=== PATIENT | male | born 1975 | race Caucasian/White ===

== ENCOUNTER 2017-04-20 19:55 | Emergency (ER) | payer SELFPAY ==
[2017-04-20 19:56] VITALS: BP 159/86; PULSE 85; RESP 20; TEMP 36.6; O2SAT 97; BMI 25.1
[2017-04-20 20:25] LABS: Basophils % 0.5 % (0.1-2.0); Eosinophils # 0.2 K/mm3 (0.0-0.4); Eosinophils % 3.3 % (0.1-12.0); Hematocrit 48.4 % (42.0-52.0); Hemoglobin 16.1 g/dL (14.1-18.0); Lymphocytes # 1.7 K/mm3 (0.7-4.5); Lymphocytes % 23.6 K/mm3 (10-50); Mean Corpuscular HGB Conc 33.3 g/dL (31.8-35.4); Mean Corpuscular Hemoglobin 29.3 pg (27.0-31.2); Mean Platelet Volume 9.3 fl (7.4-10.4); Monocytes # 0.4 K/mm3 (0.1-1.0); Monocytes % 5.9 % (1.7-9.3); Neutrophils # 4.9 K/mm3 (1.8-7.8); Neutrophils % 66.8 % (37.0-80.0); Platelet Count 144 K/mm3 (142-424); Red Blood Count 5.51 M/mm3 (4.60-6.20); White Blood Count 7.3 K/mm3 (4.8-10.8)
--- NOTE | 2017-04-20 20:28 | HMH.EDHA ---
ED Disposition Clinical Impression: Headache Qualifiers: Headache type: unspecified Headache chronicity pattern: acute headache Intractability: not intractable Qualified Code(s): R51 - Headache Disposition: Home, Self-Care Condition on Discharge: Good Instructions: DI for Headache Additional Instructions: call pcp for follow up Referrals: Mell Doe [Primary Care Provider] - - Critical Care Critical Care Time: No Attestation: On 04/20/17, the high probability of a clinically significant, sudden or life threatening deterioration of the following system(s) required my full and direct attention, intervention and personal management. The time I documented below is in addition to time spent performing reported procedures but includes the following listed in this critical care notation. Medical Decision Making - Medical Records Medical records reviewed: Yes: I reviewed the patient's medical records. Vital Signs: 04/20/17 19:56 Temperature 97.9 F Temperature Source Oral Pulse Rate [Right Radial] 85 Respiratory Rate 20 Blood Pressure [Right Arm] 159/86 Blood Pressure Mean [Right Arm] 110 Blood Pressure Position [Right Arm] Sitting 02 Sat by Pulse Oximetry 97 - Lab Data Lab results reviewed: Yes: I reviewed the patient's lab results. Lab Results 04/20/17 20:00: ESR 9 04/20/17 20:20: WBC 7.3, RBC 5.51, Hgb 16.1, Hct 48.4, MCV 88.0, MCH 29.3, MCHC 33.3, RDW 13.0, Plt Count 144, MPV 9.3, Neut % (Auto) 66.8, Lymph % (Auto) 23.6, Placer % (Auto) 5.9, Eos % (Auto) 3.3, Baso % (Auto) 0.5, Neut # (Auto) 4.9, Lymph # (Auto) 1.7, Placer # (Auto) 0.4, Eos # (Auto) 0.2, Baso # (Auto) 0.0 04/20/17 20:20: Sodium 139, Potassium 4.1, Chloride 104, Carbon Dioxide 29, Anion Gap 10.1, BUN 11, Creatinine 1.05, Estimated Creat Clear 106, Estimated GFR 77, Est GFR ( Amer) 94, Glucose 352 H, Calcium 8.7, Total Bilirubin 0.4, AST 8 L, ALT 26, Alkaline Phosphatase 99, Total Protein 6.5, Albumin 3.4, Globulin 3.1, Albumin/Globulin Ratio 1.1 Result diagrams: 04/20/17 20:20 04/20/17 20:20 Orders (Tests/Meds): ED MEDICATIONS Discontinued Medications Generic Name Dose Route Start Last Admin Trade Name Kaushik PRN Reason Stop Dose Admin Diphenhydramine HCl 50 mg 04/20/17 21:20 04/20/17 21:29 Benadryl 50mg/1ml Vial IV 04/20/17 21:21 50 mg ONCE ONE Administration Sodium Chloride 1,000 mls @ 999 mls/hr 04/20/17 20:15 04/20/17 20:18 Sod Chlor 0.9% 1000ml Bag IV 04/20/17 21:15 999 mls/hr .Q1H1M SAHIL Administration Ketorolac Tromethamine 30 mg 04/20/17 20:03 04/20/17 20:18 Toradol 30mg/Ml Vial IV 04/20/17 20:04 30 mg ONCE ONE Administration Ondansetron HCl 4 mg 04/20/17 20:03 04/20/17 20:18 Zofran 4mg/2ml Vial IV 04/20/17 20:04 4 mg ONCE ONE Administration Promethazine HCl 12.5 mg 04/20/17 21:21 04/20/17 21:29 Phenergan 25mg/Ml 1ml Vial IV 04/20/17 21:22 12.5 mg ONCE ONE Administration Sodium Chloride 25 ml 04/20/17 21:21 04/20/17 21:29 Sod Chlor 0.9% 25ml Bag IV 04/20/17 21:22 25 ml ONCE ONE Administration ORDERS Category Date Time Status CT head/brain wo con Routine Cat Scan 04/20/17 20:32 Taken - CT Data CT Scan: Head Time Received: 21:[address] Reviewed: Yes: I have viewed the radiologist's interpretation Preliminary Findings: Normal/NAD - Brian Inquiry Pt receiving controlled substance: No Headache HPI - General Chief Complaint: Headache Stated Complaint: Migraine Time Seen by Provider: 04/20/17 20:28 Mode of Arrival: Family Vehicle Source of Information: Patient, Spouse, Medical Record Limitations: No Limitations Description of Symptoms (Recalled from ER Triage Doc. by RN): C/O HEADACHE SINCE 1500 TODAY. PT STATES HE HAD A MIGRAINE ONCE BEFORE IN THE PAST. STATES HE TOOK 1000 MG TYLENOL WITH NO RELIEF. PT HAS HAD ONE EPISODE OF NAUSEA/VOMITING. - History of Present Illness HPI Narrative: lt sided joe with nausea with
--- NOTE | 2017-04-20 20:32 | CT_ITS ---
CT head/brain wo con HISTORY: Headache, pain, severe headache for 2 days. ORDERING PHYSICIAN: Stefan Villalobos MD PATIENT AGE: 41 years COMPARISON: None TECHNIQUE: Axial images obtained without contrast. Brain and bone windows reviewed. FINDINGS: No midline shift, mass effect, intracranial hemorrhage, hydrocephalus, or extra-axial fluid collection is evident. Artifact is present from patient's earrings. The calvarium has an unremarkable appearance. Small amount fluid is present in the right mastoid sinus. No sinus air-fluid levels.. IMPRESSION: 1. No acute intracranial findings. 2. Small right mastoid effusion.
[2017-04-20 20:46] LABS: Alanine Aminotransferase 26 U/L (12-78); Albumin Level 3.4 gm/dL (3.4-5.0); Albumin/Globulin Ratio 1.1 (1.1-1.8); Alkaline Phosphatase 99 U/L (46-116); Anion Gap 10.1 mEq/L (5-15); Aspartate Amino Transferase 8 U/L (15-37); Bilirubin,Total 0.4 mg/dL (0.2-1.0); Blood Urea Nitrogen 11 mg/dL (7-18); Calcium 8.7 mg/dL (8.5-10.1); Carbon Dioxide 29 mmol/L (21.0-32.0); Chloride 104 mmol/L (98-107); Creatinine Clearance Estimated 106 mL/min (0-300); Creatinine,Serum 1.05 mg/dL (0.70-1.30); Estimated Glomerular Filt Rate 77 ml/min (>60); GFR (African American) 94 ML/MIN (>60); Globulin 3.1 gm/dl (1.3-3.2); Glucose 352 mg/dL (74-106); Potassium 4.1 mmoL/L (3.5-5.1); Sodium 139 mmol/L (136-145); Total Protein,Serum 6.5 gm/dL (6.4-8.2)
[2017-04-20 21:32] LABS: Erythrocyte Sedimentation Rate 9 mm/hr (0-15)
[2017-04-20 22:11] VITALS: BP 145/80; PULSE 85; RESP 16; TEMP 36.7; O2SAT 98
== END 2017-04-20 22:33 | disposition home or self-care (01) ==
PROVIDERS: Emergency Provider Emergency Medicine; Family Provider Family Medicine Geriatric Medicine; PCP Family Medicine Geriatric Medicine
DX: R51 Headache (principal); E11.65 Type 2 diabetes mellitus with hyperglycemia; F17.210 Nicotine dependence, cigarettes, uncomplicated; Z79.84 Long term (current) use of oral hypoglycemic drugs
CPT/HCPCS: 70450; 80053; 85025; 85651; 96365; 96367; 96374; 96375; 99282; J0595; J2405

== ENCOUNTER → 2019-12-25 07:20 | Outpatient (CLI) | payer OTHER, MEDICAID, SELFPAY ==
[2019-12-25 10:33] LABS: Coronavirus 19 IgG Antibody Negative (Negative); Coronavirus 19 IgM Antibody Negative (Negative)
== END ==
PROVIDERS: Visit Provider Ophthalmology
DX: Z01.818 Encounter for other preprocedural examination (principal); Z98.41 Cataract extraction status, right eye
CPT/HCPCS: 36415; 86328

== ENCOUNTER 2019-12-26 08:39 | Day surgery (SDC) | payer OTHER, MEDICAID, SELFPAY ==
[2019-12-25 15:29] VITALS: BMI 25.1
[2019-12-26 09:08] VITALS: BP 155/91; PULSE 67; RESP 18; TEMP 36.2; O2SAT 97
[2019-12-26 09:25] LABS: POC Glucose,Bedside 221 (70-110)
[2019-12-26 10:30] VITALS: BP 153/87; PULSE 68; RESP 18; O2SAT 98
[2019-12-26 10:35] VITALS: BP 153/88; PULSE 69; RESP 18; O2SAT 97
[2019-12-26 10:40] VITALS: BP 167/87; PULSE 73; RESP 18; O2SAT 97
[2019-12-26 10:45] VITALS: BP 152/91; PULSE 73; RESP 18; O2SAT 97
[2019-12-26 10:47] VITALS: BP 160/87; PULSE 75; RESP 16; TEMP 36.3; O2SAT 98
== END 2019-12-26 10:53 | disposition home or self-care (01) ==
LOC: OR 08:40
PROVIDERS: PCP Nurse Practitioner Family; Visit Provider Ophthalmology
PROC: (CPT 66984; principal; 2019-12-26 11:00)
DX: H25.813 Combined forms of age-related cataract, bilateral (principal); E11.9 Type 2 diabetes mellitus without complications; Z79.84 Long term (current) use of oral hypoglycemic drugs; Z79.899 Other long term (current) drug therapy
CPT/HCPCS: 66984; 82962; V2632

== ENCOUNTER → 2020-01-08 07:00 | Outpatient (CLI) | payer OTHER, MEDICAID, SELFPAY ==
[2020-01-08 08:41] LABS: Coronavirus 19 IgG Antibody Negative (Negative); Coronavirus 19 IgM Antibody Negative (Negative)
== END ==
PROVIDERS: Visit Provider Ophthalmology
DX: Z01.818 Encounter for other preprocedural examination (principal); Z98.42 Cataract extraction status, left eye
CPT/HCPCS: 36415; 86328

== ENCOUNTER 2020-01-09 07:02 | Day surgery (SDC) | payer OTHER, MEDICAID, SELFPAY ==
[2020-01-04 13:55] VITALS: BMI 25.1
[2020-01-09] VITALS (8 sets, daily range): BP systolic 128–155; BP diastolic 78–89; PULSE 68–78; RESP 16–18; TEMP 36.4–36.6; O2SAT 98–100
[2020-01-09 07:40] LABS: POC Glucose,Bedside 295 (70-110)
== END 2020-01-09 09:20 | disposition home or self-care (01) ==
PROVIDERS: PCP Nurse Practitioner Family; Visit Provider Ophthalmology
PROC: (CPT 66984; principal; 2020-01-09 08:30)
DX: H26.9 Unspecified cataract (principal); E11.9 Type 2 diabetes mellitus without complications; Z79.84 Long term (current) use of oral hypoglycemic drugs; Z79.899 Other long term (current) drug therapy
CPT/HCPCS: 66984; 82962; V2632

== ENCOUNTER → 2020-08-15 11:57 | Outpatient (CLI) | payer OTHER, SELFPAY ==
[2020-08-15 12:23] LABS: Basophils # 0.1 K/mm3 (0-0.2); Basophils % 0.8 % (0.1-2.0); Eosinophils # 0.3 K/mm3 (0.0-0.4); Eosinophils % 3.5 % (0.1-12.0); Hematocrit 42.4 % (42.0-52.0); Hemoglobin 14.2 g/dL (14.1-18.0); Lymphocytes # 2.9 K/mm3 (0.7-4.5); Lymphocytes % 39.2 % (10-50); Mean Corpuscular HGB Conc 33.4 g/dL (31.8-35.4); Mean Corpuscular Hemoglobin 27.5 pg (27.0-31.2); Mean Corpuscular Volume 82.3 fl (80-94); Mean Platelet Volume 9.4 fl (7.4-10.4); Monocytes # 0.5 K/mm3 (0.1-1.0); Monocytes % 6.7 % (1.7-9.3); Neutrophils # 3.7 K/mm3 (1.8-7.8); Neutrophils % 49.8 % (37.0-80.0); Platelet Count 185 K/mm3 (142-424); Red Blood Count 5.15 M/mm3 (4.60-6.20); Red Cell Distribution Width 12.8 % (11.5-17.5); White Blood Count 7.4 K/mm3 (4.8-10.8)
[2020-08-15 13:42] LABS: Chloride 104 mmol/L (98-107)
[2020-08-15 13:43] LABS: Potassium 4.6 mmoL/L (3.5-5.1); Sodium 142 mmol/L (136-145)
[2020-08-15 13:45] LABS: Blood Urea Nitrogen 22 mg/dl (9-20); Estimated Glomerular Filt Rate 72 ml/min (>60)
[2020-08-15 13:46] LABS: Anion Gap 13.6 mEq/L (5-15); Calcium 9.7 mg/dl (8.4-10.2); Carbon Dioxide 29 mmol/L (22.0-30.0); GFR (African American) 87 ML/MIN (>60); Glucose 181 mg/dl (74-100)
== END ==
PROVIDERS: Visit Provider Internal Medicine Cardiovascular Disease
DX: Z01.812 Encounter for preprocedural laboratory examination (principal); Z11.52 Encounter for screening for COVID-19; R06.00 Dyspnea, unspecified; I20.0 Unstable angina; R00.2 Palpitations; I45.10 Unspecified right bundle-branch block; R94.31 Abnormal electrocardiogram [ECG] [EKG]; E11.69 Type 2 diabetes mellitus with other specified complication; Z87.891 Personal history of nicotine dependence; Z79.84 Long term (current) use of oral hypoglycemic drugs
CPT/HCPCS: 36415; 80048; 85025; U0003

== ENCOUNTER 2020-08-22 07:25 | Day surgery (SDC) | payer OTHER, SELFPAY ==
[2020-08-22] VITALS (13 sets, daily range): BP systolic 106–161; BP diastolic 55–109; PULSE 57–62; RESP 16–18; O2SAT 90–98; BMI 28.7
--- NOTE | 2020-08-22 07:04 | IR_ITS ---
APPROVED REPORT Patient Location: Outpatient [place] Lathe Operator: NICK Thapa RT (R) PROCEDURES Left heart catheterization Left ventriculogram Selective coronary angiogram INDICATION Accelerated angina pectoris Informed consent was obtained prior to the procedure. COMPLICATIONS NONE Estimated Blood Loss: LESS THAN 10 ML TECHNIQUE One percent lidocaine used to anesthetize the right anterior aspect of the wrist. The right radial artery was accessed via the Seldinger technique. A 6 Guamanian sheath was placed in the right radial artery. 2.5 mg of verapamil, 800 mcg of nitroglycerin, 1mg Lidocaine and 5000 U Heparin were given through the arterial sheath. The trap catheter was also used to perform left heart catheterization, left ventriculogram and selective coronary angiogram. At the end of the procedure the sheath was removed good hemostasis was achieved using Traclet band, patient was transferred to the postop holding area in stable condition. ANGIOGRAPHIC RESULTS The left main artery Has distal 30% stenosis The left anterior descending artery Proximal greater than 90% stenosis accompanied by ISAK II flow. The circumflex artery Gives rise to a ramus intermedius which has proximal 90% stenosis. The circumflex artery itself has a long proximal 90% stenosis The right coronary artery Is a dominant vessel and has proximal 90% stenoses with distal 50 and 60% stenosis The MCDANIEL ventriculogram reveals Dilated ventricle ejection fraction 30% The left ventricular end-diastolic pressure 25 mmHg IMPRESSION Severe to critical three-vessel coronary disease Dilated ventricle with reduced ejection fraction Elevated LVEDP PLAN 1. Patient requires urgent coronary bypass surgery 2. We will make arrangements to transfer to [facility] Electronically signed by : Jesu Aguilar, 08/22/2020 09:09:27
== END 2020-08-22 11:11 | disposition hospice, home (50) ==
PROVIDERS: PCP Nurse Practitioner Family; Visit Provider Internal Medicine
DX: I25.110 Atherosclerotic heart disease of native coronary artery with unstable angina pectoris (principal); E11.69 Type 2 diabetes mellitus with other specified complication; I45.10 Unspecified right bundle-branch block; R00.2 Palpitations; F17.210 Nicotine dependence, cigarettes, uncomplicated
CPT/HCPCS: 93458; 99152; C1725; C1769; J1644; Q9967

== ENCOUNTER → 2020-11-26 12:38 | Outpatient (CLI) | payer BC, SELFPAY ==
--- NOTE | 2020-11-26 12:39 | CA_ITS ---
APPROVED REPORT EXAM: Comprehensive 2D, Doppler, and color-flow Echocardiogram Stone Polisher: Yecenia Balderas, RCS, RVS Ht: 5 ft 11 in Wt: 206lbs BSA: 2.13 BP: 124/82 mmHg Indications: [id number] w/ Pacer, ABN EKG, RBBB, Hx-silent PR, Ex-smoker, DM 2D Dimensions IVSd 0.99 cm LVEF (Visual) 65.60 % PWd 0.94 cm LA Volume 55.20 mL LVDd 5.02 cm LA Volume Index 25.80 mL/m2 (M/F) 16-34 LVDs 3.20 cm Aortic Root 2.91 cm Left Atrium 4.30 cm RVID Base (AP4) 2.30 cm (M/F) 2.5-4.1 LVOT 2.12 cm (M/F) 1.5-2.5 M-Mode Dimensions LA Diam 3.12 cm (1.9-4.0) Ao Diam 3.59 cm (2.0-3.7) TAPSE 1.32 (<1.7) LV Diastology E Decel Time 320.00 (160-240 msec) E/A Ratio 1.91 MED E' 9.30 (< 7 cm/sec) MED A' 6.70 cm/s E'/MED E' Ratio 6.88 (>14) LAT E' 12.50 (<10 cm/sec) LAT A' 5.70 cm/s E/LAT E' Ratio 5.12 (>14) Aortic Valve LVOT Max 78.00 (70-110 cm/s) LVOT VTI 15.43 cm AoV Peak Martin. 119.00 (50-130 cm/s) AO Peak GR. 5.70 mmHg AO Mean GR. 2.80 (<5 mmHg) AO VTI 23.03 (18-25 cm) CATINA (VTI) 2.37 (2.5-4.5 cm2) Mitral Valve MV A Velocity 34.00 (40-130 cm/s) E/A Ratio 1.91 MV Decel. Time 320.00 (160-240 ms) Tricuspid Valve TR P. Velocity 219.00 cm/s Left Ventricle Technically difficult study because of the patient factors and poor requested windows. Left atrium is mildly enlarged, left ventricular is normal size, mild concentric left ventricular hypertrophy, visually estimated ejection fraction 55% with no regional wall motion abnormality, diastolic parameters are not impressive. There is abnormal septal motion. Right Ventricle Right atrium and right ventricle are normal size and contractility, there is a pacemaker lead seen in the right atrium and right ventricle. Aortic Valve Aortic valve is minimally thickened and fibrosed, there is no aortic stenosis or aortic insufficiency. Mitral Valve Mitral valve grossly normal, there is mild mitral regurgitation. Tricuspid Valve Tricuspid valve grossly normal, there is mild tricuspid regurgitation, tricuspid regurgitation jet plus is inadequate for calculation of the right ventricular systolic pressure. Pulmonic Valve Pulmonic valve is poorly visualized. Great Vessels Aortic root is normal size. Inferior vena cava is normal size with normal inspiratory collapse. Pericardium No significant pericardial effusion noted. Conclusion 1. Mildly enlarged left atrium, normal left ventricular size, mild concentric left ventricular hypertrophy, visually estimated ejection fraction 55% with no regional wall motion abnormality, diastolic parameters are inconclusive. There is abnormal septal motion. 2. Mild mitral and tricuspid regurgitation. 3. No significant pericardial effusion noted. 4. Inferior vena cava is normal size with normal inspiratory collapse. Electronically signed by : Jason Melgoza MD 11/26/2020 18:59:08
== END ==
PROVIDERS: PCP Nurse Practitioner Family; Visit Provider Nurse Practitioner Family
DX: I25.10 Atherosclerotic heart disease of native coronary artery without angina pectoris (principal); I45.10 Unspecified right bundle-branch block; R94.31 Abnormal electrocardiogram [ECG] [EKG]; E11.9 Type 2 diabetes mellitus without complications; Z79.4 Long term (current) use of insulin; Z87.891 Personal history of nicotine dependence; Z95.0 Presence of cardiac pacemaker; Z95.1 Presence of aortocoronary bypass graft; I10 Essential (primary) hypertension
CPT/HCPCS: 93306

== ENCOUNTER → 2021-05-29 08:10 | Outpatient (CLI) | payer BC, SELFPAY ==
--- NOTE | 2021-05-29 08:14 | CA_ITS ---
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, old IN 2D Dimensions LVOT 1.95 cm (M/F) 1.5-2.5 LA Volume 43.60 mL LA Volume Index 19.90 mL/m2 (M/F) 16-34 M-Mode Dimensions RVDd 2.78 cm (0.9-2.6) LA Diam 4.14 cm (1.9-4.0) LVDd 5.63 cm (3.5-5.7) Ao Diam 3.80 cm (2.0-3.7) LVDs 4.39 cm (3.5-5.7) IVSd 1.24 cm (0.6-1.1) PWd 0.80 cm (0.6-1.1) EF (Teich) 44.00% FS 22.00% EDV (Teich) 155.60 mL TAPSE 1.68 (<1.7) ESV (Teich) 87.20 mL LV Diastology E Decel Time 150.00 (160-240 msec) E/A Ratio 1.92 MED E' 7.10 (< 7 cm/sec) MED A' 6.70 cm/s E'/MED E' Ratio 12.83 (>14) LAT E' 9.10 (<10 cm/sec) LAT A' 6.70 cm/s E/LAT E' Ratio 10.01 (>14) Aortic Valve AO Peak GR. 6.70 mmHg Mitral Valve MV E Max Martin. 91.00 (40-130 cm/s) MV A Velocity 47.00 (40-130 cm/s) E/A Ratio 1.92 MV Decel. Time 150.00 (160-240 ms) MV PHT 44.00 ms Pulmonary Valve PV Peak Velocity 115.00 (50-150 cm/s) Tricuspid Valve TR P. Velocity 252.00 cm/s RAP Estimate 10.00 mmHg RVSP 35.40 mmHg Left Ventricle Technically difficult study because of the patient factors and poor acoustic windows. Left atrium is mildly enlarged, left ventricle is normal size, mild concentric left ventricular hypertrophy, estimated ejection fraction 55% with no obvious regional wall motion abnormality, endocardial surfaces are poorly visualized. Diastolic parameters are inconclusive. Right Ventricle Right atrium and right ventricle are normal size and contractility. Aortic Valve Aortic valve is minimally thickened and fibrosed there is no aortic stenosis or aortic insufficiency. Mitral Valve Mitral valve is grossly normal, there is trace mitral regurgitation. Tricuspid Valve Tricuspid valve grossly normal, there is trace tricuspid regurgitation, tricuspid regurgitation jet velocity is inadequate for calculation of the right ventricular systolic pressure. Pulmonic Valve Pulmonic valve is poorly visualized. Great Vessels Aortic root is normal size. Inferior vena cava is poorly visualized. Pericardium No significant pericardial effusion noted. Conclusion 1. Mildly dilated, normal left ventricular size, mild concentric left ventricle hypertrophy, estimated ejection fraction 55% with no obvious regional wall motion abnormality, diastolic parameters are inconclusive, endocardial surface is poorly visualized. 2. Trace mitral and tricuspid regurgitation. 3. No significant pericardial effusion. 4. Inferior vena cava is poorly visualized. Electronically signed by : Jason Melgoza MD 05/30/2021 14:25:40
--- NOTE | 2021-05-29 08:59 | XR_ITS ---
FINAL REPORT TECHNIQUE: Chest PA & Lateral CLINICAL HISTORY: chest soreness FINDINGS: 2 views of the chest were performed. There is mild cardiomegaly. There is a left subclavian pacemaker. There are multiple sternotomy wires. The mediastinum is within normal limits. There is no acute cardiopulmonary process. There are no pleural effusions. There is no pneumothorax. There is cervical fusion hardware. IMPRESSION: No acute cardiopulmonary process. Reviewed, Interpreted and Dictated by Pj Sewell MD Transcribed by Francis Herndon Authenticated by Pj Sewell MD on 05/29/2021 10:30:28 AM [facility]
== END ==
LOC: RT 08:14
PROVIDERS: PCP Nurse Practitioner Family; Visit Provider Nurse Practitioner Family
DX: R06.00 Dyspnea, unspecified (principal); I25.810 Atherosclerosis of coronary artery bypass graft(s) without angina pectoris; I10 Essential (primary) hypertension; E78.2 Mixed hyperlipidemia; R60.0 Localized edema; Z95.0 Presence of cardiac pacemaker; Z95.1 Presence of aortocoronary bypass graft
CPT/HCPCS: 71046; 93306

== ENCOUNTER → 2021-09-19 14:19 | Outpatient (CLI) | payer BC, SELFPAY ==
[2021-09-19 15:28] LABS: Anion Gap 6.1 mEq/L (5-15); Blood Urea Nitrogen 15 mg/dl (9-20); Calcium 8.9 mg/dl (8.4-10.2); Carbon Dioxide 30 mmol/L (22.0-30.0); Chloride 105 mmol/L (98-107); Estimated Glomerular Filt Rate 80 ml/min (>60); GFR (African American) 97 ML/MIN (>60); Glucose 255 mg/dl (74-100); Potassium 4.1 mmoL/L (3.5-5.1); Sodium 137 mmol/L (136-145)
== END ==
PROVIDERS: PCP Nurse Practitioner Family; Visit Provider Physician Assistant
DX: R06.00 Dyspnea, unspecified (principal); R42 Dizziness and giddiness; R00.2 Palpitations; I25.810 Atherosclerosis of coronary artery bypass graft(s) without angina pectoris; I10 Essential (primary) hypertension; E78.2 Mixed hyperlipidemia; R60.0 Localized edema; Z95.0 Presence of cardiac pacemaker; Z95.1 Presence of aortocoronary bypass graft
CPT/HCPCS: 36415; 80048

== ENCOUNTER → 2021-10-02 06:05 | Outpatient (CLI) | payer BC, SELFPAY ==
--- NOTE | 2021-10-02 | CA_ITS ---
APPROVED REPORT Exam: Pharmacologic Technologist: Parul Higgins, Ht: 5 ft 11 in Wt: 218 lbs BSA: 2.19 m2 HR: 68 bpm BP: 162/93 mmHg Rhythm: NSR,RBB, right axis deviation Medical History Medical History: HTN, Hyperlipidemia, Diabetes Medications: Aspirin,,,,, Metformin,,,,, HCTZ,,,,, Carvedilol,,,,, INSULIN,,,,, Acetaminophen,,,,, Aldactone,,,,, JaRDiance,,,,, AtorvaASTATIN,,,,, TAdalafil,,,,, Lisnopril,,,,, Cardiac Risk Factors: HTN, Hyperlipidemia, Diabetes (insulin) Stress Test Details Test: LEXISCAN HR Resting HR: 65 bpm Max Heart Rate (APMHR): 173.450131 bpm Max HR Achieved: 76 bpm Target HR (85% APMHR): 147.913978 bpm % of APMHR: 43.93 Recovery HR: 68 bpm BP Resting BP: 162/93 mmHg Max BP: 162/93 mmHg Recovery BP: 162.0/93.0 mmHg ECG Resting ECG: NSR, RBBB, right axis deviation Clinical Exercise duration: 04:02 min Highest Stage Achieved: Exercise capacity: 1.0 METs Stress ECG Conclusion During lexiscan pt experinced mild SOA, nausea, head discomfort. No CP noted. No arrhythmias noted. No significant ST changes. Unremarkable lexiscan stress. Myoview images reported separately. Electronically signed by : Jason Melgoza MD 10/03/2021 10:56:49
--- NOTE | 2021-10-02 06:14 | NM_ITS ---
APPROVED REPORT Exam: Nuclear Stress Test Indication: short of breath..palpitations..fatigue Patient Location: Outpatient Stress Tech: Parul Higgins NM Tech:Diana Rueda SONNYMily RT(R)(N) Ht: 5 ft 11 in Wt: 200 lbs HR: 65 bpm BP: 162/93 mmHg BSA: 2.11 m2 TID: 1.17 BMI: 27.8 History: short of breath..palpitations..fatigue Procedure: Patient received a 0.4 mg of intravenous Lexiscan, resting heart rate 65 bpm, resting blood pressure 162/93 mmHg, with Lexiscan maximum heart rate achived was 76 bpm which is Less than 85 % of the maximum predicted heart rate and blood pressure was 162/93 mmHg. With Lexiscan, patient denied any complaint of chest pain. Cardiac Stress and Resting SPECT Images: Cardiac Stress and Resting SPECT images were obtained using technetium 99m Myoview 31.8 mCi stress and 10.36 mCi at rest. Resting electrocardiogram showed sinus rhythm, with Lexiscan there is less than 1.[address] segment depression noted from the baseline EKG. The EKG portion of the Lexiscan is nondiagnostic. Gated SPECT analysis of segmental wall motion and calculation of the ejection fraction also done. Cardiac stress and rest SPECT may show uniform myocardial activity without segmental perfusion abnormality, computer derived ejection fraction is 44% with no regional wall motion abnormality, right ventricle is normal size and contractility. Conclusion: 1. The EKG portion of the Lexiscan is nondiagnostic. 2. No scintigraphic evidence of reversible ischemia seen, computer derived ejection fraction is 44% with no regional wall motion abnormality, right ventricle is normal size and contractility. 3. Abnormal Lexiscan Myoview study due to low ejection fraction. Electronically signed by : Jason Melgoza MD 10/03/2021 10:59:37
== END ==
LOC: RAD 06:06
PROVIDERS: PCP Nurse Practitioner Family; Visit Provider Nurse Practitioner Family
DX: R06.09 Other forms of dyspnea (principal); R00.2 Palpitations; R42 Dizziness and giddiness; I25.810 Atherosclerosis of coronary artery bypass graft(s) without angina pectoris; I10 Essential (primary) hypertension; E78.2 Mixed hyperlipidemia; R60.0 Localized edema; Z95.0 Presence of cardiac pacemaker; Z95.1 Presence of aortocoronary bypass graft
CPT/HCPCS: 78452; 93017; A9502; J2785

== ENCOUNTER 2021-10-31 07:14 | Day surgery (SDC) | payer BC, SELFPAY ==
[2021-10-31] VITALS (17 sets, daily range): BP systolic 104–148; BP diastolic 60–101; PULSE 61–75; RESP 12–18; TEMP 36.9; O2SAT 90–96; BMI 30.8
--- NOTE | 2021-10-31 | IR_ITS ---
APPROVED REPORT Patient Location: Outpatient [place] Carpet Weaver: NICK Reynolds RT (R) PROCEDURES Left heart catheterization Left ventriculogram Selective coronary angiogram Selective engagement of the left internal mammary artery to the LAD Selective engagement of the saphenous vein graft which larson to the first diagonal artery and the first obtuse marginal artery Selective engagement of saphenous vein graft to the right coronary INDICATION Coronary artery disease, Progressive angina pectoris, History of coronary bypass surgery, Abnormal stress test with reduced ejection fraction Informed consent was obtained prior to the procedure. COMPLICATIONS None Estimated Blood Loss: Less than 10 mls TECHNIQUE One percent lidocaine used to anesthetize the right groin. The right femoral artery was accessed via the Seldinger technique and a 5 Yi sheath was placed in the right femoral artery. A JL 4, JR4 catheter were used to perform left heart catheterization, left ventriculogram selective coronary angiography as well as selective engagement of the 2 vein grafts and the left internal mammary artery. At the end of the procedure the patient was transferred to the postop holding area in stable condition for sheath removal. ANGIOGRAPHIC RESULTS The left main artery Has a long tubular 20 to 30% stenosis The left anterior descending artery Ostially occluded The circumflex artery Is patent however no significantly sized obtuse marginal arteries branch off the circumflex artery The right coronary artery Is dominant and patent. There is competitive flow from the vein graft distally. The proximal right coronary artery has 30% stenosis with additional 70 to 80% mid vessel stenoses with distal 70 to 80% stenoses. The posterior descending artery is large and does have competitive flow from the vein graft right to left collaterals are present which appear to provide some filling of a small obtuse marginal artery The MCDANIEL ventriculogram reveals Normal estimated at 60% The left ventricular end-diastolic pressure 10 mmHg ZHANG to LAD is widely patent however at the anastomosis there is a hazy area in which angiographic evaluation is difficult. The ZHANG graft does provide antegrade flow to the LAD. There is significant vascularity in the proximal and mid LAD which then appears to communicate with a pulmonary artery Saphenous vein graft to the left system is patent in the proximal portion and then gives rise to a Y graft with 1 limb supplying a small diagonal artery and the other supplying a small obtuse marginal artery system. The branch supplying the diagonal artery has a long proximal 70% stenosis followed by an additional 50% stenosis however the 70% stenotic area within the vein graft perfectly matches the diameter of the diagonal artery it is supplying. 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 I am inclined to recommend medical management for the fistula. However I have asked Dr. Glass at [facility] to evaluate the films and provide an opinion as to further management 2.
[2021-10-31 07:22] LABS: Coronavirus 19, PCR Not Detected (NotDetected); Influenza A, PCR Not Detected (NotDetected); Influenza B, PCR Not Detected (NotDetected)
[2021-10-31 07:34] LABS: Basophils # 0.2 K/mm3 (0-0.2); Basophils % 1.9 % (0.1-2.0); Eosinophils # 0.3 K/mm3 (0.0-0.4); Eosinophils % 3.2 % (0.1-12.0); Hematocrit 47.9 % (42.0-52.0); Hemoglobin 15.7 g/dL (14.1-18.0); Lymphocytes # 3.2 K/mm3 (0.7-4.5); Mean Corpuscular HGB Conc 32.8 g/dL (31.8-35.4); Mean Corpuscular Hemoglobin 27.8 pg (27.0-31.2); Mean Corpuscular Volume 84.8 fl (80-94); Mean Platelet Volume 10.3 fl (7.4-10.4); Monocytes # 0.5 K/mm3 (0.1-1.0); Neutrophils # 4.3 K/mm3 (1.8-7.8); Neutrophils % 50.9 % (37.0-80.0); Platelet Count 184 K/mm3 (142-424); Red Blood Count 5.65 M/mm3 (4.60-6.20); Red Cell Distribution Width 13.7 % (11.5-17.5); White Blood Count 8.4 K/mm3 (4.8-10.8)
[2021-10-31 08:19] LABS: Anion Gap 12.2 mEq/L (5-15); Blood Urea Nitrogen 17 mg/dl (9-20); Calcium 9.1 mg/dl (8.4-10.2); Carbon Dioxide 33 mmol/L (22.0-30.0); Chloride 100 mmol/L (98-107); Creatinine Clearance Estimated 118 mL/min (50-200); Estimated Glomerular Filt Rate 72 ml/min (>60); GFR (African American) 87 ML/MIN (>60); Glucose 137 mg/dl (74-100); Potassium 3.2 mmoL/L (3.5-5.1); Sodium 142 mmol/L (136-145)
== END 2021-10-31 13:35 | disposition home or self-care (01) ==
PROVIDERS: Physician Assistant; PCP Nurse Practitioner Family; Visit Provider Internal Medicine
DX: I25.118 Atherosclerotic heart disease of native coronary artery with other forms of angina pectoris (principal); E78.5 Hyperlipidemia, unspecified; Z95.0 Presence of cardiac pacemaker; Z95.1 Presence of aortocoronary bypass graft; R94.30 Abnormal result of cardiovascular function study, unspecified; I10 Essential (primary) hypertension; E11.9 Type 2 diabetes mellitus without complications; Z79.4 Long term (current) use of insulin; Z79.01 Long term (current) use of anticoagulants; Z79.899 Other long term (current) drug therapy; Z87.891 Personal history of nicotine dependence
CPT/HCPCS: 36415; 80048; 85025; 93459; 99152; C1725; C1769; C1894; C9803; J1644; Q9967; U0003; U0005

== ENCOUNTER → 2022-01-30 09:48 | Outpatient (CLI) | payer OTHER, SELFPAY ==
--- NOTE | 2022-01-30 09:54 | IR_ITS ---
FINAL REPORT CLINICAL HISTORY: LT SHOULDER PAIN, ft 0:38 FINDINGS: LEFT SHOULDER INJECTION FOR CT ARTHROGRAM HISTORY:. Left shoulder pain. PROCEDURE: After informed consent was obtained, a time-out was performed. Utilizing local anesthesia and sterile technique, with direct fluoroscopic guidance, access to the joint was obtained . A small amount of contrast was injected to confirm needle tip location. Additional dilute contrast was injected. IMPRESSION: Status post injection for CT arthrogram without immediate complication. Please see CT report. FLUOROSCOPY TIME: 38 seconds. 4 radiographs were obtained. Films reviewed , interpreted and dictated by Dr. Lomeli. Transcribed by Walter Dee PA-C. Reviewed, Interpreted and Dictated by Ghulam Lomeli III, MD Transcribed by ELIZABETH Salazar Authenticated and [facility]
--- NOTE | 2022-01-30 09:56 | CT_ITS ---
FINAL REPORT TECHNIQUE: Axial imaging of the left shoulder was obtained. This study was performed with techniques to keep radiation doses as low as reasonably achievable (ALARA). Individualized dose reduction techniques using automated exposure control or adjustment of mA and/or kV according to the patient's size were employed. CLINICAL HISTORY: LT SHOULDER PAIN, arthrogram FINDINGS: There is no evidence of rotator cuff tear. There is mild AC joint arthrosis. No contrast leak is seen to the bursa. There is a focal area of contrast extending to the superior labrum seen on axial image 36 and coronal image 37 consistent with focal, SLAP tear. Long head of the biceps tendon is unremarkable. There is no acute bony abnormality. IMPRESSION: No evidence of rotator cuff tear. Focal SLAP tear of the superior labrum. Reviewed, Interpreted and Dictated by Ghulam Lomeli III, MD Transcribed by Jenni Washington Authenticated and [facility]
== END ==
PROVIDERS: PCP Nurse Practitioner Family; Visit Provider Orthopaedic Surgery Adult Reconstructive Orthopaedic Surgery
DX: M25.512 Pain in left shoulder (principal)
CPT/HCPCS: 73040; 73200; Q9967

== ENCOUNTER 2022-03-24 16:00 | Outpatient (RCR) | payer OTHER, SELFPAY | END 2022-03-24 16:05 | disposition home or self-care (01) | LOC: PT 16:00 | PROVIDERS: PCP Internal Medicine | DX: S46.912A Strain of unspecified muscle, fascia and tendon at shoulder and upper arm level, left arm, initial encounter (principal) | CPT/HCPCS: 97033; 97035; 97110; 97163; 97164 ==

== ENCOUNTER 2022-05-13 11:00 | Outpatient (RCR) | payer OTHER, SELFPAY | END 2022-05-13 11:05 | disposition home or self-care (01) | LOC: PT 11:00 | PROVIDERS: Visit Provider Orthopaedic Surgery Adult Reconstructive Orthopaedic Surgery | DX: M25.512 Pain in left shoulder (principal); Z96.612 Presence of left artificial shoulder joint | CPT/HCPCS: 97016; 97110; 97140; 97163 ==

== ENCOUNTER 2022-05-28 09:19 | Inpatient (IN) | payer BC, SELFPAY ==
[2022-05-28] VITALS (8 sets, daily range): BP systolic 126–153; BP diastolic 68–78; PULSE 63–80; RESP 16–18; TEMP 36.6–37.1; O2SAT 95–98; BMI 31.4; BMI 29.7
--- NOTE | 2022-05-28 09:44 | HMH.EDGENADL ---
Discharge Plan Disposition Patient Disposition: Admitted As Inpatient Condition: Fair Chief Complaint: Fever Prescriptions Prescriptions: No Action acetaminophen 500 mg capsule 500 mg PO Q6H PRN (Reason: .) insulin lispro protamin-lispro [Humalog Mix 75-25 KwikPen] 100 unit/mL (75-25) insulin pen 12 unit SQ DAILY lisinopril 5 mg tablet 5 mg PO DAILY Januvia 100 mg tablet 100 mg PO DAILY tadalafil 5 mg tablet 5 mg PO DAILY PRN (Reason: .) Label Comments: TAKE 1 TABLET BY MOUTH NEEDED 1 HOUR PRIOR TO SEXUAL INTERCOURSE ONCE A DAY Jardiance 10 mg tablet See Rx Instructions .ROUTE .COMPLEX Qty: 90 3RF Dose Instruction: Take 1 tablet by mouth once daily Rx Instructions: Take 1 tablet by mouth once daily carvedilol [Coreg] 6.25 mg tablet 6.25 mg PO BID Qty: 180 3RF Rx Instructions: must administer with a meal/food atorvastatin 80 mg tablet 80 mg PO HS clopidogrel [Plavix] 75 mg tablet 75 mg PO QDAY hydrochlorothiazide 25 mg tablet 25 mg PO QDAY aspirin 81 MG tablet,delayed release (DR/EC) 81 mg PO DAILY Referrals Follow up/Referrals: Beth Lawson APRN [Primary Care Provider] - See instructions Clinical Impressions Clinical Impression: Acute appendicitis with rupture, Intra-abdominal abscess Discharge ED Provider: Yoshi Miles General Adult HPI General Chief complaint: Fever Stated complaint: fever since last Wednesday on and off Time Seen by Provider: 05/28/22 09:28 Mode of Arrival: Ambulatory Source of Information: Patient and Parent(s) Limitations: No Limitations Description of Symptoms (Recalled from ER Triage Doc. by RN): Presents via POV d/t intermittent fever since Wednesday. Pt states fever onsets at night. Denies any other sx. MTemp 101.4. 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 Patient states that fevers been pretty persistent over the past 2 weeks. Has had nearly daily fever. Denies any other symptoms at all at this time. Has not noticed anything that helps the fever, but notices that they are primarily at night. Denies history of foreign travel, incarceration, public living, DVT or PE risk factors, recent weight loss, decreased appetite, or any other concerns at this time. Related Data Home Medications Medication Instructions Recorded Confirmed aspirin 81 mg tablet,delayed 81 mg PO DAILY Heart disease 08/22/20 03/24/22 release acetaminophen 500 mg capsule 500 mg PO Q6H PRN . 10/07/20 03/24/22 insulin lispro protamine-lispro 12 unit SQ DAILY . 10/07/20 03/24/22 100 unit/mL (75-25) subcutaneous pen (Humalog Mix 75-25 KwikPen) tadalafil 5 mg tablet 5 mg PO DAILY PRN . 05/22/21 03/24/22 atorvastatin 80 mg tablet 80 mg PO HS . 10/31/21 03/24/22 clopidogrel 75 mg tablet (Plavix) 75 mg PO QDAY . 10/31/21 03/24/22 hydrochlorothiazide 25 mg tablet 25 mg PO QDAY . 10/31/21 03/24/22 lisinopril 5 mg tablet 5 mg PO DAILY 03/24/22 03/24/22 sitagliptin phosphate 100 mg 100 mg PO DAILY 03/24/22 03/24/22 tablet (Januvia) Previous Rx's Medication Instructions Recorded empagliflozin 10 mg tablet See Rx Instructions .Route 12/22/21 (Jardiance) .COMPLEX #90 tabs carvedilol 6.25 mg tablet (Coreg) 6.25 mg PO BID . #180 tabs 04/14/22 Allergies Allergy/AdvReac Type Severity Reaction Status Date / Time hydrochlorothiazide AdvReac Intermediate DIARRHEA Verified 03/24/22 11:27 [facility] Disclaimer: The information contained in this section may have been updated after the patient was seen, as this information can be updated by other users. Medical History (Updated 05/28/22 @ 14:32 by Yoshi Miles MD) Abnormal EKG Abnormal result of cardiovascular function study CAD (coronary artery disease) Mary
--- NOTE | 2022-05-28 09:48 | XR_ITS ---
FINAL REPORT CLINICAL HISTORY: persistent fever [id number], COMPARISON: 05/29/2021 FINDINGS: Two views of the chest were obtained. Left subclavian pacemaker is noted. The heart size and pulmonary vascularity are within normal limits. There is evidence of prior median sternotomy. No acute pulmonary abnormality is identified. There is no pneumothorax. The bony thorax is intact. There are postoperative changes in lower cervical spine. IMPRESSION: No active cardiopulmonary disease. Reviewed, Interpreted and Dictated by Ghulam Lomeli III, MD Transcribed by Mandie Hernandez Authenticated and [facility]
--- NOTE | 2022-05-28 09:57 | PC.NURSE ---
pt ambulatory back from radiology
[2022-05-28 10:07] LABS: Basophils % 0.2 % (0.1-2.0); Eosinophils # 0.1 K/mm3 (0.0-0.4); Eosinophils % 0.6 % (0.1-12.0); Hematocrit 39.7 % (42.0-52.0); Hemoglobin 13.2 g/dL (14.1-18.0); Lymphocytes # 1.4 K/mm3 (0.7-4.5); Lymphocytes % 7.9 % (10-50); Mean Corpuscular HGB Conc 33.2 g/dL (31.8-35.4); Mean Corpuscular Hemoglobin 27.8 pg (27.0-31.2); Mean Corpuscular Volume 83.5 fl (80-94); Mean Platelet Volume 8.9 fl (7.4-10.4); Monocytes # 0.8 K/mm3 (0.1-1.0); Monocytes % 4.5 % (1.7-9.3); Neutrophils # 15.1 K/mm3 (1.8-7.8); Neutrophils % 86.7 % (37.0-80.0); Platelet Count 248 K/mm3 (142-424); Red Blood Count 4.76 M/mm3 (4.60-6.20); Red Cell Distribution Width 13.8 % (11.5-17.5); White Blood Count 17.4 K/mm3 (4.8-10.8)
[2022-05-28 10:12] LABS: Alanine Aminotransferase 38 U/L (12-78); Albumin Level 3.2 g/dl (3.5-5.0); Alkaline Phosphatase 152 U/L (38-126); Anion Gap 8.7 mEq/L (5-15); Aspartate Amino Transferase 48 U/L (17-59); Bilirubin,Total 1.2 mg/dl (0.2-1.3); Blood Urea Nitrogen 17 mg/dl (9-20); Calcium 7.7 mg/dl (8.4-10.2); Carbon Dioxide 28 mmol/L (22.0-30.0); Chloride 99 mmol/L (98-107); Creatinine Clearance Estimated 93 mL/min (50-200); Estimated Glomerular Filt Rate 54 ml/min (>60); GFR (African American) 65 ML/MIN (>60); Globulin 3.2 g/dL (1.3-3.2); Glucose 226 mg/dl (74-100); Lactate Dehydrogenase 219 U/L (313-618); MANUAL DIFFERENTIAL MANUAL DIFFERENTIAL (MANUAL DIFF); Potassium 3.7 mmoL/L (3.5-5.1); Sodium 132 mmol/L (136-145); Total Protein,Serum 6.4 g/dl (6.3-8.2); Uric Acid 6.2 mg/dl (3.5-8.5)
--- NOTE | 2022-05-28 10:19 | PC.NURSE ---
Pt updated on plan of care. Fluids initiated. Oral fluids provided; pt tolerating well. Family at bedside.
[2022-05-28 10:20] LABS: Microscopic, Urine URINE MICROSCOPIC (MICROSCOPIC)
[2022-05-28 10:22] LABS: Appearance,Urine CLEAR (Clear); Bilirubin,Urine Negative (Negative); Blood, Urine 1+ (Negative); Color,Urine YELLOW (Yellow); Glucose,Urine (UA) 3+ (Negative); Ketones,Urine Negative (Negative); Leukocyte Esterase,Urine Negative (Negative); Nitrate,Urine Negative (Negative); Protein,Urine 2+ (Negative); Urobilinogen,Urine 0.2 EU/dl (0.2)
[2022-05-28 10:24] LABS: Lymphocytes % 10 % (10-50); Monocytes % 8 % (2-9); Neutrophils % 82 % (42-76); Platelet Estimate Normal; RBC Morphology Normal; Total Cells Counted 100
[2022-05-28 10:33] LABS: Amphetamine/Metha Screen,Urine Negative ng/ml (<1000)
[2022-05-28 10:34] LABS: Barbiturates Screen,Urine Negative ng/ml (<200); Benzodiazepines Screen,Urine Negative ng/ml (<200)
[2022-05-28 10:35] LABS: Cannabinoid Screen,Urine Negative ng/ml (<50)
[2022-05-28 10:36] LABS: Cocaine Screen,Urine Negative ng/ml (<300)
[2022-05-28 10:37] LABS: Methadone Screen,Urine Negative ng/ml (<300); Opiate Screen,Urine Negative ng/ml (<300)
[2022-05-28 10:38] LABS: Phencyclidine Screen,Urine Negative ng/ml (<25)
[2022-05-28 10:45] LABS: Thyroid Stimulating Hormone 3.55 uIU/mL (0.465-4.68)
[2022-05-28 10:46] LABS: Coronavirus 19, PCR Not Detected (NotDetected); Influenza A, PCR Not Detected (NotDetected); Influenza B, PCR Not Detected (NotDetected)
[2022-05-28 10:47] LABS: Squamous Epithelial Cell,Urine Occasional #/hpf (0-5)
--- NOTE | 2022-05-28 11:00 | CT_ITS ---
FINAL REPORT CLINICAL HISTORY: fever, elevated dimer FINDINGS: Thin section axial CT images of the chest were obtained with contrast. 3D reformatted images were also obtained. This study was performed with techniques to keep radiation doses as low as reasonably achievable (ALARA). Individualized dose reduction techniques using automated exposure control or adjustment of mA and/or kV according to the patient's size were employed. There is no evidence of pulmonary embolism. There is no evidence of thoracic aortic aneurysm or dissection. There is no evidence of mediastinal or hilar mass or adenopathy. The patient is status post median sternotomy. Left subclavian pacer is identified. There are mild bilateral pulmonary ground-glass opacities, favor edema. Limited images of the upper abdomen show the patient to be status post cholecystectomy. IMPRESSION: No evidence of pulmonary embolism. Bilateral pulmonary ground-glass opacities, favor edema. Reviewed, Interpreted and Dictated by Ghulam Lomeli III, MD Transcribed by Bri Whitley Authenticated and [facility]
--- NOTE | 2022-05-28 11:00 | CT_ITS ---
FINAL REPORT TECHNIQUE: Axial CT images of the abdomen and pelvis were obtained after the administration of IV contrast. Coronal reformatted images were also obtained and reviewed.This study was performed with techniques to keep radiation doses as low as reasonably achievable (ALARA). Individualized dose reduction techniques using automated exposure control or adjustment of mA and/or kV according to the patient's size were employed. CLINICAL HISTORY: fever COMPARISON: None FINDINGS: CT OF THE ABDOMEN AND PELVIS WITH CONTRAST Abdomen: There is mild atelectasis or scar in the lingula. The heart is normal in size. The liver has an unremarkable appearance, without evidence of mass or biliary ductal dilatation. Post cholecystectomy. The spleen is unremarkable. No adrenal mass is present. The pancreas has an unremarkable appearance. The kidneys are normal, without evidence of mass or hydronephrosis. The aorta is normal in caliber. Pelvis: There is an air and fluid collection in the right abdomen posterior to the cecum measuring 6 cm. Distended appendix appears to extend into this. There are adjacent inflammatory changes. The appearance is most worrisome for ruptured appendicitis with abscess versus less likely other inflammatory process with abscess. The urinary bladder is unremarkable.There are several enlarged right lower quadrant mesenteric nodes which may be reactive. IMPRESSION: Findings most worrisome for ruptured appendicitis with abscess. Reviewed, Interpreted and Dictated by Ghulam Lomeli III, MD Transcribed by Mandie Hernandez Authenticated and [facility]
--- NOTE | 2022-05-28 11:07 | PC.NURSE ---
No complaints at this time. Pt updated on plan of care.
--- NOTE | 2022-05-28 11:54 | PC.NURSE ---
Pt updated on plan of care. Awaiting CT results. No further complaints at this time.
--- NOTE | 2022-05-28 13:42 | PC.NURSE ---
paging surgeon regasification plant operator to speak with nando finney
--- NOTE | 2022-05-28 14:33 | PC.NURSE ---
Food offered, however patient declined. Oral fluids provided. Pt/family updated on plan of care.
--- NOTE | 2022-05-28 14:50 | PC.NURSE ---
rounded on pt, family at bs
--- NOTE | 2022-05-28 14:52 | PC.NURSE ---
consulting with Dr. Aguilar, hospitalist.
--- NOTE | 2022-05-28 14:56 | PC.NURSE ---
Care Management notified of admission. Dx Ruptured appendicitis with abscess, admitting Dr. Aguilar.
--- NOTE | 2022-05-28 15:11 | EXP.SURG.CON ---
History of Present Illness *Admission Date: 05/28/22 *Reason for visit:: Abdominal abscess, possible perforated appendicitis *History of present illness: Patient is a 47-year-old male with history of coronary artery disease, previous myocardial infarction, cardiac pacemaker, previous CABG x4, diabetes mellitus with sequelae requiring bilateral cataract surgery several years ago, on dual antiplatelet therapy. He presented to the emergency department with approximately 2 weeks of intermittent, mostly nocturnal, fevers with no other associated symptoms. Work-up in the emergency department revealed a mild leukocytosis of 17,000. He underwent extremely thorough work-up for these fevers of unknown origin. This included CT scan of the abdomen and pelvis which revealed findings worrisome for possible ruptured appendicitis with abscess characterized by air-fluid collection in the right abdomen posterior to the cecum measuring 6 cm with distended appendix extending into this abscess with diffuse adjacent inflammatory changes. By report this is most consistent with perforated appendicitis with established abscess less likely other inflammatory process. Patient denies ever having any abdominal pain or tenderness. He has never had prior colonoscopy by the way. [facility] Disclaimer: The information contained in this section may have been updated after the patient was seen, as this information can be updated by other users. 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 Meds Home Medications and Allergies Home Medications Medication Instructions Recorded Confirmed Type aspirin 81 mg tablet,delayed 81 mg PO DAILY Heart disease 08/22/20 05/28/22 History release acetaminophen 500 mg capsule 500 mg PO Q6HP PRN Mild Pain 10/07/20 05/28/22 History (Scale Score 1-4) insulin lispro protamine-lispro 20 unit SQ BID Diabetes 10/07/20 05/28/22 History 100 unit/mL (75-25) subcutaneous pen (Humalog Mix 75-25 KwikPen) atorvastatin 80 mg tablet 80 mg PO HS Cholesterol 10/31/21 05/28/22 History clopidogrel 75 mg tablet (Plavix) 75 mg PO QDAY . 10/31/21 03/24/22 History hydrochlorothiazide 25 mg tablet 25 mg PO QDAY . 10/31/21 03/24/22 History lisinopril 5 mg tablet 5 mg PO DAILY Hypertension 03/24/22 05/28/22 History sitagliptin phosphate 100 mg 100 mg PO DAILY Diabetes 03/24/22 05/28/22 History tablet (Januvia) carvedilol 6.25 mg tablet (Coreg) 6.25 mg PO BID Hypertension 05/28/22 05/28/22 History empagliflozin 10 mg tablet 10 mg PO DAILY Heart failure 05/28/22 05/28/22 History (Jardiance) tadalafil 20 mg tablet 20 mg PO DAILYP PRN Erectile 05/28/22 05/28/22 History Dysfunction New Prescriptions to Start Prescriptions: Allergies Allergy/AdvReac Type Severity Reaction Status Date / Time hydrochlorothiazide AdvReac Intermediate DIARRHEA Verified 03/24/22 11:27 Exam (Inpt) Vital signs and Labs for Last 24 Hours: Temp Pulse Resp BP Pulse Ox 97.8 F 70 18 135/78 97 05/28/22 09:28 05/28/22 15:00 05/28/22 09:28 05/28/22 15:00 05/28/22 15:00 Laboratory Results - last 24 hr 05/28/22 09:40: WBC 17.4 H, RBC 4.76, Hgb 13.2 L, Hct 39.7 L, MCV 83.5, MCH 27.8, MCHC 33.2, RDW 13.8, Plt Count 248, MPV 8.9, Neut % (Auto) 86.7 H,
--- NOTE | 2022-05-28 15:16 | PC.NURSE ---
Report provided to JAMEE Renee
--- NOTE | 2022-05-28 15:45 | PC.NURSE ---
Dr Aguilar, hospitalist at
--- NOTE | 2022-05-28 15:47 | EXP.HP ---
History of Present Illness *Admission Date: 05/28/22 *History of present illness: Patient is a 47-year-old male with history of coronary artery disease, previous myocardial infarction, cardiac pacemaker, previous CABG x4, diabetes mellitus with sequelae requiring bilateral cataract surgery several years ago, on dual antiplatelet therapy. He presented to the emergency department with approximately 2 weeks of intermittent, mostly nocturnal, fevers with no other associated symptoms. Work-up in the emergency department revealed a mild leukocytosis of 17,000. He underwent extremely thorough work-up for these fevers of unknown origin. This included CT scan of the abdomen and pelvis which revealed findings worrisome for possible ruptured appendicitis with abscess characterized by air-fluid collection in the right abdomen posterior to the cecum measuring 6 cm with distended appendix extending into this abscess with diffuse adjacent inflammatory changes. By report this is most consistent with perforated appendicitis with established abscess less likely other inflammatory process. Patient currently has no complaints. Discussed medical management of appendicitis versus surgical management. We will continue to monitor and see how he does. Patient had no concerns or complaints at this time all questions answered. [facility] Disclaimer: The information contained in this section may have been updated after the patient was seen, as this information can be updated by other users. 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 Review of Systems Review of Systems Review of systems:: pertinent systems reviewed and negative unless documented below Meds Home Medications and Allergies Home Medications Medication Instructions Recorded Confirmed Type aspirin 81 mg tablet,delayed 81 mg PO DAILY Heart disease 08/22/20 05/28/22 History release acetaminophen 500 mg capsule 500 mg PO Q6HP PRN Mild Pain 10/07/20 05/28/22 History (Scale Score 1-4) insulin lispro protamine-lispro 20 unit SQ BID Diabetes 10/07/20 05/28/22 History 100 unit/mL (75-25) subcutaneous pen (Humalog Mix 75-25 KwikPen) atorvastatin 80 mg tablet 80 mg PO HS Cholesterol 10/31/21 05/28/22 History clopidogrel 75 mg tablet (Plavix) 75 mg PO QDAY . 10/31/21 03/24/22 History hydrochlorothiazide 25 mg tablet 25 mg PO QDAY . 10/31/21 03/24/22 History lisinopril 5 mg tablet 5 mg PO DAILY Hypertension 03/24/22 05/28/22 History sitagliptin phosphate 100 mg 100 mg PO DAILY Diabetes 03/24/22 05/28/22 History tablet (Januvia) carvedilol 6.25 mg tablet (Coreg) 6.25 mg PO BID Hypertension 05/28/22 05/28/22 History empagliflozin 10 mg tablet 10 mg PO DAILY Heart failure 05/28/22 05/28/22 History (Jardiance) tadalafil 20 mg tablet 20 mg PO DAILYP PRN Erectile 05/28/22 05/28/22 History Dysfunction New Prescriptions to Start Prescriptions: Allergies Allergy/AdvReac Type Severity Reaction Status Date / Time hydrochlorothiazide AdvReac Intermediate DIARRHEA Verified 03/24/22 11:27 Exam Data for Last 24 hours Vital signs and Labs for Last 24 Hours: Temp Pulse Resp BP Pulse Ox 97.8 F 70 18 135/78 97 05/28/22 09:28 05/28/22 15:00 05/28/22 09:28 05/28/22 15:00 04
--- NOTE | 2022-05-28 15:50 | PC.NURSE ---
Dr. Aguilar at bedside.
--- NOTE | 2022-05-28 16:02 | PC.NURSE ---
Pt arrived to the floor at this time
--- NOTE | 2022-05-28 16:18 | HMH.PHAINT1 ---
Pharmacy Intervention Comments: Reconciled patient's home medications using pharmacy fill history and patient interview.
[2022-05-28 17:26] LABS: POC Glucose,Bedside 130 (70-110)
[2022-05-28 21:08] LABS: POC Glucose,Bedside 146 (70-110)
[2022-05-29] VITALS (7 sets, daily range): BP systolic 121–152; BP diastolic 59–75; PULSE 67–82; RESP 16–20; TEMP 36.7–38.4; O2SAT 94–97; BMI 30.4
--- NOTE | 2022-05-29 03:54 | PC.NURSE ---
PATIENT DENIES PAIN OR DISCOMFORT. ABDOMEN SOFT, NON TENDER, WITH NORMOACTIVE BOWEL SOUNDS X 4. AMBULATORY AND NDEPENDENT TO THE REST ROOM. RECEIVING IVAB.
[2022-05-29 05:15] LABS: POC Glucose,Bedside 108 (70-110)
[2022-05-29 06:35] LABS: Basophils % 0.1 % (0.1-2.0); Eosinophils # 0.1 K/mm3 (0.0-0.4); Eosinophils % 0.5 % (0.1-12.0); Hematocrit 35.6 % (42.0-52.0); Lymphocytes # 1.3 K/mm3 (0.7-4.5); Mean Corpuscular HGB Conc 32.6 g/dL (31.8-35.4); Mean Corpuscular Hemoglobin 26.9 pg (27.0-31.2); Mean Corpuscular Volume 82.5 fl (80-94); Monocytes # 0.9 K/mm3 (0.1-1.0); Monocytes % 5.7 % (1.7-9.3); Neutrophils % 85.6 % (37.0-80.0); Platelet Count 240 K/mm3 (142-424); Red Blood Count 4.32 M/mm3 (4.60-6.20); Red Cell Distribution Width 13.9 % (11.5-17.5); White Blood Count 16.4 K/mm3 (4.8-10.8)
--- NOTE | 2022-05-29 06:37 | EXP.SURG.PN ---
Subjective Narrative: Patient resting comfortably. Exam Data for Last 24 hours Vital signs and Labs for Last 24 Hours: Temp Pulse Resp BP Pulse Ox 98.1 F 68 16 121/68 94 L 05/29/22 04:00 05/29/22 04:00 05/29/22 04:00 05/29/22 04:00 05/29/22 04:00 Laboratory Results - last 24 hr 05/28/22 09:40: WBC 17.4 H, RBC 4.76, Hgb 13.2 L, Hct 39.7 L, MCV 83.5, MCH 27.8, MCHC 33.2, RDW 13.8, Plt Count 248, MPV 8.9, Neut % (Auto) 86.7 H, Lymph % (Auto) 7.9 L, [place] % (Auto) 4.5, Eos % (Auto) 0.6, Baso % (Auto) 0.2, Neut # (Auto) 15.1 H, Lymph # (Auto) 1.4, [place] # (Auto) 0.8, Eos # (Auto) 0.1, Baso # (Auto) 0.0, Total Counted 100, Neutrophils % (Manual) 82 H, Lymphocytes % (Manual) 10, Monocytes % (Manual) 8, Platelet Estimate Normal, RBC Morphology Normal 05/28/22 09:40: Sodium 132 L, Potassium 3.7, Chloride 99, Carbon Dioxide 28, Anion Gap 8.7, BUN 17, Creatinine 1.40 H, Estimated Creat Clear 93, Estimated GFR 54 L, Est GFR ( Amer) 65, Glucose 226 H, Uric Acid 6.2, Calcium 7.7 L, Total Bilirubin 1.2, AST 48, ALT 38, Alkaline Phosphatase 152 H, Lactate Dehydrogenase 219 L, Total Protein 6.4, Albumin 3.2 L, Globulin 3.2, Albumin/Globulin Ratio 1.0 L, TSH 3.55, Thyroxine (T4) 7.0 05/28/22 09:40: D-Dimer 3.50 H 05/28/22 09:50: Urine Color Yellow, Urine Appearance Clear, Urine pH 6.0, Ur Specific [place] 1.010, Urine Protein 2+, Urine Glucose (UA) 3+, Urine Ketones Negative, Urine Blood 1+, Urine Nitrate Negative, Urine Bilirubin Negative, Urine Urobilinogen 0.2, Ur Leukocyte Esterase Negative, Urine RBC 5-10, Urine WBC 3-5, Ur Squamous Epith Cells Occasional, Urine Bacteria None 05/28/22 09:50: Urine Opiates Screen Negative, Urine Methadone Screen Negative, Ur Barbituates Screen Negative, Ur Phencyclidine Scrn Negative, Ur Amphetamines Screen Negative, U Benzodiazepines Scrn Negative, Urine Cocaine Screen Negative, U Marijuana (THC) Screen Negative 05/28/22 10:38: SARS-CoV-2 (PCR) Not detected, Influenza A Untype (PCR) Not detected, Influenza Type B (PCR) Not detected 05/28/22 16:56: POC Glucose 130 H 05/28/22 21:00: POC Glucose 146 H 05/29/22 05:05: POC Glucose 108 I & O for Last 24 hours: Intake & Output 05/26/22 05/27/22 05/28/22 05/29/22 11:59 11:59 11:59 11:59 Intake Total 560 / 560 Output Total 0 / 0 Balance 560 / 560 Weight 225 lb 217 lb 9.6 oz Constitutional Constitutional: no acute distress Progress Note: A&P Assessment and plan (1) Acute appendicitis with rupture: Status: Acute Assessment and plan: Labs pending this morning. No fevers overnight. For now continue antibiotics for intra-abdominal abscess likely secondary to perforated appendicitis. Likely will plan for repeat CT scan in several days with plan for drain placement once abscess hopefully shows some diminishing size and maturation of wall.
[2022-05-29 06:44] LABS: Chloride 100 mmol/L (98-107); Potassium 3.3 mmoL/L (3.5-5.1); Sodium 134 mmol/L (136-145)
[2022-05-29 06:46] LABS: MANUAL DIFFERENTIAL MANUAL DIFFERENTIAL (MANUAL DIFF)
[2022-05-29 06:47] LABS: Alanine Aminotransferase 36 U/L (12-78); Alkaline Phosphatase 173 U/L (38-126); Anion Gap 15.3 mEq/L (5-15); Aspartate Amino Transferase 54 U/L (17-59); Bilirubin,Total 1.2 mg/dl (0.2-1.3); Blood Urea Nitrogen 19 mg/dl (9-20); Calcium 7.7 mg/dl (8.4-10.2); Carbon Dioxide 22 mmol/L (22.0-30.0); Creatinine Clearance Estimated 97 mL/min (50-200); Estimated Glomerular Filt Rate 59 ml/min (>60); GFR (African American) 71 ML/MIN (>60); Globulin 3.1 g/dL (1.3-3.2); Glucose 102 mg/dl (74-100); Hemoglobin 11.5 g/dL (14.1-18.0); Phosphorous 3.6 mg/dl (2.5-4.5); Total Protein,Serum 6.1 g/dl (6.3-8.2)
[2022-05-29 06:48] LABS: INR 1.02 (0.9-1.1); Magnesium 1.9 mg/dl (1.6-2.3)
[2022-05-29 07:03] LABS: Lymphocytes % 6 % (10-50); Monocytes % 3 % (2-9); Neutrophils % 91 % (42-76); Platelet Estimate Normal; RBC Morphology Normal; Total Cells Counted 100
[2022-05-29 07:46] LABS: Prostate Specific Ag, Diagnost 0.138 ng/ml (0.0-4.0)
--- NOTE | 2022-05-29 11:09 | PC.NURSE ---
courtesy tech note; rounded on pt, pt denied need to use the restroom, need for a drink, and need to reposition at this time. call light within reach, no further requests at this time. Uri Boyd, SRNA
--- NOTE | 2022-05-29 13:48 | EXP.ACUTE.PN ---
Subjective *Date: 05/29/22 *Time: 13:48 Interval history: No issues. Still no abdominal pain. No fevers feels better Medical Exam Vital signs and Labs for Last 24 Hours: Vital Signs Temp Pulse Pulse Resp BP BP Pulse Ox 05/29/22 08:00 98.8 F 80 16 152/75 H 96 05/29/22 04:00 98.1 F 68 16 121/68 94 L 05/28/22 20:00 97 05/28/22 20:00 98.8 F 66 16 153/78 H 97 05/28/22 16:11 97.8 F 63 18 140/68 97 05/28/22 15:58 98 F 70 16 141/72 H 05/28/22 15:30 70 141/72 H 95 05/28/22 15:00 70 135/78 97 05/28/22 14:46 80 126/76 97 Intake and Output 05/28/22 05/29/22 05/29/22 23:59 07:59 15:59 Intake Total 360 / 460 200 / 320 120 / 320 Output Total 0 / 0 Balance 360 / 460 200 / 320 120 / 320 Intake: Intake, Oral Amount 360 / 360 120 / 120 Intake, Total IV Amount 200 / 200 Piperacillin/Tazo 4.5 gm In 0.9 200 / 200 % Sodium Chloride 100 ml @ 200 mls/hr IV Q6H [facility] Rx#:[id number] Output: Output, Urine Amount 0 / 0 Other: Number of Unmeasured Voids 1 Weight 96.672 kg 98.702 kg Patient Weight 05/29/22 23:59 Weight 98.702 kg Laboratory Results - last 24 hr 05/28/22 16:56: POC Glucose 130 H 05/28/22 21:00: POC Glucose 146 H 05/29/22 05:05: POC Glucose 108 05/29/22 06:25: WBC 16.4 H, RBC 4.32 L, Hgb 11.5 L D, Hct 35.6 L, MCV 82.5, MCH 26.9 L, MCHC 32.6, RDW 13.9, Plt Count 240, MPV 9.0, Neut % (Auto) 85.6 H, Lymph % (Auto) 8.0 L, [place] % (Auto) 5.7, Eos % (Auto) 0.5, Baso % (Auto) 0.1, Neut # (Auto) 14.0 H, Lymph # (Auto) 1.3, [place] # (Auto) 0.9, Eos # (Auto) 0.1, Baso # (Auto) 0.0, Total Counted 100, Neutrophils % (Manual) 91 H, Lymphocytes % (Manual) 6 L, Monocytes % (Manual) 3, Platelet Estimate Normal, RBC Morphology Normal 05/29/22 06:25: PT 11.0, INR 1.02 05/29/22 06:25: Sodium 134 L, Potassium 3.3 L, Chloride 100, Carbon Dioxide 22, Anion Gap 15.3 H, BUN 19, Creatinine 1.30 H, Estimated Creat Clear 97, Estimated GFR 59, Est GFR ( Amer) 71, Glucose 102 H D, Calcium 7.7 L, Phosphorus 3.6, Magnesium 1.9, Total Bilirubin 1.2, AST 54, ALT 36, Alkaline Phosphatase 173 H, Total Protein 6.1 L, Albumin 3.0 L, Globulin 3.1, Albumin/Globulin Ratio 1.0 L, Prostate Specific Ag 0.138 I & O for Labs for Last 24 Hours: Intake & Output 05/26/22 05/27/22 05/28/22 05/29/22 23:59 23:59 23:59 23:59 Intake Total 360 / 460 320 / 320 Output Total 0 / 0 Balance 360 / 460 320 / 320 Weight 96.672 kg 98.702 kg Constitutional: Present no acute distress Respiratory: Present normal respiratory effort Cardiac: Present Reg Rate and Rhythm GI: Present normal bowel sounds; Absent tenderness Extremities: Present normal inspection and full ROM Skin: Present intact; Absent erythema Neuro: Present Grossly Intact and moves all extremities Assessment and Plan *Assessment and plan (1) Acute appendicitis with rupture: Status: Acute Category: Medical Code(s): K35.32 - Acute appendicitis with perforation, localized peritonitis, and gangrene, without abscess (2) LV dysfunction: Status: Acute Category: Medical Code(s): I51.9 - Heart disease, unspecified (3) HTN (hypertension): Status: Chronic Qualifiers: Hypertension type: primary hypertension Qualified Code(s): I10 - Essential (primary) hypertension Category: Medical Code(s): I10 - Essential (primary) hypertension (4) CAD (coronary artery disease): Status: Chronic Qualifiers: Coronary Disease-Associated Artery/Lesion type: bypass graft [place] vs. transplanted heart: [place] heart Associated angina: without angina Qualified Code(s): I25.810 - Atherosclerosis of coronary artery bypass graft(s) without angina pectoris Category: Medical Code(s): I25.10 - Atherosclerotic heart disease of [place] coronary artery without angina pectoris (5) Diabetes mellitus: Status: Chronic
--- NOTE | 2022-05-29 14:11 | P.PN_ITS ---
Subjective Narrative: Patient has been tolerating clear liquid diet. He still denies abdominal pain. However he does state that he has had some right lower back discomfort. No fevers. Leukocytosis persists with only minimal improvement to 16,400. Exam Data for Last 24 hours Vital signs and Labs for Last 24 Hours: Temp Pulse Resp BP Pulse Ox 98.8 F 80 16 152/75 H 96 05/29/22 08:00 05/29/22 08:00 05/29/22 08:00 05/29/22 08:00 05/29/22 08:00 Laboratory Results - last 24 hr 05/28/22 16:56: POC Glucose 130 H 05/28/22 21:00: POC Glucose 146 H 05/29/22 05:05: POC Glucose 108 05/29/22 06:25: WBC 16.4 H, RBC 4.32 L, Hgb 11.5 L D, Hct 35.6 L, MCV 82.5, MCH 26.9 L, MCHC 32.6, RDW 13.9, Plt Count 240, MPV 9.0, Neut % (Auto) 85.6 H, Lymph % (Auto) 8.0 L, [place] % (Auto) 5.7, Eos % (Auto) 0.5, Baso % (Auto) 0.1, Neut # (Auto) 14.0 H, Lymph # (Auto) 1.3, [place] # (Auto) 0.9, Eos # (Auto) 0.1, Baso # (Auto) 0.0, Total Counted 100, Neutrophils % (Manual) 91 H, Lymphocytes % (Manual) 6 L, Monocytes % (Manual) 3, Platelet Estimate Normal, RBC Morphology Normal 05/29/22 06:25: PT 11.0, INR 1.02 05/29/22 06:25: Sodium 134 L, Potassium 3.3 L, Chloride 100, Carbon Dioxide 22, Anion Gap 15.3 H, BUN 19, Creatinine 1.30 H, Estimated Creat Clear 97, Estimated GFR 59, Est GFR ( Amer) 71, Glucose 102 H D, Calcium 7.7 L, Phosphorus 3.6, Magnesium 1.9, Total Bilirubin 1.2, AST 54, ALT 36, Alkaline Phosphatase 173 H, Total Protein 6.1 L, Albumin 3.0 L, Globulin 3.1, Albumin/Globulin Ratio 1.0 L, Prostate Specific Ag 0.138 I & O for Last 24 hours: Intake & Output 05/27/22 05/28/22 05/29/22 05/30/22 11:59 11:59 11:59 11:59 Intake Total 680 / 680 Output Total 0 / 0 Balance 680 / 680 Weight 225 lb 217 lb 9.6 oz *Routine Abdominal Exam Abdominal: Present soft; Absent tenderness Progress Note: A&P Assessment and plan (1) Acute appendicitis with rupture: Status: Acute Assessment and plan: Continue IV antibiotics. Will plan for a follow-up CT scan with IV and oral contrast to reassess abscess after several days of IV antibiotics and plan for potential drainage. Regardless, may need ultimately interval appendectomy in several weeks after drainage if successful. Possibility of perforated neoplasm is considered. (2) LV dysfunction: Status: Acute (3) HTN (hypertension): Status: Chronic (4) CAD (coronary artery disease): Status: Chronic (5) Diabetes mellitus: Status: Chronic
--- NOTE | 2022-05-29 15:52 | PC.NURSE ---
courtesy tech note; [phone] rounded on pt, pt denied need to void, need for drink, and need to reposition. call light within reach, no further requests at this time. Uri Boyd, SRNA
[2022-05-29 16:33] LABS: POC Glucose,Bedside 136 (70-110)
--- NOTE | 2022-05-29 18:25 | PC.NURSE ---
no acute changes form previous shift. pt c/o of pain in lower back and had a temp of 100.2 F. notified for tylenol order. treated back pain per mar with relief. pt up as bright, cb in reach, no concerns voiced at this time.
[2022-05-29 20:49] LABS: POC Glucose,Bedside 182 (70-110)
[2022-05-30] VITALS (18 sets, daily range): BP systolic 89–135; BP diastolic 47–76; PULSE 61–80; RESP 12–20; TEMP 36.7–43; O2SAT 94–98; BMI 30.1
--- NOTE | 2022-05-30 03:19 | PC.NURSE ---
PATIENT SPIKED FEVER 102.2. WHITNEY N.P. NOTIFIED. TO ORDER MOTRIN AND BLD CULTURES.
--- NOTE | 2022-05-30 03:53 | PC.NURSE ---
PATIENT RESTING IN BED. NO FURTHER COMPLAINTS OF RIGHT LOWER BACK/FLANK PAIN. PATIENT'S CULTURES PENDING. WILL CONTINUE TO MONITOR.
--- NOTE | 2022-05-30 04:25 | PC.NURSE ---
TEMP 101.4. MEDICATED WITH TYLENOL 500 MG PO.
--- NOTE | 2022-05-30 04:29 | PC.NURSE ---
COOL DAMP WASH CLOTHES APPLIED TO FOREHEAD AND AXILLA. WILL CONTINUE TO MONITOR. LAB AWARE THAT BLOOD CULTURES HAVE BEEN ORDERED.
[2022-05-30 05:24] LABS: POC Glucose,Bedside 160 (70-110)
[2022-05-30 06:44] LABS: Chloride 99 mmol/L (98-107); Sodium 135 mmol/L (136-145)
[2022-05-30 06:46] LABS: Basophils % 0.2 % (0.1-2.0); Blood Urea Nitrogen 21 mg/dl (9-20); Creatinine Clearance Estimated 66 mL/min (50-200); Eosinophils # 0.1 K/mm3 (0.0-0.4); Eosinophils % 0.6 % (0.1-12.0); Estimated Glomerular Filt Rate 38 ml/min (>60); GFR (African American) 46 ML/MIN (>60); Hematocrit 34.5 % (42.0-52.0); Hemoglobin 11.3 g/dL (14.1-18.0); Lymphocytes # 0.8 K/mm3 (0.7-4.5); Lymphocytes % 5.1 % (10-50); Mean Corpuscular HGB Conc 32.6 g/dL (31.8-35.4); Mean Corpuscular Volume 82.7 fl (80-94); Mean Platelet Volume 8.6 fl (7.4-10.4); Monocytes # 0.9 K/mm3 (0.1-1.0); Monocytes % 5.2 % (1.7-9.3); Neutrophils # 14.6 K/mm3 (1.8-7.8); Neutrophils % 88.9 % (37.0-80.0); Platelet Count 249 K/mm3 (142-424); Red Blood Count 4.18 M/mm3 (4.60-6.20); Red Cell Distribution Width 13.9 % (11.5-17.5); White Blood Count 16.4 K/mm3 (4.8-10.8)
[2022-05-30 06:47] LABS: Alanine Aminotransferase 30 U/L (12-78); Albumin Level 2.8 g/dl (3.5-5.0); Albumin/Globulin Ratio 0.9 (1.1-1.8); Alkaline Phosphatase 162 U/L (38-126); Aspartate Amino Transferase 39 U/L (17-59); Bilirubin,Total 1.2 mg/dl (0.2-1.3); Calcium 7.7 mg/dl (8.4-10.2); Carbon Dioxide 23 mmol/L (22.0-30.0); Glucose 162 mg/dl (74-100); MANUAL DIFFERENTIAL MANUAL DIFFERENTIAL (MANUAL DIFF); Total Protein,Serum 5.8 g/dl (6.3-8.2)
[2022-05-30 06:55] LABS: Anion Gap 16.1 mEq/L (5-15); Potassium 3.1 mmoL/L (3.5-5.1)
--- NOTE | 2022-05-30 08:26 | EXP.ACUTE.PN ---
Subjective *Date: 05/30/22 *Time: 08:26 Interval history: Continue to have fevers overnight. Feels a little worse this morning. He is having right lower quadrant abdominal pain as well radiating to his back. Medical Exam Vital signs and Labs for Last 24 Hours: Vital Signs Temp Pulse Resp BP Pulse Ox 05/30/22 07:22 98.1 F 80 17 125/76 94 L 05/30/22 05:14 98.7 F 05/30/22 05:12 98.7 F 05/30/22 04:25 101.4 F H 100/72 L 05/30/22 04:27 101.4 F H 05/30/22 03:19 102.2 F H 78 20 114/47 L 94 L 05/30/22 00:00 99.2 F 05/29/22 22:03 100.1 F H 05/29/22 21:00 101.1 F H 82 20 152/59 H 96 05/29/22 20:00 97 05/29/22 15:16 101.1 F H 82 20 152/59 H 96 05/29/22 15:33 100.2 F H 67 18 150/60 H 97 Intake and Output 05/29/22 05/30/22 05/30/22 23:59 07:59 15:59 Intake Total 120 / 1020 580 / 580 Output Total 0 / 0 0 / 0 Balance 120 / 1020 580 / 580 Intake: Intake, Oral Amount 120 / 720 480 / 480 Intake, Total IV Amount 100 / 100 Piperacillin/Tazo 4.5 gm In 0.9 100 / 100 % Sodium Chloride 100 ml @ 200 mls/hr IV Q6H [facility] Rx#:[id number] Output: Output, Urine Amount 0 / 0 0 / 0 Other: Number of Unmeasured Voids 1 0 Weight 97.522 kg Patient Weight 05/30/22 23:59 Weight 97.522 kg Laboratory Results - last 24 hr 05/29/22 16:25: POC Glucose 136 H 05/29/22 20:38: POC Glucose 182 H 05/30/22 04:59: POC Glucose 160 H 05/30/22 06:08: WBC 16.4 H, RBC 4.18 L, Hgb 11.3 L, Hct 34.5 L, MCV 82.7, MCH 27.0, MCHC 32.6, RDW 13.9, Plt Count 249, MPV 8.6, Neut % (Auto) 88.9 H, Lymph % (Auto) 5.1 L, [place] % (Auto) 5.2, Eos % (Auto) 0.6, Baso % (Auto) 0.2, Neut # (Auto) 14.6 H, Lymph # (Auto) 0.8, [place] # (Auto) 0.9, Eos # (Auto) 0.1, Baso # (Auto) 0.0 05/30/22 06:08: Sodium 135 L, Potassium 3.1 L, Chloride 99, Carbon Dioxide 23, Anion Gap 16.1 H, BUN 21 H, Creatinine 1.90 H D, Estimated Creat Clear 66, Estimated GFR 38 L, Est GFR ( Amer) 46 L D, Glucose 162 H D, Calcium 7.7 L, Total Bilirubin 1.2, AST 39 D, ALT 30, Alkaline Phosphatase 162 H, Total Protein 5.8 L, Albumin 2.8 L, Globulin 3.0, Albumin/Globulin Ratio 0.9 L I & O for Labs for Last 24 Hours: Intake & Output 05/27/22 05/28/22 05/29/22 05/30/22 23:59 23:59 23:59 23:59 Intake Total 360 / 460 680 / 1020 580 / 580 Output Total 0 / 0 0 / 0 0 / 0 Balance 360 / 460 680 / 1020 580 / 580 Weight 96.672 kg 98.702 kg 97.522 kg Comment:: Appears acutely ill Neck: Present normal inspection Respiratory: Present accessory muscle use and normal respiratory effort; Absent CTA bilaterally Cardiac: Present Reg Rate and Rhythm GI: Present tenderness Comments:: Right lower quadrant pain, rebound tenderness Extremities: Present normal inspection and full ROM Skin: Present intact; Absent erythema Neuro: Present Grossly Intact and moves all extremities Assessment and Plan *Assessment and plan (1) Acute appendicitis with rupture: Status: Acute Category: Medical Code(s): K35.32 - Acute appendicitis with perforation, localized peritonitis, and gangrene, without abscess (2) LV dysfunction: Status: Acute Category: Medical Code(s): I51.9 - Heart disease, unspecified (3) HTN (hypertension): Status: Chronic Qualifiers: Hypertension type: primary hypertension Qualified Code(s): I10 - Essential (primary) hypertension Category: Medical Code(s): I10 - Essential (primary) hypertension (4) CAD (coronary artery disease): Status: Chronic Qualifiers: Coronary Disease-Associated Artery/Lesion type: bypass graft [place] vs. transplanted heart: [place] heart Associated angina: without angina Qualified Code(s): I25.810 - Atherosclerosis of coronary artery bypass graft(s) without angina pectoris Category: Medical Code(s): I25.10 - Atherosclerotic heart disease of [place] coronary artery without
[2022-05-30 08:39] LABS: Lymphocytes % 8 % (10-50); Monocytes % 3 % (2-9); Neutrophils % 89 % (42-76); Total Cells Counted 100
[2022-05-30 08:40] LABS: Platelet Estimate Normal; RBC Morphology Normal
--- NOTE | 2022-05-30 08:49 | CT_ITS ---
PROCEDURE INFORMATION: Exam: CT Abdomen And Pelvis With Contrast Exam date and time: 05/30/2022 12:51 PM Age: 47 years old Clinical indication: Abdominal pain; Prior surgery; Surgery date: 6+ months; Surgery type: Cholecystectomy; Patient HX: PT has ruptured appendix. PT has infection around appendix, f/u scan from CT abd/pel scanned 2 days prior. ; Additional info: Ruptured appendicitis TECHNIQUE: Imaging protocol: Computed tomography of the abdomen and pelvis with contrast. Radiation optimization: All CT scans at this facility use at least one of these dose optimization techniques: automated exposure control; mA and/or kV adjustment per patient size (includes targeted exams where dose is matched to clinical indication); or iterative reconstruction. Contrast material: ISOVUE; Contrast volume: 70 ml; Contrast route: IV; REPORTING DATA: Count of CT and Cardiac NM exams in prior 12 months: This patient has received 3 known CTs and 0 known cardiac nuclear medicine studies in the 12 months prior to the current study. COMPARISON: CT ABDOMEN PELVIS W CON 05/28/2022 11:37 AM FINDINGS: Lungs: Lung bases are unremarkable. Liver: No focal hepatic lesions. Gallbladder and bile ducts: There has been a cholecystectomy. No biliary ductal dilation. Pancreas: No peripancreatic fluid stranding. No main pancreatic ductal dilation. Spleen: No splenomegaly. Adrenal glands: The adrenal glands are normal. Kidneys and ureters: Nephrograms are symmetric. No nephrolithiasis or hydroureteronephrosis on either side. No solid lesions Stomach and bowel: There is mild wall thickening along the cecum likely reactive. Appendix: The appendix is distended. There are segments where the appendiceal [place] are indistinct. There is redemonstration thick-walled, gas containing periappendiceal collection measuring approximately 6 x 5 x 6 cm. No extravasation of enteric contrast material. Intraperitoneal space: Moderate stranding along the right mesenteric fat. Multiple satellite prominent mesenteric nodes likely reactive Vasculature: The aorta demonstrates mild atherosclerotic calcification. Lymph nodes: No evidence of retroperitoneal lymphadenopathy. Urinary bladder: Unremarkable as visualized. Reproductive: Unremarkable as visualized. Bones/joints: No acute osseous abnormality. Soft tissues: Foci of subcutaneous gas in the abdominal wall likely from recent subcutaneous injection. IMPRESSION: Unchanged, thick-walled periappendiceal abscess and contained appendiceal perforation.
--- NOTE | 2022-05-30 09:39 | HMH.ITSTN ---
called and spoke to nurse reguarding CT abd with contrast- Dr Cage recommended CT with oral and IV contrast however GFR is only 38 and pt has kidney issues and diabetic- Nurse will check with Dr. Aguilar who ordered CT and call me back.
--- NOTE | 2022-05-30 10:02 | EXP.SURG.PN ---
Subjective Narrative: Patient has continued to have right-sided back pain but now is having some right lower quadrant discomfort. He had not had any fevers until overnight but has subsequently had maximum temperature 102.2 ?F. He has been afebrile for several hours. White blood cell count is stable but somewhat elevated. Exam Data for Last 24 hours Vital signs and Labs for Last 24 Hours: Temp Pulse Resp BP Pulse Ox 98.1 F 80 17 125/76 94 L 05/30/22 07:22 05/30/22 07:22 05/30/22 07:22 05/30/22 07:22 05/30/22 07:22 Laboratory Results - last 24 hr 05/29/22 16:25: POC Glucose 136 H 05/29/22 20:38: POC Glucose 182 H 05/30/22 04:59: POC Glucose 160 H 05/30/22 06:08: WBC 16.4 H, RBC 4.18 L, Hgb 11.3 L, Hct 34.5 L, MCV 82.7, MCH 27.0, MCHC 32.6, RDW 13.9, Plt Count 249, MPV 8.6, Neut % (Auto) 88.9 H, Lymph % (Auto) 5.1 L, [place] % (Auto) 5.2, Eos % (Auto) 0.6, Baso % (Auto) 0.2, Neut # (Auto) 14.6 H, Lymph # (Auto) 0.8, [place] # (Auto) 0.9, Eos # (Auto) 0.1, Baso # (Auto) 0.0, Total Counted 100, Neutrophils % (Manual) 89 H, Lymphocytes % (Manual) 8 L, Monocytes % (Manual) 3, Platelet Estimate Normal, RBC Morphology Normal 05/30/22 06:08: Sodium 135 L, Potassium 3.1 L, Chloride 99, Carbon Dioxide 23, Anion Gap 16.1 H, BUN 21 H, Creatinine 1.90 H D, Estimated Creat Clear 66, Estimated GFR 38 L, Est GFR ( Amer) 46 L D, Glucose 162 H D, Calcium 7.7 L, Total Bilirubin 1.2, AST 39 D, ALT 30, Alkaline Phosphatase 162 H, Total Protein 5.8 L, Albumin 2.8 L, Globulin 3.0, Albumin/Globulin Ratio 0.9 L I & O for Last 24 hours: Intake & Output 05/27/22 05/28/22 05/29/22 05/30/22 11:59 11:59 11:59 11:59 Intake Total 680 / 680 940 / 940 Output Total 0 / 0 0 / 0 Balance 680 / 680 940 / 940 Weight 225 lb 217 lb 9.6 oz 215 lb *Routine Abdominal Exam Abdominal: Present soft Comments: Some tenderness in right lower quadrant without guarding or rebound. Progress Note: A&P Assessment and plan (1) Acute appendicitis with rupture: Status: Acute Assessment and plan: Concerning with patient's persistent leukocytosis and now development of fevers and tenderness. Tentative plan was for possible several days of antibiotics to allow for maturation of abscess with image guided drainage in a couple days. However, given his clinical setback with antibiotics he may need operative intervention with possible laparoscopic drainage with potential appendectomy, possible open procedure including even ileocecal resection. He is going for a follow-up CT scan. May need operative intervention later today. (2) LV dysfunction: Status: Acute (3) HTN (hypertension): Status: Chronic (4) CAD (coronary artery disease): Status: Chronic (5) Diabetes mellitus: Status: Chronic
[2022-05-30 10:12] LABS: CA 19-9 11 U/mL (0-35)
[2022-05-30 11:54] LABS: POC Glucose,Bedside 213 (70-110)
--- NOTE | 2022-05-30 12:41 | HMH.ITSTN ---
spoke to Dr. Aguilar as well as nurse-- Dr wants oral and IV contrast for study- pt is to be scanned at 12:45 since he finished contrast at 10:45-- also will give IV contrast for abd/pel CT.
--- NOTE | 2022-05-30 15:26 | PC.NURSE ---
pt hAs c/o off and on pain t/o shift, treated x1. surgery consent signed, pt cleaned up and ready for OR. afebrile so far this shift. significant other at bedside. educated pt on what to expect once returning to floor from surgery. pt has no questions or concerns at this time.
--- NOTE | 2022-05-30 16:36 | PC.NURSE ---
pt down to OR. parents at bedside
--- NOTE | 2022-05-30 17:08 | P.PN_ITS ---
[facility] Disclaimer: The information contained in this section may have been updated after the patient was seen, as this information can be updated by other users. Medical History (Updated 05/28/22 @ 14:32 by Yoshi Miles MD) Abnormal EKG Abnormal result of cardiovascular function study CAD (coronary artery disease) [place] angina Diabetes mellitus Dyspnea Encounter for pre-operative cardiovascular clearance Ex-smoker for more than 1 year Palpitations Right bundle branch block Surgical History S/P CABG x 4 Social History (Updated 05/28/22 @ 19:43 by Leticia Hawthorne RN) Smoking Status: Former smoker alcohol intake: never substance use type: denies use current occupational status: employed Travel in the last 8 weeks: None household members: family housing: house 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 [facility] Anesthesia Checklist Patient Identification Patient Identification: Arm Band Structural Data Admitted From: Home Planned Operative Procedure/s: Laparoscopy, Possible Laparotomy, Possible Small Bowel Resection Consent for Planned Operative Procedure(s) Verified: Yes Verified Documents: Surgical Consent and History and Physical NPO Status Verified Time NPO: 09:00 Additional verifications Anesthesia Reactions: No Airway Assessment C-Spine Mobility Assessed: Yes TMJ Mobility Assessed: Yes Dentition: Edentulous Neurological Assessment Level of Consciousness: Awake and Alert Anesthesia Plan Anesthesia Risk discussed: Yes Anesthesia Plan: Verified ASA Class: III Anesthesia Type: General
--- NOTE | 2022-05-30 18:02 | SUR.OPER ---
1730- Decision made by to go open and perform a laparotomy. 173- Laparoscopic table counted with all counts correct and removed from OR. Final laproscopic count: Blades- 1 Sutures- 2 Hypo- 1 Raytecs- 10 1734- Laparotomy table open and all counts correct. Initial laparotomy count: Blades- 3 Bovie- 1 Lap Sponges- 30 Raytecs- 20 Suction- 3 Mainset- 99 Bookwalter- 36 1736- Incision made for laparotomy. 1800- Family updated of patient's current status in OR waiting room by JAMEE Haider. 2014- Family updated again of patient's current status in OR waiting room by JAMEE Haider.
[2022-05-30 18:09] LABS: Fungitell(Beta D-Glucan) Serum <31 pg/mL (<80)
--- NOTE | 2022-05-30 22:01 | EXP.OP.NOTE ---
Date of procedure: 05/30/22 Pre-op Diagnosis:: Intra-abdominal abscess Post-op Diagnosis:: Same Procedure performed:: Diagnostic laparoscopy Laparotomy with right hemicolectomy and ileocolic anastomosis Surgeon:: Ghulam Cage MD SIGNAL WORKER HELPER:: Domingo Escalante Anesthesia: GETA Estimated blood loss (mL): 50 Clinical Note:: Patient is a 47-year-old male with history of coronary artery disease, previous myocardial infarction, cardiac pacemaker, previous CABG x4, diabetes mellitus with sequelae requiring bilateral cataract surgery several years ago, on dual antiplatelet therapy.? He presented to the emergency department on 05/28/2022 with approximately 2 weeks of intermittent, mostly nocturnal, fevers with no other associated symptoms.? Work-up in the emergency department revealed a mild leukocytosis of 17,000.? He underwent extremely thorough work-up for these fevers of unknown origin.? This included CT scan of the abdomen and pelvis which revealed findings worrisome for possible ruptured appendicitis with abscess characterized by air-fluid collection in the right abdomen posterior to the cecum measuring 6 cm with distended appendix extending into this abscess with diffuse adjacent inflammatory changes.? By report this is most consistent with perforated appendicitis with established abscess less likely other inflammatory process.? Patient denies ever having any abdominal pain or tenderness.? He has never had prior colonoscopy by the way. After discussion with surgery patient was admitted to the hospitalist service. He was seen and examined as a surgical consultation. Patient had absolutely no tenderness on examination. It was felt he had established abscess with out peritonitis. Plan was made to initiate antibiotic therapy and in several days reassess with repeat CT imaging and possible image guided drain placement. In the evening of 05/29/2022 patient began developing fevers as he had not had a fever until then during this admission. In the morning of 05/30/2022 after he had had fevers examination revealed increasing tenderness, which was new, in the right abdomen. Given his deterioration with failure of nonoperative management with antibiotics plan was made for operative intervention. Plan was made to proceed with possible diagnostic laparoscopy and drainage with potential appendectomy. It was explained to the patient and family that given the degree of inflammation seen on imaging however he could require laparotomy with possible colon resection and even potential ileostomy. Patient had eaten a regular breakfast on 05/29/2022 and therefore plan was made for operative intervention later that afternoon. Operative findings:: Patient had a significant amount of inflammation around the ileocecal region creating a phlegmon. This was a firm masslike effect. There was feculent purulent abscess in the posterior colon and retroperitoneum. Retroperitoneal area was severely inflamed and delineation of anatomy was extremely difficult including right renal structures. Operative note:: Patient was taken to the operating room. He was given preoperative intravenous antibiotics. In the operating room he was placed in a supine position. General anesthesia was induced via endotracheal tube. His abdomen was prepped and draped in the standard surgical fashion. Infraumbilical incision was made and while performing abdominal wall lift Veress needle was inserted. CO2 pneumoperitoneum was achieved to 15 mmHg. 5 mm optical trocar was inserted inferior to the umbilicus. Laparoscopic surveillance was carried out. There appeared to be significant inflammation in the right abdomen. His cecum actually was somewhat high positioned in the right upper mid abdomen. 5 mm trocar was inserted in the suprapubic location and 5 mm trocar was inserted superior to the umbilicus. Cecum was inspected laparoscopically and found to be quite firm. There was intense inflammatory response around the ileocecal
--- NOTE | 2022-05-30 22:11 | P.PNANES_ITS ---
[facility] Anesthesia Record Part I Anesthesia Record I Intake, IV Amount: 3,300 Estimated blood loss (mL): 50 Urine output (mL): 100 Blood Products used (#): none Blood Pressure: 122/62 SaO2: 97 Pulse Rate: 61 Respiratory Rate: 16 Temperature: 99.1 F Patient is:: Drowsy and Stable Stable to PACU at:: 22:00
--- NOTE | 2022-05-30 22:25 | SUR.PHASEI ---
2220- lab in to draw h&h and bmp 2210- blood sugar at this time is 217.
[2022-05-30 22:32] LABS: Hematocrit 37.5 % (42.0-52.0)
[2022-05-30 22:34] LABS: POC Glucose,Bedside 217 (70-110)
--- NOTE | 2022-05-30 22:34 | SUR.PHASEI ---
223- detailed report called to sarah beth carver 223- pt left in stable condition with sarah beth carver in pt room. NG connected to suction, vital signs taken, and dressings CDI.
[2022-05-30 22:37] LABS: Chloride 105 mmol/L (98-107); Sodium 137 mmol/L (136-145)
[2022-05-30 22:38] LABS: Potassium 4.4 mmoL/L (3.5-5.1)
[2022-05-30 22:40] LABS: Blood Urea Nitrogen 23 mg/dl (9-20); Creatinine Clearance Estimated 57 mL/min (50-200); Estimated Glomerular Filt Rate 32 ml/min (>60); GFR (African American) 39 ML/MIN (>60)
[2022-05-30 22:41] LABS: Calcium 7.3 mg/dl (8.4-10.2); Carbon Dioxide 21 mmol/L (22.0-30.0); Glucose 218 mg/dl (74-100)
[2022-05-30 22:43] LABS: Anion Gap 15.4 mEq/L (5-15)
[2022-05-30 22:55] LABS: Microscopic,Cath URINE MICROSCOPIC (MICROSCOPIC)
[2022-05-30 22:58] LABS: Appearance,Urine/Cath CLEAR (Clear); Bilirubin,Cath Negative (Negative); Blood, Urine/Cath 1+ (Negative); Color,Urine/Cath YELLOW (Yellow); Glucose,Urine/Cath (UA) 1+ (Negative); Ketones,Urine/Cath TRACE (Negative); Leukocyte Esterase,Cath Negative (Negative); Nitrate,Cath Negative (Negative); Protein,Urine/Cath 2+ (Negative); Urobilinogen,Cath 0.2 EU/dl (0.2)
--- NOTE | 2022-05-30 23:19 | ECG_ITS ---
APPROVED REPORT Exam: Resting ECG HR:65 bpm ECG Measurements Heart Rate 65 AXES NH 120 P 52 QRSd 113 QRS -19 QT 419 T 31 QTc 431 Conclusion SINUS RHYTHM LOW QRS VOLTAGE IN PRECORDIAL LEADS [QRS DEFLECTION < 1.0 mV IN CHEST LEADS] INCOMPLETE RIGHT BUNDLE BRANCH BLOCK [90+ ms QRS DURATION, TERMINAL R IN V1/V2, 40+ ms S IN I/aVL/V4/V5/V6] BORDERLINE ECG UNCONFIRMED REPORT Electronically signed by : Devante Das MD 06/05/2022 14:34:54
--- NOTE | 2022-05-30 23:22 | ECG_ITS ---
APPROVED REPORT Exam: Resting ECG HR:66 bpm ECG Measurements Heart Rate 66 AXES MA 171 P 214 QRSd 110 QRS -20 QT 440 T 55 QTc 454 Conclusion ELECTRONIC ATRIAL PACEMAKER LOW QRS VOLTAGE IN PRECORDIAL LEADS [QRS DEFLECTION < 1.0 mV IN CHEST LEADS] INCOMPLETE RIGHT BUNDLE BRANCH BLOCK [90+ ms QRS DURATION, TERMINAL R IN V1/V2, 40+ ms S IN I/aVL/V4/V5/V6] ABNORMAL RHYTHM ECG UNCONFIRMED REPORT Electronically signed by : Devante Das MD 06/05/2022 14:35:01
[2022-05-30 23:24] LABS: Bacteria,Urine/Cath TRACE /lpf; Uric Acid Crystals,Ur/Cath 2+ /lpf; WBC,Urine/Cath Occasional #/hpf (0-3)
[2022-05-31] VITALS (24 sets, daily range): BP systolic 83–101; BP diastolic 48–63; PULSE 60–77; RESP 12–20; TEMP 37.1–38.1; O2SAT 93–98; BMI 30.9
[2022-05-31 05:39] LABS: POC Glucose,Bedside 207 (70-110)
--- NOTE | 2022-05-31 06:33 | PC.NURSE ---
Upon walking in room, pt is moaning in pain. States he has been pushing the preschool special education teacher pump button but has not felt any relief. Pt noted to have 10mg output on preschool special education teacher pump at this time. Allran notified, orders to administer 1mg Dilaudid IV Q2h PRN for brreakthrough pain 0343 Order read back, verified and carried out. 0530 Pt sitting up in bed talking to this nurse, BP 80/51, pt is asymptomatic. 0537 Allran notifed, orders to give 1 L LR bolus. Hospitalist updated on pt
[2022-05-31 06:58] LABS: Basophils % 0.1 % (0.1-2.0); Eosinophils % 0.1 % (0.1-12.0); Hematocrit 35.9 % (42.0-52.0); Hemoglobin 11.4 g/dL (14.1-18.0); Lymphocytes % 5.4 % (10-50); Mean Corpuscular HGB Conc 31.9 g/dL (31.8-35.4); Mean Corpuscular Hemoglobin 27.4 pg (27.0-31.2); Mean Corpuscular Volume 86.1 fl (80-94); Mean Platelet Volume 9.3 fl (7.4-10.4); Monocytes % 5.6 % (1.7-9.3); Neutrophils % 88.8 % (37.0-80.0); Platelet Count 249 K/mm3 (142-424); Red Blood Count 4.17 M/mm3 (4.60-6.20)
[2022-05-31 07:03] LABS: MANUAL DIFFERENTIAL MANUAL DIFFERENTIAL (MANUAL DIFF)
[2022-05-31 07:05] LABS: Chloride 106 mmol/L (98-107); Potassium 4.8 mmoL/L (3.5-5.1); Sodium 140 mmol/L (136-145)
[2022-05-31 07:08] LABS: Alanine Aminotransferase 30 U/L (12-78); Albumin Level 2.5 g/dl (3.5-5.0); Albumin/Globulin Ratio 0.9 (1.1-1.8); Alkaline Phosphatase 116 U/L (38-126); Anion Gap 19.8 mEq/L (5-15); Aspartate Amino Transferase 41 U/L (17-59); Bilirubin,Total 0.5 mg/dl (0.2-1.3); Blood Urea Nitrogen 28 mg/dl (9-20); Calcium 7.2 mg/dl (8.4-10.2); Carbon Dioxide 19 mmol/L (22.0-30.0); Creatinine Clearance Estimated 38 mL/min (50-200); Estimated Glomerular Filt Rate 19 ml/min (>60); GFR (African American) 24 ML/MIN (>60); Globulin 2.9 g/dL (1.3-3.2); Glucose 225 mg/dl (74-100); Total Protein,Serum 5.4 g/dl (6.3-8.2)
[2022-05-31 07:42] LABS: Lymphocytes % 6 % (10-50); Monocytes % 7 % (2-9); Neutrophils % 87 % (42-76); Total Cells Counted 100
[2022-05-31 07:43] LABS: Platelet Estimate Normal; RBC Morphology Normal
--- NOTE | 2022-05-31 07:50 | PC.NURSE ---
14mg cleared from ndt inspector pump at this time
--- NOTE | 2022-05-31 08:24 | EXP.ACUTE.PN ---
Subjective *Date: 05/31/22 *Time: 08:24 Interval history: HAving abdominal pain, difficulty breathing due to pain Medical Exam Vital signs and Labs for Last 24 Hours: Vital Signs Temp Pulse Pulse Resp BP BP Pulse Ox 05/31/22 07:38 98.8 F 05/31/22 06:29 67 20 87/49 L 97 05/31/22 05:13 95 05/31/22 04:55 100.6 F H 77 19 94/51 L 96 05/31/22 04:00 70 05/31/22 03:55 68 15 85/54 L 94 L 05/31/22 02:55 67 18 91/56 L 95 05/31/22 00:00 70 05/31/22 01:55 65 14 94/63 L 97 05/31/22 01:25 99.0 F 66 20 90/55 L 96 05/31/22 00:55 65 17 91/57 L 96 05/31/22 00:25 100.2 F H 65 16 92/53 L 98 05/30/22 23:55 66 16 95/55 L 98 05/30/22 23:25 98.7 F 65 14 103/60 L 97 05/30/22 23:10 99.0 F 61 12 89/56 L 98 05/30/22 20:00 97 05/30/22 22:30 99.1 F 78 18 105/67 L 97 05/30/22 22:20 99.1 F 75 18 116/63 97 05/30/22 22:10 99.1 F 76 16 135/59 L 97 05/30/22 22:00 99.1 F 61 16 122/62 97 05/30/22 15:13 99.2 F 67 18 121/55 L 97 05/30/22 22:12 99.1 F 61 16 122/62 Intake and Output 05/30/22 05/31/22 05/31/22 23:59 07:59 15:59 Intake Total 4093 / 4773 1099 / 1099 Output Total 420 / 420 Balance 4093 / 4773 679 / 679 Intake: Intake, Oral Amount 0 / 0 Intake, Other Amount 14 / 14 Intake, Total IV Amount 4093 / 4293 1085 / 1085 0.9 % Sodium Chloride 1000ML 1, 793 / 793 000 ml @ 150 mls/hr IV .Q6H40M [facility] Rx#:[id number] Lactated Ringers 1000ML 1,000 985 / 985 ml @ 175 mls/hr IV .Q5H43M [facility] Rx#:[id number] Piperacillin/Tazo 4.5 gm In 0.9 100 / 100 % Sodium Chloride 100 ml @ 200 mls/hr IV Q6H [facility] Rx#:[id number] Output: Output, Urine Amount 300 / 300 Output, Drainage Amount 120 / 120 Right Abdomen 120 / 120 Other: Number of Unmeasured Voids 0 Weight 100.335 kg Patient Weight 05/31/22 23:59 Weight 100.335 kg Laboratory Results - last 24 hr 05/28/22 11:03: Beta-(1,3)-D-Glucan <31 05/29/22 06:25: Carcinoembryonic Ag 2.0, CA 19-9 Antigen 11 05/30/22 06:08: Total Counted 100, Neutrophils % (Manual) 89 H, Lymphocytes % (Manual) 8 L, Monocytes % (Manual) 3, Platelet Estimate Normal, RBC Morphology Normal 05/30/22 11:27: POC Glucose 213 H 05/30/22 12:05: Urine Color Yellow, Urine Appearance Clear, Urine pH 5.0, Ur Specific [place] 1.020, Urine Protein 2+, Urine Glucose (UA) 1+, Urine Ketones Trace, Urine Blood 1+, Urine Nitrate Negative, Urine Bilirubin Negative, Urine Urobilinogen 0.2, Ur Leukocyte Esterase Negative, Urine RBC 3-5, Urine WBC Occasional, Ur Squamous Epith Cells None, Uric Acid Crystals 2+, Other Crystals 2+, Urine Bacteria Trace 05/30/22 22:24: POC Glucose 217 H 05/30/22 22:27: Hgb 12.0 L, Hct 37.5 L 05/30/22 22:27: Sodium 137, Potassium 4.4 D, Chloride 105, Carbon Dioxide 21 L, Anion Gap 15.4 H, BUN 23 H, Creatinine 2.20 H, Estimated Creat Clear 57, Estimated GFR 32 L, Est GFR ( Amer) 39 L, Glucose 218 H D, Calcium 7.3 L 05/31/22 05:32: POC Glucose 207 H 05/31/22 06:45: WBC 18.0 H, RBC 4.17 L, Hgb 11.4 L, Hct 35.9 L, MCV 86.1, MCH 27.4, MCHC 31.9, RDW 14.0, Plt Count 249, MPV 9.3, Neut % (Auto) 88.8 H, Lymph % (Auto) 5.4 L, [place] % (Auto) 5.6, Eos % (Auto) 0.1, Baso % (Auto) 0.1, Neut # (Auto) 16.0 H, Lymph # (Auto) 1.0, [place] # (Auto) 1.0, Eos # (Auto) 0.0, Baso # (Auto) 0.0, Total Counted 100, Neutrophils % (Manual) 87 H, Lymphocytes % (Manual) 6 L, Monocytes % (Manual) 7, Platelet Estimate Normal, RBC Morphology Normal 05/31/22 06:45: Sodium 140, Potassium 4.8, Chloride 106, Carbon Dioxide 19 L, Anion Gap 19.8 H, BUN 28 H, Creatinine 3.40 H D, Estimated Creat Clear 38, Estimated GFR 19 L*, Est GFR ( Amer) 24 L D, Glucose 225 H, Calcium 7.2 L, Total Bilirubin 0.5, AST 41, ALT 30, Alkaline Phosphatase 116, Total Protein 5.4 L, Albumin 2.5 L D, Globulin 2.9, Albumin/Globulin Ratio 0.
--- NOTE | 2022-05-31 11:27 | EXP.SURG.PN ---
Subjective Narrative: Pain control has been a bit of an issue. His DISPATCH LEAD has been discontinued. Dilaudid seems to help better with pain control but then he has some somnolence and low blood pressure. He has had poor urinary output with elevated creatinine. Exam Data for Last 24 hours Vital signs and Labs for Last 24 Hours: Temp Pulse Resp BP Pulse Ox 98.8 F 68 16 94/58 L 93 L 05/31/22 07:38 05/31/22 10:00 05/31/22 10:00 05/31/22 10:00 05/31/22 10:00 Laboratory Results - last 24 hr 05/28/22 11:03: Beta-(1,3)-D-Glucan <31 05/30/22 11:27: POC Glucose 213 H 05/30/22 12:05: Urine Color Yellow, Urine Appearance Clear, Urine pH 5.0, Ur Specific [place] 1.020, Urine Protein 2+, Urine Glucose (UA) 1+, Urine Ketones Trace, Urine Blood 1+, Urine Nitrate Negative, Urine Bilirubin Negative, Urine Urobilinogen 0.2, Ur Leukocyte Esterase Negative, Urine RBC 3-5, Urine WBC Occasional, Ur Squamous Epith Cells None, Uric Acid Crystals 2+, Other Crystals 2+, Urine Bacteria Trace 05/30/22 22:24: POC Glucose 217 H 05/30/22 22:27: Hgb 12.0 L, Hct 37.5 L 05/30/22 22:27: Sodium 137, Potassium 4.4 D, Chloride 105, Carbon Dioxide 21 L, Anion Gap 15.4 H, BUN 23 H, Creatinine 2.20 H, Estimated Creat Clear 57, Estimated GFR 32 L, Est GFR ( Amer) 39 L, Glucose 218 H D, Calcium 7.3 L 05/31/22 05:32: POC Glucose 207 H 05/31/22 06:45: WBC 18.0 H, RBC 4.17 L, Hgb 11.4 L, Hct 35.9 L, MCV 86.1, MCH 27.4, MCHC 31.9, RDW 14.0, Plt Count 249, MPV 9.3, Neut % (Auto) 88.8 H, Lymph % (Auto) 5.4 L, [place] % (Auto) 5.6, Eos % (Auto) 0.1, Baso % (Auto) 0.1, Neut # (Auto) 16.0 H, Lymph # (Auto) 1.0, [place] # (Auto) 1.0, Eos # (Auto) 0.0, Baso # (Auto) 0.0, Total Counted 100, Neutrophils % (Manual) 87 H, Lymphocytes % (Manual) 6 L, Monocytes % (Manual) 7, Platelet Estimate Normal, RBC Morphology Normal 05/31/22 06:45: Sodium 140, Potassium 4.8, Chloride 106, Carbon Dioxide 19 L, Anion Gap 19.8 H, BUN 28 H, Creatinine 3.40 H D, Estimated Creat Clear 38, Estimated GFR 19 L*, Est GFR ( Amer) 24 L D, Glucose 225 H, Calcium 7.2 L, Total Bilirubin 0.5, AST 41, ALT 30, Alkaline Phosphatase 116, Total Protein 5.4 L, Albumin 2.5 L D, Globulin 2.9, Albumin/Globulin Ratio 0.9 L I & O for Last 24 hours: Intake & Output 05/28/22 05/29/22 05/30/22 05/31/22 11:59 11:59 11:59 11:59 Intake Total 680 / 680 940 / 940 5192 / 5192 Output Total 0 / 0 0 / 0 495 / 495 Balance 680 / 680 940 / 940 4697 / 4697 Weight 225 lb 217 lb 9.6 oz 215 lb 221 lb 3.2 oz Microbiology Reports for the Last 24 Hours: Microbiology 05/28/22 10:00 Blood Blood Culture - Preliminary NO GROWTH AFTER 48 HOURS 05/28/22 10:00 Blood Blood Culture - Preliminary NO GROWTH AFTER 48 HOURS *Routine Abdominal Exam Abdominal: Present soft Comments: Dressing clean and intact. JENA drains show serosanguineous drainage without purulence or feculence. No evidence of any findings consistent with urine and JENA Progress Note: A&P Assessment and plan (1) Acute appendicitis with rupture: Status: Acute (2) Intra-abdominal abscess: Status: Acute (3) HTN (hypertension): Status: Chronic (4) HLD (hyperlipidemia): Status: Chronic (5) CAD (coronary artery disease): Status: Chronic (6) MARCIA (acute kidney injury): Status: Acute Assessment and Plan Assessment and Plan for All Diagnoses:: Continue current care. Antibiotics switched from Zosyn to Invanz due to findings of MARCIA. He will need antibiotics for established peritonitis with abscess. Continue current pain control regimen. We will give him some additional fluids as his left ventricular function seems to be good.
[2022-05-31 15:25] LABS: POC Glucose,Bedside 212 (70-110)
[2022-05-31 17:01] LABS: POC Glucose,Bedside 194 (70-110)
--- NOTE | 2022-05-31 17:08 | PC.NURSE ---
Addendum entered by Stephany Urias RN 05/31/22 18:30: BNP AND BMP CANCELLED PER HOSPITALIST. Original Note: PT IS RESTING IN BED WITH FAMILY AT BEDSIDE. PT'S PAIN HAS BEEN CONTROLLED WITH IV DILAUDID HOWEVER PT'S BP HAS BEEN LOW T/O THE SHIFT AND PT HAS DESATTED A COUPLE OF TIMES DUE TO PERIODS OF APNEA. PT WILL AWAKEN EASILY TO VERBAL STIMULI. PT REQUESTED DILAUDID WHEN BP WAS 79/49. ATTEMPTED REPOSITIONING TO THE LEFT SIDE AND PT WAS GIVEN A WARM BLANKET TO SPLINT ABDOMEN. VERY MINIMAL UOP THIS SHIFT (HOSPITALIST NOTIFIED) CXR, BMP AND BNP ORDERED. WILL CONTINUE TO MONITOR.
--- NOTE | 2022-05-31 17:32 | XR_ITS ---
PROCEDURE INFORMATION: Exam: XR Chest Exam date and time: 05/31/2022 5:57 PM Age: 47 years old Clinical indication: Shortness of breath; Additional info: Increased o2 needs, R/O fluid overload TECHNIQUE: Imaging protocol: Radiologic exam of the chest. Views: 1 view. COMPARISON: CR XR CHEST 2V 05/28/2022 9:46 AM FINDINGS: Tubes, catheters and devices: Stable position dual lead pacer. Lungs: Unremarkable. No consolidation. Pleural spaces: Unremarkable. No pleural effusion. No pneumothorax. Heart/Mediastinum: Cardiovascular structures within normal limits and stable with post open heart changes. Bones/joints: Unremarkable. IMPRESSION: Stable chest x-ray with no acute disease.
[2022-05-31 22:17] LABS: POC Glucose,Bedside 205 (70-110)
--- NOTE | 2022-05-31 23:57 | PC.NURSE ---
Notified Aaron Moreno that pt continues to have no urine output. SYS DIR states to bolus 1 L of LR. Order verified and carried out.
[2022-06-01] VITALS (15 sets, daily range): BP systolic 91–110; BP diastolic 46–73; PULSE 60–78; RESP 9–18; TEMP 36.9–37.6; O2SAT 93–96; BMI 33.7
--- NOTE | 2022-06-01 06:35 | PC.NURSE ---
Pt has c/o abdominal pain 2x during shift stating pain is all over his abdomen but is worse in epigastric area. Pt does state that Dilaudid helps pain signifigantly and rests comfortably after administration. Pt continues to have very little urine output. 10ml since receiving 1500 ml bolus. Urine remains blue in color. BRICKMASON APPRENTICE made aware, states she will order another bolus. Total of 20ml sersang drainage removed from JENA drains. Ng at 64cm to low wall suction, 350ml of gastric contents t/o shift. Pt has refused to sit up in bed for this RN but has been cooperative with using IS. Family is at bedside, call light within reach.
[2022-06-01 07:01] LABS: Chloride 104 mmol/L (98-107); Potassium 4.8 mmoL/L (3.5-5.1); Sodium 139 mmol/L (136-145)
[2022-06-01 07:03] LABS: Alanine Aminotransferase 21 U/L (12-78); Alkaline Phosphatase 111 U/L (38-126); Aspartate Amino Transferase 34 U/L (17-59); Bilirubin,Total 0.5 mg/dl (0.2-1.3); Blood Urea Nitrogen 41 mg/dl (9-20); Creatinine Clearance Estimated 24 mL/min (50-200); Estimated Glomerular Filt Rate 10 ml/min (>60); GFR (African American) 12 ML/MIN (>60)
[2022-06-01 07:04] LABS: Albumin Level 2.6 g/dl (3.5-5.0); Albumin/Globulin Ratio 0.8 (1.1-1.8); Anion Gap 21.8 mEq/L (5-15); Calcium 7.3 mg/dl (8.4-10.2); Carbon Dioxide 18 mmol/L (22.0-30.0); Globulin 3.1 g/dL (1.3-3.2); Glucose 194 mg/dl (74-100); Phosphorous 8.1 mg/dl (2.5-4.5); Total Protein,Serum 5.7 g/dl (6.3-8.2)
[2022-06-01 07:10] LABS: Basophils % 0.2 % (0.1-2.0); Eosinophils % 0.2 % (0.1-12.0); Hematocrit 34.1 % (42.0-52.0); Hemoglobin 10.4 g/dL (14.1-18.0); Lymphocytes # 1.2 K/mm3 (0.7-4.5); Lymphocytes % 7.5 % (10-50); Mean Corpuscular HGB Conc 30.5 g/dL (31.8-35.4); Mean Corpuscular Hemoglobin 26.7 pg (27.0-31.2); Mean Corpuscular Volume 87.5 fl (80-94); Mean Platelet Volume 9.1 fl (7.4-10.4); Monocytes # 1.1 K/mm3 (0.1-1.0); Monocytes % 6.8 % (1.7-9.3); Neutrophils # 13.6 K/mm3 (1.8-7.8); Neutrophils % 85.4 % (37.0-80.0); Platelet Count 309 K/mm3 (142-424); Red Cell Distribution Width 14.3 % (11.5-17.5); White Blood Count 15.9 K/mm3 (4.8-10.8)
[2022-06-01 07:12] LABS: MANUAL DIFFERENTIAL MANUAL DIFFERENTIAL (MANUAL DIFF)
--- NOTE | 2022-06-01 07:12 | P.PNANES_ITS ---
[facility] Anesthesia Record Part II Anesthesia Record Part II Discharge Time: 22:30 (05/30/22) Destination: Medical Surgical Department PACU nurse assessment reviewed?: Yes Patient Condition:: Good Anesthesia Complications:: None Swallowing reflex intact?: Yes Cyanosis?: No Blood Pressure: 105/57 Pulse Rate: 78 Temperature: 99.1 F Mental Status: Alert & Oriented Pain level:: 0 Nausea and/or vomitting:: None Intake, IV Amount: 0
[2022-06-01 07:18] LABS: QuantiFERON-TB Gold Plus Negative (Negative)
[2022-06-01 07:33] LABS: Lymphocytes % 4 % (10-50); Monocytes % 13 % (2-9); Neutrophils % 83 % (42-76); Platelet Estimate Normal; RBC Morphology Normal; Total Cells Counted 100
[2022-06-01 07:44] LABS: POC Glucose,Bedside 183 (70-110)
--- NOTE | 2022-06-01 09:43 | XR_ITS ---
FINAL REPORT CLINICAL HISTORY: dyspnea COMPARISON: 05/31/2022 FINDINGS: A single portable view of the chest was obtained. There are postoperative changes from median sternotomy. A left subclavian pacemaker is present. An NG tube remains in place. The heart size and pulmonary vascularity are within normal limits. The mediastinum is within normal limits. There are mild bibasilar opacities favoring atelectasis. There are postoperative changes in the lower cervical spine. IMPRESSION: Mild bibasilar opacities favoring atelectasis. NG tube remains in place. Reviewed, Interpreted and Dictated by Ghulam Lomeli III, MD Transcribed by Corie Monroy Authenticated and [facility]
--- NOTE | 2022-06-01 09:43 | EXP.ACUTE.PN ---
Subjective *Date: 06/01/22 *Time: 17:38 Interval history: No nausea or vomiting overnight. Patient remained afebrile. Worsening urine output, and uric yesterday less than 100 cc total. Marginal increase this morning. Urine still green (presence of methylene blue). Currently on 3 L nasal cannula oxygen, new requirement since admission. Patient complains of dyspnea. Denies chest pain, nausea, vomiting. No flatus as of yet. No bowel movement. Blood pressure improving this morning. Medical Exam Vital signs and Labs for Last 24 Hours: Vital Signs Temp Pulse Pulse Resp BP BP Pulse Ox 06/01/22 08:00 99.4 F 06/01/22 04:00 95 06/01/22 04:00 64 14 103/46 L 95 06/01/22 04:00 70 06/01/22 00:00 60 05/31/22 20:00 60 06/01/22 02:00 64 13 98/50 L 95 06/01/22 00:00 99.7 F H 64 15 98/56 L 94 L 05/31/22 22:00 66 14 101/51 L 94 L 05/31/22 20:00 99.5 F 66 12 84/53 L 94 L 05/31/22 20:00 94 L 05/31/22 19:04 67 16 87/48 L 95 05/31/22 18:29 70 20 97/55 L 98 05/31/22 16:00 96 05/31/22 16:00 65 05/31/22 15:39 99.3 F 05/31/22 15:00 66 16 88/48 L 96 05/31/22 14:00 66 16 87/49 L 98 05/31/22 12:00 68 05/31/22 13:00 74 20 87/58 L 98 05/31/22 12:00 65 12 83/51 L 93 L 05/31/22 10:00 68 16 94/58 L 93 L 06/01/22 07:18 99.1 F 78 105/57 L Intake and Output 05/31/22 06/01/22 06/01/22 23:59 07:59 15:59 Intake Total 3253 / 4352 1924 / 1924 Output Total 325 / 1570 380 / 380 Balance 2928 / 2782 1544 / 1544 Intake: Intake, Oral Amount 0 / 0 Intake, Total IV Amount 3253 / 4338 1924 / 1924 Lactated Ringers 1000ML 1,000 3253 / 4238 504 / 504 ml @ 175 mls/hr IV .Q5H43M [facility] Rx#:[id number] Lactated Ringers 1000ML 1,000 920 / 920 ml @ 999 mls/hr IV .Q1H1M [facility] Rx#:[id number] Lactated Ringers 1000ML 500 ml 500 / 500 @ 999 mls/hr IV .Q31M [facility] Rx#: [id number] Output: Output, Urine Amount 0 / 300 10 / 10 Output, Gastric Drainage Amount 300 / 1050 350 / 350 Right Nare 300 / 1050 350 / 350 Output, Drainage Amount Right Abdomen Other: Number of Unmeasured Voids 0 Weight 109.134 kg Patient Weight 06/01/22 23:59 Weight 109.134 kg Laboratory Results - last 24 hr 05/28/22 11:03: TB Test (QFT) Nil 0.06, TB Test (QFT) Mitogen >10.00, TB Test (QFT) Ag 1 0.06, TB Test (QFT) Ag 2 0.06, TB Positive Criteria Comment, TB Test (QFT) Interp Negative 05/31/22 11:08: POC Glucose 212 H 05/31/22 16:51: POC Glucose 194 H 05/31/22 21:59: POC Glucose 205 H 06/01/22 05:35: POC Glucose 183 H 06/01/22 05:40: WBC 15.9 H, RBC 3.90 L, Hgb 10.4 L, Hct 34.1 L, MCV 87.5, MCH 26.7 L, MCHC 30.5 L, RDW 14.3, Plt Count 309, MPV 9.1, Neut % (Auto) 85.4 H, Lymph % (Auto) 7.5 L, [place] % (Auto) 6.8, Eos % (Auto) 0.2, Baso % (Auto) 0.2, Neut # (Auto) 13.6 H, Lymph # (Auto) 1.2, [place] # (Auto) 1.1 H, Eos # (Auto) 0.0, Baso # (Auto) 0.0, Total Counted 100, Neutrophils % (Manual) 83 H, Lymphocytes % (Manual) 4 L, Monocytes % (Manual) 13 H, Platelet Estimate Normal, RBC Morphology Normal 06/01/22 05:40: Sodium 139, Potassium 4.8, Chloride 104, Carbon Dioxide 18 L, Anion Gap 21.8 H, BUN 41 H D, Creatinine 5.90 H D, Estimated Creat Clear 24, Estimated GFR 10 L*, Est GFR ( Amer) 12 L* D, Glucose 194 H, Calcium 7.3 L, Phosphorus 8.1 H D, Magnesium 2.0, Total Bilirubin 0.5, AST 34, ALT 21 D, Alkaline Phosphatase 111, Total Protein 5.7 L, Albumin 2.6 L, Globulin 3.1, Albumin/Globulin Ratio 0.8 L I & O for Labs for Last 24 Hours: Intake & Output 05/29/22 05/30/22 05/31/22 06/01/22 23:59 23:59 23:59 23:59 Intake Total 680 / 1020 4673 / 4773 4352 / 4352 192 / 1924 Output Total 0 / 0 1570 / 1570 380 / 380 Balance 680 / 1020 4653 / 2993 2782 / 2782 1544 / 1544 Weight 98.702 kg 97.522 kg
[2022-06-01 11:55] LABS: POC Glucose,Bedside 205 (70-110)
[2022-06-01 12:17] LABS: POC Glucose,Bedside 171 (70-110)
--- NOTE | 2022-06-01 12:43 | EXP.SURG.PN ---
Subjective Narrative: Patient's pain seems somewhat slightly better controlled. NG tube in place with moderate output. Has had no nausea. Denies any definite passage of flatus but patient states that he is unsure. Minuscule urinary output. Exam Data for Last 24 hours Vital signs and Labs for Last 24 Hours: Temp Pulse Resp BP Pulse Ox 99.4 F 67 16 99/54 L 95 06/01/22 08:00 06/01/22 10:00 06/01/22 10:00 06/01/22 10:00 06/01/22 10:00 Laboratory Results - last 24 hr 05/28/22 11:03: TB Test (QFT) Nil 0.06, TB Test (QFT) Mitogen >10.00, TB Test (QFT) Ag 1 0.06, TB Test (QFT) Ag 2 0.06, TB Positive Criteria Comment, TB Test (QFT) Interp Negative 05/30/22 16:50: POC Glucose 171 H 05/31/22 11:08: POC Glucose 212 H 05/31/22 16:51: POC Glucose 194 H 05/31/22 21:59: POC Glucose 205 H 06/01/22 05:35: POC Glucose 183 H 06/01/22 05:40: WBC 15.9 H, RBC 3.90 L, Hgb 10.4 L, Hct 34.1 L, MCV 87.5, MCH 26.7 L, MCHC 30.5 L, RDW 14.3, Plt Count 309, MPV 9.1, Neut % (Auto) 85.4 H, Lymph % (Auto) 7.5 L, [place] % (Auto) 6.8, Eos % (Auto) 0.2, Baso % (Auto) 0.2, Neut # (Auto) 13.6 H, Lymph # (Auto) 1.2, [place] # (Auto) 1.1 H, Eos # (Auto) 0.0, Baso # (Auto) 0.0, Total Counted 100, Neutrophils % (Manual) 83 H, Lymphocytes % (Manual) 4 L, Monocytes % (Manual) 13 H, Platelet Estimate Normal, RBC Morphology Normal 06/01/22 05:40: Sodium 139, Potassium 4.8, Chloride 104, Carbon Dioxide 18 L, Anion Gap 21.8 H, BUN 41 H D, Creatinine 5.90 H D, Estimated Creat Clear 24, Estimated GFR 10 L*, Est GFR ( Amer) 12 L* D, Glucose 194 H, Calcium 7.3 L, Phosphorus 8.1 H D, Magnesium 2.0, Total Bilirubin 0.5, AST 34, ALT 21 D, Alkaline Phosphatase 111, Total Protein 5.7 L, Albumin 2.6 L, Globulin 3.1, Albumin/Globulin Ratio 0.8 L 06/01/22 11:35: POC Glucose 205 H I & O for Last 24 hours: Intake & Output 05/30/22 05/31/22 06/01/22 06/02/22 11:59 11:59 11:59 11:59 Intake Total 940 / 940 5192 / 5192 5177 / 5177 Output Total 0 / 0 515 / 515 1455 / 1455 Balance 940 / 940 4677 / 4677 3722 / 3722 Weight 215 lb 221 lb 3.2 oz 240 lb 9.6 oz Microbiology Reports for the Last 24 Hours: Microbiology 05/30/22 06:08 Blood Blood Culture - Preliminary NO GROWTH AFTER 48 HOURS 05/30/22 06:18 Blood Blood Culture - Preliminary NO GROWTH AFTER 48 HOURS *Routine Abdominal Exam Comments: JENA drain reveals serosanguineous drainage, minimal. Incision clean and dressed. Progress Note: A&P Assessment and plan (1) Sepsis: Status: Acute (2) MARCIA (acute kidney injury): Status: Acute (3) Acute appendicitis with rupture: Status: Acute Assessment and plan: At this time is most pressing/concerning issue is acute kidney injury. Until he shows signs of return of bowel function continue n.p.o. with NG for now. Out of bed to chair. Continue IV antibiotics. (4) Intra-abdominal abscess: Status: Acute (5) HTN (hypertension): Status: Chronic (6) HLD (hyperlipidemia): Status: Chronic (7) CAD (coronary artery disease): Status: Chronic
--- NOTE | 2022-06-01 13:59 | HMH.PTEV ---
Physical Therapy Evaluation Rehab PT IP Evaluation Start: 06/01/22 10:30 Freq: ONCE Status: Active Protocol: Document 06/01/22 13:39 MANDAEMILIANO (Rec: 06/01/22 13:59 CHRISTIAN [id number]) Subjective/History History History Pt is a 47 year old male that presented to the ED on 2022 with a 2 week history of intermittent fevers with no other symptoms. Work-up in the emergency department revealed a mild leukocytosis of 17,[address] scan of abdomen and pelvis which revealed possible ruptured appendix with abscess characterized by air-fluid collection in the right abdomen posterior to the cecum measuring 6 cm with distended appendix extending into this abscess with diffuse adjacent inflammatory changes. Pt underwent a laparotomy with right hemicolectomy and ileocolic anastomosis on 2022. Pt with a PMH significant for coronary artery disease, previous myocardial infarction, cardiac pacemaker, previous CABG x4, and diabetes mellitus. Subjective Subjective Pt presents seated in bedside chair with mother at side. Pt agreeable to PT initial evaluation. Pt reports he is having abdominal pain at rest and that my insides are messed up . Pt reports that at baseline, he is independent with all B/ IADL's including working full- time. Pt reports that he does not ambulate with an AD at baseline. Pt lives in a multi- level home with 3 MAGGIE with a friend but states that he stays on the primary floor. Following evaluation, pt left seated in bedside chair with call light and all needs
--- NOTE | 2022-06-01 14:16 | PC.NURSE ---
Pt ambulated with assist x2 to chair at bedside. Roxana not tolerate well. Remains on 3L O2 NC. Pain medication administered. NG to (R) nare to low wall suction. Urine output is 45 ml thus far.
[2022-06-01 14:31] LABS: Chloride 105 mmol/L (98-107); Sodium 139 mmol/L (136-145)
[2022-06-01 14:32] LABS: Potassium 4.6 mmoL/L (3.5-5.1)
[2022-06-01 14:35] LABS: Anion Gap 19.6 mEq/L (5-15); Blood Urea Nitrogen 45 mg/dl (9-20); Calcium 7.4 mg/dl (8.4-10.2); Carbon Dioxide 19 mmol/L (22.0-30.0); Creatinine Clearance Estimated 20 mL/min (50-200); Estimated Glomerular Filt Rate 8 ml/min (>60); GFR (African American) 10 ML/MIN (>60); Glucose 187 mg/dl (74-100)
--- NOTE | 2022-06-01 14:47 | PC.NURSE ---
Lab called regarding pt's creatinine of 7.1, Dr. Millre called critical results. states he will order Lasix.
--- NOTE | 2022-06-01 15:30 | HMH.OTEV ---
OT Inpatient Evaluation Rehab OT IP Evaluation Start: 06/01/22 10:30 Freq: ONCE Status: Active Protocol: Document 06/01/22 14:58 JAGDISHAMBROSIO (Rec: 06/01/22 15:29 MELY [id number]) Rehab OT IP Assessment Subjective History Patient is a 47-year-old male with history of coronary artery disease, previous myocardial infarction, cardiac pacemaker, previous CABG x4, diabetes mellitus with sequelae requiring bilateral cataract surgery several years ago, on dual antiplatelet therapy.? He presented to the emergency department on 2022 with approximately 2 weeks of intermittent, mostly nocturnal, fevers with no other associated symptoms.? Work-up in the emergency department revealed a mild leukocytosis of 17,000.? He underwent extremely thorough work-up for these fevers of unknown origin.? This included CT scan of the abdomen and pelvis which revealed findings worrisome for possible ruptured appendicitis with abscess characterized by air- fluid collection in the right abdomen posterior to the cecum measuring 6 cm with distended appendix extending into this abscess with diffuse adjacent inflammatory changes.? By report this is most consistent with perforated appendicitis with established abscess less likely other inflammatory process.? Patient denies ever having any abdominal pain or tenderness.? He has never had prior colonoscopy by the way. After discussion with surgery patient was admitted to the hospitalist service. He was seen and examined as a surgical consultation. Patient had absolutely no
[2022-06-01 17:05] LABS: POC Glucose,Bedside 176 (70-110)
--- NOTE | 2022-06-01 18:10 | PC.NURSE ---
Updated MD Cage on pt's urine output. Pt has had an additional 15 ml after albumen infusion and bumex. 78 ml total urine output for shift. Urine is green from methylene blue. Pt denies any discomfort at this time. Declines pain medication at this time. Has been up to chair for period of shift. NG @ (R) nare to continuous low wall suction. Total output is 450 ml. Green drainage that has lightened over shift. VSS. Pt is currently on 2.5 L O2 NC. Call light within reach. Family at bedside.
--- NOTE | 2022-06-01 20:15 | PC.NURSE ---
Rounded on pt at this time. Pt states his pain is being well controlled and does not have any needs at this time.
[2022-06-01 20:19] LABS: Legionella pneumophila Urinary Negative (Negative)
[2022-06-01 20:42] LABS: POC Glucose,Bedside 184 (70-110)
[2022-06-01 22:11] LABS: Chloride 104 mmol/L (98-107)
[2022-06-01 22:12] LABS: Potassium 4.6 mmoL/L (3.5-5.1); Sodium 139 mmol/L (136-145)
[2022-06-01 22:15] LABS: Anion Gap 20.6 mEq/L (5-15); Blood Urea Nitrogen 50 mg/dl (9-20); Calcium 7.4 mg/dl (8.4-10.2); Carbon Dioxide 19 mmol/L (22.0-30.0); Creatinine Clearance Estimated 19 mL/min (50-200); Estimated Glomerular Filt Rate 8 ml/min (>60); GFR (African American) 10 ML/MIN (>60); Glucose 191 mg/dl (74-100)
--- NOTE | 2022-06-01 22:40 | PC.NURSE ---
notified KAROL Price of pt's critical creatinine of 7.4, no new orders at this time
[2022-06-02] VITALS (16 sets, daily range): BP systolic 107–156; BP diastolic 60–89; PULSE 60–72; RESP 10–17; TEMP 36.7–37.1; O2SAT 92–96; BMI 31.8
[2022-06-02 05:52] LABS: POC Glucose,Bedside 164 (70-110)
[2022-06-02 06:22] LABS: Basophils % 0.2 % (0.1-2.0); Eosinophils # 0.2 K/mm3 (0.0-0.4); Hematocrit 30.6 % (42.0-52.0); Hemoglobin 9.4 g/dL (14.1-18.0); Lymphocytes # 1.1 K/mm3 (0.7-4.5); Lymphocytes % 8.2 % (10-50); Mean Corpuscular HGB Conc 30.8 g/dL (31.8-35.4); Mean Corpuscular Hemoglobin 26.6 pg (27.0-31.2); Mean Corpuscular Volume 86.3 fl (80-94); Mean Platelet Volume 9.1 fl (7.4-10.4); Monocytes # 0.8 K/mm3 (0.1-1.0); Monocytes % 5.9 % (1.7-9.3); Neutrophils # 11.8 K/mm3 (1.8-7.8); Neutrophils % 84.7 % (37.0-80.0); Platelet Count 319 K/mm3 (142-424); Red Blood Count 3.55 M/mm3 (4.60-6.20); Red Cell Distribution Width 14.4 % (11.5-17.5); White Blood Count 13.9 K/mm3 (4.8-10.8)
[2022-06-02 06:27] LABS: Chloride 105 mmol/L (98-107)
[2022-06-02 06:28] LABS: Potassium 4.4 mmoL/L (3.5-5.1); Sodium 139 mmol/L (136-145)
[2022-06-02 06:30] LABS: Blood Urea Nitrogen 52 mg/dl (9-20); Creatinine Clearance Estimated 19 mL/min (50-200); Estimated Glomerular Filt Rate 9 ml/min (>60); GFR (African American) 10 ML/MIN (>60)
[2022-06-02 06:31] LABS: Alanine Aminotransferase 14 U/L (12-78); Albumin Level 2.7 g/dl (3.5-5.0); Albumin/Globulin Ratio 0.9 (1.1-1.8); Alkaline Phosphatase 103 U/L (38-126); Anion Gap 19.4 mEq/L (5-15); Aspartate Amino Transferase 35 U/L (17-59); Bilirubin,Total 0.5 mg/dl (0.2-1.3); Calcium 7.6 mg/dl (8.4-10.2); Carbon Dioxide 19 mmol/L (22.0-30.0); Glucose 161 mg/dl (74-100); Phosphorous 7.3 mg/dl (2.5-4.5); Total Protein,Serum 5.7 g/dl (6.3-8.2)
--- NOTE | 2022-06-02 07:51 | EXP.ACUTE.PN ---
Subjective *Date: 06/02/22 *Time: 18:21 Interval history: Patient still having some abdominal discomfort. No nausea or vomiting overnight however. No bowel movement or flatus. Has had increased urine output. Responded to diuretic challenge with over 475 cc out in the past 24 hours. Afebrile overnight. Hemodynamically stable. On 2 and half liters nasal cannula this morning. Still quite weak and requiring significant assistance. Medical Exam Vital signs and Labs for Last 24 Hours: Vital Signs Temp Pulse Pulse Resp BP Pulse Ox 06/02/22 07:19 98.6 F 70 17 112/60 95 06/02/22 06:00 66 10 L 109/61 L 93 L 06/02/22 04:00 70 06/02/22 04:00 98.8 F 06/02/22 04:00 69 13 120/68 95 06/02/22 02:00 71 11 L 109/67 L 96 06/02/22 00:00 96 06/02/22 00:00 65 11 L 109/60 L 96 06/02/22 00:00 70 06/01/22 23:44 95 06/01/22 22:59 70 06/01/22 22:00 72 10 L 109/61 L 95 06/01/22 20:20 96 06/01/22 20:00 99.2 F 68 9 L 103/54 L 96 06/01/22 18:00 65 15 98/56 L 95 06/01/22 16:00 70 06/01/22 16:00 69 16 110/65 94 L 06/01/22 16:00 99.1 F 06/01/22 14:00 67 17 91/73 L 95 06/01/22 12:00 66 18 96/56 L 94 L 06/01/22 12:00 60 06/01/22 12:00 98.4 F 06/01/22 08:00 65 06/01/22 10:00 67 16 99/54 L 95 06/01/22 08:00 67 16 101/59 L 93 L 06/01/22 08:00 99.4 F Intake and Output 06/01/22 06/01/22 06/02/22 15:59 23:59 07:59 Intake Total 50 1974 Output Total 260 / 988 348 / 988 887 / 887 Balance -260 / 986 -298 / 986 -887 / -887 Intake: Intake, Total IV Amount 1973 Albumin Human 50 ml @ 100 mls/ 50 / 50 hr IV ONCE ONE Rx#:[id number] Output: Output, Urine Amount 40 / 50 100 / 100 Output, Urine Amount (Catheter) 48 108 375 / 375 Coude 375 / 375 Output, Gastric Drainage Amount 200 / 800 250 / 800 400 / 400 Right Nare 200 / 800 250 / 800 400 / 400 Output, Drainage Amount Right Abdomen yaakov drain 2 Other: Number of Voids 0 Number of Unmeasured Voids 0 1 0 Weight 103.051 kg Patient Weight 06/02/22 23:59 Weight 103.051 kg Laboratory Results - last 24 hr 05/28/22 09:50: Ur L.pneumophila Ag Negative 05/30/22 16:50: POC Glucose 171 H 06/01/22 11:35: POC Glucose 205 H 06/01/22 14:15: Sodium 139, Potassium 4.6, Chloride 105, Carbon Dioxide 19 L, Anion Gap 19.6 H, BUN 45 H, Creatinine 7.10 H D, Estimated Creat Clear 20, Estimated GFR 8 L*, Est GFR ( Amer) 10 L*, Glucose 187 H, Calcium 7.4 L 06/01/22 16:28: POC Glucose 176 H 06/01/22 20:33: POC Glucose 184 H 06/01/22 21:50: Sodium 139, Potassium 4.6, Chloride 104, Carbon Dioxide 19 L, Anion Gap 20.6 H, BUN 50 H, Creatinine 7.40 H, Estimated Creat Clear 19, Estimated GFR 8 L*, Est GFR ( Amer) 10 L*, Glucose 191 H, Calcium 7.4 L 06/02/22 05:43: POC Glucose 164 H 06/02/22 05:44: WBC 13.9 H, RBC 3.55 L, Hgb 9.4 L, Hct 30.6 L, MCV 86.3, MCH 26.6 L, MCHC 30.8 L, RDW 14.4, Plt Count 319, MPV 9.1, Neut % (Auto) 84.7 H, Lymph % (Auto) 8.2 L, [place] % (Auto) 5.9, Eos % (Auto) 1.0, Baso % (Auto) 0.2, Neut # (Auto) 11.8 H, Lymph # (Auto) 1.1, [place] # (Auto) 0.8, Eos # (Auto) 0.2, Baso # (Auto) 0.0 06/02/22 05:44: Sodium 139, Potassium 4.4, Chloride 105, Carbon Dioxide 19 L, Anion Gap 19.4 H, BUN 52 H, Creatinine 6.90 H, Estimated Creat Clear 19, Estimated GFR 9 L*, Est GFR ( Amer) 10 L*, Glucose 161 H, Calcium 7.6 L, Phosphorus 7.3 H, Total Bilirubin 0.5, AST 35, ALT 14 D, Alkaline Phosphatase 103, Total Protein 5.7 L, Albumin 2.7 L, Globulin 3.0, Albumin/Globulin Ratio 0.9 L I & O for Labs for Last 24 Hours: Intake & Output 05/30/22 05/31/22 06/01/22 06/02/22 23:59 23:59 23:59 23:59 Intake Total 4673 / 4773 4352 / 4352 1973 Output Total 1570 / 1570 988 / 988 887 / 887 Balance 4653 / 4
--- NOTE | 2022-06-02 08:19 | P.PN_ITS ---
Subjective Narrative: Patient states that he feels horrible mainly because of the pain. Denies any definite passage of flatus. Has been making some urine overnight. Exam Data for Last 24 hours Vital signs and Labs for Last 24 Hours: Temp Pulse Resp BP Pulse Ox 98.6 F 70 17 112/60 95 06/02/22 07:19 06/02/22 07:19 06/02/22 07:19 06/02/22 07:19 06/02/22 07:19 Laboratory Results - last 24 hr 05/28/22 09:50: Ur L.pneumophila Ag Negative 05/30/22 16:50: POC Glucose 171 H 06/01/22 11:35: POC Glucose 205 H 06/01/22 14:15: Sodium 139, Potassium 4.6, Chloride 105, Carbon Dioxide 19 L, Anion Gap 19.6 H, BUN 45 H, Creatinine 7.10 H D, Estimated Creat Clear 20, Estimated GFR 8 L*, Est GFR ( Amer) 10 L*, Glucose 187 H, Calcium 7.4 L 06/01/22 16:28: POC Glucose 176 H 06/01/22 20:33: POC Glucose 184 H 06/01/22 21:50: Sodium 139, Potassium 4.6, Chloride 104, Carbon Dioxide 19 L, Anion Gap 20.6 H, BUN 50 H, Creatinine 7.40 H, Estimated Creat Clear 19, Estimated GFR 8 L*, Est GFR ( Amer) 10 L*, Glucose 191 H, Calcium 7.4 L 06/02/22 05:43: POC Glucose 164 H 06/02/22 05:44: WBC 13.9 H, RBC 3.55 L, Hgb 9.4 L, Hct 30.6 L, MCV 86.3, MCH 26.6 L, MCHC 30.8 L, RDW 14.4, Plt Count 319, MPV 9.1, Neut % (Auto) 84.7 H, Lymph % (Auto) 8.2 L, [place] % (Auto) 5.9, Eos % (Auto) 1.0, Baso % (Auto) 0.2, Neut # (Auto) 11.8 H, Lymph # (Auto) 1.1, [place] # (Auto) 0.8, Eos # (Auto) 0.2, Baso # (Auto) 0.0 06/02/22 05:44: Sodium 139, Potassium 4.4, Chloride 105, Carbon Dioxide 19 L, Anion Gap 19.4 H, BUN 52 H, Creatinine 6.90 H, Estimated Creat Clear 19, Estimated GFR 9 L*, Est GFR ( Amer) 10 L*, Glucose 161 H, Calcium 7.6 L, Phosphorus 7.3 H, Total Bilirubin 0.5, AST 35, ALT 14 D, Alkaline Phosphatase 103, Total Protein 5.7 L, Albumin 2.7 L, Globulin 3.0, Albumin/Globulin Ratio 0.9 L I & O for Last 24 hours: Intake & Output 05/30/22 05/31/22 06/01/22 06/02/22 11:59 11:59 11:59 11:59 Intake Total 940 / 940 5192 / 5192 5177 / 5177 50 / 50 Output Total 0 / 0 515 / 515 1455 / 1455 1495 / 1495 Balance 940 / 940 4677 / 4677 3722 / 3722 -1445 / -1445 Weight 215 lb 221 lb 3.2 oz 240 lb 9.6 oz 227 lb 3 oz Microbiology Reports for the Last 24 Hours: Microbiology 05/30/22 06:08 Blood Blood Culture - Preliminary NO GROWTH AFTER 48 HOURS 05/30/22 06:18 Blood Blood Culture - Preliminary NO GROWTH AFTER 48 HOURS *Routine Abdominal Exam Abdominal: Present tenderness Comments: JENA drain with serosanguineous. Progress Note: A&P Assessment and plan (1) Sepsis: Status: Acute (2) MARCIA (acute kidney injury): Status: Acute (3) Acute appendicitis with rupture: Status: Acute (4) Intra-abdominal abscess: Status: Acute (5) HTN (hypertension): Status: Chronic (6) HLD (hyperlipidemia): Status: Chronic (7) CAD (coronary artery disease): Status: Chronic
--- NOTE | 2022-06-02 10:01 | SW/DCPLANNER ---
Addendum entered by [facility] 06/05/22 07:43: The plan for this patient is to discharge to [facility] today Unit CVA2. Addendum entered by [facility] 06/04/22 10:28: Per MD patient will not discharge to [facility] till tomorrow. I have updated Gladys Black. Addendum entered by [facility] 06/04/22 09:24: Per MD this patient is medically stable for discharge to [facility] today. I have updated Gladys Black. Addendum entered by [facility] 06/03/22 12:43: This patient has been accepted to [facility] once medically stable for discharge per Gladys: I will update patient, family and MD. Addendum entered by [facility] 06/02/22 12:54: Gladys Black is onsite to evaluate this patient at this time. Original Note: I spoke with patient and his mother regarding plans once medically stable for discharge. Patient was slow to respond this AM but is agreeable to SNF level of care. I discussed [facility] placement with this patient and he is agreeable at this time. Patient information will be faxed to [facility]. Discharge date is unknown at this time.
[2022-06-02 11:32] LABS: POC Glucose,Bedside 154 (70-110)
--- NOTE | 2022-06-02 13:15 | PC.NURSE ---
Pt refused PT x2 this shift
[2022-06-02 14:50] LABS: Anion Gap 17.4 mEq/L (5-15); Blood Urea Nitrogen 51 mg/dl (9-20); Calcium 7.6 mg/dl (8.4-10.2); Carbon Dioxide 22 mmol/L (22.0-30.0); Chloride 105 mmol/L (98-107); Creatinine Clearance Estimated 22 mL/min (50-200); Estimated Glomerular Filt Rate 10 ml/min (>60); GFR (African American) 12 ML/MIN (>60); Glucose 163 mg/dl (74-100); Potassium 4.4 mmoL/L (3.5-5.1); Sodium 140 mmol/L (136-145)
--- NOTE | 2022-06-02 17:37 | PC.NURSE ---
Pt is a&o x4. Dressing to midline with no new drainage. JENA drains still in place with a total of 11mls of sanguineous drainage, (5mls & 6mls). He was up to the chair for approx 2.5 hours this am and rested in bed the rest of the shift. Pt was encouraged to get back up to the chair but declined. His drake is to bedside draining bluish/green urine, 835 mls out thus far. He had 400mls of green drainage out of NG. He's been paced on telemetry. He has been weaned to 1L NC with O2 currently measuring 95%. Incentive spirometer is at bedside with pt using intermittently. PRN dilaudid administered x2 this shift with favorable results. He is currently resting in bed with his eyes closed. Family is at bedside and updated on POC. Bed is locked and in the lowest position, call light is within reach.
[2022-06-02 21:20] LABS: POC Glucose,Bedside 165 (70-110)
[2022-06-02 21:20] LABS: POC Glucose,Bedside 172 (70-110)
[2022-06-02 21:58] LABS: Chloride 106 mmol/L (98-107); Potassium 4.1 mmoL/L (3.5-5.1); Sodium 140 mmol/L (136-145)
[2022-06-02 22:01] LABS: Blood Urea Nitrogen 52 mg/dl (9-20); Creatinine Clearance Estimated 28 mL/min (50-200); Estimated Glomerular Filt Rate 13 ml/min (>60); GFR (African American) 16 ML/MIN (>60)
[2022-06-02 22:02] LABS: Anion Gap 17.1 mEq/L (5-15); Calcium 7.7 mg/dl (8.4-10.2); Carbon Dioxide 21 mmol/L (22.0-30.0); Glucose 167 mg/dl (74-100)
--- NOTE | 2022-06-02 22:11 | PC.NURSE ---
notified KAROL Price of pt's critical creatinine decreased to 4.70, no new orders at this time
--- NOTE | 2022-06-02 23:19 | PC.NURSE ---
assisted pt to chair, clamped NGT, changed pt's sheets, pt eating ice chips, family with pt
[2022-06-03] VITALS (9 sets, daily range): BP systolic 132–163; BP diastolic 75–83; PULSE 66–76; RESP 11–18; TEMP 36.5–37.2; O2SAT 94–97; BMI 30.8
--- NOTE | 2022-06-03 00:41 | PC.NURSE ---
got pt back to bed from chair, hooked NGT up to low wall suction at 70mmHg, pt rated pain 10/10, prn pain medication given, call light within reach and family at bedside
[2022-06-03 06:59] LABS: POC Glucose,Bedside 163 (70-110)
[2022-06-03 07:27] LABS: Chloride 107 mmol/L (98-107); Potassium 3.8 mmoL/L (3.5-5.1); Sodium 141 mmol/L (136-145)
[2022-06-03 07:28] LABS: Basophils % 0.4 % (0.1-2.0); Eosinophils # 0.2 K/mm3 (0.0-0.4); Eosinophils % 2.4 % (0.1-12.0); Hematocrit 30.6 % (42.0-52.0); Hemoglobin 9.7 g/dL (14.1-18.0); Lymphocytes % 10.8 % (10-50); Mean Corpuscular HGB Conc 31.7 g/dL (31.8-35.4); Mean Corpuscular Hemoglobin 27.1 pg (27.0-31.2); Mean Corpuscular Volume 85.3 fl (80-94); Mean Platelet Volume 9.4 fl (7.4-10.4); Monocytes # 0.6 K/mm3 (0.1-1.0); Neutrophils # 7.8 K/mm3 (1.8-7.8); Neutrophils % 80.4 % (37.0-80.0); Platelet Count 346 K/mm3 (142-424); Red Blood Count 3.58 M/mm3 (4.60-6.20); Red Cell Distribution Width 14.5 % (11.5-17.5); White Blood Count 9.7 K/mm3 (4.8-10.8)
[2022-06-03 07:30] LABS: Alanine Aminotransferase 15 U/L (12-78); Albumin Level 2.6 g/dl (3.5-5.0); Albumin/Globulin Ratio 0.8 (1.1-1.8); Alkaline Phosphatase 96 U/L (38-126); Anion Gap 11.8 mEq/L (5-15); Aspartate Amino Transferase 47 U/L (17-59); Bilirubin,Total 0.4 mg/dl (0.2-1.3); Blood Urea Nitrogen 47 mg/dl (9-20); Carbon Dioxide 26 mmol/L (22.0-30.0); Creatinine Clearance Estimated 33 mL/min (50-200); Estimated Glomerular Filt Rate 17 ml/min (>60); GFR (African American) 20 ML/MIN (>60); Globulin 3.2 g/dL (1.3-3.2); Total Protein,Serum 5.8 g/dl (6.3-8.2)
[2022-06-03 07:31] LABS: Calcium 7.9 mg/dl (8.4-10.2); Glucose 157 mg/dl (74-100)
--- NOTE | 2022-06-03 07:42 | EXP.ACUTE.PN ---
Subjective *Date: 06/03/22 *Time: 09:30 Interval history: Patient is a little more interactive today. States he is passing gas. Asking for Jell-O. Denies any nausea or vomiting. Having adequate urine output. Over 800 cc of urine yesterday. Kidney function showing gradual improvement on serial labs. Afebrile overnight. White cell count is normalized. Hemodynamically stable. Mother at bedside, pleased with progress. Medical Exam Vital signs and Labs for Last 24 Hours: Vital Signs Temp Pulse Pulse Resp BP Pulse Ox 06/03/22 07:37 97.7 F 06/03/22 06:00 66 14 143/76 H 95 06/03/22 00:00 70 06/03/22 04:00 98.8 F 06/03/22 04:00 68 13 160/76 H 95 06/03/22 02:00 67 14 132/75 96 06/03/22 00:00 70 06/03/22 00:00 67 11 L 142/75 H 94 L 06/03/22 00:30 96 06/03/22 00:00 97.7 F 06/02/22 23:23 95 06/02/22 20:00 68 17 156/89 H 94 L 06/02/22 22:00 66 12 123/69 95 06/02/22 20:00 70 06/02/22 20:00 98.2 F 06/02/22 18:00 67 16 121/70 96 06/02/22 16:00 60 06/02/22 16:00 66 15 125/67 94 L 06/02/22 15:08 98.7 F 06/02/22 14:00 63 14 107/62 L 92 L 06/02/22 12:00 70 06/02/22 12:00 71 17 117/68 94 L 06/02/22 11:12 98.1 F 06/02/22 10:00 98.1 F 72 14 120/61 93 L 06/02/22 08:00 70 Intake and Output 06/02/22 06/02/22 06/03/22 15:59 23:59 07:59 Intake Total 0 / 50 50 / 50 240 / 240 Output Total 660 / 2683 1136 / 2683 1307 / 1307 Balance -660 / -2633 -1086 / -2633 -1067 / -1067 Intake: Intake, Oral Amount 0 / 0 240 / 240 Intake, Total IV Amount 50 / 50 Ertapenem Sodium 0.5 gm In 0.9 50 / 50 % Sodium Chloride 50 ml @ 100 mls/hr IV 1100 [facility] Rx#:[id number] Output: Output, Urine Amount 460 / 1285 725 / 1285 900 / 900 Output, Urine Amount (Catheter) 200 / 575 Coude 200 / 575 Output, Gastric Drainage Amount 400 / 800 400 / 400 Right Nare 400 / 800 400 / 400 Output, Drainage Amount Right Abdomen yaakov drain 2 Other: Number of Unmeasured Voids 0 1 Weight 99.847 kg Patient Weight 06/03/22 23:59 Weight 99.847 kg Laboratory Results - last 24 hr 06/02/22 11:21: POC Glucose 154 H 06/02/22 14:23: Sodium 140, Potassium 4.4, Chloride 105, Carbon Dioxide 22, Anion Gap 17.4 H, BUN 51 H, Creatinine 6.00 H, Estimated Creat Clear 22, Estimated GFR 10 L*, Est GFR ( Amer) 12 L*, Glucose 163 H, Calcium 7.6 L 06/02/22 16:15: POC Glucose 165 H 06/02/22 20:53: POC Glucose 172 H 06/02/22 21:45: Sodium 140, Potassium 4.1, Chloride 106, Carbon Dioxide 21 L, Anion Gap 17.1 H, BUN 52 H, Creatinine 4.70 H D, Estimated Creat Clear 28, Estimated GFR 13 L*, Est GFR ( Amer) 16 L* D, Glucose 167 H, Calcium 7.7 L 06/03/22 05:55: POC Glucose 163 H 06/03/22 06:33: WBC 9.7 D, RBC 3.58 L, Hgb 9.7 L, Hct 30.6 L, MCV 85.3, MCH 27.1, MCHC 31.7 L, RDW 14.5, Plt Count 346, MPV 9.4, Neut % (Auto) 80.4 H, Lymph % (Auto) 10.8, [place] % (Auto) 6.0, Eos % (Auto) 2.4, Baso % (Auto) 0.4, Neut # (Auto) 7.8, Lymph # (Auto) 1.0, [place] # (Auto) 0.6, Eos # (Auto) 0.2, Baso # (Auto) 0.0 06/03/22 06:33: Sodium 141, Potassium 3.8, Chloride 107, Carbon Dioxide 26, Anion Gap 11.8, BUN 47 H, Creatinine 3.90 H, Estimated Creat Clear 33, Estimated GFR 17 L*, Est GFR ( Amer) 20 L D, Glucose 157 H, Calcium 7.9 L, Phosphorus 4.0 D, Total Bilirubin 0.4, AST 47 D, ALT 15, Alkaline Phosphatase 96, Total Protein 5.8 L, Albumin 2.6 L, Globulin 3.2, Albumin/Globulin Ratio 0.8 L I & O for Labs for Last 24 Hours: Intake & Output 05/31/22 06/01/22 06/02/22 06/03/22 23:59 23:59 23:59 23:59 Intake Total 4352 / 4352 1973 / 1973 50 / 50 240 / 240 Output Total 1570 / 1570 988 / 988 2683 / 2683 1307 / 1307 Balance 2782 / 2782 986 / 986 -2633 / -2633 -1067 / -1067 Weight 100.335 kg 109.134 kg 103.051 kg 99.847 kg Micr
--- NOTE | 2022-06-03 08:58 | EXP.SURG.PN ---
Subjective Patient reports: no new complaints, flatus and bowel movement Exam Data for Last 24 hours Vital signs and Labs for Last 24 Hours: Temp Pulse Resp BP Pulse Ox 97.7 F 66 14 143/76 H 95 06/03/22 07:37 06/03/22 06:00 06/03/22 06:00 06/03/22 06:00 06/03/22 06:00 Laboratory Results - last 24 hr 06/02/22 11:21: POC Glucose 154 H 06/02/22 14:23: Sodium 140, Potassium 4.4, Chloride 105, Carbon Dioxide 22, Anion Gap 17.4 H, BUN 51 H, Creatinine 6.00 H, Estimated Creat Clear 22, Estimated GFR 10 L*, Est GFR ( Amer) 12 L*, Glucose 163 H, Calcium 7.6 L 06/02/22 16:15: POC Glucose 165 H 06/02/22 20:53: POC Glucose 172 H 06/02/22 21:45: Sodium 140, Potassium 4.1, Chloride 106, Carbon Dioxide 21 L, Anion Gap 17.1 H, BUN 52 H, Creatinine 4.70 H D, Estimated Creat Clear 28, Estimated GFR 13 L*, Est GFR ( Amer) 16 L* D, Glucose 167 H, Calcium 7.7 L 06/03/22 05:55: POC Glucose 163 H 06/03/22 06:33: WBC 9.7 D, RBC 3.58 L, Hgb 9.7 L, Hct 30.6 L, MCV 85.3, MCH 27.1, MCHC 31.7 L, RDW 14.5, Plt Count 346, MPV 9.4, Neut % (Auto) 80.4 H, Lymph % (Auto) 10.8, [place] % (Auto) 6.0, Eos % (Auto) 2.4, Baso % (Auto) 0.4, Neut # (Auto) 7.8, Lymph # (Auto) 1.0, [place] # (Auto) 0.6, Eos # (Auto) 0.2, Baso # (Auto) 0.0 06/03/22 06:33: Sodium 141, Potassium 3.8, Chloride 107, Carbon Dioxide 26, Anion Gap 11.8, BUN 47 H, Creatinine 3.90 H, Estimated Creat Clear 33, Estimated GFR 17 L*, Est GFR ( Amer) 20 L D, Glucose 157 H, Calcium 7.9 L, Phosphorus 4.0 D, Total Bilirubin 0.4, AST 47 D, ALT 15, Alkaline Phosphatase 96, Total Protein 5.8 L, Albumin 2.6 L, Globulin 3.2, Albumin/Globulin Ratio 0.8 L I & O for Last 24 hours: Intake & Output 05/31/22 06/01/22 06/02/22 06/03/22 11:59 11:59 11:59 11:59 Intake Total 5192 / 5192 5177 / 5177 50 / 50 290 / 290 Output Total 515 / 515 1455 / 1455 1955 / 1955 3143 / 3143 Balance 4677 / 4677 3722 / 3722 -1905 / -1905 -2853 / -2853 Weight 221 lb 3.2 oz 240 lb 9.6 oz 227 lb 3 oz 220 lb 2 oz Microbiology Reports for the Last 24 Hours: Microbiology 05/28/22 10:00 Blood Blood Culture - Final NO GROWTH AFTER 5 DAYS 05/28/22 10:00 Blood Blood Culture - Final NO GROWTH AFTER 5 DAYS Constitutional Constitutional: no acute distress *Routine Respiratory Exam Respiratory: Absent respiratory distress *Routine Cardiovascular Exam Cardiovascular: Absent tachycardia *Routine Abdominal Exam Abdominal: Present soft Comments: Unchanged Jerry-Gutierrez output. Incision healing without sign of infection. Progress Note: A&P Assessment and plan (1) Acute appendicitis with rupture: Status: Acute Assessment and plan: Continue antibiotics for now (2) Postoperative ileus: Status: Acute Assessment and plan: Resolving. Nasogastric tube to drain bag (possible removal later today) (3) Intra-abdominal abscess: Status: Acute (4) Sepsis: Status: Acute (5) MARICA (acute kidney injury): Status: Acute
[2022-06-03 11:31] LABS: POC Glucose,Bedside 170 (70-110)
--- NOTE | 2022-06-03 11:35 | DIET.NUTRFU ---
Patient continues NPO, since dinner on 05/30. S/p appendicitis sx, surgeon noted gas and BM today. Plan to remove NG tube and drake today with diet advancement to clear liquids. Patient does have hx of DM with insulin tx at home. BS have been ranging between 150-175. When medically appropriate advance to ADA 2000 diet to best meet needs.
--- NOTE | 2022-06-03 13:44 | EXP.BH.CONS ---
History of Present Illness *Admission Date: 05/28/22 *Reason for visit:: Depressed mood *History of present illness: I was consulted on this patient for depressed mood related to recent health issues. -he was interviewed at bedside -his mother is in the room with him -he states that he came in cause of his appendix -he had a fever for 2 weeks -and no pain at all -when he came in; turns out he had a terrible infection from the appendix He states that he doesn't have depression. This is not something he has struggled with or had treated in the past. Mother agrees with this. -he states that he wants to get out of here -he is ready to go to [facility] so he can get home -he is ready to be able to eat something -he states that these are the only things that he really needs -he was at home living with a roommate -but after discharge from [facility] -he will be going to live with his mother He denies any anxiety. -states the only anxiety reacnetly has been related to his medical health Denies ever having any SI/HI. -never engaged in any self harm -never had thoughts of suicide [facility] Disclaimer: The information contained in this section may have been updated after the patient was seen, as this information can be updated by other users. Medical History (Updated 06/03/22 @ 13:50 by Areli Jauregui APRN) Abnormal EKG Abnormal result of cardiovascular function study CAD (coronary artery disease) Crescendo angina Diabetes mellitus Dyspnea Encounter for behavioral health screening Encounter for pre-operative cardiovascular clearance Ex-smoker for more than 1 year Palpitations Right bundle branch block Surgical History S/P CABG x 4 Social History (Updated 05/30/22 @ 17:09 by Domingo Escalante CRNA) Smoking Status: Former smoker alcohol intake: never substance use type: denies use current occupational status: employed Travel in the last 8 weeks: None household members: family housing: house 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 Review of Systems Review of Systems Review of systems:: other (did not review all) and pertinent systems reviewed and negative unless documented below Psychiatric Psychiatric: Reports anxiety (see above; with recent medical health) Meds Home Medications and Allergies Home Medications Medication Instructions Recorded Confirmed Type aspirin 81 mg tablet,delayed 81 mg PO DAILY Heart disease 08/22/20 05/28/22 History release acetaminophen 500 mg capsule 500 mg PO Q6HP PRN Mild Pain 10/07/20 05/28/22 History (Scale Score 1-4) insulin lispro protamine-lispro 20 unit SQ BID Diabetes 10/07/20 05/28/22 History 100 unit/mL (75-25) subcutaneous pen (Humalog Mix 75-25 KwikPen) atorvastatin 80 mg tablet 80 mg PO HS Cholesterol 10/31/21 05/28/22 History lisinopril 5 mg tablet 5 mg PO DAILY Hypertension 03/24/22 05/28/22 History sitagliptin phosphate 100 mg 100 mg PO DAILY Diabetes 03/24/22 05/28/22 History tablet (Januvia) carvedilol 6.25 mg tablet (Coreg) 6.25 mg PO BID Hypertension 05/28/22 05/28/22 History empagliflozin 10 mg tablet 10 mg PO DAILY Heart failure 05/28/22 05/28/22 History (Jardiance) New Prescriptions to Start Prescriptions: Allergies Allergy/AdvReac Type Severity Reaction Status Date / Time hydrochlorothiazide AdvReac Intermediate DIARRHEA Verified 03/24/22 11:27 Assessment and Plan *Assessment and plan (1) Encounter for behavioral health screening: Status: Acute Category: Medical Code(s): Z13.30 - Encounter for screening examination for mental health and behavioral disorders, unspecified Plan No changes today. -he doesn't need to be on any medicines at this time for depression or anxiety -he states that he hasn't had issues before -doesn't need medicines for this right now -talked to mom -if t
[2022-06-03 17:06] LABS: POC Glucose,Bedside 283 (70-110)
--- NOTE | 2022-06-03 17:41 | PC.NURSE ---
Pt is alert and oriented x4. RISHI and vidal removed this shift. He has since urinated with 2 assist to the bathroom. He is tolerating his clear liquid diet. PRN pain meds administered x1 this shift with favorable results. Family is at bedside, call light is within reach.
[2022-06-03 19:58] LABS: Alanine Aminotransferase 15 U/L (12-78); Albumin Level 2.5 g/dl (3.5-5.0); Albumin/Globulin Ratio 0.8 (1.1-1.8); Alkaline Phosphatase 88 U/L (38-126); Anion Gap 11.4 mEq/L (5-15); Aspartate Amino Transferase 56 U/L (17-59); Bilirubin,Total 0.5 mg/dl (0.2-1.3); Blood Urea Nitrogen 41 mg/dl (9-20); Calcium 7.7 mg/dl (8.4-10.2); Carbon Dioxide 27 mmol/L (22.0-30.0); Chloride 106 mmol/L (98-107); Creatinine Clearance Estimated 55 mL/min (50-200); Estimated Glomerular Filt Rate 31 ml/min (>60); GFR (African American) 37 ML/MIN (>60); Globulin 3.2 g/dL (1.3-3.2); Glucose 252 mg/dl (74-100); Magnesium 2.1 mg/dl (1.6-2.3); Potassium 4.4 mmoL/L (3.5-5.1); Sodium 140 mmol/L (136-145); Total Protein,Serum 5.7 g/dl (6.3-8.2)
[2022-06-03 21:06] LABS: POC Glucose,Bedside 210 (70-110)
[2022-06-04 04:00] VITALS: BP 174/87; PULSE 77; RESP 18; TEMP 36.8; O2SAT 97; BMI 30.9
--- NOTE | 2022-06-04 06:06 | PC.NURSE ---
Reported positive blood cultures to Davide Heller RECREATION PROFESSOR
[2022-06-04 06:17] LABS: Basophils % 0.2 % (0.1-2.0); Eosinophils # 0.3 K/mm3 (0.0-0.4); Eosinophils % 2.7 % (0.1-12.0); Hematocrit 31.4 % (42.0-52.0); Hemoglobin 10.2 g/dL (14.1-18.0); Lymphocytes # 1.1 K/mm3 (0.7-4.5); Lymphocytes % 11.2 % (10-50); Mean Corpuscular HGB Conc 32.5 g/dL (31.8-35.4); Mean Corpuscular Hemoglobin 26.9 pg (27.0-31.2); Mean Corpuscular Volume 82.6 fl (80-94); Mean Platelet Volume 8.6 fl (7.4-10.4); Monocytes # 0.5 K/mm3 (0.1-1.0); Monocytes % 5.2 % (1.7-9.3); Neutrophils # 7.6 K/mm3 (1.8-7.8); Neutrophils % 80.6 % (37.0-80.0); Platelet Count 330 K/mm3 (142-424); Red Cell Distribution Width 14.1 % (11.5-17.5); White Blood Count 9.4 K/mm3 (4.8-10.8)
[2022-06-04 06:28] LABS: Chloride 104 mmol/L (98-107); Sodium 140 mmol/L (136-145)
[2022-06-04 06:29] LABS: Potassium 3.5 mmoL/L (3.5-5.1)
[2022-06-04 06:31] LABS: Alanine Aminotransferase 15 U/L (12-78); Albumin Level 2.5 g/dl (3.5-5.0); Albumin/Globulin Ratio 0.8 (1.1-1.8); Alkaline Phosphatase 104 U/L (38-126); Anion Gap 7.5 mEq/L (5-15); Aspartate Amino Transferase 52 U/L (17-59); Bilirubin,Total 0.4 mg/dl (0.2-1.3); Blood Urea Nitrogen 29 mg/dl (9-20); Calcium 7.9 mg/dl (8.4-10.2); Carbon Dioxide 32 mmol/L (22.0-30.0); Creatinine Clearance Estimated 71 mL/min (50-200); Estimated Glomerular Filt Rate 40 ml/min (>60); GFR (African American) 49 ML/MIN (>60); Globulin 3.3 g/dL (1.3-3.2); Glucose 141 mg/dl (74-100); Total Protein,Serum 5.8 g/dl (6.3-8.2)
[2022-06-04 06:32] LABS: Magnesium 1.9 mg/dl (1.6-2.3)
[2022-06-04 06:41] LABS: POC Glucose,Bedside 149 (70-110)
--- NOTE | 2022-06-04 06:59 | PC.NURSE ---
Pt medicated for abdominal pain per MAR twice this shift. Tolerating clear liquid diet well, denies nausea. 10 ml sanguineous drainage emptied from left JENA drain, 25 ml sanguineous drainage emptied from right JENA drain. Pt ambulated to bathroom one time this shift with one assist, tolerated well. Midline incision with eben open to air. dressing to RLQ CDI. Pt remains on 1.5L NC, tolerating well.
[2022-06-04 07:58] VITALS: BP 170/79; PULSE 76; RESP 18; TEMP 36.7; O2SAT 97
--- NOTE | 2022-06-04 08:17 | P.PN_ITS ---
Subjective Narrative: NG has been removed and patient is tolerating clear liquid diet. No nausea. Moving bowels. Still with some pain. Renal function showing significant improvement. Exam Data for Last 24 hours Vital signs and Labs for Last 24 Hours: Temp Pulse Resp BP Pulse Ox 98.0 F 76 18 170/79 H 97 06/04/22 07:58 06/04/22 07:58 06/04/22 07:58 06/04/22 07:58 06/04/22 07:58 Laboratory Results - last 24 hr 06/03/22 11:09: POC Glucose 170 H 06/03/22 16:45: POC Glucose 283 H 06/03/22 18:15: Sodium 140, Potassium 4.4, Chloride 106, Carbon Dioxide 27, Anion Gap 11.4, BUN 41 H, Creatinine 2.30 H D, Estimated Creat Clear 55, Estimated GFR 31 L, Est GFR ( Amer) 37 L D, Glucose 252 H D, Calcium 7.7 L, Magnesium 2.1, Total Bilirubin 0.5, AST 56, ALT 15, Alkaline Phosphatase 88, Total Protein 5.7 L, Albumin 2.5 L, Globulin 3.2, Albumin/Globulin Ratio 0.8 L 06/03/22 19:57: POC Glucose 210 H 06/04/22 06:00: WBC 9.4, RBC 3.80 L, Hgb 10.2 L, Hct 31.4 L, MCV 82.6, MCH 26.9 L, MCHC 32.5, RDW 14.1, Plt Count 330, MPV 8.6, Neut % (Auto) 80.6 H, Lymph % (Auto) 11.2, [place] % (Auto) 5.2, Eos % (Auto) 2.7, Baso % (Auto) 0.2, Neut # (Auto) 7.6, Lymph # (Auto) 1.1, [place] # (Auto) 0.5, Eos # (Auto) 0.3, Baso # (Auto) 0.0 06/04/22 06:00: Sodium 140, Potassium 3.5 D, Chloride 104, Carbon Dioxide 32 H, Anion Gap 7.5, BUN 29 H D, Creatinine 1.80 H D, Estimated Creat Clear 71, Estimated GFR 40 L, Est GFR ( Amer) 49 L D, Glucose 141 H D, Calcium 7.9 L, Magnesium 1.9, Total Bilirubin 0.4, AST 52, ALT 15, Alkaline Phosphatase 104, Total Protein 5.8 L, Albumin 2.5 L, Globulin 3.3 H, Albumin/Globulin Ratio 0.8 L 06/04/22 06:18: POC Glucose 149 H I & O for Last 24 hours: Intake & Output 06/01/22 06/02/22 06/03/22 06/04/22 11:59 11:59 11:59 11:59 Intake Total 5177 / 5177 50 / 50 290 / 290 840 / 840 Output Total 1455 / 1455 1955 / 1955 3143 / 3143 660 / 660 Balance 3722 / 3722 -1905 / -1905 -2853 / -2853 180 / 180 Weight 240 lb 9.6 oz 227 lb 3 oz 220 lb 2 oz 221 lb 7 oz Microbiology Reports for the Last 24 Hours: Microbiology 05/30/22 06:18 Blood Blood Culture - Final NO GROWTH AFTER 5 DAYS 05/30/22 06:08 Blood Blood Culture - Preliminary *Routine Abdominal Exam Abdominal: Present soft and tenderness Comments: JENA drain with serosanguineous. Progress Note: A&P Assessment and plan (1) Encounter for behavioral health screening: Status: Acute Assessment and plan: Advance to full liquid diet. Continue PT OT. Path still pending. May be removed JENA drain soon if continued with scant serosanguineous drainage.
[2022-06-04 08:41] LABS: Hep A Ab, IgM NEGATIVE; Hepatitis B Core Antibody IgM NEGATIVE; Hepatitis B Surface Antigen NEGATIVE; Hepatitis C Antibody NON REACTIVE
--- NOTE | 2022-06-04 09:06 | EXP.DC.SUM ---
General Admission date:: 05/28/22 Discharge date: 06/05/22 HPI HPI HPI: Patient is a 47-year-old male with history of coronary artery disease, previous myocardial infarction, cardiac pacemaker, previous CABG x4, diabetes mellitus with sequelae requiring bilateral cataract surgery several years ago, on dual antiplatelet therapy.? He presented to the emergency department with approximately 2 weeks of intermittent, mostly nocturnal, fevers with no other associated symptoms.? Work-up in the emergency department revealed a mild leukocytosis of 17,000.? He underwent extremely thorough work-up for these fevers of unknown origin.? This included CT scan of the abdomen and pelvis which revealed findings worrisome for possible ruptured appendicitis with abscess characterized by air-fluid collection in the right abdomen posterior to the cecum measuring 6 cm with distended appendix extending into this abscess with diffuse adjacent inflammatory changes.? By report this is most consistent with perforated appendicitis with established abscess less likely other inflammatory process. Patient currently has no complaints.? Discussed medical management of appendicitis versus surgical management.? We will continue to monitor and see how he does.? Patient had no concerns or complaints at this time all questions answered. Hospital Course Hospital Course Hospital Course: Patient 47-year-old male presenting with acute appendicitis that is ruptured.? Surgery was consulted.? Taken to OR on 05/30 s/p laparoscopy. Pt currently with a severe MARCIA with oliguria/anuria.? Differential includes prerenal, contrast-induced nephropathy, ATN, AIN.? Patient condition gradually improved as his ATN resolved. Kidney function now back to baseline. Tolerating advancement in diet. JENA drains are out. Participating with therapy. Meeting criteria for discharge to rehab hospital for continued therapy. Problems addressed as follows: Sepsis, resolving Ruptured appendicitis s/p laparotomy - General surgery consulted; appreciate their recommendations.? Initially monitored conservatively for his appendicitis. Antibiotics started on 05/28. Fortunately developed worsening abdominal pain necessitating exploratory laparotomy. Patient's appendix ruptured with inflammatory response in abdomen. Surgery was extensive. See op report for full details. White cell count gradually showed improvement with continued antibiotic therapy. Plan to complete 10 days total of antibiotics. Needs 3 more days of ertapenem after discharge. Last dose due on 06/08. NG was in place after surgery for 3 days. Diet was then gradually advanced. Pain control has been improving, has been weaned off of IV pain medications to oral hydrocodone. At this point tolerating full liquid diet, having bowel movements. MARCIA -Developed worsening kidney dysfunction after onset of sepsis and surgery. Patient did not have improvement in urine output with fluids. Given onset of worsening kidney dysfunction and oliguria, etiology most likely contrast-induced/medication induced kidney injury.? Treated with 1 round of albumin and Bumex. Creatinine peaked at 7.4, patient had good response to Bumex challenge and began to make more urine thereafter. Creatinine gradually improved to baseline by day of discharge. Electrolytes remained stable. Patient did not meet criteria for consideration of dialysis. Diabetes - glargine 5 units nightly - SS continue sliding scale insulin and fingersticks ACHS Hypertension Coronary artery disease status post CABG 2020 -Blood pressure gradually increased after improvement in kidney dysfunction. Resumed carvedilol and lisinopril. Patient has done well through course of hospitalization. Meeting criteria for discharge to rehab facility for continued therapy. Still having mild abdominal pain but tolerating p.o. intake. JENA drains removed on 06/04. Ambulating to bathroom. Participating with therapy. Exam Data f
[2022-06-04 10:58] LABS: POC Glucose,Bedside 275 (70-110)
--- NOTE | 2022-06-04 14:58 | EXP.ACUTE.PN ---
Subjective *Date: 06/04/22 *Time: 14:58 Interval history: Patient doing better this morning. Has tolerated clear liquid diet. Pain slightly improved and bili. Having bowel movements overnight. Tolerating 1/2 L nasal cannula oxygen. No chest pain, nausea, vomiting, fevers overnight. Medical Exam Vital signs and Labs for Last 24 Hours: Vital Signs Temp Pulse Resp BP Pulse Ox 06/04/22 07:58 98.0 F 76 18 170/79 H 97 06/04/22 04:00 98.3 F 77 18 174/87 H 97 06/03/22 20:00 98.3 F 76 18 163/79 H 97 06/03/22 15:06 98.9 F 68 18 162/75 H 97 Intake and Output 06/03/22 06/04/22 06/04/22 23:59 07:59 15:59 Intake Total 360 / 600 480 / 650 170 / 650 Output Total 35 / 35 0 / 35 Balance 360 / -1832 445 / 615 170 / 615 Intake: Intake, Oral Amount 360 / 600 480 / 600 120 / 600 Intake, Total IV Amount 50 / 50 Ertapenem Sodium 0.5 gm In 0.9 50 / 50 % Sodium Chloride 50 ml @ 100 mls/hr IV 1100 [facility] Rx#:[id number] Output: Output, Urine Amount 0 / 0 0 / 0 Output, Drainage Amount 35 / 35 left YAAKOV drain 10 / 10 right yaakov drain 25 / 25 Other: Number of Unmeasured Voids 1 1 Number of Bowel Movements 1 1 Weight 100.442 kg Patient Weight 06/04/22 23:59 Weight 100.442 kg Laboratory Results - last 24 hr 05/29/22 06:25: Hepatitis A IgM Ab Negative, Hep Bs Antigen Negative, Hep B Core IgM Ab Negative, Hepatitis C Antibody Non reactive 06/03/22 16:45: POC Glucose 283 H 06/03/22 18:15: Sodium 140, Potassium 4.4, Chloride 106, Carbon Dioxide 27, Anion Gap 11.4, BUN 41 H, Creatinine 2.30 H D, Estimated Creat Clear 55, Estimated GFR 31 L, Est GFR ( Amer) 37 L D, Glucose 252 H D, Calcium 7.7 L, Magnesium 2.1, Total Bilirubin 0.5, AST 56, ALT 15, Alkaline Phosphatase 88, Total Protein 5.7 L, Albumin 2.5 L, Globulin 3.2, Albumin/Globulin Ratio 0.8 L 06/03/22 19:57: POC Glucose 210 H 06/04/22 06:00: WBC 9.4, RBC 3.80 L, Hgb 10.2 L, Hct 31.4 L, MCV 82.6, MCH 26.9 L, MCHC 32.5, RDW 14.1, Plt Count 330, MPV 8.6, Neut % (Auto) 80.6 H, Lymph % (Auto) 11.2, Bennett % (Auto) 5.2, Eos % (Auto) 2.7, Baso % (Auto) 0.2, Neut # (Auto) 7.6, Lymph # (Auto) 1.1, Bennett # (Auto) 0.5, Eos # (Auto) 0.3, Baso # (Auto) 0.0 06/04/22 06:00: Sodium 140, Potassium 3.5 D, Chloride 104, Carbon Dioxide 32 H, Anion Gap 7.5, BUN 29 H D, Creatinine 1.80 H D, Estimated Creat Clear 71, Estimated GFR 40 L, Est GFR ( Amer) 49 L D, Glucose 141 H D, Calcium 7.9 L, Magnesium 1.9, Total Bilirubin 0.4, AST 52, ALT 15, Alkaline Phosphatase 104, Total Protein 5.8 L, Albumin 2.5 L, Globulin 3.3 H, Albumin/Globulin Ratio 0.8 L 06/04/22 06:18: POC Glucose 149 H 06/04/22 10:50: POC Glucose 275 H I & O for Labs for Last 24 Hours: Intake & Output 06/01/22 06/02/22 06/03/22 06/04/22 23:59 23:59 23:59 23:59 Intake Total 1973 / 1973 50 / 50 600 / 600 650 / 650 Output Total 988 / 988 2683 / 2683 2432 / 2432 35 / 35 Balance 986 / 986 -2633 / -2633 -1832 / -1832 615 / 615 Weight 109.134 kg 103.051 kg 99.847 kg 100.442 kg Microbiology Reports for the Last 24 Hours: Microbiology 05/30/22 06:18 Blood Blood Culture - Final NO GROWTH AFTER 5 DAYS 05/30/22 06:08 Blood Blood Culture - Preliminary Constitutional: Present no acute distress and obese Head: Present atraumatic and normocephalic ENT: Present mucous membranes moist Comment:: NG in right nare Neck: Present normal inspection Respiratory: Present crackles and normal respiratory effort; Absent CTA bilaterally, rhonchi or wheezes Cardiac: Present Reg Rate and Rhythm GI: Present soft, tenderness (Interval improvement, still most tender in right lower quadrant.) and diminished bowel sounds; Absent distention Comments:: [address] with scant serosanguineous drainage. Extremities: Present normal inspection, full ROM and edema (1+ to knees) Skin: Present intact; Absent erythema Neuro: Present Grossly Intact, alert, gerardo
--- NOTE | 2022-06-04 15:00 | PC.NURSE ---
Pt has been up to chair and ambulated some in room and to BR. Tolerated well. VSS. Pt is currently on RA. JENA drains with serosanguineous fluid. 5 ml on (L) 10 ml (R). Pt tolerating diet. Call light at bedside.
[2022-06-04 15:28] VITALS: BP 165/74; PULSE 74; RESP 18; TEMP 36.8; O2SAT 94
[2022-06-04 16:26] LABS: POC Glucose,Bedside 216 (70-110)
[2022-06-04 16:35] LABS: Histoplasma Gal'mannan Ag Ur <0.5 (<0.5 ng/mL)
[2022-06-04 18:13] LABS: Potassium 3.8 mmoL/L (3.5-5.1); Sodium 139 mmol/L (136-145)
[2022-06-04 18:14] LABS: Chloride 101 mmol/L (98-107)
[2022-06-04 18:16] LABS: Alanine Aminotransferase 20 U/L (12-78); Albumin Level 2.6 g/dl (3.5-5.0); Albumin/Globulin Ratio 0.8 (1.1-1.8); Alkaline Phosphatase 113 U/L (38-126); Anion Gap 5.8 mEq/L (5-15); Aspartate Amino Transferase 51 U/L (17-59); Bilirubin,Total 0.3 mg/dl (0.2-1.3); Blood Urea Nitrogen 20 mg/dl (9-20); Calcium 8.1 mg/dl (8.4-10.2); Carbon Dioxide 36 mmol/L (22.0-30.0); Creatinine Clearance Estimated 86 mL/min (50-200); Estimated Glomerular Filt Rate 50 ml/min (>60); GFR (African American) 60 ML/MIN (>60); Globulin 3.4 g/dL (1.3-3.2); Glucose 167 mg/dl (74-100)
[2022-06-04 19:43] VITALS: BP 143/81; PULSE 77; RESP 17; TEMP 37.1; O2SAT 95
[2022-06-05 01:04] LABS: POC Glucose,Bedside 185 (70-110)
[2022-06-05 04:00] VITALS: BP 147/86; PULSE 75; RESP 18; O2SAT 93; BMI 31.4
--- NOTE | 2022-06-05 05:11 | PC.NURSE ---
NO ACUTE CHANGES THIS SHIFT. PT HAS SLEPT WELL. PAIN MEDICATION GIVEN X2 THIS SHIFT. BOWEL SOUNDS ACTIVE. PT WAS ABLE TO HAVE A BM THIS SHIFT. AMBULATED TO THE BATHROOM WITH WALKER INDEPENDENTLY. VSS.
[2022-06-05 05:15] LABS: POC Glucose,Bedside 129 (70-110)
--- NOTE | 2022-06-05 06:16 | P.PN_ITS ---
Subjective Narrative: Patient seems to be doing much better. JENA drains removed yesterday. Tolerating full liquid diet. Pathology returned yesterday afternoon consistent with benign perforated appendicitis with periappendiceal abscess Exam Data for Last 24 hours Vital signs and Labs for Last 24 Hours: Temp Pulse Resp BP Pulse Ox 98.7 F 75 18 147/86 H 93 L 06/04/22 19:43 06/05/22 04:00 06/05/22 04:00 06/05/22 04:00 06/05/22 04:00 Laboratory Results - last 24 hr 05/28/22 09:50: U Histopl Galactoman Ag <0.5, Ur L.pneumophila Ag Negative 05/29/22 06:25: Hepatitis A IgM Ab Negative, Hep Bs Antigen Negative, Hep B Core IgM Ab Negative, Hepatitis C Antibody Non reactive 06/04/22 06:00: WBC 9.4, RBC 3.80 L, Hgb 10.2 L, Hct 31.4 L, MCV 82.6, MCH 26.9 L, MCHC 32.5, RDW 14.1, Plt Count 330, MPV 8.6, Neut % (Auto) 80.6 H, Lymph % (Auto) 11.2, Henderson % (Auto) 5.2, Eos % (Auto) 2.7, Baso % (Auto) 0.2, Neut # (Auto) 7.6, Lymph # (Auto) 1.1, Henderson # (Auto) 0.5, Eos # (Auto) 0.3, Baso # (Auto) 0.0 06/04/22 06:00: Sodium 140, Potassium 3.5 D, Chloride 104, Carbon Dioxide 32 H, Anion Gap 7.5, BUN 29 H D, Creatinine 1.80 H D, Estimated Creat Clear 71, Estimated GFR 40 L, Est GFR ( Amer) 49 L D, Glucose 141 H D, Calcium 7.9 L, Magnesium 1.9, Total Bilirubin 0.4, AST 52, ALT 15, Alkaline Phosphatase 104, Total Protein 5.8 L, Albumin 2.5 L, Globulin 3.3 H, Albumin/Globulin Ratio 0.8 L 06/04/22 06:18: POC Glucose 149 H 06/04/22 10:50: POC Glucose 275 H 06/04/22 16:19: POC Glucose 216 H 06/04/22 17:59: Sodium 139, Potassium 3.8, Chloride 101, Carbon Dioxide 36 H, Anion Gap 5.8, BUN 20 D, Creatinine 1.50 H, Estimated Creat Clear 86, Estimated GFR 50 L, Est GFR ( Amer) 60 D, Glucose 167 H, Calcium 8.1 L, Total Bilirubin 0.3, AST 51, ALT 20 D, Alkaline Phosphatase 113, Total Protein 6.0 L, Albumin 2.6 L, Globulin 3.4 H, Albumin/Globulin Ratio 0.8 L 06/04/22 20:06: POC Glucose 185 H 06/05/22 05:08: POC Glucose 129 H I & O for Last 24 hours: Intake & Output 06/02/22 06/03/22 06/04/22 06/05/22 11:59 11:59 11:59 11:59 Intake Total 50 / 50 290 / 290 840 / 840 170 / 170 Output Total 1955 / 1955 3143 / 3143 660 / 660 200 / 200 Balance -1905 / -1905 -2853 / -2853 180 / 180 -30 / -30 Weight 227 lb 3 oz 220 lb 2 oz 221 lb 7 oz 224 lb 6.4 oz Microbiology Reports for the Last 24 Hours: Microbiology 05/30/22 06:18 Blood Blood Culture - Final NO GROWTH AFTER 5 DAYS 05/30/22 06:08 Blood Blood Culture - Preliminary *Routine Abdominal Exam Abdominal: Present soft Comments: Incision clean and intact Progress Note: A&P Assessment and plan (1) Encounter for behavioral health screening: Status: Acute Assessment and Plan Assessment and Plan for All Diagnoses:: Plan is for discharge for short-term rehab today. Plan is to continue several days of additional IV antibiotics.
[2022-06-05 08:00] VITALS: BP 162/81; PULSE 73; RESP 18; TEMP 37; O2SAT 95
[2022-06-05 08:54] LABS: Basophils # 0.1 K/mm3 (0-0.2); Basophils % 0.5 % (0.1-2.0); Eosinophils # 0.3 K/mm3 (0.0-0.4); Eosinophils % 2.7 % (0.1-12.0); Hematocrit 35.1 % (42.0-52.0); Hemoglobin 11.2 g/dL (14.1-18.0); Lymphocytes # 1.3 K/mm3 (0.7-4.5); Lymphocytes % 10.6 % (10-50); Mean Corpuscular HGB Conc 31.8 g/dL (31.8-35.4); Mean Corpuscular Hemoglobin 26.7 pg (27.0-31.2); Mean Corpuscular Volume 83.9 fl (80-94); Mean Platelet Volume 9.2 fl (7.4-10.4); Monocytes # 0.6 K/mm3 (0.1-1.0); Monocytes % 4.7 % (1.7-9.3); Neutrophils # 9.8 K/mm3 (1.8-7.8); Neutrophils % 81.5 % (37.0-80.0); Platelet Count 440 K/mm3 (142-424); Red Blood Count 4.19 M/mm3 (4.60-6.20); Red Cell Distribution Width 14.1 % (11.5-17.5)
[2022-06-05 08:57] LABS: Chloride 99 mmol/L (98-107); Potassium 3.4 mmoL/L (3.5-5.1); Sodium 138 mmol/L (136-145)
[2022-06-05 09:00] LABS: Anion Gap 7.4 mEq/L (5-15); Blood Urea Nitrogen 15 mg/dl (9-20); Carbon Dioxide 35 mmol/L (22.0-30.0); Creatinine Clearance Estimated 100 mL/min (50-200); Estimated Glomerular Filt Rate 59 ml/min (>60); GFR (African American) 71 ML/MIN (>60)
[2022-06-05 09:01] LABS: Glucose 215 mg/dl (74-100)
--- NOTE | 2022-06-05 09:07 | PC.NURSE ---
attempted to call report to [facility]. accepting nurse not available. facility was provided call back number
== END 2022-06-05 10:33 | DRG 329 ==
LOC: ER 14:53 → 2ND 16:02
PROVIDERS: Internal Medicine Adolescent Medicine; Surgery; Admitting Provider Student in an Organized Health Care Education/Training Program; Emergency Provider Emergency Medicine; PCP Nurse Practitioner Family; Visit Provider Student in an Organized Health Care Education/Training Program
PROC: 0DTF4ZZ Resection of Right Large Intestine, Percutaneous Endoscopic Approach (ICD-10-PCS; CPT 49000; principal; 2022-05-30 16:00)
DX: K35.32 Acute appendicitis with perforation, localized peritonitis, and gangrene, without abscess (principal); A41.9 Sepsis, unspecified organism; K65.1 Peritoneal abscess; N17.9 Acute kidney failure, unspecified; I25.10 Atherosclerotic heart disease of native coronary artery without angina pectoris; I10 Essential (primary) hypertension; I25.2 Old myocardial infarction; Z95.1 Presence of aortocoronary bypass graft; E11.9 Type 2 diabetes mellitus without complications; Z79.899 Other long term (current) drug therapy; Z79.84 Long term (current) use of oral hypoglycemic drugs; Z87.891 Personal history of nicotine dependence; Z79.4 Long term (current) use of insulin
CPT/HCPCS: 44204; 36415; 71045; 71046; 71275; 74177; 80048; 80053; 80074; 80305; 81001; 82378; 82962; 83615; 83735; 84100; 84153; 84436; 84443; 84550; 85007; 85014; 85018; 85025; 85378; 85610; 86316; 86480; 87040; 87385; 87449; 93005; 93306; 97110; 97116; 97162; 97165; 97530; 99285; C9803; J1335; J2405; J2543; P9047; Q9967; U0003; U0005

== ENCOUNTER 2022-06-18 13:43 | Emergency (ER) | payer BC, SELFPAY ==
--- NOTE | 2022-06-18 14:00 | HMH.EDGENADL ---
Discharge Plan Disposition Patient Disposition: Home, Self-Care Prescriptions Prescriptions: New oxycodone 5 mg tablet 5 mg PO Q8H PRN (Reason: pain) Qty: 12 0RF No Action acetaminophen 500 mg capsule 500 mg PO Q6HP PRN (Reason: Mild Pain (Scale Score 1-4)) insulin lispro protamin-lispro [Humalog Mix 75-25 KwikPen] 100 unit/mL (75-25) insulin pen 20 unit SQ BID lisinopril 5 mg tablet 5 mg PO DAILY Januvia 100 mg tablet 100 mg PO DAILY atorvastatin 80 mg tablet 80 mg PO HS aspirin 81 MG tablet,delayed release (DR/EC) 81 mg PO DAILY carvedilol [Coreg] 6.25 mg tablet 6.25 mg PO BID Rx Instructions: must administer with a meal/food Jardiance 10 mg tablet 10 mg PO DAILY docusate sodium 100 mg Capsule 100 mg PO DAILYP PRN (Reason: Constipation) Qty: 0 0RF enoxaparin 40 mg/0.4 mL Syringe 40 mg SQ HS Qty: 0 0RF hydrocodone-acetaminophen 5-325 mg Tablet 1 tab PO Q6HP PRN (Reason: Moderate To Severe Pain) Qty: 0 0RF famotidine 20 mg Tablet 10 mg PO DAILY Qty: 0 0RF Referrals Follow up/Referrals: Beth Lawson APRN [Primary Care Provider] - See instructions Activity Restrictions/Add. Instructions Additional Instructions/Restrictions: Follow-up with Dr. Cage tomorrow with wound clinic. Return for bleeding or any other concerns within the next 8 hours Clinical Impressions Clinical Impression: Postoperative bleeding from incision Discharge ED Provider: Raoul Akers General Adult HPI General Chief complaint: Wound/Laceration Stated complaint: abd incision packed and now bleeding Time Seen by Provider: 06/18/22 14:00 History of Present Illness HPI narrative: 47-year-old male with recent appendectomy presents with bleeding from incision site. He had a visit with Dr. Cage this morning and the wound was packed. He went home and started to bleed from the site. Related Data Home Medications Medication Instructions Recorded Confirmed aspirin 81 mg tablet,delayed 81 mg PO DAILY Heart disease 08/22/20 06/18/22 release acetaminophen 500 mg capsule 500 mg PO Q6HP PRN Mild Pain 10/07/20 06/18/22 (Scale Score 1-4) insulin lispro protamine-lispro 20 unit SQ BID Diabetes 10/07/20 06/18/22 100 unit/mL (75-25) subcutaneous pen (Humalog Mix 75-25 KwikPen) atorvastatin 80 mg tablet 80 mg PO HS Cholesterol 10/31/21 06/18/22 lisinopril 5 mg tablet 5 mg PO DAILY Hypertension 03/24/22 06/18/22 sitagliptin phosphate 100 mg 100 mg PO DAILY Diabetes 03/24/22 06/18/22 tablet (Januvia) carvedilol 6.25 mg tablet (Coreg) 6.25 mg PO BID Hypertension 05/28/22 06/18/22 empagliflozin 10 mg tablet 10 mg PO DAILY Heart failure 05/28/22 06/18/22 (Jardiance) Previous Rx's Medication Instructions Recorded docusate sodium 100 mg capsule 100 mg PO DAILYP PRN Constipation 06/04/22 #0 caps enoxaparin 40 mg/0.4 mL 40 mg (0.4 mL) SQ HS #0 mL 06/04/22 subcutaneous syringe famotidine 20 mg tablet 10 mg PO DAILY #0 tabs 06/05/22 hydrocodone 5 mg-acetaminophen 325 1 tab PO Q6HP PRN Moderate To 06/05/22 mg tablet Severe Pain #0 tabs oxycodone 5 mg tablet 5 mg PO Q8H PRN pain #12 tabs 06/18/22 Allergies Allergy/AdvReac Type Severity Reaction Status Date / Time hydrochlorothiazide AdvReac Intermediate DIARRHEA Verified 06/18/22 11:00 [facility] Disclaimer: The information contained in this section may have been updated after the patient was seen, as this information can be updated by other users. Medical History (Updated 06/18/22 @ 15:27 by Raoul Akers MD) Abnormal EKG Abnormal result of cardiovascular function study CAD (coronary artery disease) Crescendo angina Diabetes mellitus Dyspnea Encounter for behavioral health screening Encounter for pre-operative cardiovascular clearance Ex-smoker for more than 1 year Palpitations Right bundle branch block Surgical History (Updated 06/18/22 @ 11:01 by Delia Cobb,
[2022-06-18 14:10] LABS: Basophils % 0.3 % (0.1-2.0); Eosinophils # 0.4 K/mm3 (0.0-0.4); Eosinophils % 3.5 % (0.1-12.0); Hematocrit 32.2 % (42.0-52.0); Hemoglobin 10.1 g/dL (14.1-18.0); Lymphocytes # 1.9 K/mm3 (0.7-4.5); Lymphocytes % 18.1 % (10-50); Mean Corpuscular HGB Conc 31.4 g/dL (31.8-35.4); Mean Corpuscular Hemoglobin 26.6 pg (27.0-31.2); Mean Corpuscular Volume 84.7 fl (80-94); Mean Platelet Volume 8.8 fl (7.4-10.4); Monocytes # 0.5 K/mm3 (0.1-1.0); Monocytes % 4.3 % (1.7-9.3); Neutrophils # 7.7 K/mm3 (1.8-7.8); Neutrophils % 73.8 % (37.0-80.0); Platelet Count 285 K/mm3 (142-424); Red Cell Distribution Width 14.6 % (11.5-17.5); White Blood Count 10.5 K/mm3 (4.8-10.8)
[2022-06-18 14:16] LABS: Chloride 99 mmol/L (98-107); Potassium 4.4 mmoL/L (3.5-5.1); Sodium 137 mmol/L (136-145)
[2022-06-18 14:18] LABS: Alanine Aminotransferase 29 U/L (12-78); Aspartate Amino Transferase 36 U/L (17-59); Blood Urea Nitrogen 18 mg/dl (9-20); Estimated Glomerular Filt Rate 65 ml/min (>60); GFR (African American) 78 ML/MIN (>60)
[2022-06-18 14:19] LABS: Albumin Level 3.4 g/dl (3.5-5.0); Alkaline Phosphatase 132 U/L (38-126); Anion Gap 17.4 mEq/L (5-15); Bilirubin,Total 0.4 mg/dl (0.2-1.3); Calcium 8.5 mg/dl (8.4-10.2); Carbon Dioxide 25 mmol/L (22.0-30.0); Globulin 3.5 g/dL (1.3-3.2); Glucose 242 mg/dl (74-100); Total Protein,Serum 6.9 g/dl (6.3-8.2)
[2022-06-18 14:26] VITALS: BP 144/88; PULSE 92; RESP 18; TEMP 36.8; O2SAT 97; BMI 23.1
[2022-06-18 14:31] VITALS: BP 125/66; PULSE 66; O2SAT 99
[2022-06-18 15:34] VITALS: BP 125/66; PULSE 66; RESP 18; TEMP 36.8; O2SAT 99
--- NOTE | 2022-06-18 15:36 | PC.NURSE ---
Abd wound dressed with 4x4, abd pad, and adhered with silk tape. Pt tolerated well.
== END 2022-06-18 15:36 | disposition home or self-care (01) ==
PROVIDERS: Emergency Provider Emergency Medicine; PCP Nurse Practitioner Family
DX: L76.22 Postprocedural hemorrhage of skin and subcutaneous tissue following other procedure (principal)
CPT/HCPCS: 80053; 85025; 96374; 99284

== ENCOUNTER 2022-06-19 12:27 | Outpatient (CLI) | payer BC, SELFPAY ==
--- NOTE | 2022-06-19 14:57 | PC.NURSE ---
1245-REMOVED DRESSING AND PACKING FROM 3 WOUNDS ALONG INCISION WHERE DESIREE WERE REMOVED YESTERDAY DUE TO INFECTION. IRRIGATED WOUNDS WITH NS AND DRIED OUT WITH DRY GAUZE. REPACKED EACH WOUND WITH PLAIN PACKING STRIP, COVERED WITH DRY 4X4'S FOLLOWED WITH ABD PADS AND TAPED INTO PLACE. EDUCATON AND SUPPLIES GIVEN TO REINFORCE DRESSING IF NEEDED.
== END 2022-06-19 13:10 | disposition home or self-care (01) ==
LOC: INF 12:28
PROVIDERS: PCP Nurse Practitioner Family; Visit Provider Surgery
DX: Z48.01 Encounter for change or removal of surgical wound dressing (principal); K35.32 Acute appendicitis with perforation, localized peritonitis, and gangrene, without abscess; K65.1 Peritoneal abscess
CPT/HCPCS: G0463

== ENCOUNTER 2022-06-20 12:20 | Outpatient (CLI) | payer BC, SELFPAY | END 2022-06-20 13:06 | disposition home or self-care (01) | LOC: INF 12:21 | PROVIDERS: PCP Nurse Practitioner Family; Visit Provider Surgery | DX: Z48.01 Encounter for change or removal of surgical wound dressing (principal); K65.1 Peritoneal abscess; K35.32 Acute appendicitis with perforation, localized peritonitis, and gangrene, without abscess | CPT/HCPCS: G0463 ==

== ENCOUNTER 2022-06-21 12:23 | Outpatient (CLI) | payer BC, SELFPAY | END 2022-06-21 13:09 | disposition home or self-care (01) | LOC: INF 12:24 | PROVIDERS: PCP Nurse Practitioner Family; Visit Provider Surgery | DX: Z48.01 Encounter for change or removal of surgical wound dressing (principal); K35.32 Acute appendicitis with perforation, localized peritonitis, and gangrene, without abscess; K65.1 Peritoneal abscess | CPT/HCPCS: G0463 ==

== ENCOUNTER 2022-06-22 12:27 | Outpatient (CLI) | payer BC, SELFPAY | END 2022-06-22 12:40 | disposition home or self-care (01) | LOC: INF 12:27 | PROVIDERS: PCP Nurse Practitioner Family; Visit Provider Surgery | DX: Z48.01 Encounter for change or removal of surgical wound dressing (principal); K65.1 Peritoneal abscess; K35.32 Acute appendicitis with perforation, localized peritonitis, and gangrene, without abscess | CPT/HCPCS: G0463 ==

== ENCOUNTER 2022-06-23 12:42 | Outpatient (CLI) | payer BC, SELFPAY | END 2022-06-23 13:43 | disposition home or self-care (01) | LOC: INF 12:43 | PROVIDERS: PCP Nurse Practitioner Family; Visit Provider Surgery | DX: Z48.01 Encounter for change or removal of surgical wound dressing (principal); K35.32 Acute appendicitis with perforation, localized peritonitis, and gangrene, without abscess; K65.1 Peritoneal abscess | CPT/HCPCS: G0463 ==

== ENCOUNTER 2022-06-24 12:34 | Outpatient (CLI) | payer BC, SELFPAY | END 2022-06-24 13:00 | disposition home or self-care (01) | LOC: INF 12:35 | PROVIDERS: PCP Nurse Practitioner Family; Visit Provider Surgery | DX: K65.1 Peritoneal abscess (principal); K35.32 Acute appendicitis with perforation, localized peritonitis, and gangrene, without abscess; Z48.01 Encounter for change or removal of surgical wound dressing | CPT/HCPCS: G0463 ==

== ENCOUNTER 2022-06-26 12:32 | Outpatient (CLI) | payer BC, SELFPAY ==
--- NOTE | 2022-06-26 13:22 | PC.NURSE ---
1240 - REMOVED DRESSING AND PACKING FROM 3 WOUNDS ALONG ABDOMINAL INCISION. REMAINING DESIREE WERE REMOVED YESTERDAY BY DR GAO. IRRIGATED WOUNDS WITH NS THEN DRIED OUT WITH DRY GAUZE. ALL WOUND BEDS ARE BEEFY RED AND MOIST. PACKED WOUNDS WITH DRY GAUZE, COVERED WITH DRY 4X4'S AND ABD PADS, AND TAPED INTO PLACE.
== END 2022-06-26 12:55 | disposition home or self-care (01) ==
LOC: INF 12:33
PROVIDERS: PCP Nurse Practitioner Family; Visit Provider Surgery
DX: K65.1 Peritoneal abscess (principal); Z48.01 Encounter for change or removal of surgical wound dressing
CPT/HCPCS: G0463

== ENCOUNTER → 2022-06-27 12:32 | Outpatient (CLI) | payer BC, SELFPAY ==
[2022-06-27 12:32] VITALS: BP 128/87; PULSE 81; RESP 16; TEMP 37; O2SAT 98
== END ==
PROVIDERS: PCP Nurse Practitioner Family; Visit Provider Surgery
DX: K65.1 Peritoneal abscess (principal); Z48.01 Encounter for change or removal of surgical wound dressing
CPT/HCPCS: G0463

== ENCOUNTER 2022-06-28 12:38 | Outpatient (CLI) | payer BC, SELFPAY ==
[2022-06-28 12:45] VITALS: BP 142/70; PULSE 78; RESP 18; TEMP 36.7; O2SAT 99
[2022-06-28 13:05] VITALS: BP 142/70; PULSE 78; RESP 18; TEMP 36.7; O2SAT 99
--- NOTE | 2022-06-28 13:14 | PC.NURSE ---
old dressing removed, wound irrigated with ns. 3 abdominal wounds dressed/packed using paty wrap. covered with 4x4 and abd pads and secured in place with perforated tape. pt tolerated dressing change well.
== END 2022-06-28 13:05 | disposition home or self-care (01) ==
LOC: INF 12:39
PROVIDERS: PCP Nurse Practitioner Family; Visit Provider Surgery
DX: K65.1 Peritoneal abscess (principal); Z48.01 Encounter for change or removal of surgical wound dressing
CPT/HCPCS: G0463

== ENCOUNTER 2022-06-29 12:36 | Outpatient (CLI) | payer BC, SELFPAY | END 2022-06-29 12:47 | disposition home or self-care (01) | LOC: INF 12:37 | PROVIDERS: PCP Nurse Practitioner Family; Visit Provider Surgery | DX: K65.1 Peritoneal abscess (principal); Z48.01 Encounter for change or removal of surgical wound dressing | CPT/HCPCS: G0463 ==

== ENCOUNTER 2022-06-30 12:30 | Outpatient (CLI) | payer BC, SELFPAY | END 2022-06-30 12:40 | disposition home or self-care (01) | LOC: INF 12:30 | PROVIDERS: PCP Nurse Practitioner Family; Visit Provider Surgery | DX: K65.1 Peritoneal abscess (principal); Z48.01 Encounter for change or removal of surgical wound dressing | CPT/HCPCS: G0463 ==

== ENCOUNTER 2022-07-01 12:28 | Outpatient (CLI) | payer BC, SELFPAY | END 2022-07-01 12:45 | disposition home or self-care (01) | LOC: INF 12:28 | PROVIDERS: PCP Nurse Practitioner Family; Visit Provider Surgery | DX: K65.1 Peritoneal abscess (principal); Z48.01 Encounter for change or removal of surgical wound dressing | CPT/HCPCS: G0463 ==

== ENCOUNTER 2022-07-02 12:28 | Outpatient (CLI) | payer BC, SELFPAY | END 2022-07-02 12:45 | disposition home or self-care (01) | LOC: INF 12:28 | PROVIDERS: PCP Nurse Practitioner Family; Visit Provider Surgery | DX: K65.1 Peritoneal abscess (principal); Z48.01 Encounter for change or removal of surgical wound dressing | CPT/HCPCS: G0463 ==

== ENCOUNTER 2022-07-03 11:42 | Outpatient (CLI) | payer BC, SELFPAY | END 2022-07-04 13:00 | disposition home or self-care (01) | LOC: INF 11:43 | PROVIDERS: PCP Nurse Practitioner Family; Visit Provider Surgery | DX: K65.1 Peritoneal abscess (principal); Z48.01 Encounter for change or removal of surgical wound dressing | CPT/HCPCS: G0463 ==

== ENCOUNTER 2022-07-04 12:32 | Outpatient (CLI) | payer BC, SELFPAY ==
--- NOTE | 2022-07-04 13:00 | PC.NURSE ---
dressing change completed by Aaron Mcmillan RN
== END 2022-07-04 13:00 | disposition home or self-care (01) ==
LOC: INF 12:32
PROVIDERS: PCP Nurse Practitioner Family; Visit Provider Surgery
DX: K65.1 Peritoneal abscess (principal); Z48.01 Encounter for change or removal of surgical wound dressing
CPT/HCPCS: G0463

== ENCOUNTER → 2022-07-05 12:27 | Outpatient (CLI) | payer BC, SELFPAY ==
--- NOTE | 2022-07-05 12:49 | PC.NURSE ---
DX CHANGE. SLIGHT AMOUNT OF PURULENT DRAINAGE NOTED FROM 3 INCISIONS, ALONG WITH SEROSANG DRAINAGE, SMALL AMOUNT. NO REDNESS NOTED AROUND WOUND. DRESSED WITH STERILE GAUZE, ABD PAD AND TAPE, TOLERATED WELL.
== END | disposition home or self-care (01) ==
PROVIDERS: PCP Nurse Practitioner Family; Visit Provider Surgery
DX: K65.1 Peritoneal abscess (principal); Z48.01 Encounter for change or removal of surgical wound dressing
CPT/HCPCS: G0463

== ENCOUNTER 2022-07-06 12:23 | Outpatient (CLI) | payer BC, SELFPAY | END 2022-07-06 13:00 | disposition home or self-care (01) | PROVIDERS: PCP Nurse Practitioner Family; Visit Provider Surgery | DX: K65.1 Peritoneal abscess (principal); Z48.01 Encounter for change or removal of surgical wound dressing | CPT/HCPCS: G0463 ==

== ENCOUNTER 2022-07-07 12:37 | Outpatient (CLI) | payer BC, SELFPAY ==
--- NOTE | 2022-07-07 12:51 | PC.NURSE ---
1251-notified bj, with dr hwang that pt's 3 wounds are unable to be packed but pt is still having moderate yellowish/green drainage from wound; she will notify
== END 2022-07-07 12:46 | disposition home or self-care (01) ==
LOC: INF 12:38
PROVIDERS: PCP Nurse Practitioner Family; Visit Provider Surgery
DX: K65.1 Peritoneal abscess (principal); Z48.01 Encounter for change or removal of surgical wound dressing
CPT/HCPCS: G0463

== ENCOUNTER 2022-07-08 12:22 | Outpatient (CLI) | payer BC, SELFPAY | END 2022-07-08 12:50 | disposition home or self-care (01) | LOC: INF 12:22 | PROVIDERS: PCP Nurse Practitioner Family; Visit Provider Surgery | DX: Z48.01 Encounter for change or removal of surgical wound dressing (principal); K65.1 Peritoneal abscess | CPT/HCPCS: G0463 ==

== ENCOUNTER → 2022-07-09 12:30 | Outpatient (CLI) | payer BC, SELFPAY | END | disposition home or self-care (01) | PROVIDERS: PCP Nurse Practitioner Family; Visit Provider Surgery | DX: Z48.01 Encounter for change or removal of surgical wound dressing (principal); K65.1 Peritoneal abscess | CPT/HCPCS: G0463 ==

== ENCOUNTER → 2022-07-23 10:56 | Outpatient (CLI) | payer BC, SELFPAY ==
[2022-07-23 11:29] LABS: Basophils % 0.4 % (0.1-2.0); Eosinophils # 0.3 K/mm3 (0.0-0.4); Hemoglobin 13.6 g/dL (14.1-18.0); Lymphocytes # 1.8 K/mm3 (0.7-4.5); Lymphocytes % 19.7 % (10-50); Mean Corpuscular HGB Conc 31.5 g/dL (31.8-35.4); Mean Corpuscular Volume 82.4 fl (80-94); Mean Platelet Volume 9.8 fl (7.4-10.4); Monocytes # 0.5 K/mm3 (0.1-1.0); Monocytes % 5.7 % (1.7-9.3); Neutrophils # 6.3 K/mm3 (1.8-7.8); Neutrophils % 71.1 % (37.0-80.0); Platelet Count 190 K/mm3 (142-424); Red Blood Count 5.22 M/mm3 (4.60-6.20); Red Cell Distribution Width 15.1 % (11.5-17.5); White Blood Count 8.9 K/mm3 (4.8-10.8)
[2022-07-23 11:56] LABS: Anion Gap 13.3 mEq/L (5-15); Blood Urea Nitrogen 15 mg/dl (9-20); Calcium 9.1 mg/dl (8.4-10.2); Carbon Dioxide 30 mmol/L (22.0-30.0); Chloride 101 mmol/L (98-107); Estimated Glomerular Filt Rate 80 ml/min (>60); GFR (African American) 97 ML/MIN (>60); Glucose 231 mg/dl (74-100); Potassium 4.3 mmoL/L (3.5-5.1); Sodium 140 mmol/L (136-145)
== END ==
PROVIDERS: PCP Nurse Practitioner Family; Visit Provider Surgery
DX: K65.1 Peritoneal abscess (principal)
CPT/HCPCS: 36415; 80048; 85025

== ENCOUNTER 2022-07-28 11:30 | Day surgery (SDC) | payer BC, SELFPAY ==
[2022-07-27 10:07] VITALS: BMI 27.8
[2022-07-28] VITALS (12 sets, daily range): BP systolic 124–159; BP diastolic 68–115; PULSE 63–78; RESP 11–18; TEMP 36.2–43; O2SAT 95–98
[2022-07-28 12:07] LABS: POC Glucose,Bedside 287 (70-110)
--- NOTE | 2022-07-28 13:25 | P.PN_ITS ---
[facility] Disclaimer: The information contained in this section may have been updated after the patient was seen, as this information can be updated by other users. Medical History Abnormal EKG Abnormal result of cardiovascular function study CAD (coronary artery disease) Crescendo angina Diabetes mellitus Dyspnea Encounter for behavioral health screening Encounter for pre-operative cardiovascular clearance Ex-smoker for more than 1 year HLD (hyperlipidemia) HTN (hypertension) Palpitations Right bundle branch block Surgical History History of appendectomy History of colon resection History of knee surgery History of laparoscopic cholecystectomy History of neck surgery S/P CABG x 4 Family History Other No significant family history Social History (Updated 07/28/22 @ 11:50 by Nisha Black RN) Smoking Status: Current every day smoker tobacco type: cigarettes packs per day: 1 alcohol intake: never substance use type: denies use current occupational status: employed Travel in the last 8 weeks: None household members: family housing: house 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 [facility] Anesthesia Checklist Patient Identification Patient Identification: Arm Band and Family Structural Data Admitted From: Home Planned Operative Procedure/s: I and D abdominal wounds Consent for Planned Operative Procedure(s) Verified: Yes Verified Documents: Surgical Consent NPO Status Verified Time NPO: 00:00 Additional verifications Patient : No Anesthesia Reactions: No Hx Blood Transfusions: No Blood Transfusion Reaction: No Cephalosporin Allergy: No Previous Colonoscopy: No Airway Assessment C-Spine Mobility Assessed: Yes TMJ Mobility Assessed: Yes Dentition: Edentulous Neurological Assessment Level of Consciousness: Awake, Alert, Appropriate and Follows Commands Hx Seizures: No Numbness or tingling in extremities: No Anesthesia Plan Anesthesia Risk discussed: Yes ASA Class: III Anesthesia Type: General Preoperative Comments Pre-Operative Comments: History of quadruple CAPG 2020. Pacemaker. IDDM, [id number] 281. Chronic Diarrhea.
--- NOTE | 2022-07-28 14:25 | P.PNANES_ITS ---
[facility] Anesthesia Record Part I Anesthesia Record I Intake, IV Amount: 650 Estimated blood loss (mL): 4 Urine output (mL): 0 Blood Products used (#): none Blood Pressure: 159/91 SaO2: 97 Pulse Rate: 78 Respiratory Rate: 16 Temperature: 97.8 F Patient is:: Drowsy and Stable Stable to PACU at:: 14:15
[2022-07-28 14:26] LABS: POC Glucose,Bedside 255 (70-110)
--- NOTE | 2022-07-28 14:27 | EXP.OP.NOTE ---
Date of procedure: 07/28/22 Pre-op Diagnosis:: Refractory soft tissue abdominal wall abscess Post-op Diagnosis:: Same Procedure performed:: Incision and drainage debridement of refractory abdominal wall abscess Surgeon:: Ghulam Cage MD [employer]:: Other Anesthesia: LMA Estimated blood loss (mL): 15 Clinical Note:: Patient presents for incision and drainage of complex refractory abdominal wall soft tissue infection. He underwent inpatient laparotomy with ileocecal resection for severe perforated abscessed appendicitis which was refractory to nonoperative management on 05/30/2022.? [facility].? When he was seen back in the office for his initial follow-up after discharge from short-term rehab he had some purulent drainage and erythema from his incision.? Several areas were opened up in the office and dressing changes were initiated.? He has been followed regularly in the office. Recently office appointment revealed he had some purulent drainage from some tiny granulating areas and silver nitrate was applied.? He was given a course of antibiotics.? He presented to the office last week with ongoing purulent drainage and tenderness. Given the redness and purulent drainage it was felt that he would require operative intervention at this point. Operative findings:: Patient had indurated erythematous tissue above his umbilicus. There was a small amount of subcutaneous purulent material. There was some granulation type tissue. Operative note:: Consent was obtained patient was taken the operating room. He was given preoperative intravenous antibiotic. In the operating room he was placed in spine position. General anesthesia was induced via LMA. Limited incision was made at the site of purulent granulation tissue with drainage and erythema above his umbilicus. There is some underlying purulent tissue which was sent for culture. Wound was probed and opened inferior to the umbilicus and superiorly to another area of granulation tissue to evacuate any underlying purulence. The underlying fascia was intact. Fascial sutures were visualized. There was a punctate area at the inferior aspect of his wound which was draining some purulent granulation type tissue and elliptical incision was made around this. This was debrided as well. Hemostasis was achieved with electrocautery. The larger midline wound was debrided with curette. Wounds were irrigated. Hemostasis was achieved with electrocautery. Local anesthetic was infiltrated. Both wounds were packed with dry plain gauze and covered with clean dry sterile dressing. Condition: stable Disposition: PACU Complications:: None immediately apparent
--- NOTE | 2022-07-28 15:31 | SUR.PHASEII ---
Pt to return to outpt infusion for tomorrow for dressing changes, verified with Loraine.
--- NOTE | 2022-07-29 07:20 | EXP.ANES.II ---
[facility] Anesthesia Record Part II Anesthesia Record Part II Discharge Time: 14:45 Destination: Surgical Day Care (OP Surgery) PACU nurse assessment reviewed?: Yes Patient Condition:: Good Anesthesia Complications:: None Swallowing reflex intact?: Yes Cyanosis?: No Blood Pressure: 149/84 Pulse Rate: 63 Temperature: 97.1 F Mental Status: Alert & Oriented Pain level:: 5 Nausea and/or vomitting:: None Intake, IV Amount: 0
[2022-07-29 07:21] VITALS: BP 149/84; PULSE 63; TEMP 36.2
== END 2022-07-28 15:37 | disposition home or self-care (01) ==
PROVIDERS: PCP Nurse Practitioner Family; Visit Provider Surgery
PROC: (CPT 10061; principal; 2022-07-28 13:00)
DX: T81.41XA Infection following a procedure, superficial incisional surgical site, initial encounter (principal); B37.2 Candidiasis of skin and nail; L53.8 Other specified erythematous conditions
CPT/HCPCS: 10061; 82962; 87070; 87075; 87205; 96374; J2405

== ENCOUNTER 2022-07-29 11:21 | Outpatient (CLI) | payer BC, SELFPAY | END 2022-07-29 11:40 | disposition home or self-care (01) | LOC: INF 11:22 | PROVIDERS: PCP Nurse Practitioner Family; Visit Provider Surgery | DX: K65.1 Peritoneal abscess (principal); Z48.01 Encounter for change or removal of surgical wound dressing | CPT/HCPCS: G0463 ==

== ENCOUNTER 2022-07-30 11:15 | Outpatient (CLI) | payer BC, SELFPAY | END 2022-07-30 11:35 | disposition home or self-care (01) | LOC: INF 11:15 | PROVIDERS: PCP Nurse Practitioner Family; Visit Provider Surgery | DX: K65.1 Peritoneal abscess (principal); Z48.01 Encounter for change or removal of surgical wound dressing | CPT/HCPCS: G0463 ==

== ENCOUNTER 2022-07-31 11:28 | Outpatient (CLI) | payer BC, SELFPAY | END 2022-07-31 12:00 | disposition home or self-care (01) | LOC: INF 11:28 | PROVIDERS: PCP Nurse Practitioner Family; Visit Provider Surgery | DX: K65.1 Peritoneal abscess (principal); Z48.01 Encounter for change or removal of surgical wound dressing | CPT/HCPCS: G0463 ==

== ENCOUNTER 2022-08-01 11:30 | Outpatient (CLI) | payer BC, SELFPAY ==
[2022-08-01 12:22] VITALS: BMI 30.9
== END 2022-08-01 12:04 | disposition home or self-care (01) ==
LOC: INF 11:31
PROVIDERS: PCP Nurse Practitioner Family; Visit Provider Surgery
DX: K65.1 Peritoneal abscess (principal); Z48.01 Encounter for change or removal of surgical wound dressing
CPT/HCPCS: G0463

== ENCOUNTER 2022-08-02 11:00 | Outpatient (CLI) | payer BC, SELFPAY ==
[2022-08-02 11:41] VITALS: BMI 30.9
== END 2022-08-02 11:29 | disposition home or self-care (01) ==
LOC: INF 11:01
PROVIDERS: PCP Nurse Practitioner Family; Visit Provider Surgery
DX: K65.1 Peritoneal abscess (principal); Z48.01 Encounter for change or removal of surgical wound dressing
CPT/HCPCS: G0463

== ENCOUNTER 2022-08-03 11:18 | Outpatient (CLI) | payer BC, SELFPAY | END 2022-08-03 11:30 | disposition home or self-care (01) | LOC: INF 11:19 | PROVIDERS: PCP Nurse Practitioner Family; Visit Provider Surgery | DX: K65.1 Peritoneal abscess (principal); Z48.01 Encounter for change or removal of surgical wound dressing | CPT/HCPCS: G0463 ==

== ENCOUNTER 2022-08-04 11:18 | Outpatient (CLI) | payer BC, SELFPAY | END 2022-08-04 11:30 | disposition home or self-care (01) | LOC: INF 11:19 | PROVIDERS: PCP Nurse Practitioner Family; Visit Provider Surgery | DX: K65.1 Peritoneal abscess (principal); Z48.01 Encounter for change or removal of surgical wound dressing | CPT/HCPCS: G0463 ==

== ENCOUNTER 2022-08-05 11:16 | Outpatient (CLI) | payer BC, SELFPAY | END 2022-08-05 11:45 | disposition home or self-care (01) | LOC: INF 11:16 | PROVIDERS: PCP Nurse Practitioner Family; Visit Provider Surgery | DX: K65.1 Peritoneal abscess (principal); Z48.01 Encounter for change or removal of surgical wound dressing | CPT/HCPCS: G0463 ==

== ENCOUNTER 2022-08-07 11:13 | Outpatient (CLI) | payer BC, SELFPAY ==
--- NOTE | 2022-08-07 15:33 | PC.NURSE ---
1120-REMOVED DRESSING AND PACKING FROM ABDOMINAL WOUNDS. PACKING CONTAINED YELLOWISH EXUDATE AND SEROSANGUINOUS DRAINAGE NOTED ON DRESSING. IRRIGATED WOUNDS WITH NS AND DRIED OUT USING DRY GAUZE. TOP WOUND BASE HAS SLOUGHING YELLOWISH EXUDATE AT BASE AND SIDE CHRISTIAN ARE REDDENED. BOTTOM WOUND IS RED AND MOIST. PACKED EACH WOUND WITH DRY GAUZE, COVERED WITH ABD PAD, AND TAPED INTO PLACE.
== END 2022-08-07 11:35 | disposition home or self-care (01) ==
LOC: INF 11:14
PROVIDERS: PCP Nurse Practitioner Family; Visit Provider Surgery
DX: K65.1 Peritoneal abscess (principal); Z48.01 Encounter for change or removal of surgical wound dressing
CPT/HCPCS: G0463

== ENCOUNTER 2022-08-08 10:49 | Outpatient (CLI) | payer BC, SELFPAY ==
--- NOTE | 2022-08-08 11:35 | PC.NURSE ---
old packing and dressing moistened and removed per pt request. wound bed irrigated with NS. wound bed noted to contain slough, townsend of wound noted to be red/beefy in color. pt tolerated packing of dry 4x4 gauze well. covered in gauze and abd pads and perforated tape.
== END 2022-08-08 11:10 | disposition home or self-care (01) ==
LOC: INF 10:50
PROVIDERS: PCP Nurse Practitioner Family; Visit Provider Surgery
DX: K65.1 Peritoneal abscess (principal); Z48.01 Encounter for change or removal of surgical wound dressing
CPT/HCPCS: G0463

== ENCOUNTER 2022-08-09 10:53 | Outpatient (CLI) | payer BC, SELFPAY ==
--- NOTE | 2022-08-09 11:18 | PC.NURSE ---
pt old dressing and packing removed. some sanguinous drainage noted to dressing/packing from lower wound. wound bed of upper wound noted to have slough in wound bed. townsend noted to again be red/beefy in color. pt has pimple like bump noted to the right of the upper wound that was not noted yesterday. wound bed irrigated with saline, packed with 4x4. covered with abd pads and perforated tape.
== END 2022-08-09 11:12 | disposition home or self-care (01) ==
LOC: INF 10:53
PROVIDERS: PCP Nurse Practitioner Family; Visit Provider Surgery
DX: K65.1 Peritoneal abscess (principal); Z48.01 Encounter for change or removal of surgical wound dressing
CPT/HCPCS: G0463

== ENCOUNTER 2022-08-10 11:16 | Outpatient (CLI) | payer BC, SELFPAY | END 2022-08-10 11:30 | disposition home or self-care (01) | LOC: INF 11:16 | PROVIDERS: PCP Nurse Practitioner Family; Visit Provider Surgery | DX: K65.1 Peritoneal abscess (principal); Z48.01 Encounter for change or removal of surgical wound dressing | CPT/HCPCS: G0463 ==

== ENCOUNTER 2022-08-11 11:14 | Outpatient (CLI) | payer BC, SELFPAY | END 2022-08-11 11:25 | disposition home or self-care (01) | LOC: INF 11:14 | PROVIDERS: PCP Nurse Practitioner Family; Visit Provider Surgery | DX: K65.1 Peritoneal abscess (principal); Z48.01 Encounter for change or removal of surgical wound dressing | CPT/HCPCS: G0463 ==

== ENCOUNTER 2022-08-12 11:14 | Outpatient (CLI) | payer BC, SELFPAY | END 2022-08-12 11:25 | disposition home or self-care (01) | LOC: INF 11:14 | PROVIDERS: PCP Nurse Practitioner Family; Visit Provider Surgery | DX: K65.1 Peritoneal abscess (principal); Z48.01 Encounter for change or removal of surgical wound dressing | CPT/HCPCS: G0463 ==

== ENCOUNTER 2022-08-14 11:16 | Outpatient (CLI) | payer BC, SELFPAY | END 2022-08-14 11:28 | disposition home or self-care (01) | LOC: INF 11:16 | PROVIDERS: PCP Nurse Practitioner Family; Visit Provider Surgery | DX: K65.1 Peritoneal abscess (principal); Z48.01 Encounter for change or removal of surgical wound dressing | CPT/HCPCS: G0463 ==

== ENCOUNTER 2022-08-15 11:11 | Outpatient (CLI) | payer BC, SELFPAY ==
[2022-08-15 11:27] VITALS: BMI 30.9
== END 2022-08-15 11:47 | disposition home or self-care (01) ==
LOC: INF 11:12
PROVIDERS: PCP Nurse Practitioner Family; Visit Provider Surgery
DX: K65.1 Peritoneal abscess (principal); Z48.01 Encounter for change or removal of surgical wound dressing
CPT/HCPCS: G0463

== ENCOUNTER 2022-08-16 11:15 | Outpatient (CLI) | payer BC, SELFPAY ==
[2022-08-16 11:15] VITALS: BMI 30.9
--- NOTE | 2022-08-16 13:03 | PC.NURSE ---
DRESSING CHANGE COMPLETED BY Maria Guadalupe KHALIL RN
== END 2022-08-16 11:50 | disposition home or self-care (01) ==
LOC: INF 11:15
PROVIDERS: PCP Nurse Practitioner Family; Visit Provider Surgery
DX: K65.1 Peritoneal abscess (principal); Z48.01 Encounter for change or removal of surgical wound dressing
CPT/HCPCS: G0463

== ENCOUNTER 2022-08-17 11:22 | Outpatient (CLI) | payer BC, SELFPAY | END 2022-08-17 11:33 | disposition home or self-care (01) | LOC: INF 11:23 | PROVIDERS: PCP Nurse Practitioner Family; Visit Provider Surgery | DX: K65.1 Peritoneal abscess (principal); Z48.01 Encounter for change or removal of surgical wound dressing | CPT/HCPCS: G0463 ==

== ENCOUNTER → 2022-08-18 11:15 | Outpatient (CLI) | payer BC, SELFPAY | PROVIDERS: PCP Nurse Practitioner Family; Visit Provider Surgery | DX: K65.1 Peritoneal abscess (principal); Z48.01 Encounter for change or removal of surgical wound dressing | CPT/HCPCS: G0463 ==

== ENCOUNTER 2022-08-19 11:19 | Outpatient (CLI) | payer BC, SELFPAY | END 2022-08-19 11:30 | disposition home or self-care (01) | LOC: INF 11:20 | PROVIDERS: PCP Nurse Practitioner Family; Visit Provider Surgery | DX: K65.1 Peritoneal abscess (principal); Z48.01 Encounter for change or removal of surgical wound dressing | CPT/HCPCS: G0463 ==

== ENCOUNTER 2022-08-20 11:14 | Outpatient (CLI) | payer BC, SELFPAY | END 2022-08-20 11:25 | disposition home or self-care (01) | LOC: INF 11:14 | PROVIDERS: PCP Nurse Practitioner Family; Visit Provider Surgery | DX: Z48.01 Encounter for change or removal of surgical wound dressing; K35.32 Acute appendicitis with perforation, localized peritonitis, and gangrene, without abscess; K65.1 Peritoneal abscess | CPT/HCPCS: G0463 ==

== ENCOUNTER 2022-08-21 11:16 | Outpatient (CLI) | payer BC, SELFPAY | END 2022-08-21 11:29 | disposition home or self-care (01) | LOC: INF 11:16 | PROVIDERS: PCP Nurse Practitioner Family; Visit Provider Surgery | DX: K65.1 Peritoneal abscess (principal); Z48.01 Encounter for change or removal of surgical wound dressing | CPT/HCPCS: G0463 ==

== ENCOUNTER → 2022-08-22 11:10 | Outpatient (CLI) | payer BC, SELFPAY | PROVIDERS: PCP Nurse Practitioner Family; Visit Provider Surgery | DX: K65.1 Peritoneal abscess (principal); Z48.01 Encounter for change or removal of surgical wound dressing | CPT/HCPCS: G0463 ==

== ENCOUNTER → 2022-08-23 11:16 | Outpatient (CLI) | payer BC, SELFPAY | PROVIDERS: PCP Nurse Practitioner Family; Visit Provider Surgery | DX: K65.1 Peritoneal abscess (principal); Z48.01 Encounter for change or removal of surgical wound dressing | CPT/HCPCS: G0463 ==

== ENCOUNTER 2022-08-24 13:36 | Outpatient (CLI) | payer BC, SELFPAY | END 2022-08-24 13:50 | disposition home or self-care (01) | LOC: INF 13:36 | PROVIDERS: PCP Nurse Practitioner Family; Visit Provider Surgery | DX: K65.1 Peritoneal abscess (principal); Z48.01 Encounter for change or removal of surgical wound dressing | CPT/HCPCS: G0463 ==

== ENCOUNTER 2022-08-26 10:40 | Outpatient (CLI) | payer BC, SELFPAY ==
--- NOTE | 2022-08-26 10:50 | PC.NURSE ---
1050-instructed pt on how to change outer dressing to try to help keep wound less moist.
== END 2022-08-26 10:54 | disposition home or self-care (01) ==
LOC: INF 10:40
PROVIDERS: PCP Nurse Practitioner Family; Visit Provider Surgery
DX: K65.1 Peritoneal abscess (principal); Z48.01 Encounter for change or removal of surgical wound dressing
CPT/HCPCS: G0463

== ENCOUNTER 2022-08-27 11:09 | Outpatient (CLI) | payer BC, SELFPAY | END 2022-08-27 11:30 | disposition home or self-care (01) | LOC: INF 11:09 | PROVIDERS: PCP Nurse Practitioner Family; Visit Provider Surgery | DX: K65.1 Peritoneal abscess (principal); Z48.01 Encounter for change or removal of surgical wound dressing | CPT/HCPCS: G0463 ==

== ENCOUNTER 2022-08-28 11:14 | Outpatient (CLI) | payer BC, SELFPAY ==
--- NOTE | 2022-08-28 13:45 | PC.NURSE ---
1125 - REMOVED DRESSING AND PACKING FROM MIDLINE ABDOMINAL WOUNDS. IRRIGATED BOTH WITH NS AND DRIED OUT USING DRY GAUZE. BOTH WOUND BEDS CONTAIN THICK YELLOW/GREENISH DRAINAGE. REPACKED BOTH WITH DRY GAUZE AND COVERED WITH DRY 4X4'S FOLDED IN HALF. TAPED INTO PLACE.
== END 2022-08-28 11:35 | disposition home or self-care (01) ==
LOC: INF 11:15
PROVIDERS: PCP Nurse Practitioner Family; Visit Provider Surgery
DX: K65.1 Peritoneal abscess (principal); Z48.01 Encounter for change or removal of surgical wound dressing
CPT/HCPCS: G0463

== ENCOUNTER 2022-08-29 11:12 | Outpatient (CLI) | payer BC, SELFPAY ==
[2022-08-29 11:53] VITALS: BMI 30.9
== END 2022-08-29 11:37 | disposition home or self-care (01) ==
PROVIDERS: PCP Nurse Practitioner Family; Visit Provider Surgery
DX: K65.1 Peritoneal abscess (principal); Z48.01 Encounter for change or removal of surgical wound dressing
CPT/HCPCS: G0463

== ENCOUNTER 2022-08-30 11:12 | Outpatient (CLI) | payer BC, SELFPAY ==
[2022-08-30 11:34] VITALS: BMI 30.9
== END 2022-08-30 11:23 | disposition home or self-care (01) ==
PROVIDERS: PCP Nurse Practitioner Family; Visit Provider Surgery
DX: K65.1 Peritoneal abscess (principal); Z48.01 Encounter for change or removal of surgical wound dressing
CPT/HCPCS: G0463

== ENCOUNTER 2022-08-31 11:11 | Outpatient (CLI) | payer BC, SELFPAY | END 2022-08-31 11:25 | disposition home or self-care (01) | LOC: INF 11:12 | PROVIDERS: PCP Nurse Practitioner Family; Visit Provider Surgery | DX: K65.1 Peritoneal abscess (principal); Z48.01 Encounter for change or removal of surgical wound dressing | CPT/HCPCS: G0463 ==

== ENCOUNTER 2022-09-01 11:24 | Outpatient (CLI) | payer BC, SELFPAY ==
[2022-09-01 11:27] VITALS: BP 135/74; PULSE 78; RESP 20; TEMP 36.9; O2SAT 95
== END 2022-09-01 11:50 | disposition home or self-care (01) ==
PROVIDERS: PCP Nurse Practitioner Family; Visit Provider Surgery
DX: K65.1 Peritoneal abscess (principal); Z48.01 Encounter for change or removal of surgical wound dressing
CPT/HCPCS: G0463

== ENCOUNTER 2022-09-02 11:30 | Outpatient (CLI) | payer BC, SELFPAY | END 2022-09-02 11:40 | disposition home or self-care (01) | LOC: INF 11:30 | PROVIDERS: PCP Nurse Practitioner Family; Visit Provider Surgery | DX: K65.1 Peritoneal abscess (principal); Z48.01 Encounter for change or removal of surgical wound dressing | CPT/HCPCS: G0463 ==

== ENCOUNTER 2022-09-03 11:20 | Outpatient (CLI) | payer BC, SELFPAY | END 2022-09-03 11:33 | disposition home or self-care (01) | LOC: INF 11:20 | PROVIDERS: PCP Nurse Practitioner Family; Visit Provider Surgery | DX: K65.1 Peritoneal abscess (principal); Z48.01 Encounter for change or removal of surgical wound dressing | CPT/HCPCS: G0463 ==

== ENCOUNTER 2022-09-04 11:40 | Outpatient (CLI) | payer BC, SELFPAY ==
--- NOTE | 2022-09-04 12:00 | PC.NURSE ---
1200-notified about pt wound condition;rn found a suture in the wound bed; md at bedside to remove prolene suture.
== END 2022-09-04 12:15 | disposition home or self-care (01) ==
LOC: INF 11:40
PROVIDERS: PCP Nurse Practitioner Family; Visit Provider Surgery
DX: K65.1 Peritoneal abscess (principal); Z48.01 Encounter for change or removal of surgical wound dressing
CPT/HCPCS: G0463

== ENCOUNTER → 2022-09-05 12:16 | Outpatient (CLI) | payer BC, SELFPAY | PROVIDERS: PCP Nurse Practitioner Family; Visit Provider Surgery | DX: K65.1 Peritoneal abscess (principal); Z48.01 Encounter for change or removal of surgical wound dressing | CPT/HCPCS: G0463 ==

== ENCOUNTER → 2022-09-06 11:17 | Outpatient (CLI) | payer BC, SELFPAY | PROVIDERS: PCP Nurse Practitioner Family; Visit Provider Surgery | DX: K65.1 Peritoneal abscess (principal); Z48.01 Encounter for change or removal of surgical wound dressing | CPT/HCPCS: G0463 ==

== ENCOUNTER 2022-09-07 11:14 | Outpatient (CLI) | payer BC, SELFPAY | END 2022-09-07 11:25 | disposition home or self-care (01) | LOC: INF 11:14 | PROVIDERS: PCP Nurse Practitioner Family; Visit Provider Surgery | DX: K65.1 Peritoneal abscess (principal); Z48.01 Encounter for change or removal of surgical wound dressing | CPT/HCPCS: G0463 ==

== ENCOUNTER 2022-09-08 11:18 | Outpatient (CLI) | payer BC, SELFPAY | END 2022-09-08 11:30 | disposition home or self-care (01) | PROVIDERS: PCP Nurse Practitioner Family; Visit Provider Surgery | DX: K65.1 Peritoneal abscess (principal); Z48.01 Encounter for change or removal of surgical wound dressing | CPT/HCPCS: G0463 ==

== ENCOUNTER 2022-09-09 11:17 | Outpatient (CLI) | payer BC, SELFPAY ==
--- NOTE | 2022-09-09 15:11 | PC.NURSE ---
1135 - REMOVED DRESSING AND PACKING FROM ABDOMINAL WOUNDS. IRRIGATED WITH NS AND DRIED OUT WITH GAUZE. REPACKED WOUND WITH DRY GAUZE, COVERED WITH DRY GAUZE, AND TAPED INTO PLACE.
== END 2022-09-09 11:50 | disposition home or self-care (01) ==
LOC: INF 11:17
PROVIDERS: PCP Nurse Practitioner Family; Visit Provider Surgery
DX: K65.1 Peritoneal abscess (principal); T14.8XXA Other injury of unspecified body region, initial encounter; Z48.01 Encounter for change or removal of surgical wound dressing
CPT/HCPCS: G0463

== ENCOUNTER 2022-09-11 11:14 | Outpatient (CLI) | payer BC, SELFPAY | END 2022-09-11 11:28 | disposition home or self-care (01) | LOC: INF 11:14 | PROVIDERS: PCP Nurse Practitioner Family; Visit Provider Surgery | DX: K65.1 Peritoneal abscess (principal); Z48.01 Encounter for change or removal of surgical wound dressing | CPT/HCPCS: G0463 ==

== ENCOUNTER 2022-09-12 11:41 | Outpatient (CLI) | payer BC, SELFPAY ==
[2022-09-12 11:44] VITALS: BMI 30.9
== END 2022-09-12 12:05 | disposition home or self-care (01) ==
PROVIDERS: PCP Nurse Practitioner Family; Visit Provider Surgery
DX: K65.1 Peritoneal abscess (principal); Z48.01 Encounter for change or removal of surgical wound dressing
CPT/HCPCS: G0463

== ENCOUNTER 2022-09-13 09:40 | Outpatient (CLI) | payer BC, SELFPAY ==
[2022-09-13 10:21] VITALS: BMI 30.9
== END 2022-09-13 10:03 | disposition home or self-care (01) ==
LOC: INF 09:40
PROVIDERS: PCP Nurse Practitioner Family; Visit Provider Surgery
DX: K65.1 Peritoneal abscess (principal); Z48.01 Encounter for change or removal of surgical wound dressing
CPT/HCPCS: G0463

== ENCOUNTER 2022-09-14 11:13 | Outpatient (CLI) | payer BC, SELFPAY | END 2022-09-14 11:41 | disposition home or self-care (01) | LOC: INF 11:13 | PROVIDERS: PCP Nurse Practitioner Family; Visit Provider Surgery | DX: K65.1 Peritoneal abscess (principal); Z48.01 Encounter for change or removal of surgical wound dressing | CPT/HCPCS: G0463 ==

== ENCOUNTER 2022-09-16 11:12 | Outpatient (CLI) | payer BC, SELFPAY | END 2022-09-16 11:25 | disposition home or self-care (01) | LOC: INF 11:13 | PROVIDERS: PCP Nurse Practitioner Family; Visit Provider Surgery | DX: K65.1 Peritoneal abscess (principal); Z48.01 Encounter for change or removal of surgical wound dressing | CPT/HCPCS: G0463 ==

== ENCOUNTER 2022-09-17 11:08 | Outpatient (CLI) | payer BC, SELFPAY | END 2022-09-17 11:20 | disposition home or self-care (01) | LOC: INF 11:09 | PROVIDERS: PCP Nurse Practitioner Family; Visit Provider Surgery | DX: K65.1 Peritoneal abscess (principal); Z48.01 Encounter for change or removal of surgical wound dressing | CPT/HCPCS: G0463 ==

== ENCOUNTER 2022-09-18 11:12 | Outpatient (CLI) | payer BC, SELFPAY | END 2022-09-18 11:20 | disposition home or self-care (01) | LOC: INF 11:12 | PROVIDERS: PCP Nurse Practitioner Family; Visit Provider Surgery | DX: K65.1 Peritoneal abscess (principal); Z48.01 Encounter for change or removal of surgical wound dressing | CPT/HCPCS: G0463 ==

== ENCOUNTER 2022-09-19 11:16 | Outpatient (CLI) | payer BC, SELFPAY | END 2022-09-19 11:52 | disposition home or self-care (01) | LOC: INF 11:17 | PROVIDERS: PCP Nurse Practitioner Family; Visit Provider Surgery | DX: K65.1 Peritoneal abscess (principal); Z48.01 Encounter for change or removal of surgical wound dressing | CPT/HCPCS: G0463 ==

== ENCOUNTER 2022-09-20 11:16 | Outpatient (CLI) | payer BC, SELFPAY | END 2022-09-20 11:36 | disposition home or self-care (01) | LOC: INF 11:16 | PROVIDERS: PCP Nurse Practitioner Family; Visit Provider Surgery | DX: K65.1 Peritoneal abscess (principal); Z48.01 Encounter for change or removal of surgical wound dressing | CPT/HCPCS: G0463 ==

== ENCOUNTER 2022-09-21 11:18 | Outpatient (CLI) | payer BC, SELFPAY | END 2022-09-21 11:28 | disposition home or self-care (01) | LOC: INF 11:18 | PROVIDERS: PCP Nurse Practitioner Family; Visit Provider Surgery | DX: K65.1 Peritoneal abscess (principal); Z48.01 Encounter for change or removal of surgical wound dressing | CPT/HCPCS: G0463 ==

== ENCOUNTER 2022-09-22 11:03 | Outpatient (CLI) | payer BC, SELFPAY | END 2022-09-22 11:22 | disposition home or self-care (01) | LOC: INF 11:03 | PROVIDERS: PCP Nurse Practitioner Family; Visit Provider Surgery | DX: K65.1 Peritoneal abscess (principal); Z48.01 Encounter for change or removal of surgical wound dressing | CPT/HCPCS: G0463 ==

== ENCOUNTER 2022-09-23 11:47 | Outpatient (CLI) | payer BC, SELFPAY | END 2022-09-23 12:05 | disposition home or self-care (01) | PROVIDERS: PCP Nurse Practitioner Family; Visit Provider Surgery | DX: K65.1 Peritoneal abscess (principal); Z48.01 Encounter for change or removal of surgical wound dressing | CPT/HCPCS: G0463 ==

== ENCOUNTER 2022-09-25 09:59 | Outpatient (CLI) | payer BC, SELFPAY | END 2022-09-25 10:55 | disposition home or self-care (01) | PROVIDERS: PCP Nurse Practitioner Family; Visit Provider Surgery | DX: K65.1 Peritoneal abscess (principal); Z48.01 Encounter for change or removal of surgical wound dressing | CPT/HCPCS: G0463 ==

== ENCOUNTER 2022-09-26 13:23 | Outpatient (CLI) | payer BC, SELFPAY ==
--- NOTE | 2022-09-26 13:52 | PC.NURSE ---
[address] Cage via phone that during pt dressing change it was noted that the drainage was greenish in color and very malodorous. no new orders. pt tolerated dressing change well. wound irrigated with saline, dried per pt request. packed with kerlix, covered with abd pad and paper tape.
== END 2022-09-26 13:55 | disposition home or self-care (01) ==
LOC: INF 13:24
PROVIDERS: PCP Nurse Practitioner Family; Visit Provider Surgery
DX: K65.1 Peritoneal abscess (principal); Z48.01 Encounter for change or removal of surgical wound dressing
CPT/HCPCS: G0463

== ENCOUNTER → 2022-09-27 11:06 | Outpatient (CLI) | payer BC, SELFPAY ==
--- NOTE | 2022-09-27 12:06 | PC.NURSE ---
changed dry to dry dressing on pt's abdomen, pt stated MD Cage wanted it dry to dry vs wet to dry
== END ==
PROVIDERS: PCP Nurse Practitioner Family; Visit Provider Surgery
DX: K65.1 Peritoneal abscess (principal); Z48.01 Encounter for change or removal of surgical wound dressing
CPT/HCPCS: G0463

== ENCOUNTER 2022-09-28 11:17 | Outpatient (CLI) | payer BC, SELFPAY | END 2022-09-28 11:31 | disposition home or self-care (01) | LOC: INF 11:17 | PROVIDERS: PCP Nurse Practitioner Family; Visit Provider Surgery | DX: K65.1 Peritoneal abscess (principal); Z48.01 Encounter for change or removal of surgical wound dressing | CPT/HCPCS: G0463 ==

== ENCOUNTER 2022-09-29 11:18 | Outpatient (CLI) | payer BC, SELFPAY | END 2022-09-29 11:40 | disposition home or self-care (01) | LOC: INF 11:18 | PROVIDERS: PCP Nurse Practitioner Family; Visit Provider Surgery | DX: K65.1 Peritoneal abscess (principal); Z48.01 Encounter for change or removal of surgical wound dressing | CPT/HCPCS: G0463 ==

== ENCOUNTER 2022-09-30 11:11 | Outpatient (CLI) | payer BC, SELFPAY | END 2022-09-30 11:52 | disposition home or self-care (01) | LOC: INF 11:11 | PROVIDERS: PCP Nurse Practitioner Family; Visit Provider Surgery | DX: K65.1 Peritoneal abscess (principal); Z48.01 Encounter for change or removal of surgical wound dressing | CPT/HCPCS: G0463 ==

== ENCOUNTER 2022-10-02 11:15 | Outpatient (CLI) | payer BC, SELFPAY | END 2022-10-02 11:30 | disposition home or self-care (01) | LOC: INF 11:15 | PROVIDERS: PCP Nurse Practitioner Family; Visit Provider Surgery | DX: K65.1 Peritoneal abscess (principal); Z48.01 Encounter for change or removal of surgical wound dressing | CPT/HCPCS: G0463 ==

== ENCOUNTER 2022-10-03 11:18 | Outpatient (CLI) | payer BC, SELFPAY | END 2022-10-03 11:56 | disposition home or self-care (01) | LOC: INF 11:19 | PROVIDERS: PCP Nurse Practitioner Family; Visit Provider Surgery | DX: K65.1 Peritoneal abscess (principal); Z48.01 Encounter for change or removal of surgical wound dressing | CPT/HCPCS: G0463 ==

== ENCOUNTER 2022-10-04 08:25 | Outpatient (CLI) | payer BC, SELFPAY | END 2022-10-04 08:42 | disposition home or self-care (01) | LOC: INF 08:25 | PROVIDERS: PCP Nurse Practitioner Family; Visit Provider Surgery | DX: K65.1 Peritoneal abscess (principal); Z48.01 Encounter for change or removal of surgical wound dressing | CPT/HCPCS: G0463 ==

== ENCOUNTER 2022-10-05 11:13 | Outpatient (CLI) | payer BC, SELFPAY | END 2022-10-05 11:25 | disposition home or self-care (01) | LOC: INF 11:13 | PROVIDERS: PCP Nurse Practitioner Family; Visit Provider Surgery | DX: K65.1 Peritoneal abscess (principal); Z48.01 Encounter for change or removal of surgical wound dressing | CPT/HCPCS: G0463 ==

== ENCOUNTER 2022-10-06 11:03 | Outpatient (CLI) | payer BC, SELFPAY | END 2022-10-06 11:25 | disposition home or self-care (01) | LOC: INF 11:04 | PROVIDERS: PCP Nurse Practitioner Family; Visit Provider Surgery | DX: K65.1 Peritoneal abscess (principal); Z48.01 Encounter for change or removal of surgical wound dressing | CPT/HCPCS: G0463 ==

== ENCOUNTER 2022-10-07 11:13 | Outpatient (CLI) | payer BC, SELFPAY | END 2022-10-07 11:25 | disposition home or self-care (01) | LOC: INF 11:13 | PROVIDERS: PCP Nurse Practitioner Family; Visit Provider Surgery | DX: K65.1 Peritoneal abscess (principal); Z48.01 Encounter for change or removal of surgical wound dressing | CPT/HCPCS: G0463 ==

== ENCOUNTER 2022-10-08 11:03 | Outpatient (CLI) | payer BC, SELFPAY | END 2022-10-08 11:15 | disposition home or self-care (01) | LOC: INF 11:03 | PROVIDERS: PCP Nurse Practitioner Family; Visit Provider Surgery | DX: K65.1 Peritoneal abscess (principal); Z48.01 Encounter for change or removal of surgical wound dressing | CPT/HCPCS: G0463 ==

== ENCOUNTER 2022-10-09 11:14 | Outpatient (CLI) | payer BC, SELFPAY | END 2022-10-09 11:28 | disposition home or self-care (01) | LOC: INF 11:15 | PROVIDERS: PCP Nurse Practitioner Family; Visit Provider Surgery | DX: K65.1 Peritoneal abscess (principal); Z48.01 Encounter for change or removal of surgical wound dressing | CPT/HCPCS: G0463 ==

== ENCOUNTER → 2022-10-10 11:42 | Outpatient (CLI) | payer BC, SELFPAY | PROVIDERS: PCP Nurse Practitioner Family; Visit Provider Surgery | DX: K65.1 Peritoneal abscess (principal); Z48.01 Encounter for change or removal of surgical wound dressing | CPT/HCPCS: G0463 ==

== ENCOUNTER → 2022-10-11 11:31 | Outpatient (CLI) | payer BC, SELFPAY | PROVIDERS: PCP Nurse Practitioner Family; Visit Provider Surgery | DX: K65.1 Peritoneal abscess (principal); Z48.01 Encounter for change or removal of surgical wound dressing | CPT/HCPCS: G0463 ==

== ENCOUNTER 2022-10-12 11:39 | Outpatient (CLI) | payer BC, SELFPAY ==
[2022-10-12 14:48] LABS: Alanine Aminotransferase 19 U/L (12-78); Albumin Level 3.7 g/dl (3.5-5.0); Alkaline Phosphatase 114 U/L (38-126); Aspartate Amino Transferase 24 U/L (17-59); Bilirubin,Indirect 0.6 mg/dL (0.0-0.9); Bilirubin,Total 0.6 mg/dl (0.2-1.3); Bilirubin,Unconjugated 0.8 mg/dL (0.0-1.1); Chol/HDL Ratio 2.4 (1-3.5); Cholesterol 119 mg/dl (140-200); HDL Cholesterol 50 mg/dl (40-60); Total Protein,Serum 6.4 g/dl (6.3-8.2); Triglycerides 108 mg/dl (30-150); VLDL Cholesterol 22 mg/dL (0-40)
== END 2022-10-12 11:55 | disposition home or self-care (01) ==
LOC: INF 11:41
PROVIDERS: Nurse Practitioner; PCP Nurse Practitioner Family; Referring Provider Internal Medicine; Visit Provider Surgery
DX: K65.1 Peritoneal abscess (principal); E78.5 Hyperlipidemia, unspecified; Z48.01 Encounter for change or removal of surgical wound dressing
CPT/HCPCS: 36415; 80061; 80076; G0463

== ENCOUNTER 2022-10-13 11:15 | Outpatient (CLI) | payer BC, SELFPAY | END 2022-10-13 11:25 | disposition home or self-care (01) | LOC: INF 11:16 | PROVIDERS: PCP Nurse Practitioner Family; Visit Provider Surgery | DX: K65.1 Peritoneal abscess (principal); Z48.01 Encounter for change or removal of surgical wound dressing | CPT/HCPCS: G0463 ==

== ENCOUNTER 2022-10-14 11:13 | Outpatient (CLI) | payer BC, SELFPAY | END 2022-10-14 11:30 | disposition home or self-care (01) | LOC: INF 11:13 | PROVIDERS: PCP Nurse Practitioner Family; Visit Provider Surgery | DX: K65.1 Peritoneal abscess (principal); Z48.01 Encounter for change or removal of surgical wound dressing | CPT/HCPCS: G0463 ==

== ENCOUNTER → 2022-10-15 11:54 | Outpatient (CLI) | payer BC, SELFPAY ==
[2022-10-15 12:27] LABS: Basophils % 0.5 % (0.1-2.0); Eosinophils # 0.2 K/mm3 (0.0-0.4); Eosinophils % 2.8 % (0.1-12.0); Hematocrit 45.6 % (42.0-52.0); Hemoglobin 14.5 g/dL (14.1-18.0); Lymphocytes % 24.2 % (10-50); Mean Corpuscular HGB Conc 31.7 g/dL (31.8-35.4); Mean Corpuscular Hemoglobin 25.1 pg (27.0-31.2); Mean Platelet Volume 9.7 fl (7.4-10.4); Monocytes # 0.5 K/mm3 (0.1-1.0); Monocytes % 5.8 % (1.7-9.3); Neutrophils # 5.5 K/mm3 (1.8-7.8); Neutrophils % 66.7 % (37.0-80.0); Platelet Count 200 K/mm3 (142-424); Red Blood Count 5.77 M/mm3 (4.60-6.20); White Blood Count 8.3 K/mm3 (4.8-10.8)
[2022-10-15 13:44] LABS: Anion Gap 15.5 mEq/L (5-15); Blood Urea Nitrogen 21 mg/dl (9-20); Calcium 9.4 mg/dl (8.4-10.2); Carbon Dioxide 26 mmol/L (22.0-30.0); Chloride 103 mmol/L (98-107); Estimated Glomerular Filt Rate 59 ml/min (>60); GFR (African American) 71 ML/MIN (>60); Glucose 238 mg/dl (74-100); Potassium 4.5 mmoL/L (3.5-5.1); Sodium 140 mmol/L (136-145)
== END ==
PROVIDERS: PCP Nurse Practitioner Family; Visit Provider Surgery
DX: K65.1 Peritoneal abscess (principal); T14.8XXA Other injury of unspecified body region, initial encounter
CPT/HCPCS: 80048; 85025

== ENCOUNTER 2022-10-16 11:17 | Outpatient (CLI) | payer BC, SELFPAY | END 2022-10-16 11:30 | disposition home or self-care (01) | LOC: INF 11:17 | PROVIDERS: PCP Nurse Practitioner Family; Visit Provider Surgery | DX: Z48.01 Encounter for change or removal of surgical wound dressing (principal) | CPT/HCPCS: G0463 ==

== ENCOUNTER 2022-10-17 12:05 | Outpatient (CLI) | payer BC, SELFPAY | END 2022-10-17 12:20 | disposition home or self-care (01) | LOC: INF 12:05 | PROVIDERS: PCP Nurse Practitioner Family; Visit Provider Surgery | DX: Z48.01 Encounter for change or removal of surgical wound dressing (principal) | CPT/HCPCS: G0463 ==

== ENCOUNTER 2022-10-18 11:29 | Outpatient (CLI) | payer BC, SELFPAY | END 2022-10-18 12:25 | disposition home or self-care (01) | LOC: INF 11:29 | PROVIDERS: PCP Nurse Practitioner Family; Visit Provider Surgery | DX: K65.1 Peritoneal abscess (principal); Z48.01 Encounter for change or removal of surgical wound dressing | CPT/HCPCS: G0463 ==

== ENCOUNTER → 2022-10-19 11:23 | Outpatient (CLI) | payer BC, SELFPAY | PROVIDERS: PCP Nurse Practitioner Family; Visit Provider Surgery | DX: K65.1 Peritoneal abscess (principal); Z48.01 Encounter for change or removal of surgical wound dressing | CPT/HCPCS: G0463 ==

== ENCOUNTER 2022-10-20 10:02 | Day surgery (SDC) | payer BC, SELFPAY ==
[2022-10-16 10:00] VITALS: BMI 29.5
[2022-10-20] VITALS (10 sets, daily range): BP systolic 127–157; BP diastolic 59–91; PULSE 63–81; RESP 14–18; TEMP 36.2–36.6; O2SAT 93–98
[2022-10-20 11:00] LABS: POC Glucose,Bedside 216 (70-110)
--- NOTE | 2022-10-20 11:08 | P.PNANES_ITS ---
[facility] Disclaimer: The information contained in this section may have been updated after the patient was seen, as this information can be updated by other users. Medical History Abnormal EKG Abnormal result of cardiovascular function study CAD (coronary artery disease) Crescendo angina Diabetes mellitus Dyspnea Encounter for behavioral health screening Encounter for pre-operative cardiovascular clearance Ex-smoker for more than 1 year History of pacemaker HLD (hyperlipidemia) HTN (hypertension) Palpitations Palpitations Right bundle branch block Surgical History History of appendectomy History of colon resection History of knee surgery History of laparoscopic cholecystectomy History of neck surgery S/P CABG x 4 Family History Other No significant family history Social History Smoking Status: Former smoker alcohol intake: never substance use type: denies use current occupational status: employed Travel in the last 8 weeks: None household members: family housing: house 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 H Anesthesia Checklist Patient Identification Patient Identification: Arm Band and Family Structural Data Admitted From: Home Planned Operative Procedure/s: I & D abdominal wound Consent for Planned Operative Procedure(s) Verified: Yes Verified Documents: Surgical Consent and History and Physical NPO Status Verified Time NPO: 00:00 Additional verifications Patient : No Anesthesia Reactions: No Hx Blood Transfusions: No Blood Transfusion Reaction: No Cephalosporin Allergy: No Previous Colonoscopy: No Airway Assessment Mallampati Score:: Class II C-Spine Mobility Assessed: Yes TMJ Mobility Assessed: Yes Dentition: Edentulous Neurological Assessment Level of Consciousness: Awake, Alert, Appropriate and Follows Commands Hx Seizures: No Numbness or tingling in extremities: No Anesthesia Plan Anesthesia Risk discussed: Yes ASA Class: III Anesthesia Type: General Preoperative Comments Pre-Operative Comments: Quadruple Bypass August 2020. IDDM, Fasting blood [id number]. Pacemaker since open Heart surgery. Three days off of aspirin.
--- NOTE | 2022-10-20 12:32 | P.OP_ITS ---
Date of procedure: 10/20/22 Pre-op Diagnosis:: Nonhealing surgical wound Post-op Diagnosis:: Non-healing surgical wound Procedure performed:: Same Surgeon:: Ghulam Cage MD GROUP RESERVATIONS COORDINATOR:: Other Anesthesia: LMA Estimated blood loss (mL): 25 Clinical Note:: Patient is a 47-year-old male with multiple medical conditions who had presented to the emergency department on 05/28/2022 with a couple of weeks of fevers. He underwent extremely thorough work-up for fever of unknown origin and had a CT scan which revealed findings worrisome for possibly ruptured appendicitis with air-fluid collection in the right abdomen. Patient was initially managed without intervention as he had no evidence of peritonitis or systemic symptoms and plan was made for interventional radiology drain placement after several days of antibiotics due to lack of radiology availability at the time. However patient had developed recurrent significant fevers and increasing tenderness. Given his failure of nonoperative and noninterventional management he was taken to the operating room at which time he underwent diagnostic laparoscopy followed by exploratory laparotomy with right colon resection on 05/29/2022. There was a significant amount of inflammation around the ileocecal region creating a phlegmon and firm masslike effect with feculent purulent abscess posterior to the colon in the retroperitoneum. He underwent right colon resection. Patient did have a short stay after discharge at [facility] rehab facility for deconditioning. He was seen back in the office and there was noted to be some purulent drainage and erythema around his incision. Several hours were opened in the office and he actually had significant bleeding after that requiring evaluation in the emergency department. Patient had initially some good healing but then had developed some ongoing purulent drainage and tenderness and was taken back to the operating room on 07/28/2022 at which time he underwent incision drainage and debridement of refractory abdominal wall abscess. He has had ongoing slow healing process undergoing outpatient dressing changes. He has had several episodes where he has had some suture protruding which has been removed and an outpatient setting. He recently was seen in the office and had some redness and tenderness with fluctuance at the upper aspect of the wound. Plan was made for incision and drainage and debridement to hopefully expedite wound healing. Operative findings:: Patient had some tunneling granulation tissue with extensive fibrosis with minimal purulence. Underlying fascia was intact. Some residual suture was removed. Operative note:: Patient was taken the operating room. He was positioned in supine position. General anesthesia was induced via LMA. Abdomen was prepped and draped. The small open wound above his umbilicus was probed. There was tunneling superiorly towards the area of fluctuance which had shown some improvement. This was incis ed with electrocautery. Underlying fluid was cultured. The area bled easily. There is some inflamed granulation tissue similar to as would be seen with hidradenitis. Debridement was carried out using a small curette. There was suture present which was removed in the upper aspect of the incision. Lower punctate incision was probed. It bled easily. It tunneled somewhat superiorly and this was unroofed. This was debrided in a similar fashion. Hemostasis was achieved with electrocautery of the wounds. Local anesthetic was infiltrated. Wounds were packed with dry gauze. Clean dry sterile dressings were applied. Condition: stable Disposition: PACU Complications:: None immediate
--- NOTE | 2022-10-20 12:46 | P.PNANES_ITS ---
[facility] Anesthesia Record Part I Anesthesia Record I Intake, IV Amount: 800 Hydration: Adequate Estimated blood loss (mL): 10 Urine output (mL): 0 Blood Products used (#): none Blood Pressure: 150/91 SaO2: 95 Pulse Rate: 72 Airway Patency: Patent Respiratory Rate: 14 Temperature: 98 F Patient is:: Drowsy and Stable Stable to PACU at:: 12:35
[2022-10-20 12:56] LABS: POC Glucose,Bedside 164 (70-110)
--- NOTE | 2022-10-21 10:33 | P.PNANES_ITS ---
[facility] Anesthesia Record Part II Anesthesia Record Part II Discharge Time: 13:15 Destination: Surgical Day Care (OP Surgery) PACU nurse assessment reviewed?: Yes Patient Condition:: Good Anesthesia Complications:: None Swallowing reflex intact?: Yes Airway Patency: Patent Cyanosis?: No Blood Pressure: 127/59 SaO2: 98 Respiratory Rate: 18 Pulse Rate: 72 Temperature: 97.2 F Mental Status: Alert & Oriented Pain level:: 0 Nausea and/or vomitting:: None Intake, IV Amount: 0 Hydration: Adequate
[2022-10-21 10:34] VITALS: BP 127/59; PULSE 72; RESP 18; TEMP 36.2; O2SAT 98
== END 2022-10-20 13:53 | disposition home or self-care (01) ==
PROVIDERS: PCP Nurse Practitioner Family; Visit Provider Surgery
PROC: (CPT 10180; principal; 2022-10-20 11:30)
DX: T81.89XA Other complications of procedures, not elsewhere classified, initial encounter (principal); T81.41XA Infection following a procedure, superficial incisional surgical site, initial encounter
CPT/HCPCS: 10180; 97597; 82962; 87070; 87075; 87077; 87186; 87205; 96374; J2405

== ENCOUNTER 2022-10-21 11:20 | Outpatient (CLI) | payer BC, SELFPAY ==
--- NOTE | 2022-10-21 13:03 | PC.NURSE ---
1130 - REMOVED DRESSING AND PACKING FROM ABDOMINAL WOUNDS. BRIGHT RED BLOOD NOTED ON BOTH. IRRIGATED WITH NS AND DRIED OUT USING GAUZE. TOP WOUND MEASURES 9CM LENGTH X 1.5CM WIDTH X 2.5 CM DEPTH. BOTTOM WOUND MEASURES 2CM LENGTH X 1CM WIDTH X 2.5CM DEPTH. PACKED BOTH WITH DRY GAUZE AND COVERED WITH DRY GAUZE AND ABD PAD. TAPED DRESSING IN PLACE.
== END 2022-10-21 11:50 | disposition home or self-care (01) ==
LOC: INF 11:20
PROVIDERS: PCP Nurse Practitioner Family; Visit Provider Surgery
DX: K65.1 Peritoneal abscess (principal); Z48.01 Encounter for change or removal of surgical wound dressing
CPT/HCPCS: G0463

== ENCOUNTER 2022-10-22 11:33 | Outpatient (CLI) | payer BC, SELFPAY | END 2022-10-22 11:45 | disposition home or self-care (01) | LOC: INF 11:33 | PROVIDERS: PCP Nurse Practitioner Family; Visit Provider Surgery | DX: K65.1 Peritoneal abscess (principal); Z48.01 Encounter for change or removal of surgical wound dressing | CPT/HCPCS: G0463 ==

== ENCOUNTER 2022-10-23 11:21 | Outpatient (CLI) | payer BC, SELFPAY | END 2022-10-23 11:30 | disposition home or self-care (01) | LOC: INF 11:21 | PROVIDERS: PCP Nurse Practitioner Family; Visit Provider Surgery | DX: Z48.01 Encounter for change or removal of surgical wound dressing (principal) | CPT/HCPCS: G0463 ==

== ENCOUNTER → 2022-10-24 10:53 | Outpatient (CLI) | payer BC, SELFPAY | PROVIDERS: PCP Nurse Practitioner Family; Visit Provider Surgery | DX: K65.1 Peritoneal abscess (principal); Z48.01 Encounter for change or removal of surgical wound dressing | CPT/HCPCS: G0463 ==

== ENCOUNTER → 2022-10-25 11:30 | Outpatient (CLI) | payer BC, SELFPAY | PROVIDERS: PCP Nurse Practitioner Family; Visit Provider Surgery | DX: K65.1 Peritoneal abscess (principal); Z48.01 Encounter for change or removal of surgical wound dressing | CPT/HCPCS: G0463 ==

== ENCOUNTER 2022-10-26 10:29 | Outpatient (CLI) | payer BC, SELFPAY | END 2022-10-26 10:45 | disposition home or self-care (01) | LOC: INF 10:29 | PROVIDERS: PCP Nurse Practitioner Family; Visit Provider Surgery | DX: K65.1 Peritoneal abscess (principal); Z48.01 Encounter for change or removal of surgical wound dressing | CPT/HCPCS: G0463 ==

== ENCOUNTER 2022-10-28 11:16 | Outpatient (CLI) | payer BC, SELFPAY | END 2022-10-28 11:42 | disposition home or self-care (01) | LOC: INF 11:16 | PROVIDERS: PCP Nurse Practitioner Family; Visit Provider Surgery | DX: K65.1 Peritoneal abscess (principal); Z48.01 Encounter for change or removal of surgical wound dressing | CPT/HCPCS: G0463 ==

== ENCOUNTER 2022-10-29 11:27 | Outpatient (CLI) | payer BC, SELFPAY | END 2022-10-29 11:40 | disposition home or self-care (01) | LOC: INF 11:28 | PROVIDERS: PCP Nurse Practitioner Family; Visit Provider Surgery | DX: Z48.01 Encounter for change or removal of surgical wound dressing (principal) | CPT/HCPCS: G0463 ==

== ENCOUNTER 2022-10-30 11:02 | Outpatient (CLI) | payer BC, SELFPAY | END 2022-10-30 11:15 | disposition home or self-care (01) | PROVIDERS: PCP Nurse Practitioner Family; Visit Provider Surgery | DX: Z48.01 Encounter for change or removal of surgical wound dressing (principal) | CPT/HCPCS: G0463 ==

== ENCOUNTER → 2022-10-31 09:44 | Outpatient (CLI) | payer BC, SELFPAY ==
[2022-10-31 10:00] VITALS: BP 146/81; PULSE 79; RESP 18; TEMP 36.6; O2SAT 98
== END ==
PROVIDERS: PCP Nurse Practitioner Family; Visit Provider Surgery
DX: K65.1 Peritoneal abscess (principal); Z48.01 Encounter for change or removal of surgical wound dressing
CPT/HCPCS: G0463

== ENCOUNTER 2022-11-01 11:03 | Outpatient (CLI) | payer BC, SELFPAY | END 2022-11-01 11:37 | disposition home or self-care (01) | LOC: INF 11:03 | PROVIDERS: PCP Nurse Practitioner Family; Visit Provider Surgery | DX: K65.1 Peritoneal abscess (principal); Z48.01 Encounter for change or removal of surgical wound dressing | CPT/HCPCS: G0463 ==

== ENCOUNTER 2022-11-02 11:05 | Outpatient (CLI) | payer BC, SELFPAY | END 2022-11-02 11:15 | disposition home or self-care (01) | LOC: INF 11:05 | PROVIDERS: PCP Nurse Practitioner Family; Visit Provider Surgery | DX: Z48.01 Encounter for change or removal of surgical wound dressing (principal) | CPT/HCPCS: G0463 ==

== ENCOUNTER 2022-11-03 11:02 | Outpatient (CLI) | payer BC, SELFPAY | END 2022-11-03 11:15 | disposition home or self-care (01) | LOC: INF 11:02 | PROVIDERS: PCP Nurse Practitioner Family; Visit Provider Surgery | DX: Z48.01 Encounter for change or removal of surgical wound dressing (principal); L02.211 Cutaneous abscess of abdominal wall | CPT/HCPCS: G0463 ==

== ENCOUNTER 2022-11-04 11:07 | Outpatient (CLI) | payer BC, SELFPAY | END 2022-11-04 11:20 | disposition home or self-care (01) | LOC: INF 11:08 | PROVIDERS: PCP Nurse Practitioner Family; Visit Provider Surgery | DX: Z48.01 Encounter for change or removal of surgical wound dressing (principal); L02.211 Cutaneous abscess of abdominal wall | CPT/HCPCS: G0463 ==

== ENCOUNTER 2022-11-05 11:01 | Outpatient (CLI) | payer BC, SELFPAY | END 2022-11-05 11:35 | disposition home or self-care (01) | LOC: INF 11:01 | PROVIDERS: PCP Nurse Practitioner Family; Visit Provider Surgery | DX: Z48.01 Encounter for change or removal of surgical wound dressing (principal); L02.211 Cutaneous abscess of abdominal wall | CPT/HCPCS: G0463 ==

== ENCOUNTER 2022-11-06 11:03 | Outpatient (CLI) | payer BC, SELFPAY ==
--- NOTE | 2022-11-06 14:38 | PC.NURSE ---
1110 - REMOVED DRESSING AND PACKING FROM ABDOMINAL WOUND. IRRIGATED WOUND WITH NS. WOUND BED RED AND MOIST APPEARING. DRIED OUT WITH DRY 4X4'S AND REPACKED WITH DRY GAUZE, COVERED WITH DRY GAUZE, AND TAPED INTO PLACE.
== END 2022-11-06 11:20 | disposition home or self-care (01) ==
LOC: INF 11:03
PROVIDERS: PCP Nurse Practitioner Family; Visit Provider Surgery
DX: Z48.01 Encounter for change or removal of surgical wound dressing (principal)
CPT/HCPCS: G0463

== ENCOUNTER → 2022-11-07 12:00 | Outpatient (CLI) | payer BC, SELFPAY | PROVIDERS: PCP Nurse Practitioner Family; Visit Provider Surgery | DX: L02.211 Cutaneous abscess of abdominal wall (principal); Z48.01 Encounter for change or removal of surgical wound dressing | CPT/HCPCS: G0463 ==

== ENCOUNTER → 2022-11-08 07:32 | Outpatient (CLI) | payer BC, SELFPAY ==
[2022-11-08 08:00] VITALS: BP 120/79; PULSE 69; RESP 16; TEMP 36.8; O2SAT 99
== END ==
PROVIDERS: PCP Nurse Practitioner Family; Visit Provider Surgery
DX: L02.211 Cutaneous abscess of abdominal wall (principal); Z48.01 Encounter for change or removal of surgical wound dressing
CPT/HCPCS: G0463

== ENCOUNTER 2022-11-09 11:01 | Outpatient (CLI) | payer BC, SELFPAY | END 2022-11-09 11:18 | disposition home or self-care (01) | LOC: INF 11:02 | PROVIDERS: PCP Nurse Practitioner Family; Visit Provider Surgery | DX: Z48.01 Encounter for change or removal of surgical wound dressing (principal); L02.211 Cutaneous abscess of abdominal wall | CPT/HCPCS: G0463 ==

== ENCOUNTER 2022-11-10 10:58 | Outpatient (CLI) | payer BC, SELFPAY | END 2022-11-10 11:20 | disposition home or self-care (01) | LOC: INF 10:58 | PROVIDERS: PCP Nurse Practitioner Family; Visit Provider Surgery | DX: L02.211 Cutaneous abscess of abdominal wall (principal); Z48.01 Encounter for change or removal of surgical wound dressing | CPT/HCPCS: G0463 ==

== ENCOUNTER 2022-11-11 11:12 | Outpatient (CLI) | payer BC, SELFPAY | END 2022-11-11 12:20 | disposition home or self-care (01) | LOC: INF 11:12 | PROVIDERS: PCP Nurse Practitioner Family; Visit Provider Surgery | DX: L02.211 Cutaneous abscess of abdominal wall (principal); Z48.01 Encounter for change or removal of surgical wound dressing | CPT/HCPCS: G0463 ==

== ENCOUNTER 2022-11-13 11:13 | Outpatient (CLI) | payer BC, SELFPAY | END 2022-11-13 11:35 | disposition home or self-care (01) | LOC: INF 11:13 | PROVIDERS: PCP Nurse Practitioner Family; Visit Provider Surgery | DX: Z48.01 Encounter for change or removal of surgical wound dressing (principal) | CPT/HCPCS: G0463 ==

== ENCOUNTER 2022-11-14 12:23 | Outpatient (CLI) | payer BC, SELFPAY | END 2022-11-14 12:45 | disposition home or self-care (01) | LOC: INF 12:23 | PROVIDERS: PCP Nurse Practitioner Family; Visit Provider Surgery | DX: Z48.01 Encounter for change or removal of surgical wound dressing (principal) | CPT/HCPCS: G0463 ==

== ENCOUNTER 2022-11-15 08:23 | Outpatient (CLI) | payer BC, SELFPAY | END 2022-11-15 08:36 | disposition home or self-care (01) | LOC: INF 08:23 | PROVIDERS: PCP Nurse Practitioner Family; Visit Provider Surgery | DX: Z48.01 Encounter for change or removal of surgical wound dressing (principal) | CPT/HCPCS: G0463 ==

== ENCOUNTER 2022-11-16 10:56 | Outpatient (CLI) | payer BC, SELFPAY | END 2022-11-16 11:08 | disposition home or self-care (01) | LOC: INF 10:57 | PROVIDERS: PCP Nurse Practitioner Family; Visit Provider Surgery | DX: Z48.01 Encounter for change or removal of surgical wound dressing (principal) | CPT/HCPCS: G0463 ==

== ENCOUNTER 2022-11-18 12:39 | Outpatient (CLI) | payer BC, SELFPAY ==
--- NOTE | 2022-11-18 14:42 | PC.NURSE ---
1250 - REMOVED DRESSING AND PACKING FROM MEDIAL ABDOMINAL WOUNDS. IRRIGATED WITH NS AND DRIED OUT WITH DRY GAUZE. PACKED ALL 3 WOUNDS WITH DRY GAUZE, COVERED WITH DRY GAUZE, AND TAPED INTO PLACE.
== END 2022-11-18 13:00 | disposition home or self-care (01) ==
LOC: INF 12:39
PROVIDERS: PCP Nurse Practitioner Family; Visit Provider Surgery
DX: L02.211 Cutaneous abscess of abdominal wall (principal); Z48.01 Encounter for change or removal of surgical wound dressing
CPT/HCPCS: G0463

== ENCOUNTER 2022-11-19 08:06 | Outpatient (CLI) | payer BC, SELFPAY | END 2022-11-19 08:39 | disposition home or self-care (01) | LOC: INF 08:07 | PROVIDERS: PCP Nurse Practitioner Family; Visit Provider Surgery | DX: L02.211 Cutaneous abscess of abdominal wall (principal); Z48.01 Encounter for change or removal of surgical wound dressing | CPT/HCPCS: G0463 ==

== ENCOUNTER 2022-11-20 11:46 | Outpatient (CLI) | payer BC, SELFPAY | END 2022-11-20 12:09 | disposition home or self-care (01) | LOC: INF 11:47 | PROVIDERS: PCP Nurse Practitioner Family; Visit Provider Surgery | DX: Z48.01 Encounter for change or removal of surgical wound dressing (principal) | CPT/HCPCS: G0463 ==

== ENCOUNTER → 2022-11-21 11:50 | Outpatient (CLI) | payer BC, SELFPAY | PROVIDERS: PCP Nurse Practitioner Family; Visit Provider Surgery | DX: L02.211 Cutaneous abscess of abdominal wall (principal); Z48.01 Encounter for change or removal of surgical wound dressing | CPT/HCPCS: G0463 ==

== ENCOUNTER → 2022-11-22 11:39 | Outpatient (CLI) | payer BC, SELFPAY | PROVIDERS: PCP Nurse Practitioner Family; Visit Provider Surgery | DX: L02.211 Cutaneous abscess of abdominal wall (principal); Z48.01 Encounter for change or removal of surgical wound dressing | CPT/HCPCS: G0463 ==

== ENCOUNTER 2022-11-23 11:47 | Outpatient (CLI) | payer BC, SELFPAY | END 2022-11-23 12:00 | disposition home or self-care (01) | PROVIDERS: PCP Nurse Practitioner Family; Visit Provider Surgery | DX: L02.211 Cutaneous abscess of abdominal wall (principal); Z48.01 Encounter for change or removal of surgical wound dressing | CPT/HCPCS: G0463 ==

== ENCOUNTER 2022-11-24 11:39 | Outpatient (CLI) | payer BC, SELFPAY | END 2022-11-24 11:40 | disposition home or self-care (01) | LOC: INF 11:39 | PROVIDERS: PCP Nurse Practitioner Family; Visit Provider Surgery | DX: Z48.01 Encounter for change or removal of surgical wound dressing (principal) | CPT/HCPCS: G0463 ==

== ENCOUNTER 2022-11-25 11:58 | Outpatient (CLI) | payer BC, SELFPAY | END 2022-11-25 12:12 | disposition home or self-care (01) | LOC: INF 11:59 | PROVIDERS: PCP Nurse Practitioner Family; Visit Provider Surgery | DX: Z48.01 Encounter for change or removal of surgical wound dressing (principal) | CPT/HCPCS: G0463 ==

== ENCOUNTER 2022-11-26 12:17 | Outpatient (CLI) | payer BC, SELFPAY | END 2022-11-26 12:25 | disposition home or self-care (01) | LOC: INF 12:18 | PROVIDERS: PCP Nurse Practitioner Family; Visit Provider Surgery | DX: Z48.01 Encounter for change or removal of surgical wound dressing (principal) | CPT/HCPCS: G0463 ==

== ENCOUNTER 2022-11-27 11:00 | Outpatient (CLI) | payer BC, SELFPAY ==
--- NOTE | 2022-11-27 11:34 | PC.NURSE ---
1105 - IRRIGATED WOUNDS WITH NS AND DRIED USING GAUZE. LAID GAUZE IN TOP WOUND IT IS NO LONGER PACKABLE. PACKED MIDDLE WOUND WITH GAUZE. WOUND TUNNELS DOWNWARD 1.5CM. PACKED BOTTOM WOUND WITH GAUZE. WOUND TUNNELS UPWARD 1.5CM BUT DOES NOT JOIN MIDDLE WOUND. COVERED ALL WITH DRY GAUZE AND TAPED INTO PLACE.
== END 2022-11-27 11:15 | disposition home or self-care (01) ==
LOC: INF 11:00
PROVIDERS: PCP Nurse Practitioner Family; Visit Provider Surgery
DX: Z48.01 Encounter for change or removal of surgical wound dressing (principal)
CPT/HCPCS: G0463

== ENCOUNTER 2022-11-28 10:53 | Outpatient (CLI) | payer BC, SELFPAY | END 2022-11-28 11:09 | disposition home or self-care (01) | LOC: INF 10:53 | PROVIDERS: PCP Nurse Practitioner Family; Visit Provider Surgery | DX: T14.8XXA Other injury of unspecified body region, initial encounter (principal); Z48.00 Encounter for change or removal of nonsurgical wound dressing; K65.1 Peritoneal abscess | CPT/HCPCS: G0463 ==

== ENCOUNTER 2022-11-29 11:05 | Outpatient (CLI) | payer BC, SELFPAY | END 2022-11-29 11:15 | disposition home or self-care (01) | LOC: INF 11:05 | PROVIDERS: PCP Nurse Practitioner Family; Visit Provider Surgery | DX: L02.411 Cutaneous abscess of right axilla (principal); T14.8XXA Other injury of unspecified body region, initial encounter; Z48.00 Encounter for change or removal of nonsurgical wound dressing | CPT/HCPCS: G0463 ==

== ENCOUNTER 2022-11-30 12:06 | Outpatient (CLI) | payer BC, SELFPAY | END 2022-11-30 12:20 | disposition home or self-care (01) | LOC: INF 12:07 | PROVIDERS: PCP Nurse Practitioner Family; Visit Provider Surgery | DX: Z48.01 Encounter for change or removal of surgical wound dressing (principal) | CPT/HCPCS: G0463 ==

== ENCOUNTER 2022-12-02 11:20 | Outpatient (CLI) | payer BC, SELFPAY | END 2022-12-02 11:32 | disposition home or self-care (01) | LOC: INF 11:20 | PROVIDERS: PCP Nurse Practitioner Family; Visit Provider Surgery | DX: Z48.01 Encounter for change or removal of surgical wound dressing (principal) | CPT/HCPCS: G0463 ==

== ENCOUNTER 2022-12-03 11:11 | Outpatient (CLI) | payer BC, SELFPAY ==
--- NOTE | 2022-12-03 12:17 | PC.NURSE ---
1118 - REMOVED DRESSING AND PACKING FROM ABDOMINAL WOUNDS. IRRIGATED EACH WITH NS, DRIED WITH GAUZE, AND COVERED WITH DRY GAUZE. TAPED INTO PLACE.
== END 2022-12-03 11:25 | disposition home or self-care (01) ==
LOC: INF 11:11
PROVIDERS: PCP Nurse Practitioner Family; Visit Provider Surgery
DX: Z48.01 Encounter for change or removal of surgical wound dressing (principal)
CPT/HCPCS: G0463

== ENCOUNTER 2022-12-04 11:29 | Outpatient (CLI) | payer BC, SELFPAY | END 2022-12-04 11:50 | disposition home or self-care (01) | LOC: INF 11:30 | PROVIDERS: PCP Nurse Practitioner Family; Visit Provider Surgery | DX: Z48.01 Encounter for change or removal of surgical wound dressing (principal) | CPT/HCPCS: G0463 ==

== ENCOUNTER → 2022-12-05 12:23 | Outpatient (CLI) | payer BC, SELFPAY | PROVIDERS: PCP Nurse Practitioner Family; Visit Provider Surgery | DX: K65.1 Peritoneal abscess (principal); Z48.01 Encounter for change or removal of surgical wound dressing | CPT/HCPCS: G0463 ==

== ENCOUNTER → 2022-12-06 13:08 | Outpatient (CLI) | payer BC, SELFPAY | PROVIDERS: PCP Nurse Practitioner Family; Visit Provider Surgery | DX: K65.1 Peritoneal abscess (principal); Z48.01 Encounter for change or removal of surgical wound dressing | CPT/HCPCS: G0463 ==

== ENCOUNTER 2022-12-07 11:03 | Outpatient (CLI) | payer BC, SELFPAY | END 2022-12-07 11:15 | disposition home or self-care (01) | LOC: INF 11:04 | PROVIDERS: PCP Nurse Practitioner Family; Visit Provider Surgery | DX: Z48.01 Encounter for change or removal of surgical wound dressing (principal) | CPT/HCPCS: G0463 ==

== ENCOUNTER 2022-12-18 13:35 | Outpatient (CLI) | payer BC, SELFPAY ==
--- NOTE | 2022-12-18 13:44 | PC.NURSE ---
1344-checked abdominal wound today; wound is healed;just scab present;covered wound back up per md order wirh 4x4 and paper tape
== END 2022-12-18 13:44 | disposition home or self-care (01) ==
PROVIDERS: PCP Nurse Practitioner Family; Visit Provider Surgery
DX: Z48.01 Encounter for change or removal of surgical wound dressing (principal)
CPT/HCPCS: G0463

== ENCOUNTER 2023-02-01 16:11 | Emergency (ER) | payer OTHER, SELFPAY ==
[2023-02-01 16:30] VITALS: BP 200/102; PULSE 71; O2SAT 96
[2023-02-01 16:32] VITALS: BP 212/104; PULSE 87; RESP 20; TEMP 37; O2SAT 97; BMI 31.4
--- NOTE | 2023-02-01 16:36 | PC.NURSE ---
Dr. Miles at [facility] for pt eval
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
--- NOTE | 2023-02-01 17:32 | PC.NURSE ---
Pt returned from RAD
[2023-02-01 18:00] VITALS: BP 168/93; PULSE 70; RESP 18; O2SAT 95
[2023-02-01 18:31] VITALS: BP 183/98; PULSE 68; RESP 18; O2SAT 95
[2023-02-01 19:15] VITALS: BP 185/109; PULSE 72; RESP 18; TEMP 36.7; O2SAT 98
== END 2023-02-01 19:16 | disposition home or self-care (01) ==
PROVIDERS: Emergency Provider Emergency Medicine
DX: S32.050A Wedge compression fracture of fifth lumbar vertebra, initial encounter for closed fracture (principal); R51.9 Headache, unspecified; R07.9 Chest pain, unspecified; M54.2 Cervicalgia; E11.9 Type 2 diabetes mellitus without complications; I10 Essential (primary) hypertension; E78.5 Hyperlipidemia, unspecified; I25.118 Atherosclerotic heart disease of native coronary artery with other forms of angina pectoris; Z95.0 Presence of cardiac pacemaker; Z87.891 Personal history of nicotine dependence; Z79.82 Long term (current) use of aspirin; V49.40XA Driver injured in collision with unspecified motor vehicles in traffic accident, initial encounter
CPT/HCPCS: 70450; 71045; 71275; 72125; 72128; 72131; 74174; 96361; 96374; 96375; 99285; J0131; Q9967

== ENCOUNTER 2023-02-03 15:00 | Outpatient (RCR) | payer OTHER, SELFPAY | END 2023-02-03 16:00 | disposition home or self-care (01) | LOC: OT 15:00 | PROVIDERS: Visit Provider Orthopaedic Surgery Adult Reconstructive Orthopaedic Surgery | DX: M25.512 Pain in left shoulder (principal) | CPT/HCPCS: 97010; 97014; 97110; 97140; 97165; 97530; G0283 ==

== ENCOUNTER → 2023-02-04 10:32 | Outpatient (POV) | payer OTHER, SELFPAY ==
[2023-02-04 11:07] VITALS: BP 158/86; PULSE 71; RESP 19; O2SAT 96; BMI 31.4
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
== END | disposition home or self-care (01) ==
PROVIDERS: PCP Nurse Practitioner Family; Visit Provider Nurse Practitioner Family
DX: M50.30 Other cervical disc degeneration, unspecified cervical region (principal); M43.22 Fusion of spine, cervical region; M54.42 Lumbago with sciatica, left side; M79.18 Myalgia, other site; M25.511 Pain in right shoulder
CPT/HCPCS: 99202; G0463

== ENCOUNTER 2023-03-01 15:21 | Outpatient (CLI) | payer OTHER, SELFPAY ==
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
[2023-03-01 17:36] LABS: Hemoglobin A1C 13.7 % (4.0-6.0)
[2023-03-01 18:25] LABS: Chloride 96 mmol/L (98-107); Sodium 132 mmol/L (136-145)
[2023-03-01 18:26] LABS: Potassium 4.8 mmoL/L (3.5-5.1)
[2023-03-01 18:28] LABS: Alanine Aminotransferase 44 U/L (12-78); Albumin Level 3.7 g/dl (3.5-5.0); Albumin/Globulin Ratio 1.7 (1.1-1.8); Alkaline Phosphatase 160 U/L (38-126); Anion Gap 11.8 mEq/L (5-15); Aspartate Amino Transferase 51 U/L (17-59); Bilirubin,Total 0.9 mg/dl (0.2-1.3); Blood Urea Nitrogen 15 mg/dl (9-20); Calcium 8.4 mg/dl (8.4-10.2); Carbon Dioxide 29 mmol/L (22.0-30.0); Cholesterol 194 mg/dl (140-200); Estimated Glomerular Filt Rate 59 ml/min (>60); GFR (African American) 71 ML/MIN (>60); Globulin 2.2 g/dL (1.3-3.2); Total Protein,Serum 5.9 g/dl (6.3-8.2)
[2023-03-01 18:29] LABS: Chol/HDL Ratio 4.7 (1-3.5); HDL Cholesterol 41 mg/dl (40-60)
[2023-03-01 18:40] LABS: Direct LDL Cholesterol 83.92 mg/dL (100-129)
[2023-03-01 19:19] LABS: Triglycerides 435 mg/dl (30-150)
[2023-03-01 19:20] LABS: Glucose 592 mg/dl (74-100)
== END 2023-03-01 23:59 ==
PROVIDERS: PCP Nurse Practitioner Family; Visit Provider Nurse Practitioner Family
DX: M25.511 Pain in right shoulder (principal); M25.611 Stiffness of right shoulder, not elsewhere classified; V49.40XD Driver injured in collision with unspecified motor vehicles in traffic accident, subsequent encounter; E11.9 Type 2 diabetes mellitus without complications; E78.5 Hyperlipidemia, unspecified; I10 Essential (primary) hypertension; Z79.4 Long term (current) use of insulin; Z79.84 Long term (current) use of oral hypoglycemic drugs
CPT/HCPCS: 73030; 80053; 80061; 83036

== ENCOUNTER → 2023-03-02 08:41 | Day surgery (SDC) | payer OTHER, SELFPAY ==
--- NOTE | 2023-03-02 09:01 | PC.NURSE ---
PROCEDURE CX PER PROVIDER DUE TO BLOOD SUGAR OUT OF RANGE. PCP CALLED AND WILL SEE PT THIS MORNING. PT INSTRUCTED TO F/U WITH PCP AFTER D/C.
--- NOTE | 2023-03-02 09:42 | EXP.PAIN.SOA ---
[facility] Pain Management SOAP Note Subjective:: Patient is a very pleasant 47-year-old male comes our clinic today for initial lumbar epidural steroid injection at the L4-5 level. Patient has a history of type insulin-dependent diabetes. However, patient has not been able to afford his insulin over the last 2 months. Upon admission this morning his blood sugar will not register on our meter. It indicates it is out of range to read. We will not inject the patient today. We have called his primary care office and he will leave our clinic and go straight to the primary care office for evaluation. Patient will return when he gets his blood sugar under control. [facility] Disclaimer: The information contained in this section may have been updated after the patient was seen, as this information can be updated by other users. Medical History Abnormal EKG Abnormal result of cardiovascular function study CAD (coronary artery disease) Crescendo angina Diabetes mellitus Dyspnea Encounter for behavioral health screening Encounter for pre-operative cardiovascular clearance Ex-smoker for more than 1 year History of pacemaker HLD (hyperlipidemia) HTN (hypertension) Palpitations Palpitations Right bundle branch block Surgical History History of appendectomy History of colon resection History of knee surgery History of laparoscopic cholecystectomy History of neck surgery S/P CABG x 4 Family History Other No significant family history Social History Smoking Status: Never smoker alcohol intake: never substance use type: denies use current occupational status: employed Travel in the last 8 weeks: None household members: family housing: house 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
== END ==
LOC: SC.PAINP 08:42
PROVIDERS: PCP Nurse Practitioner Family; Visit Provider Nurse Anesthetist, Certified Registered
DX: M54.42 Lumbago with sciatica, left side (principal); E11.65 Type 2 diabetes mellitus with hyperglycemia; Z53.09 Procedure and treatment not carried out because of other contraindication
CPT/HCPCS: 99212; G0463

== ENCOUNTER 2023-03-16 13:00 | Outpatient (RCR) | payer BC, SELFPAY ==
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
== END 2023-03-16 14:00 | disposition home or self-care (01) ==
LOC: PT 13:00
PROVIDERS: PCP Nurse Practitioner Family; Visit Provider Nurse Practitioner Family
DX: M54.50 Low back pain, unspecified; M21.371 Foot drop, right foot; S32.009A Unspecified fracture of unspecified lumbar vertebra, initial encounter for closed fracture
CPT/HCPCS: 97010; 97035; 97110; 97163; 97760

== ENCOUNTER 2023-04-14 13:41 | Outpatient (CLI) | payer BC, SELFPAY ==
[2023-04-14 14:18] LABS: Basophils # 0.1 K/mm3 (0-0.2); Basophils % 0.7 % (0.1-2.0); Eosinophils # 0.3 K/mm3 (0.0-0.4); Eosinophils % 3.3 % (0.1-12.0); Hemoglobin 15.5 g/dL (14.1-18.0); Lymphocytes # 2.1 K/mm3 (0.7-4.5); Lymphocytes % 26.3 % (10-50); Mean Corpuscular HGB Conc 32.3 g/dL (31.8-35.4); Mean Corpuscular Hemoglobin 28.2 pg (27.0-31.2); Mean Corpuscular Volume 87.3 fl (80-94); Mean Platelet Volume 10.1 fl (7.4-10.4); Monocytes # 0.4 K/mm3 (0.1-1.0); Monocytes % 5.3 % (1.7-9.3); Neutrophils # 5.1 K/mm3 (1.8-7.8); Neutrophils % 64.4 % (37.0-80.0); Platelet Count 162 K/mm3 (142-424); Red Cell Distribution Width 14.8 % (11.5-17.5); White Blood Count 7.9 K/mm3 (4.8-10.8)
[2023-04-14 15:44] LABS: Alanine Aminotransferase 39 U/L (12-78); Alkaline Phosphatase 93 U/L (38-126); Anion Gap 10.4 mEq/L (5-15); Aspartate Amino Transferase 41 U/L (17-59); Bilirubin,Direct 0.1 mg/dl (0.0-0.4); Bilirubin,Indirect 0.8 mg/dL (0.0-0.9); Bilirubin,Total 0.9 mg/dl (0.2-1.3); Bilirubin,Unconjugated 0.8 mg/dL (0.0-1.1); Blood Urea Nitrogen 19 mg/dl (9-20); Calcium 9.4 mg/dl (8.4-10.2); Carbon Dioxide 28 mmol/L (22.0-30.0); Chloride 108 mmol/L (98-107); Chol/HDL Ratio 3.5 (1-3.5); Cholesterol 104 mg/dl (140-200); Estimated Glomerular Filt Rate 71 ml/min (>60); GFR (African American) 86 ML/MIN (>60); Glucose 139 mg/dl (74-100); HDL Cholesterol 30 mg/dl (40-60); Potassium 4.4 mmoL/L (3.5-5.1); Sodium 142 mmol/L (136-145); Total Protein,Serum 6.1 g/dl (6.3-8.2); Triglycerides 131 mg/dl (30-150); VLDL Cholesterol 26 mg/dL (0-40)
[2023-04-14 15:55] LABS: Direct LDL Cholesterol 50.85 mg/dL (100-129)
[2023-04-14 16:00] LABS: Free T4 (Free Thyroxine) 0.76 ng/dl (0.78-2.19)
[2023-04-14 16:17] LABS: Thyroid Stimulating Hormone 4.14 uIU/mL (0.465-4.68)
== END 2023-04-14 23:59 ==
LOC: LAB 13:43
PROVIDERS: PCP Nurse Practitioner Family; Visit Provider Internal Medicine
DX: I25.10 Atherosclerotic heart disease of native coronary artery without angina pectoris (principal); I10 Essential (primary) hypertension; I51.9 Heart disease, unspecified; E78.5 Hyperlipidemia, unspecified; Z87.891 Personal history of nicotine dependence; Z95.0 Presence of cardiac pacemaker; Z95.1 Presence of aortocoronary bypass graft; Z79.899 Other long term (current) drug therapy
CPT/HCPCS: 36415; 80048; 80061; 80076; 83735; 84439; 84443; 85025

== ENCOUNTER 2023-06-29 15:25 | Outpatient (CLI) | payer BC, SELFPAY ==
[2023-06-29 18:49] LABS: Alanine Aminotransferase 31 U/L (12-78); Albumin/Globulin Ratio 1.5 (1.1-1.8); Alkaline Phosphatase 97 U/L (38-126); Anion Gap 13.4 mEq/L (5-15); Aspartate Amino Transferase 43 U/L (17-59); Bilirubin,Total 0.6 mg/dl (0.2-1.3); Blood Urea Nitrogen 21 mg/dl (9-20); Calcium 10.2 mg/dl (8.4-10.2); Carbon Dioxide 30 mmol/L (22.0-30.0); Chloride 106 mmol/L (98-107); Chol/HDL Ratio 2.3 (1-3.5); Cholesterol 120 mg/dl (140-200); Globulin 2.6 g/dL (1.3-3.2); Glucose 110 mg/dl (74-100); HDL Cholesterol 53 mg/dl (40-60); Potassium 5.4 mmoL/L (3.5-5.1); Sodium 144 mmol/L (136-145); Total Protein,Serum 6.6 g/dl (6.3-8.2); Triglycerides 106 mg/dl (30-150); VLDL Cholesterol 21 mg/dL (0-40)
[2023-06-29 18:56] LABS: Estimated Glomerular Filt Rate 40 ml/min (>60); GFR (African American) 49 ML/MIN (>60)
[2023-06-29 19:00] LABS: Direct LDL Cholesterol 56.55 mg/dL (100-129)
[2023-06-29 20:42] LABS: Hemoglobin A1C 7.5 % (4.0-6.0)
== END 2023-06-29 23:59 | disposition home or self-care (01) ==
LOC: LAB.DROPOF 06-30 10:16
PROVIDERS: PCP Nurse Practitioner Family; Visit Provider Nurse Practitioner Family
DX: E78.2 Mixed hyperlipidemia (principal); I10 Essential (primary) hypertension; E11.9 Type 2 diabetes mellitus without complications; Z79.4 Long term (current) use of insulin; Z79.899 Other long term (current) drug therapy
CPT/HCPCS: 80053; 80061; 82043; 83036; 84443

== ENCOUNTER 2023-07-13 14:02 | Outpatient (CLI) | payer BC, SELFPAY ==
--- NOTE | 2023-07-13 14:05 | US_ITS ---
FINAL REPORT CLINICAL HISTORY: Decreased renal function COMPARISON: None FINDINGS: RENAL ULTRASOUND Ultrasound images of the kidneys were obtained. Limited images of the liver parenchyma demonstrates normal echogenicity. The right kidney measures 10.6 cm in length. It is normal echogenicity. There is no hydronephrosis. The left kidney measures 10.2 cm in length. It is normal echogenicity. There is no hydronephrosis. IMPRESSION: Normal renal ultrasound. Reviewed, Interpreted and Dictated by Pj Sewell MD Transcribed by Mandie Hernandez Authenticated and [facility]
[2023-07-13 17:43] LABS: Alanine Aminotransferase 26 U/L (12-78); Albumin Level 3.5 g/dl (3.5-5.0); Albumin/Globulin Ratio 1.5 (1.1-1.8); Alkaline Phosphatase 89 U/L (38-126); Anion Gap 9.9 mEq/L (5-15); Aspartate Amino Transferase 37 U/L (17-59); Bilirubin,Total 0.7 mg/dl (0.2-1.3); Blood Urea Nitrogen 19 mg/dl (9-20); Calcium 9.4 mg/dl (8.4-10.2); Carbon Dioxide 30 mmol/L (22.0-30.0); Chloride 106 mmol/L (98-107); Globulin 2.3 g/dL (1.3-3.2); Glucose 121 mg/dl (74-100); Potassium 4.9 mmoL/L (3.5-5.1); Sodium 141 mmol/L (136-145); Total Protein,Serum 5.8 g/dl (6.3-8.2)
[2023-07-13 17:49] LABS: Estimated Glomerular Filt Rate 32 ml/min (>60); GFR (African American) 39 ML/MIN (>60)
== END 2023-07-13 23:59 | disposition home or self-care (01) ==
LOC: RAD 14:03
PROVIDERS: PCP Nurse Practitioner Family; Visit Provider Nurse Practitioner Family
DX: N28.89 Other specified disorders of kidney and ureter (principal)
CPT/HCPCS: 76770; 80053

== ENCOUNTER 2023-07-13 16:55 | Outpatient (CLI) | payer BC, SELFPAY | END 2023-07-13 23:59 | disposition home or self-care (01) | LOC: LAB.DROPOF 16:55 | PROVIDERS: PCP Nurse Practitioner Family; Visit Provider Nurse Practitioner Family | DX: N28.89 Other specified disorders of kidney and ureter (principal) ==

== ENCOUNTER 2023-08-04 14:52 | Outpatient (CLI) | payer BC, SELFPAY ==
[2023-08-04 14:54] LABS: Alanine Aminotransferase 28 U/L (12-78); Albumin/Globulin Ratio 1.7 (1.1-1.8); Alkaline Phosphatase 82 U/L (38-126); Anion Gap 13.6 mEq/L (5-15); Aspartate Amino Transferase 36 U/L (17-59); Bilirubin,Total 0.9 mg/dl (0.2-1.3); Blood Urea Nitrogen 25 mg/dl (9-20); Calcium 9.5 mg/dl (8.4-10.2); Carbon Dioxide 29 mmol/L (22.0-30.0); Chloride 101 mmol/L (98-107); Estimated Glomerular Filt Rate 59 ml/min (>60); GFR (African American) 71 ML/MIN (>60); Globulin 2.4 g/dL (1.3-3.2); Glucose 121 mg/dl (74-100); Potassium 4.6 mmoL/L (3.5-5.1); Sodium 139 mmol/L (136-145); Total Protein,Serum 6.4 g/dl (6.3-8.2)
== END 2023-08-04 23:59 | disposition home or self-care (01) ==
LOC: LAB.DROPOF 14:54
PROVIDERS: PCP Nurse Practitioner Family; Visit Provider Nurse Practitioner Family
DX: N18.30 Chronic kidney disease, stage 3 unspecified (principal)
CPT/HCPCS: 80053; 82043

== ENCOUNTER 2023-09-11 15:47 | Emergency (ER) | payer BC, SELFPAY ==
[2023-09-11 15:48] VITALS: BP 151/84; PULSE 70; RESP 20; TEMP 37.1; O2SAT 98; BMI 30.8
--- NOTE | 2023-09-11 15:55 | ED_ITS ---
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 Misc See Rx Instructions .Route Qty: 1 0RF Rx Instructions: As directed (DME) Dexcom G6 Transmitter Device See Rx Instructions .Route Qty: 1 0RF Rx Instructions: As directed dapagliflozin propanediol [Farxiga] 10 mg tablet 10 mg PO DAILY Qty: 30 2RF (DME) Dexcom G7 Sensor Device See Rx Instructions .ROUTE .COMPLEX Qty: 3 0RF Dose Instruction: USE DIRECTED; CHANGE EVERY 10 DAYS Rx Instructions: USE DIRECTED; CHANGE EVERY 10 DAYS insulin lispro protamin-lispro [Humalog Mix 75-25 KwikPen] 100 unit/mL (75-25) insulin pen See Rx Instructions .ROUTE .COMPLEX Qty: 15 0RF Dose Instruction: INJECT 24 UNITS SUBCUTANEOUSLY TWICE DAILY FOR DIABETES Rx Instructions: INJECT 24 UNITS SUBCUTANEOUSLY TWICE DAILY FOR DIABETES Rybelsus 7 mg tablet 7 mg PO DAILY Qty: 30 0RF Referrals Follow up/Referrals: Beth Lawson APRN [Primary Care Provider] - See instructions Clinical Impressions Clinical Impression: Blurred vision, left eye, Central scotoma, left eye Print Language Print Language: Urdu Discharge ED Provider: Janet Keys Adult HPI General Chief complaint: Eye Problems Stated complaint: blurred vision LT eye Time Seen by Provider: 09/11/23 15:50 Mode of Arrival: Ambulatory Source of Information: Patient Limitations: No Limitations History of Present Illness HPI narrative: Patient is a 48-year-old male with past medical history type 2 diabetes, CKD, hypertension, hyperlipidemia, CAD status post quadruple bypass presenting with vision changes. He states that when he awoke yesterday morning around 8 AM which is over 24 hours prior to arrival he had some blurry vision in his left eye with some loss of vision in the central space like a squiggly line. He states that the blurriness in his vision seemed to worsen into today but the middle visual field deficit persisted prompting his presentation. Denies any history of similar symptoms, denies any history of stroke. He does take an aspirin daily but denies any blood thinning medications. Denies any other numbness, tingling, weakness. Related Data Home Medications ?Medication ?Instructions ?Recorded ?Confirmed lisinopril 5 mg tablet 5 mg PO DAILY 06/29/23 08/04/23 Previous Rx's ?Medication ?Instructions ?Recorded blood-glucose meter,continuous #1 ea 03/03/23 (Dexcom G6 Material Preparation Worker) blood-glucose transmitter (Dexcom #1 ea 03/03/23 G6 Transmitter device) aspirin 81 mg tablet,delayed 81 mg PO DAILY Heart disease #90 04/14/23 release tabs atorvastatin 80 mg tablet 80 mg PO HS Cholesterol #90 tabs 04/14/23 carvedilol 3.125 mg tablet (Coreg) 3.125 mg PO BID High blood 04/14/23 pressure #180 tabs sitagliptin phosphate 100 mg 100 mg PO DAILY Diabetes 30 days 06/29/23 tablet (Januvia) #30 tabs trazodone 50 mg tablet 50 mg PO DAILY #30 tabs 06/29/23 dapagliflozin propanediol 10 mg 10 mg PO DAILY #30 tabs 06/30/23 tablet (Farxiga) blood-glucose sensor (Dexcom G7 #3 ea 08/11/23 Sensor device) insulin lispro protamine-lispro See Rx Instructions .Route 08/30/23 100 unit/mL (75-25) subcutaneous .COMPLEX #15 mL pen (Humalog Mix 75-25 KwikPen) semaglutide 7 mg tablet (Rybelsus) 7 mg PO DAILY #30 tabs 09/02/23 Allergies Allergy/AdvReac Type Severity Reaction Status Date / Time hydrochlorothiazide AdvReac Intermediate DIARRHEA Verified 08/04/23 08:44 [facility] Disclaimer: The information contained in this section may have been updated after the patient was seen, as this information can be updated by other users. Medical History Systolic heart failure EF 30% (2020) on cardiac angiogram. Palpitations History of pacemaker HLD (hyperlipidemia) HTN (hypertension) Encounter for behavioral health screening Encounter for pre-operative cardiovascular clearance Abnormal result of cardiovascular function study CAD (coronary artery disease) Right bundle branch block Crescendo angina Dyspnea Abnormal EKG Ex-smoker for more than 1 year Diabetes mellitus Palpitations Surgical History History of laparoscopic cholecystectomy History of neck surgery History of knee surgery History of appendectomy History of colon resection S/P CABG x 4 Family History Other No significant family history Social History Smoking Status: Never smoker alcohol intake: never substance use type: denies use current occupational status: employed Travel in the last 8 weeks: None household members: family housing: house 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 ROS Obtained: Yes All systems reviewed & no additional complaints except as documented Physical Exam General General appearance: alert and in no apparent distress Head Head exam: atraumatic and normocephalic Eye Eye exam: Present normal appearance, PERRL, EOMI and other (Right eye visual tracy normal and able to identify numbers in all 4 quadrants, left eye with subjective blurriness of the visual tracy, has some difficulty but is ultimately able to determine number of fingers held in each quadrant, notes a vision loss in the center visual field); Absent scleral icterus or periorbital swelling Chest Chest inspection: Present normal inspection and symmetric chest wall rise Respiratory Respiratory exam: Present normal lung sounds bilaterally; Absent respiratory distress Cardiovascular Cardiovascular exam: Present regular rate and normal rhythm Neurological Exam Neurological exam: Present alert, oriented X3 and other (Sensation intact bilateral upper and lower extremities and face, equal smile, able to raise eyebrows, close eyes, stick out tongue, no pronator drift, strength intact bilateral upper and lower extremities, no dysdiadochokinesia, no slurred speech) Skin Skin exam: Present warm and dry Medical Decision Making Medical Records Medical records reviewed: Yes I reviewed the patient's medical records. Brian Inquiry Pt receiving controlled substance: No Brian was queried for this patient: No Vital Signs: 09/11/23 15:48 Temperature 98.7 F Temperature Source Oral Pulse Rate [Right Radial] 70 Respiratory Rate 20 Blood Pressure [Right Arm] 151/84 H Blood Pressure Mean [Right Arm] 106 02 Sat by Pulse Oximetry 98 Oxygen Delivery Method Room Air Lab Data Lab results reviewed: Yes I reviewed the patient's lab results. Lab Results 09/11/23 16:05: WBC 8.1, RBC 5.37, Hgb 15.4, Hct 45.7, MCV 85.1, MCH 28.6, MCHC 33.6, RDW 14.9, Plt Count 148, MPV 10.2, Neut % (Auto) 72.3, Lymph % (Auto) 19.1, Bradford % (Auto) 6.8, Eos % (Auto) 1.4, Baso % (Auto) 0.4, Neut # (Auto) 5.9, Lymph # (Auto) 1.6, Bradford # (Auto) 0.6, Eos # (Auto) 0.1, Baso # (Auto) 0.0, PT 10.9, INR 0.97, APTT 29.1, Sodium 140, Potassium 4.2, Chloride 110 H, Carbon Dioxide 23, Anion Gap 11.2, BUN 29 H, Creatinine 1.40 H, Estimated Creat Clear 88, Estimated GFR 54 L, Est GFR ( Amer) 65, Glucose 195 H, Calcium 9.3, T otal Bilirubin 1.4 H, AST 52, ALT 42, Alkaline Phosphatase 82, Total Protein 6.4, Albumin 3.9, Globulin 2.5, Albumin/Globulin Ratio 1.6 09/11/23 16:05 09/11/23 16:05 Orders (Tests/Meds): ED MEDICATIONS Generic Name Dose Route Start Last Admin Trade Name Freq PRN Reason Stop Dose Admin Sodium Chloride 10 ml 09/11/23 16:02 Sodium Chloride 0.9% 10ml Flush Syringe IV 10/11/23 16:01 NEEDED PRN Maintain IV Site Sodium Chloride 10 ml 09/11/23 16:37 09/11/23 16:41 Sodium Chloride 0.9% 10ml Syr (Rad Only) IV 10/11/23 16:36 10 ml NEEDED PRN Administration Maintain IV Site Discontinued Medications Generic Name Dose Route Start Last Admin Trade Name Freq PRN Reason Stop Dose Admin Iopamidol 100 ml 09/11/23 16:37 09/11/23 16:41 Iopamidol-370 (76%);100ml Bottle IV 09/11/23 16:38 100 ml ONCE ONE Administration Sodium Chloride 50 ml 09/11/23 16:37 09/11/23 16:41 0.9 % Sodium Chloride 50 Ml Vial IV 09/11/23 16:38 50 ml ONCE ONE Administration ORDERS Category Date Time Status CT angio head Stat Cat Scan 09/11/23 16:[address] angio neck Stat Cat Scan 09/11/23 16:[address] head/brain wo con Stat Cat Scan 09/11/23 16:04 Completed Complete Blood Count Auto Diff Stat Lab 09/11/23 16:05 Completed Comprehensive Metabolic Panel Stat Lab 09/11/23 16:05 Completed PT/INR [Prothrombin Time INR] Stat Lab 09/11/23 16:05 Completed PTT [Activated Partial Thrombo Time] Stat Lab 09/11/23 16:05 Completed 12-lead EKG Request [ECG Request] Stat Y 09/11/23 17:56 Ordered ECG Request Stat Y 09/11/23 16:04 Ordered Medical Decision Narrative: Patient is a 48-year-old male with past medical history type 2 diabetes on insulin and oral medication, hypertension, hyperlipidemia, CAD status post four- vessel CABG and pacemaker presenting with left eye vision changes starting yesterday morning upon awakening over 24 hours prior to arrival. He notes a central visual field loss described as a squiggly line and some blurriness of his vision which is new, no prior history of stroke. He does take aspirin but denies other blood thinners. No neurologic deficits appreciated except for the subjective visual field deficit but extraocular movements intact, is able to identify number of fingers held in all 4 quadrants. Eye is normal in appearance. Will obtain labs and imaging including CT for further evaluation given concern for possible ocular versus CVA abnormality causing deficits. CBC nonactionable, CMP with creatinine of 1.4 which is consistent with patient's baseline, labs otherwise unremarkable, coagulation studies within normal limits. EKG without acute ischemia or infarction but does show an atrial paced rhythm. CT brain showed no acute process, CTA) extracranial showing no acute process. However given patient's visual concerns I did speak with ophthalmology at and spoke with services tech on-call Dr. Baker who does recommend that patient be transferred so they can see him and excepted to ER for further evaluation. Patient will go POV. He remains hemodynamically stable at time of transfer with no change in vision complaint. Critical Care Critical Care Time Critical Care Time: No
--- NOTE | 2023-09-11 16:04 | CT_ITS ---
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 Exam focused on the arteries. 3D rendering (Not supervised by radiologist): MIP and/or 3D reconstructed images were created by the technologist. Radiation optimization: All CT scans at this facility use at least one of these dose optimization techniques: automated exposure control; mA and/or kV adjustment per patient size (includes targeted exams where dose is matched to clinical indication); or iterative reconstruction. Contrast material: ISOVUE 370; Contrast volume: 100 ml; Contrast route: INTRAVENOUS (IV); COMPARISON: CT HEAD/BRAIN WO CON 09/11/2023 4:38 PM FINDINGS: ANTERIOR CIRCULATION: Right internal carotid artery: Intracranial segment is patent with no significant stenosis. No aneurysm. Right middle cerebral artery: No occlusion or significant stenosis. No aneurysm. Right anterior cerebral artery: No occlusion or significant stenosis. No aneurysm. Left internal carotid artery: Intracranial segment is patent with no significant stenosis. No aneurysm. Left middle cerebral artery: No occlusion or significant stenosis. No aneurysm. Left anterior cerebral artery: No occlusion or significant stenosis. No aneurysm. POSTERIOR CIRCULATION: Right vertebral artery: Terminal segment right vertebral artery is hypoplastic. No occlusion or aneurysm. Left vertebral artery: No occlusion or significant stenosis. No aneurysm. Basilar artery: No occlusion or significant stenosis. No aneurysm. Right posterior cerebral artery: No occlusion or significant stenosis. No aneurysm. Left posterior cerebral artery: No occlusion or significant stenosis. No aneurysm. Brain: No intracranial hemorrhage, mass effect, or midline shift. Cerebral ventricles: No ventriculomegaly. Bones/joints: Unremarkable. No acute fracture. Soft tissues: Unremarkable. IMPRESSION: No large vessel occlusion or major stenosis.
--- NOTE | 2023-09-11 16:04 | CT_ITS ---
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 Exam focused on the cervical segments of the vasculature. 3D rendering (Not supervised by radiologist): MIP and/or 3D reconstructed images were created by the technologist. Radiation optimization: All CT scans at this facility use at least one of these dose optimization techniques: automated exposure control; mA and/or kV adjustment per patient size (includes targeted exams where dose is matched to clinical indication); or iterative reconstruction. Contrast material: ISOVUE 370; Contrast volume: 100 ml; Contrast route: INTRAVENOUS (IV); COMPARISON: CT CERVICAL SPINE WO CON 02/01/2023 5:09 PM FINDINGS: Right common carotid artery: No stenosis. No dissection or occlusion. Right internal carotid artery: No stenosis of the extracranial segment. No dissection or occlusion. Right external carotid artery: No occlusion or stenosis of the origin. Left common carotid artery: No stenosis. No dissection or occlusion. Left internal carotid artery: No stenosis of the extracranial segment. No dissection or occlusion. Left external carotid artery: No occlusion or stenosis of the origin. Right vertebral artery: Right vertebral artery is congenitally hypoplastic. Left vertebral artery: Left vertebral artery is dominant. Soft tissues: Normal. No significant soft tissue swelling. Bones/joints: Prior ACDF C5 through C7 with maintained anatomic alignment. Degenerative changes C7-T1. Prior median sternotomy. No acute bony abnormalities. IMPRESSION: 1. No evidence of carotid stenosis. 2. Congenitally hypoplastic right vertebral artery. REFERENCES: NASCET CRITERIA. The degree of stenosis in the cervical segment of the internal carotid artery is based on NASCET criteria. Normal is no stenosis. Mild is less than 50% stenosis. Moderate is 50-69% stenosis. Severe is 70% to 99% stenosis. Total occlusion is no detectable patent lumen.
--- NOTE | 2023-09-11 16:04 | CT_ITS ---
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 Radiation optimization: All CT scans at this facility use at least one of these dose optimization techniques: automated exposure control; mA and/or kV adjustment per patient size (includes targeted exams where dose is matched to clinical indication); or iterative reconstruction. COMPARISON: CT HEAD/BRAIN WO CON 02/01/2023 5:06 PM FINDINGS: Brain: Normal. No hemorrhage. Unremarkable white matter. No mass effect. Cerebral ventricles: No ventriculomegaly. Paranasal sinuses: Visualized sinuses are unremarkable. No fluid levels. Mastoid air cells: Visualized mastoid air cells are well aerated. Bones: Unremarkable. No acute fracture. Soft tissues: Unremarkable. IMPRESSION: No acute intracranial abnormality.
[2023-09-11 16:18] LABS: Albumin Level 3.9 g/dl (3.5-5.0); Chloride 110 mmol/L (98-107); Potassium 4.2 mmoL/L (3.5-5.1); Sodium 140 mmol/L (136-145)
[2023-09-11 16:21] LABS: Alanine Aminotransferase 42 U/L (12-78); Albumin/Globulin Ratio 1.6 (1.1-1.8); Alkaline Phosphatase 82 U/L (38-126); Anion Gap 11.2 mEq/L (5-15); Aspartate Amino Transferase 52 U/L (17-59); Bilirubin,Total 1.4 mg/dl (0.2-1.3); Blood Urea Nitrogen 29 mg/dl (9-20); Calcium 9.3 mg/dl (8.4-10.2); Carbon Dioxide 23 mmol/L (22.0-30.0); Creatinine Clearance Estimated 88 mL/min (50-200); Estimated Glomerular Filt Rate 54 ml/min (>60); GFR (African American) 65 ML/MIN (>60); Globulin 2.5 g/dL (1.3-3.2); Glucose 195 mg/dl (74-100); Total Protein,Serum 6.4 g/dl (6.3-8.2)
[2023-09-11 16:22] LABS: Activated Partial Thrombo Time 29.1 seconds (22.8-30.6); INR 0.97 (0.9-1.1); Prothrombin Time 10.9 seconds (10.1-12.5)
--- NOTE | 2023-09-11 16:31 | PC.NURSE ---
pt out of room with Rad for CT
[2023-09-11] MEDS: IOPAMIDOL-370 (76%);100ML BOTTLE 100 ML IV (16:41)
[2023-09-11] MEDS: 0.9 % SODIUM CHLORIDE 50 ML VIAL IV (16:41)
[2023-09-11] MEDS: SODIUM CHLORIDE 0.9% 10ML SYR (RAD ONLY) 10 ML IV (16:41)
[2023-09-11 17:24] LABS: Basophils % 0.4 % (0.1-2.0); Eosinophils # 0.1 K/mm3 (0.0-0.4); Eosinophils % 1.4 % (0.1-12.0); Hematocrit 45.7 % (42.0-52.0); Hemoglobin 15.4 g/dL (14.1-18.0); Lymphocytes # 1.6 K/mm3 (0.7-4.5); Lymphocytes % 19.1 % (10-50); Mean Corpuscular HGB Conc 33.6 g/dL (31.8-35.4); Mean Corpuscular Hemoglobin 28.6 pg (27.0-31.2); Mean Corpuscular Volume 85.1 fl (80-94); Mean Platelet Volume 10.2 fl (7.4-10.4); Monocytes # 0.6 K/mm3 (0.1-1.0); Monocytes % 6.8 % (1.7-9.3); Neutrophils # 5.9 K/mm3 (1.8-7.8); Neutrophils % 72.3 % (37.0-80.0); Platelet Count 148 K/mm3 (142-424); Red Blood Count 5.37 M/mm3 (4.60-6.20); Red Cell Distribution Width 14.9 % (11.5-17.5); White Blood Count 8.1 K/mm3 (4.8-10.8)
--- NOTE | 2023-09-11 18:00 | ECG_ITS ---
APPROVED REPORT Exam: Resting ECG HR:66 bpm ECG Measurements Heart Rate 66 AXES TX 193 P 187 QRSd 129 QRS -26 QT 400 T 26 QTc 414 Conclusion ELECTRONIC ATRIAL PACEMAKER BORDERLINE LEFT AXIS DEVIATION [QRS AXIS < -20] RIGHT BUNDLE BRANCH BLOCK Electronically signed by : NIKITA CASSIDY, 09/11/2023 18:28:56
--- NOTE | 2023-09-11 18:16 | PC.NURSE ---
report called to Angelina at
[2023-09-11 18:24] VITALS: BP 138/79; PULSE 64; RESP 18; TEMP 36.9; O2SAT 98
== END 2023-09-11 18:31 | disposition short-term general hospital (02) ==
PROVIDERS: Emergency Provider Emergency Medicine; PCP Nurse Practitioner Family
DX: H53.412 Scotoma involving central area, left eye (principal); H53.8 Other visual disturbances; E11.22 Type 2 diabetes mellitus with diabetic chronic kidney disease; N18.30 Chronic kidney disease, stage 3 unspecified; Z79.4 Long term (current) use of insulin; Z79.84 Long term (current) use of oral hypoglycemic drugs; I12.9 Hypertensive chronic kidney disease with stage 1 through stage 4 chronic kidney disease, or unspecified chronic kidney disease; E78.5 Hyperlipidemia, unspecified; Z86.79 Personal history of other diseases of the circulatory system; Z95.0 Presence of cardiac pacemaker; Z95.1 Presence of aortocoronary bypass graft
CPT/HCPCS: 70450; 70496; 70498; 80053; 85025; 85610; 85730; 93005; 99285; Q9967

== ENCOUNTER 2023-09-21 16:52 | Outpatient (CLI) | payer BC, SELFPAY ==
[2023-09-21 17:40] LABS: Alanine Aminotransferase 34 U/L (12-78); Albumin Level 3.9 g/dl (3.5-5.0); Albumin/Globulin Ratio 1.5 (1.1-1.8); Alkaline Phosphatase 87 U/L (38-126); Anion Gap 14.4 mEq/L (5-15); Aspartate Amino Transferase 39 U/L (17-59); Bilirubin,Total 1.3 mg/dl (0.2-1.3); Blood Urea Nitrogen 32 mg/dl (9-20); Calcium 9.4 mg/dl (8.4-10.2); Carbon Dioxide 25 mmol/L (22.0-30.0); Chloride 104 mmol/L (98-107); Chol/HDL Ratio 2.8 (1-3.5); Cholesterol 132 mg/dl (140-200); Estimated Glomerular Filt Rate 50 ml/min (>60); GFR (African American) 60 ML/MIN (>60); Globulin 2.6 g/dL (1.3-3.2); Glucose 143 mg/dl (74-100); HDL Cholesterol 48 mg/dl (40-60); Potassium 4.4 mmoL/L (3.5-5.1); Sodium 139 mmol/L (136-145); Total Protein,Serum 6.5 g/dl (6.3-8.2); Triglycerides 145 mg/dl (30-150); VLDL Cholesterol 29 mg/dL (0-40)
[2023-09-21 17:51] LABS: Direct LDL Cholesterol 48.94 mg/dL (100-129)
[2023-09-21 18:08] LABS: Hemoglobin A1C 7.8 % (4.0-6.0)
[2023-09-21 18:09] LABS: Thyroid Stimulating Hormone 1.89 uIU/mL (0.465-4.68)
== END 2023-09-21 23:59 | disposition home or self-care (01) ==
LOC: LAB.DROPOF 16:52
PROVIDERS: PCP Nurse Practitioner Family; Visit Provider Nurse Practitioner Family
DX: E78.5 Hyperlipidemia, unspecified (principal); I10 Essential (primary) hypertension; N18.30 Chronic kidney disease, stage 3 unspecified
CPT/HCPCS: 80053; 80061; 83036; 84443

== ENCOUNTER 2023-10-04 13:38 | Outpatient (CLI) | payer BC, SELFPAY ==
--- NOTE | 2023-10-04 13:39 | US_ITS ---
FINAL REPORT TECHNIQUE: Ultrasound images of the kidneys and bladder were obtained. CLINICAL HISTORY: stage 3 chronic kidney disease COMPARISON: 07/13/2023 FINDINGS: The right kidney measures 10.3 cm in length. It is normal in echogenicity. There is no hydronephrosis. There is a 2 cm cyst present in the right kidney. The left kidney measures 10.2 cm in length. It is normal in echogenicity. There is no hydronephrosis. The spleen is within normal limits. IMPRESSION: No acute renal body identified. Reviewed, Interpreted and Dictated by Pj Sewell MD Transcribed by Ana Paige Authenticated and . [facility]
== END 2023-10-04 23:59 | disposition home or self-care (01) ==
PROVIDERS: PCP Nurse Practitioner Family; Visit Provider Nurse Practitioner Family
DX: I12.9 Hypertensive chronic kidney disease with stage 1 through stage 4 chronic kidney disease, or unspecified chronic kidney disease (principal); N18.30 Chronic kidney disease, stage 3 unspecified; G47.00 Insomnia, unspecified
CPT/HCPCS: 76770; G0399

== ENCOUNTER 2023-11-02 12:47 | Outpatient (CLI) | payer BC, SELFPAY ==
--- NOTE | 2023-11-02 12:50 | CA_ITS ---
APPROVED REPORT EXAM: Comprehensive 2D, Doppler, and color-flow Echocardiogram Master Sheet Clerk: Arlette Kirk CRT Ht: 5 ft 10 in Wt: 212lbs BSA: 2.14 BP: 107/57 mmHg Indications: Shortness of Breath, Diabetes, Palpitations, CAD, Hyperlipidemia, Hypertension/HDD, PACER, CABG 2D Dimensions LA Volume 36.40 mL LA Volume Index 17.01 mL/m2 (M/F) 16-34 M-Mode Dimensions RVDd 1.86 cm (0.9-2.6) LA Diam 3.34 cm (1.9-4.0) LVDd 4.78 cm (3.5-5.7) LVDs 3.21 cm (3.5-5.7) IVSd 1.41 cm (0.6-1.1) PWd 0.82 cm (0.6-1.1) EF (Teich) 61.20% FS 32.80% EDV (Teich) 106.50 mL TAPSE 1.70 (<1.7) ESV (Teich) 41.30 mL LV Diastology E Decel Time 190 (160-240 msec) E/A Ratio 1.25 MED A' 6.80 cm/s LAT A' 6.80 cm/s Aortic Valve AO Peak GR. 4.90 mmHg Mitral Valve MV A Velocity 47.0 (40-130 cm/s) E/A Ratio 1.25 Pulmonary Valve PV Peak Velocity 88.0 (50-150 cm/s) Tricuspid Valve TR P. Velocity 261.00 cm/s RAP Estimate 10.00 mmHg RVSP 37.20 mmHg Left Ventricle The left ventricle is normal size. The left ventricular systolic function is normal. The left ventricular ejection fraction is within the normal range. There is increased LV wall thickness. There is normal LV segmental wall motion. The left ventricular diastolic function is normal. LVEF is 55%. Right Ventricle The right ventricle is normal size. The right ventricular systolic function is normal. Atria The left atrium size is normal. The right atrium size is normal. There is no Doppler evidence of interatrial shunt. Aortic Valve Aortic valve is mildly thickened. Aortic valve is possibly bicuspid. There is no aortic valvular stenosis. Trace aortic regurgitation. Mitral Valve The mitral valve is normal in structure. No evidence of mitral valve stenosis. Trace mitral regurgitation. Tricuspid Valve The tricuspid valve leaflets are thin and pliable. Trace tricuspid regurgitation. There is insufficient TR jet to estimate RVSP. Pulmonic Valve The pulmonary valve is normal in structure. Trace pulmonic regurgitation. Great Vessels The aortic root is normal in size. The ascending aorta is not well-visualized. IVC is normal in size and collapses >50% with inspiration. Pericardium There is no pericardial effusion. Other Information Study Quality: Fair Conclusion Normal biventricular systolic function. Mildly thickened AV (cannot rule out bicuspid aortic valve). No significant AI or . No significant other valvular stenosis or regurgitation. Electronically signed by : Anamika Vitale MD 11/05/2023 23:49:42
== END 2023-11-02 23:59 | disposition home or self-care (01) ==
LOC: RT 12:48
PROVIDERS: PCP Nurse Practitioner Family; Visit Provider Internal Medicine
DX: I51.89 Other ill-defined heart diseases (principal); R06.02 Shortness of breath; Z95.0 Presence of cardiac pacemaker
CPT/HCPCS: 93306

== ENCOUNTER 2023-12-08 12:46 | Outpatient (CLI) | payer BC, SELFPAY ==
[2023-12-08 17:26] LABS: Hemoglobin A1C 7.4 % (4.0-6.0)
[2023-12-08 17:37] LABS: Albumin Level 3.9 g/dl (3.5-5.0)
[2023-12-08 17:38] LABS: Chloride 104 mmol/L (98-107); Potassium 4.9 mmoL/L (3.5-5.1); Sodium 138 mmol/L (136-145)
[2023-12-08 17:40] LABS: Alanine Aminotransferase 32 U/L (12-78); Alkaline Phosphatase 71 U/L (38-126); Anion Gap 11.9 mEq/L (5-15); Aspartate Amino Transferase 39 U/L (17-59); Bilirubin,Total 1.2 mg/dl (0.2-1.3); Blood Urea Nitrogen 17 mg/dl (9-20); Carbon Dioxide 27 mmol/L (22.0-30.0); Estimated Glomerular Filt Rate 59 ml/min (>60); GFR (African American) 71 ML/MIN (>60)
[2023-12-08 17:41] LABS: Albumin/Globulin Ratio 1.7 (1.1-1.8); Chol/HDL Ratio 2.7 (1-3.5); Cholesterol 115 mg/dl (140-200); Globulin 2.3 g/dL (1.3-3.2); Glucose 199 mg/dl (74-100); HDL Cholesterol 43 mg/dl (40-60); Magnesium 1.4 mg/dl (1.6-2.3); Total Protein,Serum 6.2 g/dl (6.3-8.2); Triglycerides 125 mg/dl (30-150); VLDL Cholesterol 25 mg/dL (0-40)
[2023-12-08 17:53] LABS: Direct LDL Cholesterol 48.86 mg/dL (100-129)
[2023-12-08 18:11] LABS: Thyroid Stimulating Hormone 0.95 uIU/mL (0.465-4.68)
[2023-12-08 18:26] LABS: Creatinine,Urine Random 286 mg/dL (Not Estab.)
[2023-12-08 19:27] LABS: Microalbumin > 1140.000 mg/L (0-16.7); Microalbumin/Creatinine Ratio 398.6
== END 2023-12-08 23:59 | disposition home or self-care (01) ==
LOC: LAB.DROPOF 12-09 12:47
PROVIDERS: PCP Nurse Practitioner Family; Visit Provider Nurse Practitioner Family
DX: N18.30 Chronic kidney disease, stage 3 unspecified (principal); I10 Essential (primary) hypertension; E78.2 Mixed hyperlipidemia; E11.22 Type 2 diabetes mellitus with diabetic chronic kidney disease; E11.69 Type 2 diabetes mellitus with other specified complication; Z79.84 Long term (current) use of oral hypoglycemic drugs
CPT/HCPCS: 80053; 80061; 82043; 82570; 83036; 83735; 84443; 87086

== ENCOUNTER 2023-12-22 08:31 | Outpatient (POV) | payer BC, SELFPAY ==
[2023-12-22 08:58] VITALS: BP 145/79; PULSE 71; RESP 16; O2SAT 99; BMI 29.2
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
== END 2023-12-22 23:59 | disposition home or self-care (01) ==
LOC: SC.PAIN 08:31
PROVIDERS: PCP Nurse Practitioner Family; Visit Provider Nurse Practitioner Family
DX: M47.816 Spondylosis without myelopathy or radiculopathy, lumbar region (principal); M54.42 Lumbago with sciatica, left side; Z73.89 Other problems related to life management difficulty; Z95.0 Presence of cardiac pacemaker
CPT/HCPCS: 99212; G0463

== ENCOUNTER 2024-01-18 09:23 | Day surgery (SDC) | payer BC, SELFPAY ==
[2024-01-18 09:36] VITALS: BP 151/84; PULSE 75; RESP 16; TEMP 36.8; O2SAT 98; BMI 27.9
[2024-01-18 09:48] VITALS: BP 159/88; PULSE 78; RESP 18; O2SAT 97
[2024-01-18] MEDS: LIDOCAINE 1% 5ML PF VIAL 5 ML (09:48)
[2024-01-18] MEDS: BUPIVACAINE 0.25% 10ML INJ 25 MG IJ (09:48)
[2024-01-18] MEDS: methylPREDNISolone ACETATE 80MG/ML VIAL 80 MG (09:48)
[2024-01-18 09:50] VITALS: BP 159/88; PULSE 78; RESP 18; O2SAT 97
--- NOTE | 2024-01-18 09:55 | P.PCN_ITS ---
Procedure Date: 01/18/24 Time: 09:50 Anesthesiologist:: Rocael Perez CRNA Complications:: None Pre-procedure Diagnosis:: Degenerative disc lumbar spine multilevels. Lumbar radicular pain. Lumbar spondylosis. Multilevel lumbar facet arthropathy. Post-procedure Diagnosis:: Same. Indications for Procedure:: Patient is a pleasant 48-year-old male who comes our clinic today for ROUND ONE bilateral L3-4, L4-5 medial branch blocks/facet injections. Patient describes low lumbar back pain as constant, dull, aching. Patient reports having difficulty with lumbar flexion, extension, left and right rotation. Patient rates his pain 7/10. Procedure Details:: Informed consent was obtained and the risk and benefits of the procedure was explained to the patient. Patient was taken to the procedure room where noninvasive monitors were placed, including noninvasive blood pressure cuff as well as pulse oximeter. The area over the lumbar spine was cleansed using chlorhexidine as a cleansing solution. I anesthetized the skin and subcutaneous tissues with 1% Lidocaine. I placed 22-gauge spinal needles into the facet joint/ medial branches of [L3-L4, L4-L5 bilaterally. Needle placement was confirmed with fluoroscopy. After confirmation of needle placement, each site was injected with 1 mL of 1% lidocaine and 0.25 % Marcaine and 10 mg of Depo- Medrol. A total of 80 mg of depo medrol was used for bilateral medial branch blocks of [L3-L4, L4-L5 bilaterally. Patient tolerated the procedure without difficulty. There were no complications. Plan and Disposition:: Patient was discharged without incident.
[2024-01-18 09:56] VITALS: BP 150/89; PULSE 76; RESP 16; O2SAT 99
== END 2024-01-18 09:56 | disposition home or self-care (01) ==
PROVIDERS: PCP Nurse Practitioner Family; Visit Provider Nurse Anesthetist, Certified Registered
DX: M47.816 Spondylosis without myelopathy or radiculopathy, lumbar region (principal); M51.369 Other intervertebral disc degeneration, lumbar region without mention of lumbar back pain or lower extremity pain
CPT/HCPCS: 64493; 64494; J1010

== ENCOUNTER 2024-02-02 13:48 | Outpatient (POV) | payer BC, SELFPAY ==
[2024-02-02 14:15] VITALS: BP 167/83; PULSE 75; RESP 16; O2SAT 99; BMI 27.9
--- NOTE | 2024-02-02 15:05 | A.OFFVIS_ITS ---
[facility] Disclaimer: The information contained in this section may have been updated after the patient was seen, as this information can be updated by other users. Medical History Uncontrolled type 2 diabetes mellitus Systolic heart failure Palpitations History of pacemaker HLD (hyperlipidemia) HTN (hypertension) Encounter for behavioral health screening Encounter for pre-operative cardiovascular clearance Abnormal result of cardiovascular function study CAD (coronary artery disease) Right bundle branch block Crescendo angina Dyspnea Abnormal EKG Ex-smoker for more than 1 year Diabetes mellitus Palpitations Surgical History History of laparoscopic cholecystectomy History of neck surgery History of knee surgery History of appendectomy History of colon resection S/P CABG x 4 Family History Other No significant family history Social History Smoking Status: Never smoker alcohol intake: never substance use type: denies use current occupational status: other Travel in the last 8 weeks: None household members: family housing: house 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 Today he rates his pain an 8 out of 10. He does state that while the numbing medication was working he did have at least 80% improvements and that he would maybe rate his pain at that time a 1 or 2 out of 10. He states that it was great during that and that he did feel like he could do more with overall decreased pain however it was very short-lived and as soon as the medication wore off he was right back to his baseline. He does state the pain is all still there at his low back and denies any radiating symptoms into his legs. Patient does state the pain is constant and is an aching, throbbing sensation that is worse with certain movements such as bending, twisting or lifting. He does state the pain interferes with his ability perform activities of daily living such as cooking and cleaning. He does also state from her last appointment he still would like to proceed forward with the progression to the lumbar RFA. Patient has tried and failed conservative therapy including oral medications, heat and ice, topicals, at home stretching exercise for longer than 12 weeks. His Brian has been reviewed and is appropriate. Review of Systems: General: No recent weight changes, no fever, no sleep disturbances Respiratory: No cough, no shortness of air, no recurring pulmonary infections Cardiovascular/peripheral vascular: No chest pain, no palpitations, no edema, no shortness of breath Gastrointestinal: No new onset incontinence, normal bowel movements reported Genitourinary: No new onset incontinence Musculoskeletal: Low back pain Psychiatric: [Normal mood/affect] Neurological: [Denies weakness in extremities], [denies balance issues] Pain at rest (0-10 scale): 8 Objective Objective:: Physical Exam: General: Alert and oriented x3, no acute distress, pleasant and cooperative Lungs: Respirations even and unlabored, symmetrical chest expansion Eyes: PERRL Musculoskeletal: Flexion and extension of lumbar [spine] somewhat guarded secondary to pain, [antalgic gait noted] positive Kemps test Neurological: Speech clear, no gross sensory deficit Has patient had previous pain injection?: Yes Percent improvement in pain since last injection: 80% Conservative treatment options previously tried: Home exercise plan Length of treatment: Longer than 12 weeks Meds Home Medications and Allergies Home Medications ?Medication ?Instructions ?Recorded ?Confirmed ?Type blood-glucose meter,continuous #1 ea 03/03/23 02/02/24 Rx (Dexcom G6 [employer]) blood-glucose transmitter (Dexcom #1 ea 03/03/23 02/02/24 Rx G6 Transmitter device) aspirin 81 mg tablet,delayed 81 mg PO DAILY Heart disease #90 04/14/23 02/02/24 Rx release tabs atorvastatin 80 mg tablet 80 mg PO HS Cholesterol #90 tabs 04/14/23 02/02/24 Rx carvedilol 3.125 mg tablet (Coreg) 3.125 mg PO BID High blood 04/14/23 02/02/24 Rx pressure #180 tabs lisinopril 5 mg tablet 5 mg PO DAILY 06/29/23 02/02/24 History blood-glucose sensor (Dexcom G7 #3 ea 09/27/23 02/02/24 Rx Sensor device) insulin lispro protamine-lispro See Rx Instructions .Route 09/27/23 02/02/24 Rx 100 unit/mL (75-25) subcutaneous .COMPLEX #15 mL pen (Humalog Mix 75-25 KwikPen) pen needle, diabetic 32 gauge x #100 ea 09/27/23 02/02/24 Rx (Easy Comfort Pen [place]) sitagliptin phosphate 100 mg See Rx Instructions .Route 12/22/23 02/02/24 Rx tablet (Januvia) .COMPLEX #30 tabs amitriptyline 10 mg tablet See Rx Instructions .Route 01/07/24 02/02/24 Rx .COMPLEX #30 tabs semaglutide 7 mg tablet (Rybelsus) See Rx Instructions .Route 02/02/24 Rx .COMPLEX #30 tabs New Prescriptions to Start Prescriptions: Allergies Allergy/AdvReac Type Severity Reaction Status Date / Time hydrochlorothiazide AdvReac Intermediate DIARRHEA Verified 12/08/23 13:55 Assessment and Plan *Assessment and plan (1) Lumbar facet arthropathy: Status: Acute Category: Medical Code(s): M47.816 - Spondylosis without myelopathy or radiculopathy, lumbar region Plan Patient did have more than 80% relief while the numbing medication was working with his first diagnostic lumbar medial branch block. I did discuss over with the patient due to the worsening pain and return to his baseline that he may benefit from repeat diagnostic injection. Risk and benefits were discussed with the patient and he would like to proceed forward with this plan of care. Patient has tried and failed conservative therapy including continued at home stretching exercise for longer than 12 weeks. I will also order the patient a compounded cream. Patient will be scheduled for his second diagnostic lumbar medial branch block bilaterally L3-L4 and L4-L5 under fluoroscopy. If he does get significant relief again we will proceed forward with the lumbar ablation at a later date. Patient has been instructed to contact the clinic with any concerns before the next appointment. Dr. Beard has reviewed this note and agrees with this plan of care. This note was dictated using voice recognition software and make contain errors or omissions. All injections are used with Lidocaine, Bupivacaine and Depo Medrol. Occasionally urine drug screen is needed to verify patient's compliance with our office pain contract. This is ordered based off specific treatments related to chronic pain with the potential to abuse certain medications.
== END 2024-02-02 23:59 | disposition home or self-care (01) ==
LOC: SC.PAIN 13:49
PROVIDERS: PCP Nurse Practitioner Family; Visit Provider Nurse Practitioner Family
DX: M47.816 Spondylosis without myelopathy or radiculopathy, lumbar region (principal); Z95.1 Presence of aortocoronary bypass graft; Z73.89 Other problems related to life management difficulty
CPT/HCPCS: 99212; G0463

== ENCOUNTER 2024-03-08 15:44 | Outpatient (CLI) | payer OTHER, SELFPAY ==
[2024-03-08 17:27] LABS: Albumin Level 4.1 g/dl (3.5-5.0); Chloride 104 mmol/L (98-107); Sodium 140 mmol/L (136-145)
[2024-03-08 17:30] LABS: Alanine Aminotransferase 121 U/L (12-78); Alkaline Phosphatase 97 U/L (38-126); Anion Gap 12.9 mEq/L (5-15); Aspartate Amino Transferase 72 U/L (17-59); Bilirubin,Total 0.9 mg/dl (0.2-1.3); Blood Urea Nitrogen 18 mg/dl (9-20); Carbon Dioxide 28 mmol/L (22.0-30.0); Estimated Glomerular Filt Rate 71 ml/min (>60); GFR (African American) 86 ML/MIN (>60); Potassium 4.9 mmoL/L (3.5-5.1)
[2024-03-08 17:31] LABS: Albumin/Globulin Ratio 1.8 (1.1-1.8); Calcium 9.1 mg/dl (8.4-10.2); Globulin 2.3 g/dL (1.3-3.2); Glucose 126 mg/dl (74-100); Magnesium 1.5 mg/dl (1.6-2.3); Total Protein,Serum 6.4 g/dl (6.3-8.2)
[2024-03-08 18:03] LABS: Thyroid Stimulating Hormone 2.85 uIU/mL (0.465-4.68)
[2024-03-08 18:11] LABS: Hemoglobin A1C 7.2 % (4.0-6.0)
[2024-03-08 18:49] LABS: Creatinine,Urine Random 122 mg/dL (Not Estab.)
[2024-03-08 20:28] LABS: Microalbumin/Creatinine Ratio 887.1
== END 2024-03-08 23:59 | disposition home or self-care (01) ==
LOC: LAB.DROPOF 03-09 09:13
PROVIDERS: PCP Nurse Practitioner Family; Visit Provider Nurse Practitioner Family
DX: N18.30 Chronic kidney disease, stage 3 unspecified (principal); I10 Essential (primary) hypertension; E78.2 Mixed hyperlipidemia; E11.69 Type 2 diabetes mellitus with other specified complication; I25.810 Atherosclerosis of coronary artery bypass graft(s) without angina pectoris
CPT/HCPCS: 80053; 82043; 82570; 83036; 83735; 84443

== ENCOUNTER 2024-04-05 08:19 | Outpatient (CLI) | payer OTHER, SELFPAY ==
--- NOTE | 2024-04-05 08:30 | US_ITS ---
FINAL REPORT TECHNIQUE: Sonographic images of the abdomen were obtained in all four quadrants. CLINICAL HISTORY: CKD stage 3 Elevated liver enzymes COMPARISON: None FINDINGS: LIVER: Homogeneous. No focal hepatic lesion or intrahepatic biliary dilatation. The portal vein is patent with normal directional flow. GALLBLADDER: The gallbladder has been surgically resected. The common duct measures 5 mm. This is within normal limits for age. PANCREAS: Obscured by overlying bowel gas RIGHT KIDNEY: 12 cm. No hydronephrosis, mass or stone. LEFT KIDNEY: 10.8 cm. No hydronephrosis, mass or stone. SPLEEN: 12 cm. No focal splenic lesion. AORTA/IVC: No abdominal aortic aneurysm. Visualized IVC within normal limits. OTHER: No ascites. IMPRESSION: Prior cholecystectomy. Otherwise unremarkable ultrasound of the upper abdomen. Reviewed, Interpreted and Dictated by Annie Almanza MD Transcribed by Ana Paige Authenticated and . [facility]
== END 2024-04-05 23:59 | disposition home or self-care (01) ==
LOC: RAD 08:20
PROVIDERS: PCP Nurse Practitioner Family; Visit Provider Nurse Practitioner Family
DX: R74.8 Abnormal levels of other serum enzymes (principal); N18.30 Chronic kidney disease, stage 3 unspecified
CPT/HCPCS: 76700

== ENCOUNTER 2024-06-14 08:37 | Outpatient (CLI) | payer OTHER, SELFPAY ==
[2024-06-14 17:35] LABS: Hemoglobin A1C 8.7 % (4.0-6.0)
[2024-06-14 17:56] LABS: Creatinine,Urine Random 368 mg/dL (Not Estab.)
[2024-06-14 18:07] LABS: Erythrocyte Sedimentation Rate 14 mm/hr (0-15)
[2024-06-14 18:33] LABS: Microalbumin/Creatinine Ratio 240.6
[2024-06-14 18:42] LABS: Alanine Aminotransferase 43 U/L (12-78); Albumin Level 3.9 g/dl (3.5-5.0); Albumin/Globulin Ratio 1.9 (1.1-1.8); Alkaline Phosphatase 81 U/L (38-126); Anion Gap 9.2 mEq/L (5-15); Aspartate Amino Transferase 40 U/L (17-59); Bilirubin,Total 1.2 mg/dl (0.2-1.3); Blood Urea Nitrogen 17 mg/dl (9-20); Calcium 9.7 mg/dl (8.4-10.2); Carbon Dioxide 30 mmol/L (22.0-30.0); Chloride 106 mmol/L (98-107); Chol/HDL Ratio 2.6 (1-3.5); Cholesterol 111 mg/dl (140-200); Estimated Glomerular Filt Rate 64 ml/min (>60); GFR (African American) 78 ML/MIN (>60); Globulin 2.1 g/dL (1.3-3.2); Glucose 269 mg/dl (74-100); HDL Cholesterol 43 mg/dl (40-60); Potassium 5.2 mmoL/L (3.5-5.1); Sodium 140 mmol/L (136-145); Triglycerides 137 mg/dl (30-150); Uric Acid 5.2 mg/dl (3.5-8.5); VLDL Cholesterol 27 mg/dL (0-40)
[2024-06-14 18:53] LABS: Direct LDL Cholesterol 40.79 mg/dL (100-129)
[2024-06-14 19:04] LABS: 25-OH Vitamin D, Total 29.3 ng/mL (30-100)
[2024-06-14 19:13] LABS: Thyroid Stimulating Hormone 1.33 uIU/mL (0.465-4.68)
[2024-06-14 19:32] LABS: Vitamin B12 738 pg/mL (239-931)
--- OUTSIDE RECORDS SUMMARY | 2024-06-16 08:40 | XMS_ITS ---
Care Plan - [facility], [facility] Created on: June 16, 2024 HIPOLITO MAYA : 1975 Sex: Male Author Organization [facility], [facility] Address [address] [place] [address] Phone Care Team Providers Care Visual Basic Developer Name Role Phone Kaye Lawson Unavailable [phone] Joseluis KIM, Wilfred Lerma Primary Care Provider [phone]
--- OUTSIDE RECORDS SUMMARY | 2024-06-16 08:40 | XMS_ITS ---
Author Organization [facility] , [facility] Address [address] [place] [address] Phone Care Team Providers Care Speed Belt Sander Tender Name Role Phone Kaye Lawson Unavailable [phone] Joseluis KIM, Wilfred Lerma Primary Care Provider [phone] Problems Includes: Active, inactive, and resolved Problems All Visits Onset Date Resolved Date Provider Condition S tatus Lower Back Pain 03/17/2023 Stefan Monroy PA-C A ctive Last Documented On 4 10:03AM ; [facility] Pain in the Hands 08/10/2012 Wilfred Huggins MD Active Last Documented On 3 9:27AM ; [facility] Plan of Treatment Pending Tests Order Diagnosis Results Due Ordering P rovider Radiology - MRI MRI Lumbar Spine Low back pain, unspecified 03/31/23 Stefan Monroy PA-C Last Documented On 4 2:52PM ; [facility] Instructions to patient Lose weight Last Documented On 4 10:06AM ; [facility] Instructions for patient Last Documented On 3 9:29AM ; [facility] Intervention and counseling on cessation of tobacco use Last Documented On 3 9:29AM ; [facility] Education and Decision Aids were provided during visit for: Education and counseling con celinet with family doctor Last Documented On 3 9:29AM ; [facility] Patient will stop smoking Last Documented On 3 9:29AM ; [facility] Assessments Includes: Assessments for all patient encounters Findings Encounter Date Overweight Physician Specified with Stefan Monroy PA-C 03/17/2023 Last Documented On 4 8:01AM ; [facility] Instructions Includes: Instructions for all patient encounters Instructions to patient Lose weight Last Documented On 4 10:06AM ; [facility] Instructions for patient Last Documented On 3 9:29AM ; [facility] Intervention and counseling on cessation of tobacco use Last Documented On 3 9:29AM ; [facility] Education and Decision Aids were provided during visit for: Education and counseling con sult with family doctor Last Documented On 3 9:29AM ; [facility] Patient will stop smoking Last Documented On 3 9:29AM ; [facility] Medical Equipment - Implanted Devices Includes: Current and historical Devices No Medical Equipment Recorded Medications Includes: Current and historical Medications Current Medications (continue as prescribed) Dexcom G6 Canary Raiser Device 03/09/2023 Provider: LASHAY LAWSON Diagnosis: Last Documented On 4 10:04AM By Trinidad Rodríguez ; [facility] Dexcom G6 Sensor Miscellaneous 03/03/2023 Provider: RODGER LAWSON Diagnosis: Last Documented On 4 10:04AM By Trinidad Rodríguez ; [facility] Dexcom G6 Transmitter Miscellaneous 03/03/2023 Provi aditya: RODGER LAWSON Diagnosis: Last Documented On 4 10:04AM By Trinidad Rodríguez ; [facility] HYDROcodone-Acetaminophen 5-325 MG Oral Tablet 024 Provider: RODGER LAWSON Diagnosis: Last Documented On 4 10:04AM By Trinidad Rodríguez ; [facility] Lisinopril 2.5 MG Oral Tablet 03/02/2023 Provider: RODGER LAWSON Diagnosis: Last Documented On 4 10:04AM By Trinidad Rodríguez ; [facility] Januvia 100 MG Oral Tablet 03/01/2023 Provider: Mariama LAWSON Diagnosis: Last Documented On 4 10:04AM By Trinidad Rodríguez ; [facility] HumaLOG Mix 75/25 KwikPen (7 5-25) 100 UNIT/ML Subcutaneous Suspension Pen-injector 02/23/2023 Provider: Diagnosis: Last Documented On 4 10:04AM By Trinidad Rodríguez ; [facility] Atorvastatin Calcium 80 MG Oral Tablet 02/19/2023 Pr ovider: Diagnosis: Last Documented On 4 10:04AM By Trinidad Rodríguez ; [facility] Carvedilol 3.125 MG Oral Tablet 01/02/2023 Provider: Diagnosis: Last Documented On 4 10:04AM By Trinidad Rodríguez ; [facility] Tadalafil 20 MG Oral Tablet 12/21/2022 Provider: Diagnosis: Last Documented On 4 10:04AM By Trinidad Rodríguez ; [facility] traZODone HCl 50 MG Oral Tablet 10/22/2022 Provider: Diagnosis: Last Documented On 4 10:04AM By Trinidad Rodríguez ; [facility] Carvedilol 3.125 MG Oral Tablet 08/12/2022 Provider: Diagnosis: Last Documented On 4 10:04AM By Trinidad Rodríguez ; [facility] Jardiance 10 MG Oral Tablet 03/16/2022 Provider: Diagnosis: Last Documented On 4 10:04AM By Trinidad Rodríguez ; [facility] Past Medications on file Lidoderm 5% EX PTCH 10/06/2006 - 03/17/2023 Provider: Aida Hui MD Diagnosis: 1 box// 12hrs on 12hrs offbh Last Documented On 4 10:03AM By Trinidad Rodríguez ; [facility] Lidoderm 5% EX PTCH 09/08/2006 - 03/17/2023 Provider: Aida Hui MD Diagnosis: 1 box// 12hrs on 12hrs offbh Last Documented On 4 10:03AM By Trinidad Rodríguez ; [facility] Phenergan 12.5 MG RE SUPP 03/17/2006 - 03/17/2023 Prov ider: Jorge Carmichael MD Diagnosis: camryn [phone] jsb Last Documented On 4 10:03AM By Trinidad Rodríguez ; [facility] Medications Administered Includes: Administered Medications in patient's chart No Administered Medications Recorded Results Includes: Results from 06/17/2023 through 06/16/2024 No Results Recorded For Specified Dates History of Present Illness History of Present Illness not supported for this document type No History of Present Illness Recorded Social History Description Last Updated No caffeine use 03/17/2023 Last Documented On 4 8:01AM ; [facility] No recent change in diet 03/17/2023 Last Documented On 4 8:01AM ; [facility] Not a current smoker. 03/17/2023 Last Documented On 4 8:01AM ; [facility] Not exercising regularly 03/17/2023 Last Documented On 4 8:01AM ; [facility] Not using alcohol 03/17/2023 Last Documented On 4 8:01AM ; [facility] Not using drugs 03/17/2023 Last Documented On 4 8:01AM ; [facility] Tobacco non-user 03/17/2023 Last Documented On 4 8:01AM ; [facility] Tobacco use 08/10/2012 Last Documented On 3 8:57AM ; [facility] Smoking status : Current everyday smoker /Recode: 1 08/10/2012 Last Documented On 3 8:57AM ; [facility] Procedures and Surgical History Surgical History Last Updated History of appendectomy 03/17/2023 Last Documented On 4 8:01AM ; [facility] History of heart surgery 03/17/2023 Last Documented On 4 8:01AM ; [facility] History of History of Gallbladder 2023 Last Documented On 4 8:01AM ; [facility] Past Surgical History: ACL 03/17/2023 Last Documented On 4 8:01AM ; [facility] Medical History Includes: Medical History in patient's chart Description Last Updated History of diabetes mellitus 03/17/2023 Last Documented On 4 8:01AM ; [facility] History of Heart Attack 03/17/2023 Last Documented On 4 8:01AM ; [facility] History of Hypertension 03/17/2023 Last Documented On 4 8:01AM ; [facility] Family History Includes: Family History in patient's chart Description Last Updated Diabetes mellitus 03/17/2023 Last Documented On 4 8:01AM ; [facility] Review of Systems Review of Systems not supported for this document type No Review of Systems Recorded Mental Status No Mental Status Recorded Functional Status No Functional Status Recorded Physical Exam Physical Exam not supported for this document type No Physical Exam Recorded Allergies Includes: Active, inactive, and resolved Allergies No Known Allergies Insurance Includes: Active Insurance Policies Plan Name Member ID Group # Subscriber Relationship Effect junaid Dates 1 - [place] [id number] [employer] [place]der[place] Clinical Notes Includes: Signed Clinical Notes starting from 01/29/2022 No Clinical Notes Recorded
--- OUTSIDE RECORDS SUMMARY | 2024-06-16 08:40 | XMS_ITS | Clinical Summary ---
Author Organization [facility] , [facility] Address [address] [place] [address] Phone Care Team Providers Care Estimation Manager Name Role Phone Kaye Lawson Unavailable [phone] Joseluis KIM, Wilfred Lerma Primary Care Provider [phone] Reason for Visit and Chief Complaint MRI Problems Includes: Problems addressed during this encounter and other active Problems All Visits Onset Date Resolved Date Provider Condition S tatus Lower Back Pain 03/17/2023 Stefan Monroy PA-C A ctive Last Documented On 4 10:03AM ; [facility] Pain in the Hands 08/10/2012 Wilfred Huggins MD Active Last Documented On 3 9:27AM ; [facility] Plan of Treatment Pending Tests Order Diagnosis Results Due Ordering P rovider Radiology - MRI MRI Lumbar Spine Low back pain, unspecified 03/31/23 Stefan Monroy PA-C Last Documented On 4 2:52PM ; [facility] Assessments Includes: Assessments from this encounter No Assessments Recorded Medical Equipment - Implanted Devices Includes: Current Devices No Medical Equipment Recorded Medications Includes: Medications discussed during this encounter and other current Medications Discontinued / Stopped on this date Aida Hui MD on 10/06/2006 Lidoderm 5% EX PTCH Provider: Aida Hui MD Diagnosis: Last Documented On 4 10:03AM By Trinidad Rodríguez ; [facility] Phenergan 12.5 MG RE SUPP Provider: Fr damien Carmichael MD Diagnosis: Last Documented On 4 10:03AM By Trinidad Rodríguez ; [facility] Current Medications (continue as prescribed) Dexcom G6 Infrastructure Software Engineer Device 03/09/2023 Provider: LASHAY LAWSON Diagnosis: Last Documented On 4 10:04AM By Trinidad Rodríguez ; [facility] Dexcom G6 Sensor Miscellaneous 03/03/2023 Provider: RODGER LAWSON Diagnosis: Last Documented On 4 10:04AM By Trinidad Rodríguez ; [facility] Dexcom G6 Transmitter Miscellaneous 03/03/2023 Provi aditya: RODGER LAWSON Diagnosis: Last Documented On 4 10:04AM By Trinidad Rodríguez ; [facility] HYDROcodone-Acetaminophen 5-325 MG Oral Tablet 024 Provider: RODGER LAWSON Diagnosis: Last Documented On 4 10:04AM By Trinidad Rodríguez ; [facility] Lisinopril 2.5 MG Oral Tablet 03/02/2023 Provider: RODGER LAWSON Diagnosis: Last Documented On 4 10:04AM By Trinidad Rodríguez ; [facility] Januvia 100 MG Oral Tablet 03/01/2023 Provider: Mariama LAWSON Diagnosis: Last Documented On 4 10:04AM By Trinidad Rodríguez ; [facility] HumaLOG Mix 75/25 KwikPen (7 5-25) 100 UNIT/ML Subcutaneous Suspension Pen-injector 02/23/2023 Provider: Diagnosis: Last Documented On 4 10:04AM By Trinidad Rdoríguez ; [facility] Atorvastatin Calcium 80 MG Oral Tablet 02/19/2023 Pr ovider: Diagnosis: Last Documented On 4 10:04AM By Trinidad Rodríguez ; [facility] Carvedilol 3.125 MG Oral Tablet 01/02/2023 Provider: Diagnosis: Last Documented On 4 10:04AM By Trinidad Rodríguez ; [facility] Tadalafil 20 MG Oral Tablet 12/21/2022 Provider: Diagnosis: Last Documented On 4 10:04AM By Trinidad Rodríguez ; [facility] traZODone HCl 50 MG Oral Tablet 10/22/2022 Provider: Diagnosis: Last Documented On 4 10:04AM By Trinidad Rodríguez ; [facility] Carvedilol 3.125 MG Oral Tablet 08/12/2022 Provider: Diagnosis: Last Documented On 4 10:04AM By Trinidad Rodríguez ; [facility] Jardiance 10 MG Oral Tablet 03/16/2022 Provider: Diagnosis: Last Documented On 4 10:04AM By Trinidad Rodríguez ; [facility] Medications Administered Includes: Administered Medications from this encounter No Administered Medications Recorded Results Includes: Results discussed during this encounter No Results Recorded For Specified Dates History of Present Illness Includes: History of Present Illness from this encounter No History of Present Illness Recorded Social History No Social History Recorded - Smoking Status Unknown Medical History Includes: Medical History addressed during this encounter No Medical History Recorded Family History Includes: Family History addressed during this encounter No Family History Recorded Review of Systems Includes: Review of Systems from this encounter No Review of Systems Recorded Mental Status Includes: Mental Status from this encounter No Mental Status Recorded Functional Status Includes: Functional Status from this encounter No Functional Status Recorded Physical Exam Includes: Physical Exam from this encounter No Physical Exam Recorded Allergies Includes: Active Allergies No Known Allergies Encounters Encounter Provider Location Date Check-In Time Check-Out Time Diagnosis MRI Stefan Monroy PA-C 03/17/2023 2:51PM 11:59PM Insurance Includes: Active Insurance Policies Plan Name Member ID Group # Subscriber Relationship Effect junaid Dates 1 - [employer] Medicaid [id number] [employer] [place]der[place] Clinical Notes Includes: Clinical Notes from this encounter No Clinical Notes Recorded
--- OUTSIDE RECORDS SUMMARY | 2024-06-16 08:40 | XMS_ITS | Clinical Summary ---
Author Organization [facility] , [facility] Address [address] [place] [address] Phone Care Team Providers Care Motor Vehicle Light Assembler Name Role Phone Renny Kaye Unavailable [phone] Joseluis KIM, Wilfred Lerma Primary Care Provider [phone] Reason for Visit and Chief Complaint WC FOLLOW UP/EST Problems Includes: Problems addressed during this encounter and other active Problems All Visits Onset Date Resolved Date Provider Condition S tatus Lower Back Pain 03/17/2023 Stefan Monroy PA-C A ctive Last Documented On 4 10:03AM ; [facility], [facility] Pain in the Hands 08/10/2012 Wilfred Huggins MD Active Last Documented On 3 9:27AM ; [facility], [facility] Plan of Treatment No Plan of Treatment Recorded Assessments Includes: Assessments from this encounter No Assessments Recorded Medical Equipment - Implanted Devices Includes: Current Devices No Medical Equipment Recorded Medications Includes: Medications discussed during this encounter and other current Medications Current Medications (continue as prescribed) Dexcom G6 Renal Medicine Specialist Device 03/09/2023 Provider: LASHAY SUH Diagnosis: Last Documented On 4 10:04AM By Trinidad Rodríguez ; [facility] Dexcom G6 Sensor Miscellaneous 03/03/2023 Provider: RODGER SUH Diagnosis: Last Documented On 4 10:04AM By Trinidad Rodríguez ; [facility] Dexcom G6 Transmitter Miscellaneous 03/03/2023 Provi aditya: RODGER SUH Diagnosis: Last Documented On 4 10:04AM By Trinidad Rodríguez ; [facility] HYDROcodone-Acetaminophen 5-325 MG Oral Tablet 024 Provider: RODGER SUH Diagnosis: Last Documented On 4 10:04AM By Trinidad Rodríguez ; [facility] Lisinopril 2.5 MG Oral Tablet 03/02/2023 Provider: RODGER SUH Diagnosis: Last Documented On 4 10:04AM By Trinidad Rodríguez ; [facility] Januvia 100 MG Oral Tablet 03/01/2023 Provider: Mariama SUH Diagnosis: Last Documented On 4 10:04AM By Trinidad Rodríguez ; [facility] HumaLOG Mix 75/25 KwikPen (7 5-25) 100 UNIT/ML Subcutaneous Suspension Pen-injector 02/23/2023 Provider: Diagnosis: Last Documented On 4 10:04AM By Trinidad Rodríguez ; [facility] Atorvastatin Calcium 80 MG Oral Tablet 02/19/2023 Pr ovider: Diagnosis: Last Documented On 4 10:04AM By Trinidad Rodríguez ; [facility] Carvedilol 3.125 MG Oral Tablet 01/02/2023 Provider: Diagnosis: Last Documented On 4 10:04AM By Trinidad Rodríguez ; [facility] Tadalafil 20 MG Oral Tablet 12/21/2022 Provider: Diagnosis: Last Documented On 4 10:04AM By Trinidad Rodríguez ; [facility] traZODone HCl 50 MG Oral Tablet 10/22/2022 Provider: Diagnosis: Last Documented On 4 10:04AM By Trinidad Rodríguez ; [facility] Carvedilol 3.125 MG Oral Tablet 08/12/2022 Provider: Diagnosis: Last Documented On 4 10:04AM By Trinidad Rodríguez ; [facility] Jardiance 10 MG Oral Tablet 03/16/2022 Provider: Diagnosis: Last Documented On 4 10:04AM By Trinidad Rodríguez ; [facility] Medications Administered Includes: Administered Medications [...] Allergies Includes: Active Allergies No Known Allergies Insurance Includes: Active Insurance Policies Plan Name Member ID Group # Subscriber Relationship Effect junaid Dates 1 - BC[employer] Medicaid [id number] [place] Clinical Notes Includes: Clinical Notes from this encounter No Clinical Notes Recorded
--- OUTSIDE RECORDS SUMMARY | 2024-06-16 08:40 | XMS_ITS | Clinical Summary ---
Author Organization [facility] , [facility] Address [address] [place] [address] Phone Care Team Providers Care Welder Fitter Helper Name Role Phone Kaye Lawson Unavailable [phone] Joseluis KIM, Wilfred Lerma Primary Care Provider [phone] Reason for Visit and Chief Complaint referred by No PCP - The Chief Complaint is: hand pain Problems Includes: Problems addressed during this encounter and other active Problems Current Visit Onset Date Resolved Date Provider Conditio n Status Pain in the Hands 08/10/2012 Wilfred Huggins MD Active Last Documented On 3 9:27AM ; [facility], [facility] Past Visits Onset Date Resolved Date Provider Condition Status Lower Back Pain 03/17/2023 Stefan Ochoa ctive Last Documented On 4 10:03AM ; [facility], [facility] Plan of Treatment Follow up 08/24/12 @ 945 am No use of right arm - Last Documented On 08/11/2012 8:57AM ; [facility], [facility] Instructions to patient Instructions for patient Last Documented On 3 9:29AM ; [facility], [facility] Intervention and counseling on cessation of tobacco use Last Documented On 3 9:29AM ; [facility], [facility] Education and Decision Aids were provided during visit for: Education and counseling con sult with family doctor Last Documented On 3 9:29AM ; [facility], [facility] Patient will stop smoking Last Documented On 3 9:29AM ; [facility], [facility] Assessments Includes: Assessments from this encounter No Assessments Recorded Instructions Includes: Instructions from this encounter Instructions to patient Instructions for patient Last Documented On 3 9:29AM ; [facility], [facility] Intervention and counseling on cessation of tobacco use Last Documented On 3 9:29AM ; [facility], [facility] Education and Decision Aids were provided during visit for: Education and counseling lesley turner with family doctor Last Documented On 3 9:29AM ; [facility], [facility] Patient will stop smoking Last Documented On 3 9:29AM ; [facility], [facility] Medical Equipment - Implanted Devices Includes: Current Devices No Medical Equipment Recorded Medications Includes: Medications discussed during this encounter and other current Medications Current Medications (continue as prescribed) Dexcom G6 Lacquer Spray Booth Operator Device 03/09/2023 Provider: LASHAY LAWSON Diagnosis: Last Documented On 4 10:04AM By Trinidad Rodríguez ; [facility], [facility] Dexcom G6 Sensor Miscellaneous 03/03/2023 Provider: RODGER LAWSON Diagnosis: Last Documented On 4 10:04AM By Trinidad Rodríguez ; [facility], [facility] Dexcom G6 Transmitter Miscellaneous 03/03/2023 Provi aditya: RODGER LAWSON Diagnosis: Last Documented On 4 10:04AM By Trinidad Rodríguez ; [facility], [facility] HYDROcodone-Acetaminophen 5-325 MG Oral Tablet 024 Provider: RODGER LAWSON Diagnosis: Last Documented On 4 10:04AM By Trinidad Rodríguez ; [facility], [facility] Lisinopril 2.5 MG Oral Tablet 03/02/2023 Provider: RODGER LAWSON Diagnosis: Last Documented On 4 10:04AM By Trinidad Rodríguez ; [facility], [facility] Januvia 100 MG Oral Tablet 03/01/2023 Provider: Mariama LAWSON Diagnosis: Last Documented On 4 10:04AM By Trinidad Rodríguez ; [facility], [facility] HumaLOG Mix 75/25 KwikPen (7 5-25) 100 UNIT/ML Subcutaneous Suspension Pen-injector 02/23/2023 Provider: Diagnosis: Last Documented On 4 10:04AM By Trinidad Rodríguez ; [facility], [facility] Atorvastatin Calcium 80 MG Oral Tablet 02/19/2023 Pr ovider: Diagnosis: Last Documented On 4 10:04AM By Trinidad Rodríguez ; [facility] Carvedilol 3.125 MG Oral Tablet 01/02/2023 Provider: Diagnosis: Last Documented On 4 10:04AM By Trinidad Rodríguez ; [facility], [facility] Tadalafil 20 MG Oral Tablet 12/21/2022 Provider: Diagnosis: Last Documented On 4 10:04AM By Trinidad Rodríguez ; [facility] traZODone HCl 50 MG Oral Tablet 10/22/2022 Provider: Diagnosis: Last Documented On 4 10:04AM By Trinidad Rodríguez ; [facility], [facility] Carvedilol 3.125 MG Oral Tablet 08/12/2022 Provider: Diagnosis: Last Documented On 4 10:04AM By Trinidad Rodríguez ; [facility], [facility] Jardiance 10 MG Oral Tablet 03/16/2022 Provider: Diagnosis: Last Documented On 4 10:04AM By Trinidad Rodríguez ; [facility], [facility] Medications Administered Includes: Administered Medications from this encounter No Administered Medications Recorded Vital Signs Includes: Vital Signs from this encounter Vital Name 08/10/2012 09:30A Blood Pressure Sitting L 134/82 Pulse Rate-Sitting (bpm) 77 Height (in) 72 Weight (lb) 200 Body Mass Index (kg/m2) 27.1 Body Surface Area (m2) 2.1 Last Documented: On 08/10/2012 9:34AM ; [facility], [facility] Results Includes: Results discussed during this encounter No Results Recorded For Specified Dates History of Present Illness Includes: History of Present Illness from this encounter FLASH MAYA is a 37 year old male. - Medication list reviewed. Social History Description Last Updated Tobacco use 08/10/2012 Last Documented On 3 8:57AM ; [facility], [facility] Smoking status : Current everyday smoker /Recode: 1 08/10/2012 Last Documented On 3 8:57AM ; [facility], [facility] Procedures and Surgical History Includes: Procedures from this encounter Procedures Code Diagnosis Performing Provider Service L ocation Service Date intervention and counseling on cessation of tobacco use 4000F Last Documented On 3 9:29AM ; [facility] Clinical summary provided to patient Last Documented On 3 9:28AM ; [facility] Medical History Includes: Medical History addressed during [...] Exam Includes: Physical Exam from this encounter Allergies Includes: Active Allergies No Known Allergies Encounters Encounter Provider Location Date Check-In Time Check-Out Time Diagnosis WORK COMP NEW PROBLEM Wilfred Huggins MD [facility] 08/11/19 13 9:17AM 9:56AM Insurance Includes: Active Insurance Policies Plan Name Member ID Group # Subscriber Relationship Effect junaid Dates 1 - [employer] Medicaid [id number] HIPOLITO caldera Clinical Notes Includes: Clinical Notes from this encounter No Clinical Notes Recorded
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
--- OUTSIDE RECORDS SUMMARY | 2024-06-16 08:41 | XMS_ITS | Clinical Summary ---
Author Organization [facility] , [facility] Address [address] [place] [address] Phone Care Team Providers Care Peoplesoft Programmer Name Role Phone Renny Kaye Unavailable [phone] Joseluis KIM, Wilfred Lerma Primary Care Provider [phone] Reason for Visit and Chief Complaint WC FOLLOW UP/EST Problems Includes: Problems addressed during this encounter and other active Problems All Visits Onset Date Resolved Date Provider Condition S tatus Lower Back Pain 03/17/2023 Stefan Monroy PA-C A ctive Last Documented On 4 10:03AM ; [facility], [facility] Pain in the Hands 08/10/2012 Wilfred Huggins MD Active Last Documented On 3 9:27AM ; [facility], [facility] Plan of Treatment No Plan of Treatment Recorded Assessments Includes: Assessments from this encounter No Assessments Recorded Medical Equipment - Implanted Devices Includes: Current Devices No Medical Equipment Recorded Medications Includes: Medications discussed during this encounter and other current Medications Current Medications (continue as prescribed) Dexcom G6 Instructor Adjunct Pharmacy Technician Device 03/09/2023 Provider: LASHAY SUH Diagnosis: Last Documented On 4 10:04AM By Trinidad Rodríguez ; [facility], [facility] Dexcom G6 Sensor Miscellaneous 03/03/2023 Provider: RODGER SUH Diagnosis: Last Documented On 4 10:04AM By Trinidad Rodríguez ; [facility], [facility] Dexcom G6 Transmitter Miscellaneous 03/03/2023 Provi aditya: RODGER SUH Diagnosis: Last Documented On 4 10:04AM By Trinidad Rodríguez ; [facility] HYDROcodone-Acetaminophen 5-325 MG Oral Tablet 024 Provider: RODGER SUH Diagnosis: Last Documented On 4 10:04AM By Trinidad Rodríguez ; [facility] Lisinopril 2.5 MG Oral Tablet 03/02/2023 Provider: RODGER SUH Diagnosis: Last Documented On 4 10:04AM By Trinidad Rodríguez ; [facility] Januvia 100 MG Oral Tablet 03/01/2023 Provider: Mariama SUH Diagnosis: Last Documented On 4 10:04AM By Trinidad Rodríguez ; [facility] HumaLOG Mix 75/25 KwikPen (7 5-25) 100 UNIT/ML Subcutaneous Suspension Pen-injector 02/23/2023 Provider: Diagnosis: Last Documented On 4 10:04AM By Trinidad Rodríguez ; [facility] Atorvastatin Calcium 80 MG Oral Tablet 02/19/2023 Pr ovider: Diagnosis: Last Documented On 4 10:04AM By Trinidad Rodríguez ; [facility] Carvedilol 3.125 MG Oral Tablet 01/02/2023 Provider: Diagnosis: Last Documented On 4 10:04AM By Trinidad Rodríguez ; [facility] Tadalafil 20 MG Oral Tablet 12/21/2022 Provider: Diagnosis: Last Documented On 4 10:04AM By Trinidad Rodríguez ; [facility] traZODone HCl 50 MG Oral Tablet 10/22/2022 Provider: Diagnosis: Last Documented On 4 10:04AM By Trinidad Rodríguez ; [facility] Carvedilol 3.125 MG Oral Tablet 08/12/2022 Provider: Diagnosis: Last Documented On 4 10:04AM By Trinidad Rodríguez ; [facility] Jardiance 10 MG Oral Tablet 03/16/2022 Provider: Diagnosis: Last Documented On 4 10:04AM By Trinidad Rodríguez ; [facility] Medications Administered Includes: Administered [...] Effect junaid Dates 1 - [employer] Medicaid [id number] HIPOLITO caldera Clinical Notes Includes: Clinical Notes from this encounter No Clinical Notes Recorded
[2024-06-16 12:12] LABS: RA Latex Turbid. <10.0 IU/mL (<14.0)
[2024-06-18 16:33] LABS: Antinuclear Antibodies, IFA Positive (.)
== END 2024-06-14 23:59 | disposition home or self-care (01) ==
LOC: LAB.DROPOF 06-16 08:38
PROVIDERS: PCP Nurse Practitioner Family; Visit Provider Nurse Practitioner Family
DX: E78.5 Hyperlipidemia, unspecified (principal); E11.9 Type 2 diabetes mellitus without complications; M25.50 Pain in unspecified joint; I12.9 Hypertensive chronic kidney disease with stage 1 through stage 4 chronic kidney disease, or unspecified chronic kidney disease; N18.30 Chronic kidney disease, stage 3 unspecified; Z87.891 Personal history of nicotine dependence; Z79.84 Long term (current) use of oral hypoglycemic drugs; Z79.4 Long term (current) use of insulin; E55.9 Vitamin D deficiency, unspecified; Z68.31 Body mass index [BMI] 31.0-31.9, adult; E66.9 Obesity, unspecified
CPT/HCPCS: 80053; 80061; 82043; 82306; 82570; 82607; 83036; 84443; 84550; 85651; 86038; 86431

== ENCOUNTER 2024-07-25 14:45 | Outpatient (CLI) | payer OTHER, SELFPAY ==
--- OUTSIDE RECORDS SUMMARY | 2024-06-22 07:35 | XMS_ITS | Encounter Summary ---
Author Organization [facility] Address [address] [place] [address] Care Team Providers Care Damage Inside Adjuster Name Role Phone Beth Lawson APRN Primary Care Provider [phone]- [phone] Jesu Aguilar MD Unavailable [phone] Talib Davis MD Unavailable [phone] Encounter Details Date Type Department Care Team (Late st Contact Info) Description 06/22/2024 7:35 AM EDT Ancillary Procedure [facility] [address] [place] [address] Social History Tobacco Use Types Packs/Day Years Used Date Smoking Tobacco: Former Cigarettes 1 23 1 02/1996 - 12/2019 Passive Smoke Exposure: Past Smokeless Tobacco: Never Alcohol Use Standard Drinks/Week Comments Never 0 (1 standard drink = 0.6 oz pur e alcohol) PHQ-2 Answer Date Recorded Patient Health Questionnaire-2 Score 0 02/07/2024 Sex and Gender Information Value Date Recorded Sex Assigned at Male 08/22/2020 7:33 PM EDT Legal Sex Male 8:06 PM EDT Gender Identity Male 08/22/2020 7:33 PM EDT Sexual Orientation Straight 08/22/2020 7: 33 PM EDT 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 Not on file Not on file Not on file documented as of this encounter Plan of Treatment Upcoming Encounters Date Type Department Care Team (Late st Contact Info) Description 07/31/2024 12:30 PM EDT Consult [facility] Specialties [address] [place] [address] Pascual Aviles, VOCATIONAL TEACHER [address] [place] [address] 08/04/2024 10:00 AM EDT Procedure Visit [facility] [address] [place] [address] Ranjana Barillas MD [address] [place] [address] 08/16/2024 1:50 PM EDT Office Visit [facility] [address] [place] [address] Dania Fatima, VOCATIONAL TEACHER, DNP [address] [place] [address] documented as of this encounter Procedures Procedure Name Priority Date/Time Associated Diagnosis Comments OCT, RETINA - OU - BOTH EYES Routine 06/22/2024 11:09 AM EDT 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 type 2 diabetes mellitus documented in this encounter Results * OCT, Retina - OU - Both Eyes (06/22/2024 11:09 AM EDT) Anatomical Region Laterality Modality Head Optical Coherenc e Tomography Narrative 06/22/2024 11:09 AM EDT Right Eye Quality was good. Scan locations included subfoveal. Progression has improved. Findings include normal foveal contour, cystoid macular edema. Left Eye Quality was good. Scan locations included subfoveal. Progression has worsened. Findings include abnormal foveal contour, cystoid macular edema. Notes DME both eyes (OU) improved but VH left eye (OS) worse us Ranjana Barillas MD OPHTH TOMOGRAPHY Final Res ult documented in this encounter Visit Diagnoses Not on filedocumented in this encounter Additional Health Concerns Infection Onset Date Last Indicated Resolved Time MRSA Comment: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 Source: [facility]. 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 Source: [facility]. 06/16/2022 Assessment Noted Time A fall risk assessment has been complete d for the patient 05/08/2024 8:57 AM EDT A Body Mass Index follow-up plan has been documented for the patient 06/22/2024 11:40 AM EDT documented as of this encounter Care Teams Damage Inside Adjuster Relationship Specialty Start Date End Date Beth Lawson APRN [address] [id number] PCP - General 08/22/20 Jesu Aguilar MD [facility] [id number] Referring Physician 09/20/20 Talib Davis MD [id number] [place] [address] Consulting Physician Urology 02/07/24 documented as of this encounter
--- OUTSIDE RECORDS SUMMARY | 2024-06-22 09:00 | XMS_ITS | Encounter Summary ---
Author Organization [facility] Address [address] [place] [address] Care Team Providers Care Website/Blog Editor Name Role Phone Beth Lawson APRN Primary Care Provider [phone]- [phone] Jesu Aguilar MD Unavailable [phone] Talib Davis MD Unavailable [phone] Reason for Referral * Clinic-Administered Medication (Routine) - Authorized Specialty Diagnoses / Procedures Referred By Contac t Referred To Contact Diagnoses 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 type 2 diabetes mellitus Procedures [place] BEVACIZUMAB INJECTION Ranjana Barillas MD [address] [address] Phone: tel: fax: Referral ID Status Reason Start Date Expiration Date V isits Requested Visits Authorized [id number] Authorized 06/22/2024 12/22/2025 1 1 Encounter Details Date Type Department Care Team (Latest Contact Info) Description 06/22/2024 9:00 AM EDT Office Visit [facility] [address] [place] [address] Ranjana Barillas MD 110 [facility] [employer] [address] [address] 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 type 2 diabetes mellitus (Primary Dx); Pseudophakia of both eyes; Vitreous hemorrhage of left eye (CMS/HCC) Social History Tobacco Use Types Packs/Day Years [...] 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 [employer] Not on file Not on file Not on file documented as of this encounter Miscellaneous Notes * Progress Notes - Ranjana Barillas MD - 06/22/2024 9:00 AM EDT PMH: Type II diabetes mellitus (DM), HTN, HLD, CAD, right bundle branch block, FERNANDO Insulin dependent Type II Diabetes Mellitus with proliferative diabetic retinopathy, both eyes - +HTN, +HLD, CAD and arrhythmia, denies CKD, UT, history of CVA, no history of SS dz or trait Lab Results Component Value Date HGBA1C 8.3 (H) 09/24/2023 - Stressed blood sugar and blood pressure control and close follow-up with PCP/bonding 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 - Advised of importance in blood sugar and blood pressure control in reducing risk of vision loss. - Advised of importance of scheduled eye exams with sooner follow-up if any new symptoms develop. - Right eye with non-CSME - OCT with noncentral edema - No prior injections - S/p PRP 11/23/23 poorly tolerated 297 spots - S/p EUA/PRP both eyes 03-23-24 - Plan: NV improving, continue to monitor non CSME - Left eye with Vitreous hemorrhage and non-CSME - VH onset 08/2023 - S/p EUA/PRP 03-23-24 - Last injection Avastin #4 02/29/24 (3 months) - OCT flat with traction at disc, non-central DME - Worse VH again today - Plan: Discussed injection vs proceed to PPV/EL/AFx and he would like to think about OR, prefers JOYCE for now - Follow up 1 month may need OR sign up Pseudophakia both eyes - Stable, observe Seen with Dr. Moya I saw the patient with the resident/fellow, independently reviewed exam and ophthalmic imaging, andagree with the plan as otherwise documented. Ranjana Barillas MD [employer] Operator of Ophthalmology Vitreoretinal Surgery Tobacco Cessation: Tobacco Use: Medium Risk (06/22/2024) Patient History Smoking Tobacco Use: Former Smokeless Tobacco Use: Never Passive Exposure: Past The patient has been counseled on tobacco cessation: Not Applicable documented in this encounter Plan of Treatment Upcoming Encounters Date Type Department Care Team (Late st Contact Info) Description 07/31/2024 12:30 PM EDT Consult [facility] Medicine Specialties [address] [place] [address] Pascual Aviles, KAROL [address] [facility] [address] [place] [address] 08/04/2024 10:00 AM EDT Procedure Visit [facility] [address] [place] [address] Ranjana Barillas MD [address] [facility] [address] [place] [address] 08/16/2024 1:50 PM EDT Office Visit [facility] Urology [address] [place] [address] Dania Fatima, KAROL, DNP [address] [facility] [address] [place] [address] documented as of this encounter Procedures Procedure Name Priority Date/Time Associated Diagnosis Comments INTRAVITREAL INJECTION, PHARMACOLOGIC AGENT - OS - LEFT EYE Routine 06/22/2024 11:45 AM EDT 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 11:38 AM. Confirmed correct patient, procedure, site, and patient consented. Anesthesia Topical anesthesia was used. Anesthetic medications included Tetracaine 0.5%. Procedure Preparation included 5% betadine to ocular surface. A 27 gauge needle was used. Injection: 1.25 mg Bevacizumab 1.25 MG/0.05ML Route: Intravitreal, Site: Left Eye [facility]: [id number], Lot: [id number], Expiration date: 06/26/2024 Post-op Post injection exam found visual acuity of at least counting fingers. The patient tolerated the procedure well. There were no complications. Post injection medications were not given. us Ranjana Barillas MD OPHTH CLINIC PROCEDURES Fi nal Result * OCT, Retina - OU - Both [...] ult documented in this encounter Visit Diagnoses Diagnosis 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 type 2 diabetes mellitus- Primary Pseudophakia of both eyes Lens replaced by other means Vitreous hemorrhage of left eye (CMS/HCC) Vitreous hemorrhage documented in this encounter Administered Medications Inactive Administered Medications - up to 3 most recent administrations Medication Order MAR Action Action Date Dose Rate Site Bevacizumab (Avastin) ophthalmic injection 1.25 mg 1.25 mg, Intravitreal, Once PRN Procedure, 1 dose, Starting on Swetha 06/22/24 at 1145, Until Swetha 06/22/24 at 1145, RoutineIndications:Proliferati ve diabetic retinopathy of both eyes with macular edema associated with type 2 diabetes mellitus Given 06/22/2024 11:45 AM EDT 1.25 mg Left Eye documented in this encounter Additional Health Concerns Infection Onset Date Last Indicated Resolved Time MRSA Comment: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 Source: [facility]. 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 Source: [facility]. 06/16/2022 Assessment Noted Time A fall risk assessment has been complete d for the patient 05/08/2024 8:57 AM EDT A Body Mass Index follow-up plan has been documented for the patient 06/22/2024 11:40 AM EDT documented as of this encounter Care Teams Website/Blog Editor Relationship Specialty Start Date End Date Beth Lawson APRN [address] [place] [address] PCP - General 08/22/20 Jesu Aguilar MD [address] [facility] [address] [place] [address] Referring Physician 09/20/20 Talib Davis [facility] [address] [facility] [address] [place] [address] Consulting Physician Urology 02/07/24 documented as of this encounter
[2024-07-25 18:06] LABS: Alanine Aminotransferase 34 U/L (12-78); Albumin Level 3.9 g/dl (3.5-5.0); Albumin/Globulin Ratio 1.8 (1.1-1.8); Alkaline Phosphatase 85 U/L (38-126); Aspartate Amino Transferase 44 U/L (17-59); Bilirubin,Total 1.1 mg/dl (0.2-1.3); Blood Urea Nitrogen 17 mg/dl (9-20); Calcium 9.1 mg/dl (8.4-10.2); Carbon Dioxide 29 mmol/L (22.0-30.0); Chloride 106 mmol/L (98-107); Estimated Glomerular Filt Rate 79 ml/min (>60); GFR (African American) 96 ML/MIN (>60); Globulin 2.2 g/dL (1.3-3.2); Glucose 120 mg/dl (74-100); Sodium 138 mmol/L (136-145); Total Protein,Serum 6.1 g/dl (6.3-8.2)
--- OUTSIDE RECORDS SUMMARY | 2024-07-26 11:04 | XMS_ITS | Clinical Summary ---
Author Organization [facility] Address [address] [facility] [place] [address] Phone Care Team Providers Care Loop Machine Operator Name Role Phone Janis Rodriguez Unavailable Unavailable Conditions or Problems Problem Name Problem Code Onset Date Status Entry Date Provider Comment Standard Description Annotate Sepsis 96495729 (SNOMED CT) 06/16 Active 06/17 Rito Javed MD Sepsis Infection following a procedure, superficial incisional surgical site, subsequent encounter(s) T81.41xD (ICD-10-CM ) 06/15 Active 06/15 Queenie Herberth Infection following a procedure, superficial incisional surgical site, subsequent encounter Ruptured appendix with localized peritonitis and abscess K35.33 (ICD-10-CM ) 06/15 Active 06/15 Queenie Herberth Acute appendicitis with perforation, localized peritonitis, and gangrene, with abscess Cellulitis, abdominal wall 25623826 (SNOMED CT) 06/15 Active 06/15 Queenie Herberth Cellulitis of abdominal wall Infection, local skin/subcutan eous tissue 114684611 (SNOMED CT) 06/15 Active 06/15 Queenie Herberth Localized infection of skin AND/OR subcutaneous tissue 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 ) 06/15 Active 06/15 Queenie Herberth Leukemoid reaction Presence of cardiac pacemaker 792749347 (SNOMED CT) 06/15 Active 06/15 Queenie Herberth Cardiac pacemaker in situ DM Type II E11.9 (ICD-10-CM ) 06/15 Active 06/15 Queenie Herberth Type 2 diabetes mellitus without complications Coronary artery disease, S/P CABG 013841412 (SNOMED CT) 06/15 Active 06/15 Queenie Kevin 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 (I50.22) 833691221 ([facility] CT) 06/15 Active 06/15 Queenie Kevin Benign hypertensive heart disease with congestive cardiac failure Medications Medication Instructions Start Date Stop Date Generic Name ND Provider MINOCYCLINE HCL 100 MG CAPS Take 1 capsule by mouth twice a day Stop the Bactrim minocycline 83130156209 Rito Javed MD BACTRIM DS 800-160 MG TABS Take 1 tablet by mouth twice a day sulfamethoxazole- trimethoprim 37020332096 Rito Javed MD LISINOPRIL 5 MG TABS one tab oral daily 06/16 lisinopril 67828314908 Rito Javed MD CEPHALEXIN 500 MG CAPS 1 cap oral 4 times daily for 7 days 06/16 cephalexin 88649931967 Rito Javed MD [facility] ACETAMINOPHEN 325 MG CAPS 2 tab every 6 hours as needed for pain acetaminophen 94151143595 Luís Melvin HYDROCODONE-ACETAM INOPHEN 5-325 MG TABS one tab oral three times daily for 5 days, then one tab oral twice a day for 5 days, then as needed hydrocodone-aceta minophen 20802888526 Luís Melvin aspirin 81 mg capsule one tab oral daily aspirin Luís Melvin ATORVASTATIN CALCIUM 80 MG TABS one tab oral daily at bedtime atorvastatin 89422242203 Luís Melvin Bifidobacterium animalis 6 mg (5 billion cell) capsule 1 cap oral daily bifidobacterium animalis Luís Melvin CARVEDILOL 6.25 MG TABS twice daily, with breakfast and dinner carvedilol 55397129101 Luís Melvin CEPHALEXIN 500 MG CAPS 1 cap oral 4 times daily for 7 days 06/16 cephalexin 18660511309 Luís Melvin CLOPIDOGREL BISULFATE 75 MG TABS one tab oral daily clopidogrel 58428689271 Luís Melvin empagliflozin 10 mg tablet one tab oral daily empagliflozin Luís Melvin famotidine 10 mg tablet one tab oral daily famotidine 66636683158 Luís Melvin INSULIN LISPRO (1 UNIT DIAL) 100 UNIT/ML SOPN 12 units twice daily with breakfast and dinner insulin lispro 73219857775 Luís Melvin LISINOPRIL 5 MG TABS one tab oral daily 06/16 lisinopril 77502557334 Luís Melvin MAGNESIUM OXIDE -MG SUPPLEMENT 400 MG CAPS 1 tab oral daily magnesium oxide 66087117089 Luís Melvin [facility] MELATONIN 5 MG CAPS one tab oral daily at bedtime for insomnia melatonin 96313606446 Luís Melvin Miralax 17 gram powder in packet oral daily as needed polyethylene glycol 3350 43015441134 Luís Melvin JANUVIA 100 MG TABS one tab oral daily sitagliptin phosphate 24254230791 Luís Melvin Medications Administered No information available. Allergies, Adverse Reactions, Alerts Allergy Name Reaction Description Start Date Severity Statu s Provider HYDROCHLOROTHIAZIDE Moderate Active Luís Melvin Results Date Name Value Unit Range Flag Description Office Visit: 6 - hfu MEDS REVIEW Done Documenta tion of current medications (procedure) VAPE_USE Never Tobacco smok ing status ORALTOBACUSE Never Tobacco smoking status SMOK STATUS Former smoker Tobacco smoking status Lab Report: COMPREHENSIVE AK TABOLIC PANEL ANIONGAP 10.0 mmol/L 5.0-15.0 anion gap, serum BUN/CREAT 18.8 7.0-25.0 Urea nitrogen/Creatinine [Mass Ratio] in Serum or Plasma BILI TOTAL 0.3 mg/dL 0.0-1.2 Bilirubin. total [Mass/volume] in Serum or Plasma ALK PHOS 117 U/L 39-117 Alkaline candi sphatase [Enzymatic activity/volume] in Blood SGOT (AST) 19 U/L 1-40 Aspartate aminotransferase [Enzymatic activity/volume] in Serum or Plasma SGPT (ALT) 15 U/L 1-41 Alanine aminotransferase [Enzymatic activity/volume] in Serum or Plasma ALBUMIN 3.1 g/dL 3.5-5.2 L Albumin [Mass/volume] in Serum or Plasma PROTEIN, TOT 6.9 g/dL 6.0-8.5 Protein [Mass/volume] in Serum or Plasma CALCIUM 8.7 mg/dL 8.6-10.5 Calcium [Moles/volume] in Serum or Plasma CO2 24.0 mmol/L 22.0-29.0 Carbon diox svetlana, total [Moles/volume] in Venous blood CHLORIDE 103 mmol/L 98-107 Chloride [Moles/volume] in Serum or Plasma POTASSIUM 4.3 mmol/L 3.5-5.2 Potassium [Moles/volume] in Serum or Plasma SODIUM 137 mmol/L 136-145 Sodium [Moles/volume] in Serum or Plasma CREATININE 1.17 mg/dL 0.76-1.27 Creatini ne [Mass/volume] in Serum or Plasma BUN 22 mg/dL 6-20 H Urea nitrogen [Mass/volume] in Serum or Plasma GLUCOSE SER 255 mg/dL 65-99 H Glucose [Mass/volume] in Serum or Plasma Lab Report: C-REACTIVE PROTE IN CRP 2.25 mg/dL 0.00-0.50 H C reactive protein [Mass/volume] in Serum or Plasma Lab Report: CBC WITH AUTO DI FFERENTIAL IMMATUREGRAN 0.19 10*3/MM3 0.00-0.05 H Immature granulocytes [#/volume] in Blood BASO# 0.08 10*3/mm3 0.00-0.20 Basophils [#/vol ume] in Blood EOS ABSLT 0.20 10*3/uL 0.00-0.40 Eosinophi ls [#/volume] in Blood MONOSCT AUTO 0.86 10*3/uL 0.10-0.90 Monocy guillermina [#/volume] in Blood by Automated count LYMPHCT AUTO 2.04 10*3/mm3 0.70-3.10 Lymph ocytes [#/volume] in Blood by Automated count ABS NEUTROPH 8.98 10*3/uL 1.70-7.00 H Neutro phils [#/volume] in Blood IMM GRANU % 1.5 % 0.0-0.5 H Immature granulocytes/100 leukocytes in Blood % EOS AUTO 1.6 % 0.3-6.2 Eosinophil s/100 leukocytes in Blood by Automated count MONOCYTE % 7.0 % 5.0-12.0 Monocytes /100 leukocytes in Blood by Automated count LYMPHOCY BF 16.5 % 19.6-45.3 L lymphoc ytes as percent of body fluid leukocytes NEUTROP BF 72.8 % 42.7-76.0 Neutroph ils/100 leukocytes in Body fluid PLATELETS 335 10*3/mm3 140-450 Platelets [#/volume] in Blood by Automated count RDW_ 13.2 12.3-15.4 RDW, no uni ts MCHC 32.0 G/DL 31.5-35.7 MCHC [Mass/ volume] by Automated count MCH 27.1 pg 26.6-33.0 MCH [Entiti c mass] by Automated count MCV 84.5 fL 79.0-97.0 MCV [Entiti c volume] by Automated count HCT 32.8 % 37.5-51.0 L Hematocrit [Volume Fraction] of Blood by Automated count HGB 10.5 g/dL 13.0-17.7 L Hemoglobin [Mass/volume] in Blood RBC 3.88 10*6/mm3 4.14-5.80 L Erythrocyt es [#/volume] in Blood by Automated count WBC 12.35 10*3/mm3 3.40-10.8 0 H Leukocytes [#/volume] in Blood by Automated count Lab Report: SEDIMENTATION RA TE ESR 84 mm/h 0-15 H Erythrocyte sedimentation rate by Westergren method Lab Report: WOUND CULTURE [id number] 1 ug/ml GE use only - for [employer] import when terms are not otherwise specified Plan of Care Type Date Detail Pending order STAT Labs Pending order Wound Culture an d Sensitivity w/Gram Stain Pending order CBC with Differe ntial Pending order CMP Pending order Sedimentation Ra te (ESR) Pending order C- reactive prot ein Pending order CPK Procedures Code Procedure Name Date Entry Date CPT-sl STAT Labs CPT-22837 Wound Culture and Sensitivity w/Gram Stai n [id number] CBC with Differential 2022 CPT-35892 CMP CPT-83322 Sedimentation Rate (ESR) 202 04/19/01 CPT-40396 C- reactive protein [id number], [id number] CPK Vital Signs Date Name Value Unit Description BMI (Body Mass Index) 28.03 kg/m2 Bod y Mass Index (Ratio) Body Temperature 97.3 [degF] temperat ure E&M BP Diastolic 54 mm[Hg] blood pressu re, diastolic BP Systolic 92 mm[Hg] blood pressur e, systolic Heart Rate 67 /min pulse rate Height 71 [in_us] height E&M Respiratory Rate 16 /min respirat ory rate E&M Weight Measured 201.0 [lb_av] weight E& M Weight Measured 201.0 [lb_av] weight E& M Immunizations No information available. Advance Directives Directive Description Start Date NO ADVANCED DIRECTIVES
--- OUTSIDE RECORDS SUMMARY | 2024-07-26 11:05 | XMS_ITS | Clinical Summary ---
Author Organization [facility] Address [address] [address] Care Team Providers Care Body Shop Estimator Name Role Phone Beth Lawson APRN Primary Care Provider [phone] Jesu Aguilar MD Unavailable [phone] Talib Davis MD Unavailable [phone] Allergies Active Allergy Reactions Criticality Noted Date Comments Hydrochlorothiazide Diarrhea Low 11/16/2021 Medications EQ Aspirin Adult Low Dose 81 MG EC tablet Take 1 tablet (81 mg) by mouth 1 (one) time each day. 1 Active metFORMIN (Glucophage) 1000 MG tablet Take 1 tablet (1,000 mg total) by mouth 2 (two) times a day with meals. 60 tablet 11 1 Active insulin lispro protamine-insu elise lispro (HumaLOG MIX 75/25 KWIKPEN) (75-25) 100 UNIT/ML injection pen INJECT 12-18 UNITS SUBCUTANEOUSLY IN THE MORNING AND 18 UNITS IN THE EVENING, PLUS TITRATION. MAX DAILY DOSE 60 UNITS. PATIENT NEEDS APPOINTMENT FOR FURTHER REFILLS. 45 mL 2 Active Additional Information Patient taking differently: 26 Units, INJECT 12-18 UNITS SUBCUTANEOUSLY IN THE MORNING AND 18 UNITS IN THE EVENING, PLUS TITRATION. MAX DAILY DOSE 60 UNITS. PATIENT NEEDS APPOINTMENT FOR FURTHER REFILLS., Reported on 06/22/2024 carvedilol (Coreg) 6.25 MG tablet 1 tablet (6.25 mg) 2 (two) times a day. 2 Active semaglutide (Rybelsus) 7 MG tablet Take 7 mg by mouth 1 (one) time each day before breakfast. Active lisinopril 5 MG tablet Take 1 tablet (5 mg) by mouth. Active Continuous Glucose Sensor (Dexcom G7 Sensor) misc USE DIRECTED CHANGE EVERY 10 DAYS 4 Active BD Pen Needle Renee 2nd Gen 32G X 4 MM misc USE DIRECTED 4 Active atorvastatin (Lipitor) 80 MG tablet TAKE 1 TABLET BY MOUTH AT BEDTIME NIGHTLY FOR CHOLESTEROL 4 Active Januvia 100 MG tablet 1 tablet (100 mg) every night. 4 Active oxyCODONE (Roxicodone) 5 MG immediate release tablet Take 1 tablet (5 mg) by mouth every 6 (six) hours if needed for severe pain for up to 5 doses. 5 tablet 4 Active Additional Information Patient not taking.Reported on 06/22/2024 acetaminophen (Tylenol) 500 MG tablet Take 2 tablets (1,000 mg) by mouth every 6 (six) hours if needed for pain. 50 tablet 4 Active carvedilol (Coreg) 3.125 MG tablet TAKE 1 TABLET BY MOUTH TWICE DAILY WITH FOOD / MEAL FOR BLOOD PRESSURE 4 Active magnesium oxide (Mag-Ox) 400 mg tablet 1 tablet (400 mg) 1 (one) time each day. Active Rybelsus 14 MG tablet Take 14 mg by mouth daily. 5 Active SURE COMFORT INS SYR 1CC/29G 29G X 1/2 1 ML misc use as directed 4 Active amantadine (Symmetrel) 100 MG tablet 4 Active D3 High Potency 50 MCG (1999 UT) capsule Take by mouth daily. 5 Active Farxiga 10 MG tablet Take 1 tablet by mouth daily. 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 associated with type 2 diabetes mellitus 02/29/2024 Penile erection impairment 10/05/2023 Proliferative diabetic retin opathy of both eyes without macular edema associated with type 2 diabetes mellitus 09/17/2023 Vitreous hemorrhage of left eye 09/17/2023 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 Overview (11/16/2021): LAD Sick sinus syndrome 11/16/2021 Right bundle branch block 11/16/2021 Obstructive sleep apnea 08/24/2020 Hypertension 08/22/2020 Hyperlipidemia 08/22/2020 Diabetes 08/22/2020 Overweight (BMI 25.0-29.9) 08/22/2020 CAD, multiple vessel 08/22/2020 Resolved Problems Problem Noted Date Diagnosed Date Resolved Date Atrial fibrillation 09/03/2020 09/10/19 21 Bradycardia 08/28/2020 08/31/2020 Overview (08/29/2020): Difficulty weaning DA off 2/2 bradycardia to 40s w/ hypotension / presyncope - Telemetry w/ possible junctional rhythm (accelerated 2/2 DA) - EP consulted for evaluation for possible PPM - Pt 100% paced at 60 bpm if DA turned off - Plan for PPM placement 2/ EP today - Will keep epicardial wires until PPM interrogated/programmed Acute kidney injury 08/27/2020 09/01/19 Overview (08/27/2020): Likely prerenal in setting of soft hemodynamics and requiring intermittent fluid boluses postop Urine studies ordered 08/26 FeUrea ~35% c/w prerenal etiology Holding diuresis 2/2 MARCIA Trending labs and stict I/Os Will continue to re-evaluate need for diuresis vs volume Leukocytosis 08/26/2020 08/31/2020 Overview (08/29/2020): WBC now normalized No defined sourse / etiology - lactate wnl, will continue to trend - Will send Blood/Sputum CXs, UA - will f/u results and adjust ABX as appropriate - Started empiric Vanc/Cefe 08/26 due to c/f developing infection - ABX now off and pt remains afebrile and HDS Postoperative fever 08/26/2020 09/01/19 Overview (08/29/2020): - Now afebrile and HDS - lactate wnl, will continue to trend - Will send Blood/Sputum CXs, UA - will f/u results and adjust ABX as appropriate - Started empiric Vanc/Cefe 08/26 due to c/f developing infection - remains stable off ABX Acute postoperative respiratory insufficiency 08/25/1908/31/2020 Overview (08/26/2020): - extubated shortly after arriving in ICU from [place] to [place], will continue to wean respiratory support as able. Pt baseline RA w/o O2 support - continue PEP, PAP, IS, cough assist - added guaifenesin for secretion mobilization - wean O2 NC as able Acute blood loss anemia 08/24/2020 10/0 03/2021 Thrombocytopenia 08/24/2020 08/31/2020 Overview (08/24/2020): - Related to bypass circuit, will monitor and tranfuse if necessary Volume overload 08/24/2020 08/31/2020 Overview (08/27/2020): - secondary to CPB, expected in postop course - will diurese as indicated / appropriate per daily fluid goals, renal function, O2 req., CXRs - recheck PM RFP/Mg/iCal if duresed Low cardiac output syndrome 08/24/2020 08/31/2020 Overview (08/28/2020): On low dose dopa and epi Off Epi 08/25 going to use Dopamine for primary inotropic support. - Will continue to wean DA as able and appropriate LV (left ventricular) mural thrombus 08/24/2020 09/04/2020 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 Overview (08/29/2020): - PPM w/ EP today Encounters Date Type Department Care Team Description 06/22/2024 9:00 AM EDT Office Visit [facility] [address] [place] [address] Ranjana Barillas MD 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 type 2 diabetes mellitus (Primary Dx); Pseudophakia of both eyes; Vitreous hemorrhage of left eye (CMS/HCC) 06/22/2024 7:35 AM EDT Ancillary Procedure [facility] [address] [place] [address] 06/22/2024 Travel 05/08/2024 9:00 AM EDT Office Visit [facility] [address] [place] [address] Ranjana Barillas MD 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 type 2 diabetes mellitus (CMS/HCC) (Primary Dx); Pseudophakia of both eyes; Vitreous hemorrhage of left eye ([facility]/HCC) 05/08/2024 7:35 AM EDT Ancillary Procedure [facility] [address] [place] [address] 05/08/2024 Travel from Last 3 Months Immunizations Immunization Administration Dates Next Due TD (adult), 2 Lf tetanus tox oid, preservative free, adsorbed 04/16/1996 Family History Medical History Relation Name Comments Macular degeneration Father Diabetes Mother Anesthesia problems Neg Hx Malig Hyperthermia Neg Hx Relation Name Status Comments Father Mother Social History Tobacco Use Types Packs/Day Years Used Date Smoking Tobacco: Former Cigarettes 1 23 1 02/1996 - 12/2019 Passive Smoke Exposure: Past Smokeless Tobacco: Never Tobacco Cessation:Counseling Given: No Alcohol Use Standard Drinks/Week Comments Never 0 [...] 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 file Not on file Not on file Last Filed Vital Signs Vital Sign Reading Time Taken Comments Blood Pressure 138/75 03/23/2024 9:20 AM EST Pulse 65 03/23/2024 9:20 AM EST Temperature 36.3 C (97.3 F) 03/23/2024 8:50 AM EST Respiratory Rate 9 03/23/2024 9:20 AM EST Oxygen Saturation 95% 03/23/2024 9:20 AM EST Inhaled Oxygen Concentration - - Weight 101 kg (222 lb 0.1 oz) 03/23/2024 6:17 AM EST Height 177.8 cm (5' 10 ) 03/23/2024 6:17 AM EST Body Mass Index 31.85 03/23/2024 6:17 AM EST Plan of Treatment Upcoming Encounters Date Type Department Care Team (Late st Contact Info) Description 07/31/2024 12:30 PM EDT Consult [facility] Medicine Specialties [address] [place] [address] Pascual Aviles, CUSTOMER ASSOCIATE [address] [place] [phone] 08/04/2024 10:00 AM EDT Procedure Visit [facility] [address] [place] [address] Ranjana Barillas MD [address] [place] [address] 08/16/2024 1:50 PM EDT Office Visit [facility] Urology [address] [place] [address] Dania Fatima, CUSTOMER ASSOCIATE, DNP [address] [place] [address] Health Maintenance Due Date Last Done Comments [facility]-HIV Screening 1974 [facility]-Hepatitis C Screening 1974 [facility]-Infant/Child/Adol SDOH Screenings 1974 Diabetes: Dental Exam 1984 [facility]- SDOH Screenings 1992 [facility]-Adult SDOH Screenings 1992 [facility]-Hepatitis B Vaccines (1 of 3 - 19+ 3-dose series) 1993 [facility]-Pneumococcal Vaccine: 50+ Years (1 of 2 - PCV) 1993 [facility]-DTaP,Tdap,and Td Vaccines (1 - Tdap) 04/17/1996 04/16/1996 CT Colonography 05/17/2019 Colonoscopy 05/17/2019 FIT-DNA 05/17/2019 FIT 05/17/2019 FOBT 05/17/2019 Sigmoidoscopy 05/17/2019 [facility]-Colorectal Cancer Screening 05/17/2019 [id number] Vaccine (3 - season) 2023 11/07/2020, 10/10/2020 [facility]-Diabetes: Hemoglobin A1C 12/24/202310/2023, 01/07/2021, 10/07/2020, Additional history exists [facility]-Lung Cancer Screening 2024 [facility]-Zoster Vaccines (1 of 2) 2024 [facility]-Influenza Vaccine (Season Ended) 2024 [facility]-Depression Screening 02/06/2025 02/07/2024 [facility]-Obesity Intervention Completed 025, 05/08/2024, 02/29/2024, Additional history exists HPV Vaccines Aged Out No longer eligi ble based on patient's age to complete this topic [facility]-HIB Vaccines Aged Out No longer e ligible based on patient's age to complete this topic [facility]-Hepatitis A Vaccines Aged Out No longer eligible based on patient's age to complete this topic [facility]-IPV Vaccines Aged Out No longer e ligible based on patient's age to complete this topic [facility]-Rotavirus Vaccines Aged Out No lo nger eligible based on patient's age to complete this topic Medical Devices Implanted Type Area Side Stitching Machine Operator Device Identifier Shelf Expiration Date Model / Serial / Lot Kit Ams 700 Accessory - [id number] - [id number] Implanted:Qty: 1 on 12/23/2023 by Talib Davis MD at [facility] Implant [id number] 10/12/2028 [id number] / [id number] / [id number] [facility] - [id number] - [id number] Implanted:Qty: 1 on 12/23/2023 by Talib Davis MD at [facility] Implant [employer] [id number] 4 11/08/2025 [id number] / [id number] / Cx Preconnect Ms 21cm Ps Iz - [id number] - [id number] Implanted:Qty: 1 on 12/23/2023 by Talib Davis MD at [facility] Implant [employer] [id number] 4 11/11/2025 [id number] / [id number] / [employer] Rear Tip Political Science Research Assistant 3cm Implanted:Qty: 1 on 12/23/2023 by Talib Davis MD at [facility] Implant [employer] Sift 10/06/2028 [id number] / [id number] / [id number] [employer] Rear Tip Political Science Research Assistant 2cm Implanted:Qty: 1 on 12/23/2023 by Talib Davis MD at [facility] Implant [employer] Sift 11/06/2028 [id number] / [id number] / [id number] Lead Solia S 53 Mri Lead - [id number] Implanted:Qty: 1 on 08/29/2020 by Mode Fong MD at [facility] [employer]-[id number] 07/15/2022 [id number] / [id number] / [id number] Lead Solia S 45 Mri Lead - [id number] Implanted:Qty: 1 on 08/29/2020 by Mode Fong MD at [facility] [employer]-[id number] 03/17/2022 [id number] / [id number] / [id number] Pacemaker Edora Mri Cond - [id number] Implanted:Qty: 1 on 08/29/2020 by Mode Fong MD at [facility] [employer]-[id number] 01/14/2022 [id number] / [id number] / [id number] Procedures Procedure Name Priority Date/Time Associated Diagnosis [...] RETINA - OU - BOTH EYES Routine 05/08/2024 10:37 AM EDT 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 type 2 diabetes mellitus ([facility]/HCC) HEMOGLOBIN A1C Routine 09/24/2023 2:50 PM EDT ED (erectile dysfunction) from Last 3 Months or Most Recently Relevant to Health Maintenance Results * Intravitreal Injection, Pharmacologic Agent - [...] 1.25 MG/0.05ML Route: Intravitreal, Site: Left Eye [facility]: 61629-219-53, Lot: [id number], Expiration date: 06/26/2024 Post-op Post injection exam [...] Barillas MD OPHTH TOMOGRAPHY Final Res ult * OCT, Retina - OU - Both Eyes (05/08/2024 10:37 AM EDT) Anatomical Region Laterality Modality Head Optical Coherenc e Tomography Narrative 05/08/2024 10:37 AM EDT Right Eye Quality was good. Scan locations included subfoveal. Findings include normal foveal contour, cystoid macular edema. Left Eye Quality was good. Scan locations included subfoveal. Findings include abnormal foveal contour, cystoid macular edema. us Ranjana Barillas MD OPHTH TOMOGRAPHY Final Res ult * (ABNORMAL) Hemoglobin A1c (09/24/2023 2:50 PM EDT) Hemoglobin A1c 8.3(H) <5.7 % 09/24/2023 6:17 PM EDT [facility] Blood Venous blood specimen / Unknown Venipuncture / Unknown 09/24/2023 2:50 PM EDT 09/24/2023 2:50 PM EDT Narrative [facility] - 09/24/2023 6:17 PM EDT HA1C Interpretive Data: Diagnosis of Diabetes: Diabetic > or = 6.5% Pre-diabetic 5.7 to 6.4% Non-diabetic < or = 5.6% Glycemic Targets for Type I and Type II Diabetics: Non- Adults <7.0% Adults <6.0% Children and Adolescents <7.5% Source: [place] [employer]. Standards of medical care in diabetes,2017. Diabetes Care.2017:40 (suppl 1):S1-S135. HbA1c assay performed by an ion-exchange chromatography method that is certified traceable to the DCCT. us Chelsea Luke MD LAB BLOOD ORDERABLES Final Re sult [facility] [address] [place] [address] from Last 3 Months or Most Recently Relevant to Health Maintenance Additional Health Concerns Infection Onset Date Last Indicated MRSA Comment: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 Source: [facility]. 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 Source: [facility]. 06/16/2022 Insurance 120Jai [facility] [place] [id number] [facility] MEDICAID Advance Directives * Full Code (Latest Code Status on File) Date Activated Date Inactivated Comments 09/03/2020 12:36 AM 09/09/2020 6:58 PM Question Answer Comments Patient has decision-making capacity? Yes * Full Code Date Activated Date Inactivated Comments 08/22/2020 7:02 PM 08/31/2020 4:59 PM Question Answer Comments Patient has decision-making capacity? Yes Care Teams Body Shop Estimator Relationship Specialty Start Date End Date Beth Lawson APRN [address] [place] [address] PCP - General 08/22/20 Jesu Aguilar MD [address] [facility] [address] [place] [address] Referring Physician 09/20/20 Talib Davis MD [id number] [place] [address] Consulting Physician Urology 02/07/24
--- OUTSIDE RECORDS SUMMARY | 2024-07-26 11:05 | XMS_ITS | Encounter Summary ---
Author Organization [facility] Address [address] [place] [address] Care Team Providers Care Sod Farmer Name Role Phone Beth Lawson APRN Primary Care Provider + [phone] Jesu Aguilar MD Unavailable [phone] Talib Davis MD Unavailable [phone] Encounter Details Date Type Department Care Team (Late st Contact Info) Description 03/23/2024 Ophth Exam [facility] [address] [place] [address] Ranjana Barillas MD [address] [address] Social History Tobacco Use Types Packs/Day Years Used Date Smoking Tobacco: Former Cigarettes 1 23 1 02/1996 - 12/2019 Passive Smoke Exposure: Never Smokeless Tobacco: Never Alcohol Use Standard Drinks/Week [...] Industry Job Start Date 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 Wish to be (Past 1 Month) No 03/23/2024 7:22 AM Roberto Ding, RN 2. Non-Specific Active Suici idris Thoughts (Past 1 Month) No 03/23/2024 7:22 AM Ronald Ding, RN 6. Suicidal Behavior (Lifetime) No 7:22 AM Roberto Ding, RN documented as of this encounter Plan of Treatment Upcoming Encounters Date Type Department Care Team (Late st Contact Info) Description 07/31/2024 12:30 PM EDT Consult [facility] Medicine Specialties [address] [place] [address] Pascual Aviles, INDUSTRIAL HIRE SALES ASSISTANT [address] [place] [address] 08/04/2024 10:00 AM EDT Procedure Visit [facility] [address] [place] [address] Ranjana Barillas MD [address] [place] [address] 08/16/2024 1:50 PM EDT Office Visit [facility] Urology [address] [place] [address] Dania Fatima, INDUSTRIAL HIRE SALES ASSISTANT, DNP [address] [place] [address] documented as of this encounter Visit Diagnoses Not on filedocumented in this encounter Additional Health Concerns Infection Onset Date Last Indicated Resolved Time MRSA Comment: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 Source: [facility]. 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 Source: [facility]. 06/16/2022 Assessment Noted Time A fall risk assessment has been complete d for the patient 02/07/2024 11:30 AM EST A Body Mass Index follow-up plan has been documented for the patient 02/29/2024 1:49 PM EST documented as of this encounter Care Teams Sod Farmer Relationship Specialty Start Date End Date Beth Lawson APRN [address] [place] [address] PCP - General 08/22/20 Jesu Aguilar MD [address] [id number] Referring Physician 09/20/20 Talib Davis MD [address] [address] Consulting Physician Urology 02/07/24 documented as of this encounter
--- OUTSIDE RECORDS SUMMARY | 2024-07-26 11:05 | XMS_ITS | Encounter Summary ---
Author Organization [facility] Address [address] 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 Not on file Not on file documented as of this encounter Plan of Treatment Upcoming Encounters Date Type Department Care Team (Late st Contact Info) Description 07/31/2024 12:30 PM EDT Consult [facility] Medicine Specialties [address] [place] [address] Pascual Aviles, DEPUTY ASSESSOR [address] [place] [address] 08/04/2024 10:00 AM EDT Procedure Visit [facility] [address] [place] [address] Ranjana Barillas MD [address] [place] [address] 08/16/2024 1:50 PM EDT Office Visit [facility] Urology [address] [place] [address] Dania Fatima, DEPUTY ASSESSOR, DNP [address] [place] [address] documented as of this encounter Visit Diagnoses Not on filedocumented in this encounter Additional Health Concerns Infection Onset Date Last Indicated Resolved Time MRSA Comment: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 Source: [employer] [facility]. 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 Source: [employer] [facility]. 06/16/2022 Assessment Noted Time A fall risk assessment has been complete d for the patient 05/08/2024 8:57 AM EDT A Body Mass Index follow-up plan has been documented for the patient 06/22/2024 11:40 AM EDT documented as of this encounter Care Teams Studio Producer Relationship Specialty Start Date End Date Beth Lawson APRN [address] [place] [address] PCP - General 08/22/20 Jesu Aguilar MD [address] [address] Referring Physician 09/20/20 Talib Davis MD [address] [place] [address] Consulting Physician Urology 02/07/24 documented as of this encounter
--- OUTSIDE RECORDS SUMMARY | 2024-07-26 11:05 | XMS_ITS | Data Portability ---
Author Organization [facility] & [facility] ADMIN Address [address] [place] [phone] Care Team Providers Care Latent Fingerprint Examiner Name Role Phone BAM SANFORD Business Employment Specialist JUVENAL KUHN Business Employment Specialist Assessment No assessment recorded. Plan of Treatment Reminders Order Date Submit Date Provider Last Modified By Organization Details Last Modified Time Details Appointments None recorded. Lab None recorded. Referral None recorded. Procedures nerve conduction study/EMG, upper extremity (PROC) 2023 024 [email or web address] Not available 13:35:01 Surgeries None recorded. Imaging None recorded. Medication Orders None recorded. Patient TargetsNo targets recorded. Patient InstructionsNo instructions recorded. Reason for Referral None Reported. Problems Name Problem SNOMED Code Status Onset Date Resolution Date Notes Provider Name and Address Organization Details Recorded Time Paresthesia of upper limb 18158063 Active 2023 Queenie Vinson DO [address], [place], [address] , [facility] & [place] 4 13:34:52 Problem Notes None recorded. Procedures Surgical History Date Name Laterality Status Provider Name and Address Organization Details Recorded Time EMG/ Nerve Conduction Study completed Queenie Vinson DO [address] , [place], [address], [facility] & [place] 03/04/2023 13:34:47 Imaging Results None recorded. Procedure Notes None recorded. Medical Equipment None Reported. Medications Name Sig Start Date Stop Date Status Note LastModified by Organization Details LastModified Time atorvastatin 80 mg tablet TAKE 1 TABLET BY MOUTH ONCE DAILY AT BEDTIME active Not Available Not Available No t Available carvedilol 6.25 mg tablet TAKE 1 TABLET BY MOUTH TWICE DAILY WITH FOOD/MEAL active Not Available Not Available No t Available trazodone 50 mg tablet TAKE 1 TABLET BY MOUTH ONCE DAILY AT BEDTIME NEEDED active Not Available Not Available No t Available hydrocodone 5 mg-acetamino phen 325 mg tablet TAKE 1 TABLET BY MOUTH EVERY 8 HOURS NEEDED FOR PAIN active Not Available Not Available No t Available minocycline 100 mg capsule TAKE 1 CAPSULE BY MOUTH TWICE DAILY, STOP THE BACTRIM active Not Available Not Available Not Available fluconazole 200 mg tablet TAKE 1 TABLET BY MOUTH ONCE DAILY FOR 7 DAYS active Not Available Not Available No t Available sulfamethoxa zole 800 mg-trimethop rim 160 mg tablet TAKE 1 TABLET BY MOUTH TWICE DAILY active Not Available Not Available No t Available carvedilol 3.125 mg tablet TAKE 1 TABLET BY MOUTH TWICE DAILY WITH A MEAL FOR HIGH BLOOD PRESSURE active Not Available Not Available No t Available oxycodone-ac etaminophen 5 mg-325 mg tablet TAKE 1 TABLET BY MOUTH EVERY 8 HOURS NEEDED FOR PAIN active Not Available Not Available No t Available methocarbamo l 750 mg tablet TAKE 1 TABLET BY MOUTH THREE TIMES DAILY active Not Available Not Available Not Available trazodone 100 mg tablet TAKE 1 TABLET BY MOUTH ONCE DAILY AT BEDTIME NEEDED active Not Available Not Available No t Available nystatin-tri amcinolone 100,000 unit/g-0.1 % topical cream APPLY CREAM TOPICALLY TO AFFECTED AREA TWICE DAILY DIRECTED active Not Available Not Available No t Available lisinopril 5 mg tablet TAKE 1 TABLET BY MOUTH ONCE DAILY active Not Available Not Available No t Available lisinopril 2.5 mg tablet TAKE 1 TABLET BY MOUTH ONCE DAILY FOR BLOOD PRESSURE FOR 90 DAYS active Not Available Not Available Not Available oxycodone 5 mg tablet TAKE 1 TABLET BY MOUTH EVERY 8 HOURS NEEDED FOR PAIN active Not Available Not Available No t Available tadalafil 20 mg tablet TAKE 1 TABLET BY MOUTH EVERY 36 HOURS NEEDED active Not Available Not Available No t Available Januvia 100 mg tablet TAKE 1 TABLET BY MOUTH ONCE DAILY FOR DIABETES active Not Available Not Available No t Available Humalog Mix 75-25 KwikPen U-100 insulin 100 unit/mL subcutaneous pen INJECT 20 UNITS SUBCUTANEOU SLY TWICE DAILY active Not Available Not Available No t Available Jardiance 10 mg tablet TAKE 1 TABLET BY MOUTH ONCE DAILY active Not Available Not Available No t Available Dexcom G6 Sensor device active Not Available Not Available Not Available Dexcom G6 Transmitter device active Not Available Not Available Not Available BD Renee 2nd Gen Pen Needle 32 gauge x USE DIRECTED active Not Available Not Available No t Available Vitals Date Recorded Body height Body mass index (BMI) Body weight Heart rate Systolic blood pressure Diastolic blood pressure Provider Name and Address Organization Details Last Updated DateTime 4 180.34 cm 30.8 kg/m2 958923. 91 g 94 /min 155 mm[Hg] 80 mm[Hg] Kim Cisneros [place] - [place] [facility] [place] 4 13:08:22 Social History None recorded. Functional Status None recorded. Mental Status None recorded. Family History Nothing Reported. Medical History No medical history recorded. Past Encounters Encounter ID Performer Location Encounter Start Date Encounter Closed Date Diagnosis/Indication Diagnosis SNOMED-CT Code Diagnosis ICD10 Code Diagnosis Note [id number] Queenie Vinson DO [facility] [address] [facility],[address] [place] [address] 03/04/2023 13:00:53 03/04/2023 13:51:00 Paresthesia of upper limb 30037216 R20.2 Health Concerns Section Related Observation LastModified by Organization Detai ls LastModified Time None Recorded Concern Status LastModified by Organization Details LastModified Time None Recorded Advance Directives Directive None Recorded Payers Insurance Date Sequence Insurance Name Policy Number Policy Cadet Covered Member ID Cadet Member ID Guarantor Name 09/04/2023 [employer] [id number] Yo Garcia 11/23/2023 STRATEGIC COMP Yo Garcia
--- OUTSIDE RECORDS SUMMARY | 2024-07-26 11:05 | XMS_ITS | Encounter Summary ---
Author Organization [facility] Address [address] [place] [address] Care Team Providers Care [employer] Counterperson Name Role Phone Renny Beth Lerma APRN Primary Care Provider [phone]- [phone] Jesu Aguilar MD Unavailable [phone] Talib Davis MD Unavailable [phone] Encounter Details Date Type Department Care Team (Late st Contact Info) Description 09/12/2023 Ophth Exam [facility] [address] [place] [phone] Tim Holcomb MD [address] [place] [address] Social History Tobacco Use Types Packs/Day Years Used Date Smoking Tobacco: Former Cigarettes 1 23 1 02/1996 - 12/2019 Smokeless Tobacco: Never Alcohol Use Standard Drinks/Week Comments Never 0 (1 standard drink = 0.6 oz pur e alcohol) Sex and Gender Information Value Date Recorded Sex Assigned at Male 08/22/2020 7:33 PM EDT Legal Sex Male 8:06 PM EDT Gender Identity Male 08/22/2020 7:33 PM EDT Sexual Orientation Straight 08/22/2020 7: 33 PM EDT 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 Not on file Not on file Not on file documented as of this encounter Plan of Treatment Upcoming Encounters Date Type Department Care Team (Late st Contact Info) Description 07/31/2024 12:30 PM EDT Consult [facility] Medicine Specialties [address] [place] [address] Pascual Aviles, [employer] HOU[employer] SUPERVISOR [address] [facility] [address] [place] [address] 08/04/2024 10:00 AM EDT Procedure Visit [facility] [address] [place] [address] Ranjana Barillas MD [address] [place] [address] 08/16/2024 1:50 PM EDT Office Visit [facility] [address] [place] [address] Dania Fatima, [employer] SUPERVISOR, DNP [address] [facility] [address] [place] [address] documented as of this encounter Visit Diagnoses Not on filedocumented in this encounter Additional Health Concerns Infection Onset Date Last Indicated Resolved Time MRSA Comment: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 Source: [facility]. 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 Source: [facility]. 06/16/2022 Assessment Noted Time A fall risk assessment has been complete d for the patient 11/20/2021 8:57 AM EDT documented as of this encounter Care Teams [employer] Counterperson Relationship Specialty Start Date End Date Beth Lawson, [employer] SUPERVISOR [address] [place] [address] PCP - General 08/22/20 Jesu Aguilar MD [address] [address] Referring Physician 09/20/20 Talib Davis MD [address] [facility] [address] [place] [address] Consulting Physician Urology 02/07/24 documented as of this encounter
== END 2024-07-25 23:59 | disposition home or self-care (01) ==
LOC: LAB.DROPOF 07-26 10:58
PROVIDERS: PCP Nurse Practitioner Family; Visit Provider Nurse Practitioner Family
DX: E11.9 Type 2 diabetes mellitus without complications (principal)
CPT/HCPCS: 80053

== ENCOUNTER 2024-09-05 14:39 | Outpatient (CLI) | payer OTHER, SELFPAY ==
--- OUTSIDE RECORDS SUMMARY | 2024-07-31 12:30 | XMS_ITS | Encounter Summary ---
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 meals. 60 tablet 11 QUEtiapine (SEROquel) 25 MG tablet TAKE 1 TABLET BY MOUTH AT BEDTIME NIGHTLY rOPINIRole (Requip) 0.25 MG tablet TAKE 1 TABLET BY MOUTH AT BEDTIME NIGHTLY ADMINISTER 1-3HRS BEFORE BEDTIME Rybelsus 14 MG tablet Take 14 mg by mouth daily. semaglutide (Rybelsus) 7 MG tablet Take 7 mg by mouth 1 (one) time each day before breakfast. SURE COMFORT INS SYR 1CC/29G 29G X 1/2 1 ML misc use as directed oxyCODONE (Roxicodone) 5 MG immediate release tablet Take 1 tablet (5 mg) by mouth every 6 (six) hours if needed for severe pain for up to 5 doses. (Patient not taking: Reported on 07/31/2024) 5 tablet 0 No current facility-administered medications for this visit. documented in this encounter Plan of Treatment Upcoming Encounters Date Type Department Care Team (Late st Contact Info) Description 09/12/2024 10:00 AM EDT Office Visit [facility] [address] [place] [address] Ranjana Barillas MD [address] [place] [address] 10/30/2024 11:20 AM EDT Office Visit [facility] Medicine Specialties [address] [place] [address] Smiley Vincent PA [address] [place] [address] Scheduled Referrals Name Type Priority Associated Diagnoses Orde r Schedule Gastroenterology Outpatient Referral Routine Diarrhea, unspecified type 1 Occurrences starting 07/31/2024 until 02/01/2026 documented as of this encounter Results * Thyroid Peroxidase Antibody (07/31/2024 1:09 PM EDT) [facility] Thyroid Peroxidase Antibody <5 <=8 IU/mL 07/31/2024 3:36 PM EDT [facility] Blood Venous blood specimen / Unknown Venipuncture / Unknown 07/31/2024 1:09 PM EDT 07/31/2024 1:11 PM EDT us Pascual Aviles APRN LAB BLOOD ORDERABLES Final Res ult [facility] [address] [place] [address] * Karel (BENOIT) Antibody, IgG (07/31/2024 1:09 PM EDT) Vinson (BENOIT) Antibody, IgG 2 0 - 40 AU/mL 08/02/2024 1:27 PM EDT [facility] ([facility]) Serum 07/31/2024 1:09 PM EDT 07/31/2024 1:11 PM EDT Narrative [facility] ([facility]) - 08/02/2024 1:27 PM EDT INTERPRETIVE INFORMATION: Vinson (BEONIT) Antibody, IgG 29 AU/mL or Less ............. Negative 30 - 40 AU/mL ................ Equivocal 41 AU/mL or Greater .......... Positive Vinson antibody is highly specific (greater than 90 percent) for systemic lupus erythematosus (SLE) but only occurs in 30-35 percent of SLE cases. The presence of antibodies to Vinson has variable associations with SLE clinical manifestations. Performed By: Graine de Cadeaux [address] [place], [place] [id number] Cuff Cutter: Ivan Ahuja MD, PhD CLIA Number: [id number] Pascual Aviles MEDICAL VOUCHER CLERK LAB REF LAB BLOOD AND FLUID OR D Final Result [facility]) [address] [place], [place] [id number] * ENAII (07/31/2024 1:09 PM EDT) SSA-52 (RO52) (BENOIT) Antibody, IgG 2 0 - 40 AU/mL 08/02/2024 1:28 PM EDT [facility] ([facility]) SSA-60 (RO60) (BENOIT) Antibody, IgG 0 0 - 40 AU/mL 08/02/2024 1:28 PM EDT [facility] ([facility]) SSB (LA) (BENOIT) Antibody, IgG 0 0 - 40 AU/mL 08/02/2024 1:28 PM EDT [facility] ([facility]) Blood Venous blood specimen / Unknown Venipuncture / Unknown 07/31/2024 1:09 PM EDT 07/31/2024 1:11 PM EDT Narrative [facility] ([facility]) - 08/02/2024 1:28 PM EDT INTERPRETIVE INFORMATION: SSA-52 (Ro52) (BENOIT) Antibody, IgG 29 AU/mL or Less ............. Negative 30 - 40 AU/mL ................ Equivocal 41 AU/mL or Greater .......... Positive SSA-52 (Ro52) and/or SSA-60 (Ro60) antibodies are associated with a diagnosis of Sjogren syndrome, systemic lupus erythematosus (SLE), and systemic sclerosis. SSA-52 antibody overlaps significantly with the major SSc-related antibodies. SSA-52 (Ro52) antibody occurs frequently in patients with inflammatory myopathies, often in the presence of interstitial lung disease. REFERENCE INTERVAL: SSA-60 (Ro60) (BENOIT) Antibody, IgG 29 AU/mL or Less ............. Negative 30 - 40 AU/mL ................ Equivocal 41 AU/mL or Greater .......... Positive INTERPRETIVE INFORMATION: SSB (La) (BENOIT) Ab, IgG 29 AU/mL or Less ............. Negative 30 - 40 AU/mL ................ Equivocal 41 AU/mL or Greater .......... Positive SSB (La) antibody is seen in 50-60% of Sjogren syndrome cases and is specific if it is the only BENOIT antibody present. 15-25% of patients with systemic lupus erythematosus (SLE) and 5-10% of patients with progressive systemic sclerosis (PSS) also have this antibody. Performed By: Graine de Cadeaux [address] [place] [id number] Cuff Cutter: Ivan Ahuja MD, PhD CLIA Number: [id number] Pascual Aviles APRN LAB BLOOD ORDERABLES Final Res ult [facility] [employer] ([facility]) [address] [place] [address] * ENAI (07/31/2024 1:09 PM EDT) Vinson/CORROSION PREVENTION METAL SPRAYER (BENOIT) Ab, IgG 3 0 - 19 Units 08/03/2024 6:32 AM EDT [facility] ([facility]) Blood Venous blood specimen / Unknown Venipuncture / Unknown 07/31/2024 1:09 PM EDT 07/31/2024 1:11 PM EDT Narrative [facility] ([facility]) - 08/03/2024 6:32 AM EDT INTERPRETIVE INFORMATION: Vinson/CORROSION PREVENTION METAL SPRAYER (BENOIT) Antibody, IgG 19 Units or Less ............. Negative 20 to 39 Units ............... Weak Positive 40 to 80 Units ............... Moderate Positive 81 Units or greater .......... Strong Positive Vinson/CORROSION PREVENTION METAL SPRAYER antibodies are frequently seen in patients with mixed connective tissue disease (MCTD) and are also associated with other systemic autoimmune rheumatic diseases (SARDs) such as systemic lupus erythematosus (SLE), systemic sclerosis, and myositis. Antibodies targeting the Vinson/CORROSION PREVENTION METAL SPRAYER antigenic complex also recognize Vinson antigens, therefore, the Vinson antibody response must be considered when interpreting these results. Performed By: Graine de Cadeaux [address] [place] [address] Cuff Cutter: Ivan Ahuja MD, PhD CLIA Number: [id number] Pascual Aviles APRN LAB BLOOD ORDERABLES Final Res ult [facility] [employer]) [address] [place] [address] * C4 Complement (07/31/2024 1:09 PM EDT) C4 Complement 32 13 - 36 mg/dL 07/31/2024 2:46 PM EDT [facility] Blood Venous blood specimen / Unknown Venipuncture / Unknown 07/31/2024 1:09 PM EDT 07/31/2024 1:11 PM EDT Pascual Aviles MEDICAL VOUCHER CLERK LAB BLOOD ORDERABLES Final Res ult [facility] [address] [place] [address] * C3 Complement (07/31/2024 1:09 PM EDT) Pathologist [facility] C3 Complement 129 84 - 166 mg/dL 07/31/2024 2:[address] [facility] Blood Venous blood specimen / Unknown Venipuncture / Unknown 07/31/2024 1:09 PM EDT 07/31/2024 1:11 PM EDT Pascual Aviles MEDICAL VOUCHER CLERK LAB BLOOD ORDERABLES Final Res ult Performing Organization Address [facility]/ZIP Co de Phone Number [facility] [address] [place] [address] * Double-Stranded DNA (dsDNA) Antibody, IgG by IFA (07/31/2024 1:09 PM EDT) Pathologist [facility] Double-Strande d DNA (dsDNA) Ab IgG IFA <1:10 <1:10 08/03/2024 7:54 AM EDT [facility] ([facility]) Blood Venous blood specimen / Unknown Venipuncture / Unknown 07/31/2024 1:09 PM EDT 07/31/2024 1:11 PM EDT Narrative [facility] ([facility]) - 08/03/2024 7:54 AM EDT INTERPRETIVE INFORMATION: Double-Stranded DNA (dsDNA) Antibody, IgG by IFA (using Crithidia luciliae) Positivity for anti-double stranded DNA (anti-dsDNA) IgG antibody is a diagnostic criterion of systemic lupus erythematosus (SLE). The presence of the anti-dsDNA IgG antibody is identified by IFA titer (Crithidia luciliae indirect fluorescent test [GAURAV]). GAURAV is highly specific for SLE with a sensitivity of 50-60 percent. Some patients with early or inactive SLE may be positive for anti-dsDNA IgG by MADAY but negative by GAURAV. If the GAURAV result is negative but the patient has a positive MADAY and clinical suspicion remains, consider antinuclear antibody (CHATA) testing by IFA. Additional information and recommendations for testing may be found at [email or web address]. Performed By: Graine de Cadeaux [address] [place] [address] Cuff Cutter: Ivan Ahuja MD, PhD CLIA Number: [id number] Pascual Aviles MEDICAL VOUCHER CLERK LAB BLOOD ORDERABLES Final Res ult [facility] ([employer]) [address] [place] [address] * Antinuclear Antibody (CHATA), HEp-2, IgG (07/31/2024 1:09 PM EDT) CHATA INTERPRETIVE COMMENT See Note 08/02/2024 2:35 PM EDT [facility] ([employer]) Anti Nuc Ab Screen <1:80 <1:80 08/02/2024 2:35 PM EDT [facility] ([employer]) Blood Venous blood specimen / Unknown Venipuncture / Unknown 07/31/2024 1:09 PM EDT 07/31/2024 1:11 PM EDT Narrative [facility] ([employer]) - 08/02/2024 2:35 PM EDT Antinuclear antibodies by IFA negative for homogeneous, speckled, nucleolar, centromere, and nuclear dots patterns. Cytoplasmic antibodies by IFA negative for reticular/AMA, discrete/GW body-like, polar/golgi-like, rods and rings, and cytoplasmic speckled patterns. INTERPRETIVE INFORMATION: CHATA Interpretive Comment Presence of antinuclear antibodies (CHATA) is a hallmark feature of systemic autoimmune rheumatic diseases (SARD). However, CHATA lacks diagnostic specificity and is associated with a variety of diseases (cancers, autoimmune, infectious, and inflammatory conditions) and may also occur in healthy individuals in varying prevalence. The lack of diagnostic specificity requires confirmation of positive CHATA by more specific serologic tests. CHATA (nuclear reactivity) positive patterns reported include centromere, homogeneous, nuclear dots, nucleolar, or speckled. CHATA (cytoplasmic reactivity) positive patterns reported include reticular/AMA, discrete/GW body-like, polar/golgi-like, cytoplasmic speckled or rods and rings. All positive patterns are reported to endpoint titers (1:2560). Reported patterns may help guide differential diagnosis, although they may not be specific for individual antibodies or diseases. Mitotic staining patterns not reported. Negative results do not necessarily rule out SARD. Performed By: Graine de Cadeaux [address] [place] [address] Cuff Cutter: Ivan Ahuja MD, PhD CLIA Number: [id number] Pascual Leblancellis MEDICAL VOUCHER CLERK LAB BLOOD ORDERABLES Final Res ult Performing Organization Address City/[facility]/ZIP Co de Phone Number [facility] ([facility]) [address] [place] [address] * Rheumatoid Factor, Plasma (07/31/2024 1:09 PM EDT) Rheumatoid Factor, Plasma <10 <14 IU/mL 07/31/2024 2:50 PM EDT [facility] Blood Venous blood specimen / Unknown Venipuncture / Unknown 07/31/2024 1:09 PM EDT 07/31/2024 1:11 PM EDT Pascual Deena ellis [facility] LAB BLOOD ORDERABLES Final Res ult Performing Organization Address City/[facility]/ZIP Co de Phone Number [facility] [address] [place] [address] * Cyclic Citrul Peptide Antibody IgG (07/31/2024 1:09 PM EDT) Cyclic Citrul Peptide Antibody IgG <5.0 <=5.0 U/mL 07/31/2024 4:06 PM EDT [facility] Blood Venous blood specimen / Unknown Venipuncture / Unknown 07/31/2024 1:09 PM EDT 07/31/2024 1:11 PM EDT [employer] [facility] LAB BLOOD ORDERABLES Final Res ult [facility] [address] [place] [address] * Sedimentation Rate, Automated (07/31/2024 1:09 PM EDT) Sedimentation Rate 9 <20 mm/hr 2024 3:08 PM EDT [facility] Blood Venous blood specimen / Unknown Venipuncture / Unknown 07/31/2024 1:09 PM EDT 07/31/2024 1:11 PM EDT Result [facility] Pascual Shaffer Traci ROBERSON LAB BLOOD ORDERABLES Final Res ult Performing Organization Address [facility] Co de Phone Number [facility] [address] [place] [address] * C-Reactive Protein, Plasma (07/31/2024 1:09 PM EDT) CRP, Plasma <3.0 <=8.0 mg/L 07/31/2024 2:50 PM EDT [facility] Blood Venous blood specimen / Unknown Venipuncture / Unknown 07/31/2024 1:09 PM EDT 07/31/2024 1:11 PM EDT Narrative [facility] - 07/31/2024 2:50 PM EDT This CRP test is appropriate for assessment of infection, systemic inflammation and/or tissue injury. To assess cardiovascular disease risk order high sensitivity CRP (CRPH). Result [facility] Pascual Shaffer Traci ROBERSON LAB BLOOD ORDERABLES Final Res ult Performing Organization Address [facility] Co or Phone Number [facility] [address] [place] [address] * Protein, Random, Urine with Creatinine (07/31/2024 1:05 PM EDT) Protein, Urine 116 mg/dL 07/31/2024 2:56 PM EDT [facility] Creatinine, Urine 165 mg/dL 07/31/2024 2:56 PM EDT [facility] Protein/Creatin ine Ratio 0.7 mg/mg Creat 07/31/2024 2:56 PM EDT [facility] Urine Urine specimen obtained by clean catch procedure / Unknown Non-blood Collection / Unknown 07/31/2024 1:05 PM EDT 07/31/2024 1:05 PM EDT Result [facility] Pascual Shaffer Traci RAMIREZN LAB URINE ORDERABLES Final Res ult [facility] [address] [place] [address] documented in this encounter Visit Diagnoses Diagnosis Chronic bilateral back pain, unspecified back location- Primary CHATA positive Diarrhea, unspecified type documented in this encounter Additional Health Concerns Infection Onset Date Last Indicated Resolved Time MRSA Comment: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 Source: [employer] [facility]. 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 Source: [employer] [facility]. 06/16/2022 Assessment Noted Time A fall risk assessment has been complete d for the patient 07/31/2024 12:16 PM EDT A Body Mass Index follow-up plan has been documented for the patient 07/31/2024 12:55 PM EDT documented as of this encounter Care Teams Brokerage Branch Manager Relationship Specialty Start Date End Date Beth Lawson APRN [address] [place] [address] PCP - General 08/22/20 Jesu Aguilar MD [address] [address] Referring Physician 09/20/20 Talib Davis MD [address] [place] [address] Consulting Physician Urology 02/07/24 documented as of this encounter
--- OUTSIDE RECORDS SUMMARY | 2024-08-04 07:35 | XMS_ITS | Encounter Summary ---
Author Organization [facility] Address [address] 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 Not on file Not on file Not on file documented as of this encounter Plan of Treatment Upcoming Encounters Date Type Department Care Team (Late st Contact Info) Description 09/12/2024 10:00 AM EDT Office Visit [facility] [address] [place] [address] Ranjana Barillas MD [address] [place] [address] 10/30/2024 11:20 AM EDT Office Visit [facility] Medicine Specialties [address] [place] [address] Smiley Vincent PA [address] [place] [address] documented as of this encounter Procedures Procedure Name Priority Date/Time Associated Diagnosis Comments OCT, RETINA - OU - BOTH EYES Routine 08/04/2024 10:27 AM EDT 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 type 2 diabetes mellitus documented in this encounter Results * OCT, Retina - OU - Both Eyes (08/04/2024 10:27 AM EDT) Anatomical Region Laterality Modality Head Optical Coherenc e Tomography Narrative 08/04/2024 10:27 AM EDT Right Eye Quality was good. Scan locations included subfoveal. Progression has worsened. Findings include normal foveal contour, cystoid macular edema. Left Eye Quality was good. Scan locations included subfoveal. Progression has been stable. Findings include abnormal foveal contour, cystoid macular edema, vitreous traction. Notes DME both eyes (OU) improved but VH left eye (OS) worse us Ranjana Barillas MD OPHTH TOMOGRAPHY Final Res ult documented in this encounter Visit Diagnoses Not on filedocumented in this encounter Additional Health Concerns Infection Onset Date Last Indicated Resolved Time MRSA Comment: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 Source: [employer]. 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 Source: [facility]. 06/16/2022 Assessment Noted Time A fall risk assessment has been complete d for the patient 08/04/2024 9:51 AM EDT A Body Mass Index follow-up plan has been documented for the patient 08/04/2024 10:53 AM EDT documented as of this encounter Care Teams Plastics Scientist Relationship Specialty Start Date End Date Beth Lawson APRN [address] [place] [address] PCP - General 08/22/20 Jesu Aguilar MD [address] [id number] Referring Physician 09/20/20 Talib Davis MD [id number] [place] [address] Consulting Physician Urology 02/07/24 documented as of this encounter
--- OUTSIDE RECORDS SUMMARY | 2024-08-04 07:35 | XMS_ITS | Encounter Summary ---
Author Organization [facility] Address [address] [place] [address] Care Team Providers Care Metal Flooring Installer Name Role Phone Beth Lawson APRN Primary Care Provider [phone]- [phone] Jesu Aguilar MD Unavailable [phone] Talib Davis MD Unavailable [phone] Encounter Details Date Type Department Care Team (Late st Contact Info) Description 08/04/2024 7:35 AM EDT Ancillary Procedure [facility] [address] [place] [address] Social History Tobacco Use Types [...] Description 09/12/2024 10:00 AM EDT Office Visit [facility] [address] [place] [address] Ranjana Barillas MD [address] [place] [address] 10/30/2024 11:20 AM EDT Office Visit [facility] Medicine Specialties [address] [place] [address] Smiley Vincent PA [address] [place] [address] documented as of this encounter Procedures Procedure Name Priority Date/Time Associated Diagnosis Comments WIDE FIELD COLOR FUNDUS PHOTOGRAPHY - OU - BOTH EYES Routine 08/04/2024 10:28 AM EDT 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 Source: [employer]. 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 Source: [employer] [facility]. 06/16/2022 Assessment Noted Time A fall risk assessment has been complete d for the patient 08/04/2024 9:51 AM EDT A Body Mass Index follow-up plan has been documented for the patient 08/04/2024 10:53 AM EDT documented as of this encounter Care Teams Metal Flooring Installer Relationship Specialty Start Date End Date Beth Lawson APRN [address] [place] [address] PCP - General 08/22/20 Jesu Aguilar MD [address] [place] [address] Referring Physician 09/20/20 Talib Davis MD [address] [address] Consulting Physician Urology 02/07/24 documented as of this encounter
--- OUTSIDE RECORDS SUMMARY | 2024-08-04 10:00 | XMS_ITS | Encounter Summary ---
Author Organization [facility] Address [address] [place] [address] Care Team Providers Care Historic Sites Registrar Name Role Phone Beth Lawson APRN Primary Care Provider +- [phone] Jesu Aguilar MD Unavailable [phone] Talib Davis MD Unavailable [phone] Reason for Referral * Clinic-Administered Medication (Routine) - Authorized Specialty Diagnoses / Procedures Referred By Contac t Referred To Contact Diagnoses 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 type 2 diabetes mellitus Procedures IN BEVACIZUMAB INJECTION Ranjana Barillas MD [address] [address] Phone: tel: fax: Referral ID Status Reason Start Date Expiration Date V isits Requested Visits Authorized [id number] Authorized 08/04/2024 02/03/2026 1 1 Reason for Visit * Reason Comments Follow-up Encounter Details Date Type Department Care Team (Latest Contact Info) Description 08/04/2024 10:00 AM EDT Procedure Visit [facility] [address] [place] [address] Ranjana Barillas MD [address] [address] Vitreous hemorrhage of left eye (CMS/HCC) (Primary Dx); 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 type 2 diabetes mellitus; Pseudophakia of both eyes Social History Tobacco Use Types Packs/Day Years [...] Industry Job Start Date Job End Date 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 Most patients experience some blurred vision, floaters, and itching or mild discomfort followingan injection. This typically lasts a few days or less and is normal. 2. If you experience increased levels of eye pain and discomfort, significant decreased vision, flashes of light, increased redness, sensitivity to light, fever or other unexpected symptoms , please contact us immediately. 3. Tylenol or Motrin or Aleve may be taken for a headache after the injection. 4. Avoid rubbing your eyes. 5. You can use artificial tears (Refresh or Systane are brand names) as needed for irritation 6. Always wash your hands prior to putting in eye drops. Call or return to clinic with sudden vision changes including worsening blurring, distortions, or significant flashes or floaters. Consider going to the emergency room if you are unable to reach the clinic on the phone. Call [phone] and ask for the ground products director electronic court recorder if it is after hours or a weekend or holiday. * Progress Notes - Ranjana Barillas MD - 08/04/2024 10:00 AM EDT PMH: Type II diabetes mellitus (DM), HTN, HLD, CAD, right bundle branch block, FERNANDO Insulin dependent Type II Diabetes Mellitus with proliferative diabetic retinopathy, both eyes - +HTN, +HLD, CAD and arrhythmia, denies CKD, WA, history of CVA, no history of SS dz or trait Lab Results Component Value Date HGBA1C 8.3 (H) 09/24/2023 - Stressed blood sugar and blood pressure control and close follow-up with PCP/librarian head. - Advised of importance in blood sugar and blood pressure control in reducing risk of vision loss. - Advised of importance of scheduled eye exams with sooner follow-up if any new symptoms develop. - Right eye with non-CSME - OCT with noncentral edema slightly worse - No prior injections - S/p PRP 11/23/23 poorly tolerated 297 spots - S/p EUA/PRP both eyes 03-23-24 - Plan: NV improving, continue to monitor non CSME - VA still ok - Left eye with Vitreous hemorrhage 08/2023 and non-CSME - VH onset 08/2023 - S/p EUA/PRP 03-23-24 - Had worsening VH after PRP so repeated JOYCE last 06/22/24 (6 weeks) - OCT still with vitreous (vit) opacities, traction at disc, non-central DME - Persistent VH - discussed at length regarding indication for PPV/EL/AFx but he prefers continued injections next 2-3 months. Reassess 10/2024 unless worsening sooner - Plan: JOYCE OS and return 1 month for JOYCE vs PRP if view improved Pseudophakia both eyes - Stable, observe Ranjana Barillas MD Dessert Cup Machine Feeder of Ophthalmology Vitreoretinal Surgery Tobacco Cessation: Tobacco Use: Medium Risk (08/04/2024) Patient History Smoking Tobacco Use: Former Smokeless Tobacco Use: Never Passive Exposure: Past The patient has been counseled on tobacco cessation: Not Applicable documented in this encounter Plan of Treatment Upcoming Encounters Date Type Department Care Team (Late st Contact Info) Description 09/12/2024 10:00 AM EDT Office Visit [facility] [address] [place] [address] Ranjana Barillas MD [address] [place] [address] 10/30/2024 11:20 AM EDT Office Visit [facility] Medicine Specialties [address] [place] [address] Smiley Vincent PA [address] [place] [address] documented as of this encounter Procedures Procedure Name Priority Date/Time Associated Diagnosis Comments INTRAVITREAL INJECTION, PHARMACOLOGIC AGENT - OS - LEFT EYE Routine 08/04/2024 11:06 AM EDT 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 type 2 diabetes mellitus WIDE FIELD COLOR FUNDUS PHOTOGRAPHY - OU [...] documented in this encounter Results * Intravitreal Drug Injection - OS - Left Eye (08/04/2024 11:06 AM EDT) Anatomical Region Laterality Modality Head Other Narrative 08/04/2024 11:06 AM EDT Time Out 08/04/2024. 11:06 AM. Confirmed correct patient, procedure, site, and patient consented. Anesthesia Topical anesthesia was used. Anesthetic medications included Tetracaine 0.5%. Procedure Preparation included 5% betadine to ocular surface. A 27 gauge needle was used. Injection: 1.25 mg Bevacizumab 2.75 MG/0.11ML Route: Intravitreal, Site: Left Eye [facility]: 61343-198-95, Lot: [id number], Expiration date: 08/14/2024 Post-op Post injection exam found visual acuity of at least counting fingers. The patient tolerated the procedure well. There were no complications. The patient received written and verbal post procedure care education. Post injection medications were not given. 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 type 2 diabetes mellitus Pseudophakia of both eyes Lens replaced by other means documented in this encounter Administered Medications Inactive Administered Medications - up to 3 most recent administrations Medication Order MAR Action Action Date Dose Rate Site Bevacizumab 1.25 mg 1.25 mg, Intravitreal, Once PRN Procedure, 1 dose, Starting on Wed08/04/24 at 1106, Until Wed08/04/24 at 1106, RoutineIndications:Proliferati ve diabetic retinopathy of both eyes with macular edema associated with type 2 diabetes mellitus Given 08/04/2024 11:06 AM EDT 1.25 mg Left Eye documented in this encounter Additional Health Concerns Infection Onset Date Last Indicated Resolved Time MRSA Comment: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 Source: [facility]. 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 Source: [facility]. 06/16/2022 Assessment Noted Time A fall risk assessment has been complete d for the patient 08/04/2024 9:51 AM EDT A Body Mass Index follow-up plan has been documented for the patient 08/04/2024 10:53 AM EDT documented as of this encounter Care Teams Historic Sites Registrar Relationship Specialty Start Date End Date Beth Lawson APRN [address] [place] [address] PCP - General 08/22/20 Jesu Aguilar MD [address] [address] Referring Physician 09/20/20 Talib Davis MD [address] [address] Consulting Physician Urology 02/07/24 documented as of this encounter
--- OUTSIDE RECORDS SUMMARY | 2024-08-16 13:50 | XMS_ITS | Encounter Summary ---
Author Organization [facility] Address [address] 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 08/29/[address] Model # [id number] Serial # [id number] CATARACT EXTRACTION, BILATERAL Bilateral 2019 CHOLECYSTECTOMY CORONARY [...] Description 09/12/2024 10:00 AM EDT Office Visit [facility] [address] [facility] [place] [address] Ranjana Barillas MD [address] [facility] [address] [place] [address] 10/30/2024 11:20 AM EDT Office Visit [facility] Medicine Specialties [address] [place] [address] Smiley Vincent PA [address] [place] [address] documented as of this encounter Visit Diagnoses Diagnosis Other male erectile dysfunction- Primary documented in this encounter Additional Health Concerns Infection Onset Date Last Indicated Resolved Time MRSA Comment: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 Source: [employer]. 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 Source: [employer]. 06/16/2022 Assessment Noted Time A fall risk assessment has been complete d for the patient 08/16/2024 1:24 PM EDT A Body Mass Index follow-up plan has been documented for the patient 08/16/2024 3:02 PM EDT documented as of this encounter Care Teams Feller Operator Relationship Specialty Start Date End Date Beth Lawson APRN [address] [place] [address] PCP - General 08/22/20 Jesu Aguilar MD [address] [place] [address] Referring Physician 09/20/20 Talib Davis MD [address] [address] Consulting Physician Urology 02/07/24 documented as of this encounter
[2024-09-05 18:29] LABS: Hemoglobin A1C 7.7 % (4.0-6.0)
[2024-09-05 19:00] LABS: Alanine Aminotransferase 38 U/L (12-78); Albumin Level 4.2 g/dl (3.5-5.0); Albumin/Globulin Ratio 1.9 (1.1-1.8); Alkaline Phosphatase 90 U/L (38-126); Anion Gap 10.5 mEq/L (5-15); Aspartate Amino Transferase 49 U/L (17-59); Bilirubin,Total 1.2 mg/dl (0.2-1.3); Blood Urea Nitrogen 24 mg/dl (9-20); Calcium 10.3 mg/dl (8.4-10.2); Carbon Dioxide 31 mmol/L (22.0-30.0); Chloride 104 mmol/L (98-107); Cholesterol 107 mg/dl (140-200); Creatinine,Serum 1.20 mg/dl (0.66-1.25); Estimated Glomerular Filt Rate 64 ml/min (>60); GFR (African American) 78 ML/MIN (>60); Globulin 2.2 g/dL (1.3-3.2); Glucose 141 mg/dl (74-100); HDL Cholesterol 43 mg/dl (40-60); Magnesium 1.7 mg/dl (1.6-2.3); Potassium 5.5 mmoL/L (3.5-5.1); Sodium 140 mmol/L (136-145); Total Protein,Serum 6.4 g/dl (6.3-8.2); Triglycerides 103 mg/dl (30-150)
[2024-09-05 19:30] LABS: Thyroid Stimulating Hormone 3.82 uIU/mL (0.465-4.68)
--- OUTSIDE RECORDS SUMMARY | 2024-09-06 11:46 | XMS_ITS | Clinical Summary ---
Author Organization [facility] Address [address] [place] [address] Phone Care Team Providers Care Door Machine Operator Name Role Phone Janis Rodriguez Unavailable Unavailable Conditions or Problems Problem Name Problem Code Onset Date Status Entry Date Provider Comment Standard Description Annotate Sepsis 23809339 (SNOMED CT) 06/16 Active 06/17 Rito Javed [...] and gangrene, with abscess Cellulitis, abdominal wall 62318082 (SNOMED CT) 06/15 Active 06/15 Queenie Herberth Cellulitis of abdominal wall Infection, local skin/subcutan eous tissue 006280543 (SNOMED CT) 06/15 Active 06/15 Queenie Herberth Localized infection of skin AND/OR subcutaneous tissue 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 ) 06/15 Active 06/15 Queenie Herberth Leukemoid reaction Presence of cardiac pacemaker 860082558 (SNOMED CT) 06/15 Active 06/15 Queenie Herberth Cardiac pacemaker in situ DM Type II E11.9 (ICD-10-CM ) 06/15 Active 06/15 Queenie Herberth Type 2 diabetes mellitus without complications Coronary artery disease, S/P CABG 981200867 (SNOMED CT) 06/15 Active 06/15 Queenie Kevin 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 (I50.22) 596608900 ([facility] CT) 06/15 Active 06/15 Queenie Kevin Benign hypertensive heart disease with congestive cardiac failure Medications Medication Instructions Start Date Stop Date Generic Name ND Provider MINOCYCLINE HCL 100 MG CAPS Take 1 capsule by mouth twice a day Stop the Bactrim minocycline 20253927386 Rito Javed MD BACTRIM DS 800-160 MG TABS Take 1 tablet by mouth twice a day sulfamethoxazole- trimethoprim 32155710605 Rito Javed MD LISINOPRIL 5 MG TABS one tab oral daily 06/16 lisinopril 32531101827 Rito Javed MD CEPHALEXIN 500 MG CAPS 1 cap oral 4 times daily for 7 days 06/16 cephalexin 72781828773 Rito Javed MD [facility] ACETAMINOPHEN 325 MG CAPS 2 tab every 6 hours as needed for pain acetaminophen 65026637931 Luís Melvin HYDROCODONE-ACETAM INOPHEN 5-325 MG TABS one tab oral three times daily for 5 days, then one tab oral twice a day for 5 days, then as needed hydrocodone-aceta minophen 10338887149 Luís Melvin aspirin 81 mg capsule one tab oral daily aspirin Luís Melvin ATORVASTATIN CALCIUM 80 MG TABS one tab oral daily at bedtime atorvastatin 38323216841 Luís Melvin Bifidobacterium animalis 6 mg (5 billion cell) capsule 1 cap oral daily bifidobacterium animalis Luís Melvin CARVEDILOL 6.25 MG TABS twice daily, with breakfast and dinner carvedilol 01926233969 Luís Melvin CEPHALEXIN 500 MG CAPS 1 cap oral 4 times daily for 7 days 06/16 cephalexin 62398510991 Luís Melvin CLOPIDOGREL BISULFATE 75 MG TABS one tab oral daily clopidogrel 42495398461 Luís Melvin empagliflozin 10 mg tablet one tab oral daily empagliflozin Luís Melvin famotidine 10 mg tablet one tab oral daily famotidine 64515088834 Luís Melvin INSULIN LISPRO (1 UNIT DIAL) 100 UNIT/ML SOPN 12 units twice daily with breakfast and dinner insulin lispro 22494806521 Luís Melvin LISINOPRIL 5 MG TABS one tab oral daily 06/16 lisinopril 52678415315 Luís Melvin MAGNESIUM OXIDE -MG SUPPLEMENT 400 MG CAPS 1 tab oral daily magnesium oxide 03862016927 Luís Melvin [facility] MELATONIN 5 MG CAPS one tab oral daily at bedtime for insomnia melatonin 58011396599 Luís Melvin Miralax 17 gram powder in packet oral daily as needed polyethylene glycol 3350 44827178911 Luís Melvin JANUVIA 100 MG TABS one tab oral daily sitagliptin phosphate 57978226621 Luís Melvin Medications Administered No information available. [...] smoker Tobacco smoking status Lab Report: COMPREHENSIVE NE TABOLIC PANEL ANIONGAP 10.0 mmol/L 5.0-15.0 anion [...] Name Date Entry Date CPT-sl STAT Labs CPT-88872 Wound Culture and Sensitivity w/Gram Stai n C9452m,[id number] CBC with Differential 2022 CPT-40874 CMP CPT-62302 Sedimentation Rate (ESR) 202 04/19/01 CPT-40464 C- reactive protein [id number], [id number] CPK Vital Signs Date Name Value Unit [...]
--- OUTSIDE RECORDS SUMMARY | 2024-09-06 11:47 | XMS_ITS | Encounter Summary ---
Author Organization [facility] Address [address] [place] [address] Care Team Providers Care Squad Boss Name Role Phone Beth Lawson APRN Primary Care Provider [phone] Jesu Aguilar MD Unavailable [phone] Talib Davis MD Unavailable [phone] Encounter Details Date Type Department Care Team (Latest Contact Info) Description 07/31/2024 Travel Social History Tobacco Use Types Packs/Day [...] as of this encounter Functional Status * Over the [...] -2 Score 0 07/31/2024 12:15 PM EDT Christelle Brandy Ochoa documented as of this encounter Plan of Treatment Upcoming Encounters Date Type Department Care Team (Late st Contact Info) Description 09/12/2024 10:00 AM EDT Office Visit [facility] [address] [place] [address] Ranjana Barillas MD [address] [place] [address] 10/30/2024 11:20 AM EDT [facility] [address] [place] [address] Smiley Vincent PA [address] [place] [address] documented as of this encounter Visit Diagnoses Not on filedocumented in this encounter Additional Health Concerns Infection Onset Date Last Indicated Resolved Time MRSA Comment: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 Source: [facility]. 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 Source: [facility]. 06/16/2022 Assessment Noted Time A fall risk assessment has been complete d for the patient 07/31/2024 12:16 PM EDT A Body Mass Index follow-up plan has been documented for the patient 07/31/2024 12:55 PM EDT documented as of this encounter Care Teams Squad Boss Relationship Specialty Start Date End Date Beth Lawson APRN [address] [place] [address] PCP - General 08/22/20 Jesu Aguilar MD [facility] [address] [address] Referring Physician 09/20/20 Talib Davis MD [id number] [place] [address] Consulting Physician Urology 02/07/24 documented as of this encounter
--- OUTSIDE RECORDS SUMMARY | 2024-09-06 11:47 | XMS_ITS | Encounter Summary ---
Author Organization [facility] Address [address] 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 Suicidal Behavior (Lifetime) No 7:22 AM EST Roberto Martínez, RN documented as of this encounter Plan of Treatment Upcoming Encounters Date Type Department Care Team (Late st Contact Info) Description 09/12/2024 10:00 AM EDT Office Visit [facility] [address] [place] [address] Ranjana Barillas MD [address] [facility] [address] [facility] [address] [place] [address] 10/30/2024 11:20 AM EDT Office Visit [facility] [address] [place] [address] Smiley Vincent PA [address] [place] [address] documented as of this encounter Visit Diagnoses Not on filedocumented in this encounter Additional Health Concerns Infection Onset Date Last Indicated Resolved Time MRSA Comment: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 Source: [facility]. 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 Source: [facility]. 06/16/2022 Assessment Noted Time A fall risk assessment has been complete d for the patient 02/07/2024 11:30 AM EST A Body Mass Index follow-up plan has been documented for the patient 02/29/2024 1:49 PM EST documented as of this encounter Care Teams Bus And Trolley Inspecting Dispatcher Relationship Specialty Start Date End Date Beth Lawson APRN [address] [place] [address] PCP - General 08/22/20 Jesu Aguilar MD [id number] Referring Physician 09/20/20 Talib Davis MD [address] [phone] Consulting Physician Urology 02/07/24 documented as of this encounter
--- OUTSIDE RECORDS SUMMARY | 2024-09-06 11:47 | XMS_ITS | Clinical Summary ---
Author Organization [employer] ([place], [place], [place], [place]) Address [address] [place] [address] Care Team Providers Care Optical Glass Etcher Name Role Phone Unavailable Primary Care Provider Unavailabl e Allergies No known active allergies Social History Tobacco Use Types Packs/Day Years Used Date Smoking Tobacco: Never Assessed Food Insecurity Answer Date Recorded Food run out past 12 months Not on file 06/16 Food did not last past 12 months Not on file 07/06/2023 Employment Answer Date Recorded Help finding and keeping a job Not on file 0 07/06/2023 Family and Community Support Answer Jesse e Recorded Help with Day to Day Activities Not on file 07/06/2023 Feeling Lonely or Isolated Not on file 07/05 Educational Attainment Answer Date Francis rded Speak language other than Mauritanian at home Not on file 07/06/2023 Want help with school or training Not on file 07/06/2023 Substance Use Answer Date Recorded Used prescription meds for non-medical reasons N ot on file 07/06/2023 Used illegal drugs past 12 months Not on file 07/06/2023 Sex and Gender Information Value Date Recorded Sex Assigned at Not on file Legal Sex Male 5:06 PM CDT Gender Identity Not on file Sexual Orientation Not on file Last Filed Vital Signs Vital Sign Reading Time Taken Comments Blood Pressure 131/72 07/26/2023 12:00 PM EDT Pulse 70 07/26/2023 11:35 AM EDT Temperature - - Respiratory Rate - - Oxygen Saturation 97% 07/26/2023 11:35 AM EDT Inhaled Oxygen Concentration - - Weight - - Height - - Body Mass Index - - Plan of Treatment Health Maintenance Due Date Last Done Comments CT Colonography 1974 Colonoscopy 1974 Colorectal Cancer Screening 1974 FOBT/FIT 1974 Fit-DNA (Cologuard) 1974 Sigmoidoscopy 1974 Depression Screening (12+) 1986 Tobacco Cessation Counseling and Screening (12+) 1986 HIV Screening 1989 Hepatitis C Screening 1992 DTAP/TDAP/TD VACCINES (2 - Td or Tdap) 04/16/2006 COVID-19 VACCINE (3 - 2023- season) 2023, 10/10/2020 Pneumococcal 50+ years (1 of 1 - PCV) 2024 Shingles Vaccine (Zoster) (1 of 2) 2024 Influenza Vaccine (#1) 2024 Lipid Panel 08/22/2025 08/22/2020 Medical Devices Implanted Type Area Hotel Associate Device Identifier Shelf Expiration Date Model / Serial / Lot Pacemaker- 1 Implanted:08/30/19 21 (Quantity not on file) [employer] TEJA TAYLOR / [id number] / Description:Mri conditional Generator: teja taylor Lead: daniel Dodson Lead: daniel roche 53 Insurance [facility]
--- OUTSIDE RECORDS SUMMARY | 2024-09-06 11:47 | XMS_ITS | Encounter Summary ---
Author Organization [facility] [employer] ([place], [place], [place], [place]) Address [address] [place] [address] Care Team Providers Care Information Consultant Name Role Phone Unavailable Primary Care Provider Unavailabl e Encounter Details Date Type Department Care Team (Late st Contact Info) Description 05/05/2023 Outside Orders [facility] Scheduling [address] [place] [address] Stefan Monroy PA-C [address] [place] [id number] Lumbar pain (Primary Dx) Social History Tobacco Use Types [...] Date Francis rded Speak language other than Lao at home Not on file 07/06/2023 Want [...] on file Sexual Orientation Not on file documented as of this encounter Plan of Treatment Not on file documented as of this encounter Visit Diagnoses Diagnosis Lumbar pain- Primary Lumbago documented in this encounter
--- OUTSIDE RECORDS SUMMARY | 2024-09-06 11:47 | XMS_ITS | Referral Summary ---
Author Organization [employer] ([place], [place], [place], [place]) Address [address] [place] [address] Care Team Providers Care Vp Medical Name Role Phone Unavailable Primary Care Provider [...] Date Francis rded Speak language other than Mexican at home Not on file 07/06/2023 Want [...] Mass Index - - Plan of Treatment Not on file Medical Devices Implanted Type Area Off Premise Service Representative Device Identifier Shelf Expiration Date Model / Serial / Lot Pacemaker- 1 Implanted:08/30/19 21 (Quantity not on file) [employer] TE[employer] TAYLOR / [id number] / Description:Mri conditional Generator: teja taylor Lead: solia s 45 Lead: solia s [address] [facility]
--- OUTSIDE RECORDS SUMMARY | 2024-09-06 11:47 | XMS_ITS | Clinical Summary ---
Author Organization [facility] Address [address] [place] [address] Care Team Providers Care Cad Administrator Name Role Phone Beth Lawson APRN Primary Care Provider [phone] Jesu Aguilar MD Unavailable [phone] Talib Davis MD Unavailable [phone] Allergies Active Allergy Reactions Criticality Noted Date Comments Hydrochlorothiazide Diarrhea Low 11/16/2021 Medications EQ Aspirin Adult Low Dose 81 MG EC tablet Take 1 tablet (81 mg) by mouth 1 (one) time each day. 1 Active metFORMIN (Glucophage) 1000 MG tablet Take 1 tablet (1,000 mg total) by mouth 2 (two) times a day with meals. 60 tablet 11 1 Active Additional Information Patient not taking.Reported on 08/16/2024 insulin lispro protamine-insu elise lispro (HumaLOG MIX 75/25 KWIKPEN) (75-25) 100 UNIT/ML injection pen INJECT 12-18 UNITS SUBCUTANEOUSLY IN THE MORNING AND 18 UNITS IN THE EVENING, PLUS TITRATION. MAX DAILY DOSE 60 UNITS. PATIENT NEEDS APPOINTMENT FOR FURTHER REFILLS. 45 mL 2 Active carvedilol (Coreg) 6.25 MG tablet 1 tablet [...] Active Additional Information Patient not taking.Reported on 08/16/2024 acetaminophen (Tylenol) 500 MG tablet Take 2 [...] Date Resolved Date Atrial fibrillation 09/03/2020 09/10/19 Bradycardia 08/28/2020 08/31/2020 Overview (08/29/2020): Difficulty weaning [...] after arriving in ICU from OR to NC, will continue to wean respiratory support as able. Pt baseline RA w/o O2 support - continue PEP, PAP, IS, cough assist - added guaifenesin for secretion mobilization - wean O2 NC as able Acute blood loss anemia 08/24/202003/2021 Thrombocytopenia 08/24/2020 08/31/2020 Overview (08/24/2020): - Related [...] Encounters Date Type Department Care Team Description 08/16/2024 1:50 PM EDT Office Visit [facility] Urology [address] [place] [address] Dania Fatima P, DIRECTOR MULTIMEDIA, DNP Other male erectile dysfunction (Primary Dx) 08/16/2024 Travel 08/08/2024 Results Follow-Up [facility] Medicine Specialties [address] [place] [address] Pascual Aviles APRN 08/04/2024 10:00 AM EDT Procedure Visit [facility] [address] [place] [address] Ranjana Barillas MD Vitreous hemorrhage of left eye (CMS/HCC) (Primary Dx); 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 type 2 diabetes mellitus; Pseudophakia of both eyes 08/04/2024 7:35 AM EDT Ancillary Procedure [facility] [address] [place] [address] 08/04/2024 7:35 AM EDT Ancillary Procedure [facility] [address] [place] [address] 08/04/2024 Travel 07/31/2024 12:[address] [facility] Medicine Specialties [address] [place] [address] Pascual Aviles, KAROL Chronic bilateral back pain, unspecified back location (Primary Dx); CHATA positive; Diarrhea, unspecified type 07/31/2024 Travel 06/22/2024 9:00 AM EDT Office Visit [facility] [address] [place] [address] Ranjana Barillas MD 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 type 2 diabetes mellitus (Primary Dx); Pseudophakia of both eyes; Vitreous hemorrhage of left eye (CMS/HCC) 06/22/2024 7:35 AM EDT Ancillary Procedure [facility] [address] [place] [address] 06/22/2024 Travel from Last 3 Months Immunizations Immunization Administration Dates Next Due TD (adult), 2 Lf tetanus tox oid, preservative free, adsorbed 04/16/1996 Family History Medical History Relation Name Comments Macular degeneration Father Diabetes Mother Anesthesia problems Neg Hx Malig Hyperthermia Neg Hx Relation Name Status Comments Father Mother Social History Tobacco Use Types Packs/Day Years Used Date Smoking Tobacco: Former Cigarettes 02/1996 - 12/2019 Passive Smoke Exposure: Past [...] Start Date 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 file Not on file Not on file Last Filed Vital Signs Vital Sign Reading Time Taken Comments Blood Pressure 119/75 08/16/2024 1:26 PM EDT Pulse 69 08/16/2024 1:26 PM EDT Temperature 36.8 C (98.3 F) 07/31/2024 12:11 PM EDT Respiratory Rate 16 08/16/2024 1:26 PM EDT Oxygen Saturation 97% 07/31/2024 12: 11 PM EDT Inhaled Oxygen Concentration - - Weight 94.7 kg (208 lb 12.4 oz) 08/16/2024 1:26 PM EDT Height 177.8 cm (5' 10 ) 07/31/2024 12: 11 PM EDT Body Mass Index 29.96 07/31/2024 12:11 PM EDT Plan of Treatment Upcoming Encounters Date Type Department Care Team (Late st Contact Info) Description 09/12/2024 10:00 AM EDT Office Visit [facility] [address] [place] [address] Ranjana Barillas MD [address] [address] 10/30/2024 11:20 AM EDT Office Visit [facility] [address] [place] [address] Smiley Vincent PA [address] [place] [address] Health Maintenance Due Date Last Done Comments [facility]-HIV Screening 1974 [facility]-Hepatitis C Screening 1974 [facility]-/Child/Adol SDOH Screenings 1974 Diabetes: Dental Exam 1984 [facility]- SDOH Screenings 1992 [facility]-Adult SDOH Screenings 1992 [facility]-Hepatitis B Vaccines (1 of 3 - 19+ 3-dose series) 1993 [facility]-Pneumococcal Vaccine: 50+ Years (1 of 2 - PCV) 1993 [facility]-DTaP,Tdap,and Td Vaccines (1 - Tdap) 04/17/1996 04/16/1996 CT Colonography 05/17/2019 Colonoscopy 05/17/2019 FIT-DNA 05/17/2019 FIT 05/17/2019 FOBT 05/17/2019 Sigmoidoscopy 05/17/2019 [facility]-Colorectal Cancer Screening 05/17/2019 [id number]-26 Vaccine (3 season) 2023 11/07/2020, 10/10/2020 [facility]-Diabetes: Hemoglobin A1C 12/24/202310/2023, 01/07/2021, 10/07/2020, Additional history exists [facility]-Lung Cancer Screening 2024 [facility]-Zoster Vaccines (1 of 2) 2024 [facility]-Influenza Vaccine (#1) 2024 [facility]-Depression Screening 08/16/2025 08/16/2024 [facility]-Obesity Intervention Completed 025, 08/04/2024, 07/31/2024, Additional history exists HPV Vaccines Aged Out [...] this topic Medical Devices Implanted Type Area Breastfeeding Program Coordinator Device Identifier Shelf Expiration Date Model / Serial / Lot Kit [facility] 700 Accessory - [id number] - [id number] Implanted:Qty: 1 on 12/23/2023 by Talib Davis MD at [facility] Implant Sarbari-[id number] 10/12/2028 [id number] / [id number] / [id number] Conceal Iz - [id number] - [id number] Implanted:Qty: 1 on 12/23/2023 by Talib Davis MD at [facility] Implant Sarbari-[id number] 11/08/2025 [id number] / [id number] / Cx Preconnect Ms 21cm Ps Iz - [id number] - [id number] Implanted:Qty: 1 on 12/23/2023 by Talib Davis MD at [facility] Implant Sarbari-[id number] 11/11/2025 [id number] / [id number] / [employer] 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 Tip Manufacturing Development Engineer 3cm Implanted:Qty: 1 on 12/23/2023 by Talib Davis MD at [facility] Implant Sarbari 10/06/2028 [id number] / [id number] / [id number] [employer] Rear Tip Manufacturing Development Engineer 2cm Implanted:Qty: 1 on 12/23/2023 by Talib Davis MD at [facility] Implant Sarbari 11/06/2028 [id number] / [id number] / [id number] Lead Solia S 53 Mri Lead - [id number] Implanted:Qty: 1 on 08/29/2020 by Mode Fong MD at [facility] [employer]-[id number] 07/15/2022 [id number] / [id number] / [id number] Lead Solia S 45 Mri Lead - [id number] Implanted:Qty: 1 on 08/29/2020 by Mode Fong MD at [facility] [employer]-[id number] 03/17/2022 [id number] / [id number] / [id number] Pacemaker Edora Dr Mri Cond - [id number] Implanted:Qty: 1 on 08/29/2020 by Mode Fong MD at [facility] [employer]-[id number] 01/14/2022 [id number] / [id number] / [id number] Procedures Procedure Name Priority Date/Time Associated Diagnosis [...] edema associated with type 2 diabetes mellitus C-REACTIVE PROTEIN, PLASMA Routine 07/31/2024 1:09 PM EDT Chronic bilateral back pain, unspecified back location SEDIMENTATION RATE, AUTOMATED Routine 07/31/2024 1:09 PM EDT Chronic bilateral back pain, unspecified back location CYCLIC CITRUL PEPTIDE ANTIBODY IGG Routine 07/31/2024 1:09 PM EDT Chronic bilateral back pain, unspecified back location RHEUMATOID FACTOR, PLASMA Routine 07/31/2024 1:09 PM EDT Chronic bilateral back pain, unspecified back location ANTINUCLEAR ANTIBODY (CHATA) WITH HEP-2 SUBSTRATE, IGG BY IFA (SO) Routine 07/31/2024 1:09 PM EDT Chronic bilateral back pain, unspecified back location CHATA positive DOUBLE-STRANDED DNA (DSDNA) ANTIBODY, IGG BY IFA (SO) Routine 07/31/2024 1:09 PM EDT Chronic bilateral back pain, unspecified back location CHATA positive C3 COMPLEMENT Routine 07/31/2024 1:09 PM EDT Chronic bilateral back pain, unspecified back location CHATA positive C4 COMPLEMENT Routine 07/31/2024 1:09 PM EDT Chronic bilateral back pain, unspecified back location CHATA positive VINOSN/LEAD REFINER (BENOIT) ANTIBODY, IGG (SO) Routine 07/31/2024 1:09 PM EDT Chronic bilateral back pain, unspecified back location CHATA positive EXTRACTABLE NUCLEAR ANTIGEN ANTIBODIES (SSA 52, SSA 60, AND SSB) (SO) Routine 07/31/2024 1:09 PM EDT Chronic bilateral back pain, unspecified back location CHATA positive VINSON (BENOIT) ANTIBODY, IGG (SO) Routine 07/31/2024 1:09 PM EDT Chronic bilateral back pain, unspecified back location CHATA positive THYROID PEROXIDASE ANTIBODY Routine 07/31/2024 1:09 PM EDT Chronic bilateral back pain, unspecified back location CHATA positive PROTEIN, URINE, RANDOM WITH CREATININE Routine 07/31/2024 1:05 PM EDT Chronic bilateral back pain, unspecified back location CHATA positive INTRAVITREAL INJECTION, PHARMACOLOGIC AGENT - OS - LEFT EYE Routine 06/22/2024 11:45 AM EDT 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 type 2 diabetes mellitus OCT, RETINA - OU - BOTH EYES Routine 06/22/2024 11:09 AM EDT 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 type 2 diabetes mellitus HEMOGLOBIN A1C Routine 09/24/2023 2:50 PM EDT ED (erectile dysfunction) from Last 3 Months or Most Recently Relevant to Health Maintenance Results * Intravitreal Drug Injection - OS [...] 2.75 MG/0.11ML Route: Intravitreal, Site: Left Eye ND: 70952-544-71, Lot: [id number], Expiration date: 08/14/2024 Post-op Post injection exam [...] MD OPHTH TOMOGRAPHY Final Res ult * Vinson (BENOIT) Antibody, IgG (07/31/2024 1:09 PM EDT) Vinson (BENOIT) Antibody, IgG 2 0 - 40 AU/mL 08/02/2024 1:27 PM EDT [facility] ([facility]) Serum 07/31/2024 1:09 PM EDT 07/31/2024 1:11 PM EDT Narrative [facility] ([facility]) - 08/02/2024 1:27 PM EDT INTERPRETIVE INFORMATION: Vinson (BENOIT) Antibody, IgG 29 AU/mL or Less ............. Negative 30 - 40 AU/mL ................ Equivocal 41 AU/mL or Greater .......... Positive Vinson antibody is highly specific (greater than 90 percent) for systemic lupus erythematosus (SLE) but only occurs in 30-35 percent of SLE cases. The presence of antibodies to Vinson has variable associations with SLE clinical manifestations. Performed By: [facility] [address] [place] [address] [employer] Supervisor: Ivan Ahuja MD, PhD CLIA Number: [id number] Pascual Aviles APRN LAB REF LAB BLOOD AND FLUID OR D Final Result [facility] ([facility]) [address] [place] [address] * ENAII (07/31/2024 1:09 PM EDT) SSA-52 (RO52) (BENOIT) Antibody, IgG 2 0 - 40 AU/mL 08/02/2024 1:28 PM EDT [facility] ([facility]) SSA-60 (RO60) (BENOIT) Antibody, IgG 0 0 - 40 AU/mL 08/02/2024 1:28 PM EDT [facility] ([facility]) SSB (LA) (BENOIT) Antibody, IgG 0 0 - 40 AU/mL 08/02/2024 1:28 PM EDT [facility] ([facility]) Blood Venous blood specimen / Unknown Venipuncture / Unknown 07/31/2024 1:09 PM EDT 07/31/2024 1:11 PM EDT Narrative [facility] ([facility]) - 08/02/2024 [...] (PSS) also have this antibody. Performed By: [facility] [address] [place] [address] [employer] Supervisor: Ivan Ahuja MD, PhD CLIA Number: [id number] Pascual Aviles APRN LAB BLOOD ORDERABLES Final Res ult [facility] ([facility]) [address] [place] [address] * ENAI (07/31/2024 1:09 PM EDT) Vinson/LEAD REFINER (BENOIT) Ab, IgG 3 0 - 19 Units 08/03/2024 6:32 AM EDT [facility] ([facility]) Blood Venous blood specimen / Unknown Venipuncture / Unknown 07/31/2024 1:09 PM EDT 07/31/2024 1:11 PM EDT [facility] ([facility]) - 08/03/2024 6:32 AM EDT INTERPRETIVE INFORMATION: Vinson/LEAD REFINER (BENOIT) Antibody, IgG 19 Units or Less ............. Negative 20 to 39 Units ............... Weak Positive 40 to 80 Units ............... Moderate Positive 81 Units or greater .......... Strong Positive Vinson/LEAD REFINER antibodies are frequently seen in patients with mixed connective tissue disease (MCTD) and are also associated with other systemic autoimmune rheumatic diseases (SARDs) such as systemic lupus erythematosus (SLE), systemic sclerosis, and myositis. Antibodies targeting the Vinson/LEAD REFINER antigenic complex also recognize Vinson antigens, therefore, the Vinson antibody response must be considered when interpreting these results. Performed By: [facility] [address] [place] [address] [employer] Supervisor: Ivan Ahuja MD, PhD CLIA Number: [id number] Pascual Aviles APRN LAB BLOOD ORDERABLES Final Res ult [facility] ([facility]) [address] [place] [address] * Thyroid Peroxidase Antibody (07/31/2024 1:09 PM EDT) Thyroid Peroxidase Antibody <5 <=8 IU/mL 07/31/2024 3:36 PM EDT [facility] Blood Venous blood specimen / Unknown Venipuncture / Unknown 07/31/2024 1:09 PM EDT 07/31/2024 1:11 PM EDT Pascual Aviles DIRECTOR MULTIMEDIA LAB BLOOD ORDERABLES Final Res ult Performing Organization Address City/[facility]/ZIP Co de Phone Number [facility] [address] [place] [address] * Cyclic Citrul Peptide Antibody IgG (07/31/2024 1:09 PM EDT) Cyclic Citrul Peptide Antibody IgG <5.0 <=5.0 U/mL 07/31/2024 4:06 PM EDT [facility] Blood Venous blood specimen / Unknown Venipuncture / Unknown 07/31/2024 1:09 PM EDT 07/31/2024 1:11 PM EDT Pascual Aviles [facility] LAB BLOOD ORDERABLES Final Res ult Performing Organization Address [facility] [place] [address] * Double-Stranded DNA (dsDNA) Antibody, IgG by IFA (07/31/2024 1:09 PM EDT) Pathologist [facility] Double-Strande d DNA (dsDNA) Ab IgG IFA <1:10 <1:10 08/03/2024 7:54 AM EDT [facility] ([facility]) Blood Venous blood specimen / Unknown Venipuncture / Unknown 07/31/2024 1:09 PM EDT 07/31/2024 1:11 PM EDT Narrative [facility] ([facility]) - 08/03/2024 [...] recommendations for testing may be found at [email or web address]. Performed By: [facility] [address] [place] [address] [employer] Supervisor: Ivan Ahuja MD, PhD CLIA Number: [id number] Pascual Leblancellis DIRECTOR MULTIMEDIA LAB BLOOD ORDERABLES Final Res ult Performing Organization Address City/[facility]/ZIP Co de Phone Number [facility] ([facility]) [address] [place] [address] * Sedimentation Rate, Automated (07/31/2024 1:09 PM EDT) Sedimentation Rate 9 <20 mm/hr 2024 3:08 PM EDT [facility] Blood Venous blood specimen / Unknown Venipuncture / Unknown 07/31/2024 1:09 PM EDT 07/31/2024 1:11 PM EDT Pascual Leblancellis DIRECTOR MULTIMEDIA LAB BLOOD ORDERABLES Final Res ult Performing Organization Address City/[facility]/ZIP Co de Phone Number [facility] [address] [place] [address] * Rheumatoid Factor, Plasma (07/31/2024 1:09 PM EDT) Rheumatoid Factor, Plasma <10 <14 IU/mL 07/31/2024 2:50 PM EDT [facility] Blood Venous blood specimen / Unknown Venipuncture / Unknown 07/31/2024 1:09 PM EDT 07/31/2024 1:11 PM EDT Pascual Aviles APRN LAB BLOOD ORDERABLES Final Res ult Performing Organization Address City/[facility]/ZIP Co de Phone Number [facility] [address] [place] [address] * C3 Complement (07/31/2024 1:09 PM EDT) C3 Complement 129 84 - 166 mg/dL 07/31/2024 2:46 PM EDT [facility] Blood Venous blood specimen / Unknown Venipuncture / Unknown 07/31/2024 1:09 PM EDT 07/31/2024 1:11 PM EDT Pascual Leblancellis DIRECTOR MULTIMEDIA LAB BLOOD ORDERABLES Final Res ult Performing Organization Address City/[facility]/ZIP Co de Phone Number [facility] [address] [place] [address] * C4 Complement (07/31/2024 1:09 PM EDT) C4 Complement 32 13 - 36 mg/dL 07/31/2024 2:46 PM EDT [facility] Blood Venous blood specimen / Unknown Venipuncture / Unknown 07/31/2024 1:09 PM EDT 07/31/2024 1:11 PM EDT Pascual Shaffer Traci RAMIREZN LAB BLOOD ORDERABLES Final Res ult Performing Organization Address [facility] de Phone Number [facility] [address] [place] [address] * C-Reactive Protein, Plasma (07/31/2024 1:09 PM EDT) CRP, Plasma <3.0 <=8.0 mg/L 07/31/2024 2:50 PM EDT [facility] Blood Venous blood specimen / Unknown Venipuncture / Unknown 07/31/2024 1:09 PM EDT 07/31/2024 1:11 PM EDT Narrative [facility] - 07/31/2024 2:50 PM EDT This CRP test is appropriate for assessment of infection, systemic inflammation and/or tissue injury. To assess cardiovascular disease risk order high sensitivity CRP (CRPH). Pascual Shaffer Traci DIRECTOR MULTIMEDIA LAB BLOOD ORDERABLES Final Res ult Performing Organization Address [facility] Co de Phone Number [facility] [address] [place] [address] * Antinuclear Antibody (CHATA), HEp-2, IgG (07/31/2024 1:09 PM EDT) CHATA INTERPRETIVE COMMENT See Note 08/02/2024 2:35 PM EDT [facility] ([facility]) Anti Nuc Ab Screen <1:80 <1:80 08/02/2024 2:35 PM EDT [facility] ([facility]) Blood Venous blood specimen / Unknown Venipuncture / Unknown 07/31/2024 1:09 PM EDT 07/31/2024 1:11 PM EDT Narrative [facility] ([facility]) - 08/02/2024 2:35 PM EDT Antinuclear antibodies [...] not necessarily rule out SARD. Performed By: [facility] [address] [place] [address] [employer] Supervisor: Ivan Ahuja MD, PhD CLIA Number: [id number] Pascual Aviles APRN LAB BLOOD ORDERABLES Final Res ult [facility] [employer]) [address] [place] [address] * Protein, Random, Urine with Creatinine (07/31/2024 1:05 PM EDT) Protein, Urine 116 mg/dL 07/31/2024 2:56 PM EDT [facility] Creatinine, Urine 165 mg/dL 07/31/2024 2:56 PM EDT [facility] Protein/Creatin ine Ratio 0.7 mg/mg Creat 07/31/2024 2:56 PM EDT [facility] Urine Urine specimen obtained by clean catch procedure / Unknown Non-blood Collection / Unknown 07/31/2024 1:05 PM EDT 07/31/2024 1:05 PM EDT Pascual Aviles APRN LAB URINE ORDERABLES Final Res ult [facility] [address] [place] [address] * Intravitreal Injection, Pharmacologic Agent - OS [...] 1.25 MG/0.05ML Route: Intravitreal, Site: Left Eye [facility]: 79520-865-01, Lot: [id number], Expiration date: 06/26/2024 Post-op Post injection exam found visual acuity of at least counting fingers. The patient tolerated the procedure well. There were no complications. Post injection medications were not given. Ranjana Barillas MD OPHTH CLINIC PROCEDURES Fi [...] improved but VH left eye (OS) worse Ranjana Barillas MD OPHTH TOMOGRAPHY Final Res [...] Adults <6.0% Children and Adolescents <7.5% Source: [place] [employer]. Standards of medical care in diabetes,2017. Diabetes Care.2017:40 (suppl 1):S1-S135. HbA1c assay performed by an ion-exchange chromatography method that is certified traceable to the DCCT. Chelsea Luke MD LAB BLOOD ORDERABLES Final Re sult [facility] [address] [place] [address] from Last 3 Months or Most Recently Relevant to Health Maintenance Additional Health Concerns Infection Onset Date Last Indicated MRSA Comment: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 Source: [facility] [employer] [facility]. 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 Source: [facility] [employer] [facility]. 06/16/2022 Insurance [facility] MEDICAID Advance Directives * Full Code (Latest Code Status on File) Date Activated Date Inactivated Comments 09/03/2020 12:36 AM 09/09/2020 6:58 PM Question Answer Comments Patient has decision-making capacity? Yes * Full Code Date Activated Date Inactivated Comments 08/22/2020 7:02 PM 08/31/2020 4:59 PM Question Answer Comments Patient has decision-making capacity? Yes Care Teams Cad Administrator Relationship Specialty Start Date End Date Beth Lawson APRN [address] [place] [address] PCP - General 08/22/20 Jesu Aguilar MD [address] [facility] [address] [place] [address] Referring Physician 09/20/20 Talib Davis MD [address] [facility] [address] [place] [address] Consulting Physician Urology 02/07/24
--- OUTSIDE RECORDS SUMMARY | 2024-09-06 11:47 | XMS_ITS | Encounter Summary ---
Author Organization [facility] Address [address] 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 on file Not on [...] Anastasiya Llanes documented as of this encounter Plan of Treatment Upcoming Encounters Date Type Department Care Team (Late st Contact Info) Description 09/12/2024 10:00 AM EDT Office Visit [facility] [address] [place] [address] Ranjana Barillas MD [address] [place] [address] 10/30/2024 11:20 AM EDT Office Visit [facility] Medicine Specialties [address] [place] [address] Smiley Vincent PA [address] [place] [address] documented as of this encounter Visit Diagnoses Not on filedocumented in this encounter Additional Health Concerns Infection Onset Date Last Indicated Resolved Time MRSA Comment: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 Source: [employer]. 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 Source: [employer]. 06/16/2022 Assessment Noted Time A fall risk assessment has been complete d for the patient 08/16/2024 1:24 PM EDT A Body Mass Index follow-up plan has been documented for the patient 08/16/2024 3:02 PM EDT documented as of this encounter Care Teams Tracer Bullet Section Supervisor Relationship Specialty Start Date End Date Beth Lawson APRN [address] [place] [address] PCP - General 08/22/20 Jesu Aguilar MD [address] [place] [address] Referring Physician 09/20/20 Talib Davis MD [address] [facility] [address] [place] [phone] Consulting Physician Urology 02/07/24 documented as of this encounter
--- OUTSIDE RECORDS SUMMARY | 2024-09-06 11:47 | XMS_ITS | Encounter Summary ---
Author Organization [employer] ([place], [place], [place], [place]) Address [address] [place] [address] Care Team Providers Care Orthotic/Prosthetic Practitioner Name Role Phone Unavailable Primary Care Provider Unavailabl e Reason for Referral * Flouroscopy (Routine) - Closed Specialty Diagnoses / Procedures Referred By Contac t Referred To Contact Diagnoses Right shoulder pain, unspecified chronicity Procedures FL arthrogram shoulder right Renny Rosales MD Phone: tel: fax: Referral ID Status Reason Start Date Expiration Date Visits Re quested Visits Authorized [id number] Closed 07/06/2023 07/05/2024 1 1 Encounter Details Date Type Department Care Team (Late st Contact Info) Description 07/06/2023 Outside Orders [facility] Central Scheduling [address] [place] [address] Renny Rosales MD One [facility] [address] [facility] [address] [place] [address] Right shoulder pain, unspecified chronicity (Primary Dx) Social History Tobacco Use Types [...] Date Francis rded Speak language other than Korean at home Not on file 07/06/2023 Want [...] on file documented as of this encounter Results * FL arthrogram shoulder right (07/26/2023 11:38 AM EDT) Anatomical Region Laterality Modality Shoulder X-Ray 07/26/2023 3:10 PM EDT Impressions 07/26/2023 3:55 PM EDT Status post arthrogram without immediate complication. Please see MR report. Images reviewed, interpreted, and dictated by Dr. Pj Sewell. Transcribed by Binh Sunshine PA-C. Narrative 07/26/2023 3:55 PM EDT RIGHT SHOULDER ARTHROGRAM. HISTORY: Right shoulder pain. PHYSICIAN MICROSTRATEGY REPORTS DEVELOPER: Binh Sunshine PA-C ATTENDING PHYSICIAN: Dr. Sewell PROCEDURE: After informed consent was obtained, a time-out was performed. Utilizing local anesthesia and sterile technique, with direct fluoroscopic guidance, access to the joint was obtained. A small amount of Isovue contrast was injected to confirm needle tip location. Subsequently, approximately 10 mL of dilute Gadolinium were then injected into the joint space. The patient tolerated the procedure well and left the department in good condition. 3 total images were performed. Fluoroscopy exposure time: 0.3 minutes. Radiation exposure in reference to air kerma: 7 mGy Procedure Note Pj Sewell MD - 07/26/2023 RIGHT SHOULDER ARTHROGRAM. HISTORY: Right shoulder pain. PHYSICIAN MICROSTRATEGY REPORTS DEVELOPER: Binh Sunshine PA-C ATTENDING PHYSICIAN: Dr. Sewell PROCEDURE: After informed consent was obtained, a time-out was performed. Utilizing local anesthesia and sterile technique, with direct fluoroscopic guidance, access to the joint was obtained. A small amount of Isovue contrast was injected to confirm needle tip location. Subsequently, approximately 10 mL of dilute Gadolinium were then injected into the joint space. The patient tolerated the procedure well and left the department in good condition. 3 total images were performed. Fluoroscopy exposure time: 0.3 minutes. Radiation exposure in reference to air kerma: 7 mGy IMPRESSION: Status post arthrogram without immediate complication. Please see MR report. Images reviewed, interpreted, and dictated by Dr. Pj Sewell. Transcribed by Binh Sunshine PA-C. us Renny Rosales MD IMG FLUOROSCOPY ORDERABLES Lori l Result documented in this encounter Visit Diagnoses Diagnosis Right shoulder pain, unspecified chronicity- Primary Right shoulder pain, unspecified chronicity documented in this encounter
--- OUTSIDE RECORDS SUMMARY | 2024-09-06 11:47 | XMS_ITS | Encounter Summary ---
Author Organization [employer] ([place], [place], [place], [place]) Address [address] [place] [address] Care Team Providers Care String Top Sealer Name Role Phone Unavailable Primary Care Provider Unavailabl e Reason for Referral * MRI (Routine) - Closed Specialty Diagnoses / Procedures Referred By Contac t Referred To Contact Radiology Diagnoses DDD (degenerative disc disease), cervical Procedures MR spine cervical without IV contrast Marlin, Provider Not In The System, [place] [address] Referral ID Status Reason Start Date Expiration Date Visits Re quested Visits Authorized [id number] Closed 08/12/2023 10/09/2023 1 1 Encounter Details Date Type Department Care Team (Late st Contact Info) Description 08/12/[address] [facility] Central Scheduling [address] [place] [id number] Marlin, Provider Not In The System, [place] [address] DDD (degenerative disc disease), cervical (Primary Dx) Social History Tobacco Use Types [...] Date Francis rded Speak language other than Palestinian at home Not on file 07/06/2023 Want [...] documented as of this encounter Results * MR spine cervical without IV contrast (08/27/2023 1:40 PM EDT) Anatomical Region Laterality Modality C-spine Magnetic Resonan ce (MRI) 08/27/2023 2:24 PM EDT Impressions 08/27/2023 3:30 PM EDT 1. Anterior and interbody fusions C5-6 and C6-7. Endplate hypertrophy and mild to moderate bilateral neural foraminal narrowing at these levels. 2. Broad-based midline disc protrusion C4-5 with mild to moderate spinal canal compromise. Please correlate with any specific radicular symptoms. Images reviewed, interpreted, and dictated by Pj Sewell MD Narrative 08/27/2023 3:30 PM EDT Name: HIPOLITO MAYA DOB: 1975 NONIN FUSED CERVICAL SPINE MRI HISTORY: Neck pain. Right shoulder and arm pain. FINDINGS: On the sagittal images, magnetic artifact is seen arising from anterior and interbody fusion hardware bridging C5-6 and C6-7. Vertebrae are of normal height. No malalignment is seen. C2-3: No disc bulge or protrusion. C3-4: No disc bulge or protrusion. C4-5: Moderate midline disc protrusion is present. There is mild to moderate spinal canal compromise, well seen on image #14 of series 8. C5-6: Mild endplate hypertrophy is present. There is mild to moderate bilateral neural foraminal narrowing. C6-7: Mild endplate hypertrophy is present. There is mild to moderate bilateral neural foraminal narrowing. C7-T1: No disc bulge or protrusion. Procedure Note Pj Sewell MD - 08/27/2023 Name: HIPOLITO MAYA DOB: 1975 NONIN FUSED CERVICAL SPINE MRI HISTORY: Neck pain. Right shoulder and arm pain. FINDINGS: On the sagittal images, magnetic artifact is seen arising from anterior and interbody fusion hardware bridging C5-6 and C6-7. Vertebrae are of normal height. No malalignment is seen. C2-3: No disc bulge or protrusion. C3-4: No disc bulge or protrusion. C4-5: Moderate midline disc protrusion is present. There is mild to moderate spinal canal compromise, well seen on image #14 of series 8. C5-6: Mild endplate hypertrophy is present. There is mild to moderate bilateral neural foraminal narrowing. C6-7: Mild endplate hypertrophy is present. There is mild to moderate bilateral neural foraminal narrowing. C7-T1: No disc bulge or protrusion. IMPRESSION: 1. Anterior and interbody fusions C5-6 and C6-7. Endplate hypertrophy and mild to moderate bilateral neural foraminal narrowing at these levels. 2. Broad-based midline disc protrusion C4-5 with mild to moderate spinal canal compromise. Please correlate with any specific radicular symptoms. Images reviewed, interpreted, and dictated by Pj Sewell MD us Provider Not In The System [facility] IMG MRI ORDERA BLES Final Result documented in this encounter Visit Diagnoses Diagnosis DDD (degenerative disc disease), cervical- Primary Degeneration of cervical intervertebral disc DDD (degenerative disc disease), cervical Degeneration of cervical intervertebral disc documented in this encounter
--- OUTSIDE RECORDS SUMMARY | 2024-09-06 11:47 | XMS_ITS | Encounter Summary ---
Author Organization [facility] Address [address] 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 Not on file Not on file Not on file documented as of this encounter Plan of Treatment Upcoming Encounters Date Type Department Care Team (Late st Contact Info) Description 09/12/2024 10:00 AM EDT Office Visit [facility] [address] [facility] [place] [address] Ranjana Barillas MD [address] [place] [address] 10/30/2024 11:20 AM EDT Office Visit [facility] Medicine [facility] [address] [place] [address] Smiley Vincent, ELIZABETH [address] [place] [address] documented as of this encounter Visit Diagnoses Not on filedocumented in this encounter Additional Health Concerns Infection Onset Date Last Indicated Resolved Time MRSA Comment: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 Source: [employer]. 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 Source: [facility]. 06/16/2022 Assessment Noted Time A fall risk assessment has been complete d for the patient 11/20/2021 8:57 AM EDT documented as of this encounter Care Teams Automotive Parts Manager Relationship Specialty Start Date End Date Beth Lawson APRN [address] [place] [address] PCP - General 08/22/20 Jesu Aguilar MD [address] [address] Referring Physician 09/20/20 Talib Davis MD [address] [place] [address] Consulting Physician Urology 02/07/24 documented as of this encounter
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
--- OUTSIDE RECORDS SUMMARY | 2024-09-06 11:47 | XMS_ITS | Clinical Summary ---
Author Organization [facility] Address [address] [place] [address] Care Team Providers Care Remote Sensing Surveyor Name Role Phone Beth Lawson APRN Primary Care Provider + [phone] Allergies No known active allergies Medications QUEtiapine (SEROquel) 100 MG tablet Take 100 mg by mouth every night. Active glimepiride (AMARYL) 2 MG tablet Take 2 mg by mouth 2 (two) times a day. Active PARoxetine (PAXIL) 20 MG tablet Take 20 mg by mouth every morning. Active metFORMIN (GLUCOPHAGE) 500 MG tablet Take 500 mg by mouth 2 (two) times a day with meals. Active gabapentin (NEURONTIN) 300 MG capsule Take 300 mg by mouth 3 (three) times a day. Active clonazePAM (KlonoPIN) 0.5 MG tablet Take 0.5 mg by mouth daily as needed for seizures. Active lisinopril (PRINIVIL,ZESTR IL) 20 MG tablet Take 20 mg by mouth daily. Active meloxicam (MOBIC) 15 MG tablet Take 15 mg by mouth daily. Active naproxen sodium (ALEVE) 220 MG tablet Take 220 mg by mouth 2 (two) times a day as needed for mild pain (1-3). Active acetaminophen (TYLENOL) 325 MG tablet Take 650 mg by mouth as needed for mild pain (1-3). Active HYDROcodone-dorothy taminophen (NORCO) 7.5-325 MG per tablet Take 1 tablet by mouth 3 (three) times a day as needed for moderate pain (4-6). Active cyclobenzaprine (FLEXERIL) 10 MG tablet Take 10 mg by mouth 3 (three) times a day as needed for muscle spasms. Active Active Problems No known active problems Family History Medical History Relation Name Comments Diabetes Mother Relation Name Status Comments Mother Social History Tobacco Use Types Packs/Day Years Used Date Smoking Tobacco: Never Assessed Abuse Screen Answer Date Recorded Unsafe at Home or Work/School Not on file Feels Threatened by Someone? Not on file 12/2022 Does Anyone Keep You from Co ntacting Others or Doint Things Outside the Home? Not on file 11/25/2022 Physical Sign of Abuse Present Not on file 1 Housing Stability Answer Date Recorded Current Living Arrangements Not on file 11/15 Potentially Unsafe Housing Conditions Not on edwige e 11/25/2022 Family and Community Support Answer Jesse e Recorded Help with Day-to-Day Activities Not on file 11/25/2022 Lonely or Isolated Not on file 11/25/2022 Employment Answer Date Recorded Do you want help finding or keeping work or a anamika b? Not on file 11/25/2022 Disabilities Answer Date Recorded Concentrating, Remembering, or Making Decisions Difficulty Not on file 11/25/2022 Doing Errands Independently Difficulty Not on fi le 11/25/2022 Education Answer Date Recorded Help with school or training? Not on file Preferred Language Not on file 11/25/2022 Sex and Gender Information Value Date Recorded Sex Assigned at Not on file Legal Sex Male 4:32 PM EST Gender Identity Not on file Sexual Orientation Not on file Last Filed Vital Signs Vital Sign Reading Time Taken Comments Blood Pressure - - Pulse - - Temperature 36.7 C (98.1 F) 07/31/2015 12:44 PM EDT Respiratory Rate - - Oxygen Saturation - - Inhaled Oxygen Concentration - - Weight 79.8 kg (176 lb) 07/31/2015 12:44 PM EDT Height 182.9 cm (6') 07/31/2015 12:44 PM EDT Body Mass Index 23.87 07/31/2015 12:44 PM EDT Plan of Treatment Upcoming Encounters Date Type Department Care Team (Late st Contact Info) Description 09/19/2024 10:30 AM EDT Office Visit [facility] [address] [place] [address] Stephen Grewal MD [address] [facility] [address] [place] [address] Health Maintenance Due Date Last Done Comments ANNUAL PHYSICAL 1975 HEPATITIS C SCREENING 1974 DIABETIC FOOT EXAM 1984 URINE MICROALBUMIN-CREATININ E RATIO (uACR) 1984 Hepatitis B (1 of 3 - 19+ 3- dose series) 1993 Pneumococcal Vaccine 50+ (1 of 2 - PCV) 1993 TDAP/TD VACCINES (2 - Tdap) 04/16/2006 04/16/1996 COLOGUARD 05/17/2019 COLON CANCER SCREENING 5 YEA R SIGMOIDOSCOPY 05/17/2019 COLONOSCOPY 05/17/2019 COLORECTAL CANCER SCREENING 05/17/2019 CT COLONOGRAPHY 05/17/2019 FECAL OCCULT BLOOD TEST 05/17/2019 FIT Testing (1 year) 05/17/2019 COVID-19 Vaccine (3 - 2023-2 5 season) 2023 11/07/2020, 10/10/2020 HEMOGLOBIN A1C 03/26/2024 09/24/2023, 08/0 10/2023, 01/07/2021, Additional history exists ZOSTER VACCINE (1 of 2) 2024 INFLUENZA VACCINE 11/15/2024 DIABETIC EYE EXAM 08/04/2025 08/04/2024, 09/17/2023 Procedures Procedure Name Priority Date/Time Associated Diagnosis Comments SCANNED - LABS 06/14/2024 SCANNED - LABS 06/14/2024 SCANNED - LABS 06/14/2024 SCANNED - LABS 06/14/2024 SCANNED - LABS 06/14/2024 from Last 3 Months Results * LABS SCANNED (06/14/2024) Only the most recent of5 resultswithin the time period is included. us [facility] LAB BLOOD ORDERABLES Final Re sult from Last 3 Months Additional Health Concerns Infection Onset Date Last Indicated MRSA Comment:per nsg database hx MRSA left arm in 2014; 05/20/15 nares screen neg for MRSA 05/20/2015 05/20/2015 MDR Acinetobacter 06/16/2022 06/22/2022 Insurance [facility] [place] Care Teams Remote Sensing Surveyor Relationship Specialty Start Date End Date Beth Lawson APRN [facility] [place] [address] [place] [address] PCP - General Internal Medicine 06/30/24
--- OUTSIDE RECORDS SUMMARY | 2024-09-06 11:47 | XMS_ITS | Encounter Summary ---
Author Organization [facility] Address [address] 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 Medicine Specialties [address] [place] [address] Smiley Vincent PA [address] [place] [address] documented as of this encounter Visit Diagnoses Not on filedocumented in this encounter Additional Health Concerns Infection Onset Date Last Indicated Resolved Time MRSA Comment: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 Source: [facility]. 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 Source: [facility]. 06/16/2022 Assessment Noted Time A fall risk assessment has been complete d for the patient 08/04/2024 9:51 AM EDT A Body Mass Index follow-up plan has been documented for the patient 08/04/2024 10:53 AM EDT documented as of this encounter Care Teams Alligator Shear Operator Relationship Specialty Start Date End Date Beth Lawson APRN [address] [place] [address] PCP - General 08/22/20 Jesu Aguilar MD [address] [address] Referring Physician 09/20/20 Talib Davis MD [address] [address] Consulting Physician Urology 02/07/24 documented as of this encounter
--- OUTSIDE RECORDS SUMMARY | 2024-09-06 11:47 | XMS_ITS | Encounter Summary ---
Author Organization [facility] Address [address] 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 file Not on file Not on file documented as of this encounter Plan of Treatment Upcoming Encounters Date Type Department Care Team (Late st Contact Info) Description 09/12/2024 10:00 AM EDT Office Visit [facility] [address] [place] [address] Ranjana Barillas MD [address] [place] [address] 10/30/2024 11:20 AM EDT Office Visit [facility] [address] [place] [address] Smiley Vincent PA [address] [place] [address] documented as of this encounter Visit Diagnoses Not on filedocumented in this encounter Additional Health Concerns Infection Onset Date Last Indicated Resolved Time MRSA Comment: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 Source: [employer]. 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 Source: [employer] [facility]. 06/16/2022 Assessment Noted Time A fall risk assessment has been complete d for the patient 08/04/2024 9:51 AM EDT A Body Mass Index follow-up plan has been documented for the patient 08/04/2024 10:53 AM EDT documented as of this encounter Care Teams Encapsulator Relationship Specialty Start Date End Date Beth Lawson APRN [address] [place] [address] PCP - General 08/22/20 Jesu Aguilar MD [address] [facility] [address] [place] [address] Referring Physician 09/20/20 Talib Davis MD [address] [place] [address] Consulting Physician Urology 02/07/24 documented as of this encounter
--- OUTSIDE RECORDS SUMMARY | 2024-09-06 11:47 | XMS_ITS | Encounter Summary ---
Author Organization [employer] ([place], [place], [place], [place]) Address [address] [place] [address] Care Team Providers Care Director Fraud Name Role Phone Unavailable Primary Care Provider Unavailabl e Encounter Details Date Type Department Care Team (Late st Contact Info) Description 06/07/2023 Outside Orders [facility] Central Scheduling [address] [place] [address] Renny Rosales MD [facility] [address] [place], [place] [id number] Right shoulder pain, unspecified chronicity (Primary Dx) [...] Date Francis rded Speak language other than Turkmen at home Not on file 07/06/2023 Want [...] as of this encounter Visit Diagnoses Diagnosis Right shoulder pain, unspecified chronicity- Primary documented in this encounter
== END 2024-09-05 23:59 | disposition home or self-care (01) ==
LOC: LAB.DROPOF 09-06 11:45
PROVIDERS: PCP Nurse Practitioner Family; Visit Provider Nurse Practitioner Family
DX: E78.2 Mixed hyperlipidemia (principal); E11.9 Type 2 diabetes mellitus without complications; I10 Essential (primary) hypertension
CPT/HCPCS: 80053; 80061; 83036; 83735; 84443

== ENCOUNTER 2024-10-03 14:45 | Outpatient (CLI) | payer OTHER, SELFPAY ==
--- OUTSIDE RECORDS SUMMARY | 2024-08-16 13:50 | XMS_ITS | Encounter Summary ---
Author Organization [facility] Address [address] [place] [address] Care Team Providers Care Ash Collector Name Role Phone Beth Lawson APRN Primary Care Provider [phone]- [phone] Jesu Aguilar MD Unavailable [phone] Talib Davis MD Unavailable [phone] Reason for Visit * Reason Comments Follow-up Encounter Details Date Type Department Care Team (Late st Contact Info) Description 08/16/2024 1:50 PM EDT Office Visit [facility] [address] [place] [address] Dania Fatima, KAROL, DNP [address] [place] [address] Other male erectile dysfunction (Primary [...] Job 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 Not on [...] * Progress Notes - Dania Fatima P, PAPER RECLAIMING MACHINE OPERATOR, DNP - 08/16/2024 1:50 PM EDT [facility] Urology Clinic Visit CC: erectile dysfunction [...] anemia 08/24/2020 Diabetes mellitus ([facility]/HCC) Hyperlipidemia Hypertension Myocardial infarction (CMS/HCC) Right bundle branch block [2] Past Surgical History: Procedure Laterality Date ANTERIOR CRUCIATE LIGAMENT REPAIR APPENDECTOMY 05/2022 CARDIAC CATHETERIZATION N/A 08/22/2020 [facility]ARD[facility]AC [facility]AC[facility] 08/29/[address] Model # [id number] Serial # [id number] CATARACT EXTRACTION, BILATERAL Bilateral 2019 CHOLECYSTECTOMY CORONARY [...] Description 10/20/2024 3:15 PM EDT Procedure Visit [facility] [address] [facility] [place] [address] Ranjana Barillas MD [address] [facility] [address] [place] [address] 10/30/2024 11:20 AM EDT Office Visit [facility] Medicine Specialties [address] [place] [address] Smiley Vincent PA [address] [place] [address] documented as of this encounter Visit Diagnoses Diagnosis Other male erectile dysfunction- Primary documented in this encounter Additional Health Concerns Infection Onset Date Last Indicated Resolved Time MRSA Comment: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 Source: [employer]. 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 Source: [employer] [facility]. 06/16/2022 Assessment Noted Time A fall risk assessment has been complete d for the patient 08/16/2024 1:24 PM EDT A Body Mass Index follow-up plan has been documented for the patient 08/16/2024 3:02 PM EDT documented as of this encounter Care Teams Ash Collector Relationship Specialty Start Date End Date Beth Lawson APRN [address] [place] [address] PCP - General 08/22/20 Jesu Aguilar MD [address] [place] [address] Referring Physician 09/20/20 Talib Davis MD [address] [address] Consulting Physician Urology 02/07/24 documented as of this encounter
--- OUTSIDE RECORDS SUMMARY | 2024-09-12 07:45 | XMS_ITS | Encounter Summary ---
Author Organization [facility] Address [address] [place] [address] Care Team Providers Care Flanging Operator Name Role Phone Beth Lawson APRN Primary Care Provider +- [phone] Jesu Aguilar MD Unavailable [phone] Talib Davis MD Unavailable [phone] Encounter Details Date Type Department Care Team (Late st Contact Info) Description 09/12/2024 7:45 AM EDT Ancillary Procedure [facility] [address] [place] [address] Social History Tobacco Use Types [...] Description 10/20/2024 3:15 PM EDT Procedure Visit [facility] [address] [place] [address] Ranjana Barillas MD [address] [place] [address] 10/30/2024 11:20 AM EDT Office Visit [facility] Medicine Specialties [address] [place] [address] Smiley Vincent PA [address] [place] [address] documented as of this encounter [...] Time MRSA Comment: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 Source: [employer]. 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 Source: [employer] [facility]. 06/16/2022 Assessment Noted Time A fall risk assessment has been complete d for the patient 09/12/2024 9:53 AM EDT A Body Mass Index follow-up plan has been documented for the patient 08/16/2024 3:02 PM EDT documented as of this encounter Care Teams Flanging Operator Relationship Specialty Start Date End Date Beth Lawson APRN [address] [place] [address] PCP - General 08/22/20 Jesu Aguilar MD [address] [facility] [address] [place] [address] Referring Physician 09/20/20 Talib Davis MD [address] [facility] [address] [place] [address] Consulting Physician Urology 02/07/24 documented as of this encounter
--- OUTSIDE RECORDS SUMMARY | 2024-09-12 10:00 | XMS_ITS | Encounter Summary ---
Author Organization [facility] Address [address] [place] [address] Care Team Providers Care Security Control Assessor Name Role Phone Beth Lawson APRN Primary Care Provider +- [phone] Jesu Aguilar MD Unavailable [phone] Talib Davis MD Unavailable [phone] Reason for Referral * Clinic-Administered Medication (Routine) - Authorized Specialty Diagnoses / Procedures Referred By Contmelody t Referred To Contact Diagnoses 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 type 2 diabetes mellitus Vitreous hemorrhage of left eye (CMS/HCC) Procedures [place] BEVACIZUMAB INJECTION Ranjana Barillas MD [address] [address] Phone: tel: fax: Referral ID Status Reason Start Date Expiration Date V isits Requested Visits Authorized [id number] Authorized 09/12/2024 03/14/2026 1 1 Encounter Details Date Type Department Care Team (Latest Contact Info) Description 09/12/2024 10:00 AM EDT Office Visit [facility] [address] [place] [address] Ranjana Barillas MD [address] [address] 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 type 2 diabetes mellitus (Primary Dx); Vitreous hemorrhage of left eye (CMS/HCC); Pseudophakia of both eyes Social History Tobacco [...] Job Start Date Job End Date 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 [...] reach the clinic on the phone. Call [phone] and ask for the vice president for philanthropy instructional support technician if it is after hours or a weekend or holiday. * Progress Notes - Ranjana Barillas MD - 09/12/2024 10:00 AM EDT PMH: Type II diabetes mellitus (DM), HTN, HLD, CAD, right bundle branch block, FERNANDO Insulin dependent Type II Diabetes Mellitus with proliferative diabetic retinopathy, both eyes - +HTN, +HLD, CAD and arrhythmia, denies CKD, MO, history of CVA, no history of SS dz or trait Lab Results Component Value Date HGBA1C 8.3 (H) 09/24/2023 - Stressed blood sugar and blood pressure control and close follow-up with PCP/net development manager. - Advised of importance in blood sugar and blood pressure control in reducing risk of vision loss. - Advised of importance of scheduled eye exams with sooner follow-up if any new symptoms develop. - Right eye with non-CSME - OCT with noncentral edema trace - No prior injections - S/p PRP 11/23/23 poorly tolerated 297 spots - S/p EUA/PRP both eyes 03-23-24 - Plan: NV improving, continue to monitor non CSME - VA still ok - Left eye with Vitreous hemorrhage 08/2023 and non-CSME - VH onset 08/2023 - S/p EUA/PRP 03-23-24 - Had worsening VH after PRP so repeated JOYCE last 08/04/24 (5 weeks) - OCT with improving vitreous (vit) opacities, traction at disc, non-central DME - Persistent VH - discussed at length regarding indication for PPV/EL/AFx but he prefers continued injections next 2-3 months. Reassess 10/2024 unless worsening sooner - Plan: JOYCE OS and return 1 month for JOYCE vs PRP if view improved Pseudophakia both eyes - Stable, observe Ranjana Barillas MD Purchase Analyst of Ophthalmology Vitreoretinal Surgery Tobacco Cessation: Tobacco Use: Medium Risk (08/16/2024) Patient History Smoking Tobacco Use: Former Smokeless Tobacco Use: Never Passive Exposure: Past The patient has been counseled on tobacco cessation: Not Applicable documented in this encounter Plan of Treatment Upcoming Encounters Date Type Department Care Team (Late st Contact Info) Description 10/20/2024 3:15 PM EDT Procedure Visit [facility] [address] [place] [address] Ranjana Barillas MD [address] [place] [address] 10/30/2024 11:20 AM EDT Office Visit [facility] Specialties [address] [place] [address] Smiley Vincent PA [address] [place] [address] documented as of this encounter Procedures Procedure Name Priority Date/Time Associated Diagnosis Comments INTRAVITREAL INJECTION, PHARMACOLOGIC AGENT - OS - LEFT EYE Routine 09/12/2024 10:37 AM EDT 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 10:30 AM. Confirmed correct patient, procedure, site, and patient consented. Anesthesia Subconjunctival anesthesia was used. Anesthetic medications included Lidocaine 2%. Procedure Preparation included 5% betadine to ocular surface. A 30 gauge needle was used. Injection: 1.25 mg Bevacizumab 1.25 MG/0.05ML Route: Intravitreal, Site: Left Eye [facility]: [address]-1, Lot: [id number], Expiration date: 11/10/2024 Post-op Post injection exam found visual acuity of at least counting fingers. The patient tolerated the procedure well. There were no complications. The patient received written and verbal post procedure care education. us Ranjana Barillas MD OPHTH CLINIC PROCEDURES [...] associated with type 2 diabetes mellitus- Primary Vitreous hemorrhage of left eye (CMS/HCC) Vitreous hemorrhage Pseudophakia of both eyes Lens replaced by other means documented in this encounter Administered Medications Inactive Administered Medications - up to 3 most recent administrations Medication Order MAR Action Action Date Dose Rate Site Bevacizumab (Avastin) ophthalmic injection 1.25 mg 1.25 mg, Intravitreal, Once PRN Procedure, 1 dose, Starting on Wed09/12/24 at 1037, Until Wed09/12/24 at 1037, RoutineIndications:Proliferati ve diabetic retinopathy of both eyes with macular edema associated with type 2 diabetes mellitus,Vitreous hemorrhage of left eye (CMS/HCC) Given 09/12/2024 10:37 AM EDT 1.25 mg Left Eye documented in this encounter Additional Health Concerns Infection Onset Date Last Indicated Resolved Time MRSA Comment: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 Source: [facility]. 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 Source: [facility]. 06/16/2022 Assessment Noted Time A fall risk assessment has been complete d for the patient 09/12/2024 9:53 AM EDT A Body Mass Index follow-up plan has been documented for the patient 08/16/2024 3:02 PM EDT documented as of this encounter Care Teams Security Control Assessor Relationship Specialty Start Date End Date Beth Lawson APRN [address] [place], [place] [id number] PCP - General 08/22/20 Jesu Aguilar MD [address] [place] [address] Referring Physician 09/20/20 Talib Davis MD [address] [address] Consulting Physician Urology 02/07/24 documented as of this encounter
--- OUTSIDE RECORDS SUMMARY | 2024-09-19 10:30 | XMS_ITS | Encounter Summary ---
Author Organization [facility] Address [address] [place] [address] Care Team Providers Care Home Aide Name Role Phone Beth Lawson APRN Primary Care Provider + [phone] Reason for Referral * Diagnostic Medical (Routine) - Authorized Specialty Diagnoses / Procedures Referred By Dejah london Referred To Contact Neurology Diagnoses Polyneuropathy RUE - RLE Procedures Nerve Conduction Test Stephen Grewal MD [address] [place] [address] Phone: tel: fax: Stephen Grewal MD [address] [facility] [address] [place] [address] Phone: tel: fax: Referral ID Status Reason Start Date Expiration Date V isits Requested Visits Authorized [id number] Authorized 09/19/2024 12/19/2025 1 1 Reason for Visit * Reason Comments parasthesias BUE Dizziness not sleeping Gait Problem * Consultation (Routine) - Closed Specialty Diagnoses / Procedures Referred By Dejah london Referred To Contact Neurology Diagnoses Anesthesia of skin Paresthesia of skin Other symptoms and signs involving the musculoskeletal system Other abnormalities of gait and mobility Beth Lawson APRN [address] [place] [address] Phone: tel: fax: [facility] [address] [facility] [address] [place] [address] Phone: tel: fax: Referral ID Status Reason Start Date Expiration Date Visits Re quested Visits Authorized [id number] Closed 06/28/2024 09/27/2025 1 1 Encounter Details Date Type Department Care Team (Latest Contact Info) Description 09/19/2024 10:30 AM EDT Office Visit [facility] NEUROLOGY [address] [facility] [address] [place] [address] Stephen Grewal MD [address] [facility] [address] [place] [address] Polyneuropathy (Primary Dx) Social History Tobacco Use Types Packs/Day Years Used Date Smoking Tobacco: Former Cigarettes 1 15 0 02/15/1997 - 12/10/2019 Passive Smoke Exposure: Past Tobacco Cessation:Counseling Given: No Alcohol Use Standard Drinks/Week Comments Not Currently 0 (1 standard drink = 0.6 oz pur e alcohol) Sex and Gender Information Value Date Recorded Sex Assigned at Male 09/12/2024 8:45 AM EDT Legal Sex Male 4:32 PM EST Gender Identity Not on file Sexual Orientation Straight 09/12/2024 8: 45 AM EDT documented as of this encounter Last Filed Vital Signs Vital Sign Reading Time Taken Comments Blood Pressure 128/74 09/19/2024 10:07 AM EDT Pulse 70 09/19/2024 10:07 AM EDT Temperature - - Respiratory Rate - - Oxygen Saturation 95% 09/19/2024 10:07 AM EDT Inhaled Oxygen Concentration - - Weight 98.9 kg (218 lb) 09/19/2024 10:07 AM EDT Height 182.9 cm (6' 0.01 ) 09/19/2024 10:07 AM E DT Body Mass Index 29.56 09/19/2024 10:07 AM EDT documented in this encounter Progress Notes * Stephen Grewal MD - 09/19/2024 10:30 AM EDT Subjective Patient ID: Stephen Garcia is a 49 y.o. male Chief Complaint Patient presents with parasthesias BUE Dizziness not sleeping Gait Problem History of Present Illness 49 y.o. male referred by Beth Lawson APRN for peripheral neuropathy. MRI Cervical 08/27/23 ACDF C5-6 and C6-7, C4-5 mod stenosis HCT 02/01/23 NAD Closing eyes in shower unsteady. N/T in feet and ankles. DM since 20 yoa T2DM N/T in hands. Atrophy in hands. Reviewed medical records: Vision problems, back pain, hand weakness, balance issues. RLS IDDM Labs CMP, B12, TSH NCS ' A1C 8.7 Past Medical History: Diagnosis Date Arthritis Coronary artery disease 2020 CTS (carpal tunnel syndrome) 2021 Diabetes mellitus Years Difficulty walking Years Headache, tension-type ? Hyperlipidemia Years Hypertension Years Memory loss 2022 Migraine Neuropathy in diabetes Years Sleep apnea Years Family History Problem Relation Age of Onset Diabetes Mother Stroke Paternal Grandfather Social History Socioeconomic History Marital status: Tobacco Use Smoking status: Former Current packs/day: 0.00 Average packs/day: 1 pack/day for 15.0 years (15.0 ttl pk-yrs) Types: Cigarettes Start date: 02/15/1997 Quit date: 12/10/2019 Years since quittin.7 Passive exposure: Past Vaping Use Vaping status: Never Used Substance and Sexual Activity Alcohol use: Not Currently Drug use: Never Sexual activity: Yes Partners: Female control/protection: Condom Review of Systems Constitutional: Positive for fatigue. Negative for activity change and unexpected weight change. HENT: Negative for facial swelling, hearing loss, tinnitus, trouble swallowing and voice change. Eyes: Negative for photophobia, pain and visual disturbance. Respiratory: Negative for apnea, cough and choking. Cardiovascular: Negative for chest pain. Gastrointestinal: Negative for constipation, nausea and vomiting. Endocrine: Negative for cold intolerance. Genitourinary: Negative for difficulty urinating, frequency and urgency. Musculoskeletal: Positive for arthralgias, back pain, gait problem, neck pain and neck stiffness. Negative for myalgias. Skin: Negative for rash. Allergic/Immunologic: Negative for immunocompromised state. Neurological: Positive for dizziness, tremors, weakness and numbness. Negative for seizures, syncope, facial asymmetry, speech difficulty, light-headedness and headaches. Hematological: Negative for adenopathy. Psychiatric/Behavioral: Negative for confusion, decreased concentration, hallucinations and sleep disturbance. The patient is not nervous/anxious. Objective Vitals: 09/19/24 1007 BP: 128/74 Pulse: 70 SpO2: 95% Weight: 98.9 kg (218 lb) Height: 182.9 cm (72.01 ) Neurological Exam Mental Status Awake, alert and oriented to person, place and time. Oriented to person, place and time. Speech is normal. Language is fluent with no aphasia. Attention and concentration are normal. Fund of knowledge is appropriate for level of education. Cranial Nerves CN III, IV, : Extraocular movements intact bilaterally. Pupils equal round and reactive to light bilaterally. CN V: Facial sensation is normal. CN VII: Full and symmetric facial movement. CN IX, X: Palate elevates symmetrically CN XI: Shoulder shrug strength is normal. CN XII: Tongue midline without atrophy or fasciculations. Motor Decreased muscle bulk throughout. Distal atrophy . Sensory Light touch abnormality: Pinprick abnormality: Stocking glove decrease pp and lt . Reflexes Deep tendon reflexes are 2+ and symmetric in all four extremities. Coordination Cwhqqo-js-iolg, rapid alternating movements and ldaq-nb-kbmm normal bilaterally without dysmetria. Gait Casual gait: Wide stance. Reduced stride length. Ataxic gait. Physical Exam Eyes: Extraocular Movements: Extraocular movements intact. Pupils: Pupils are equal, round, and reactive to light. Neurological: Coordination: Coordination is intact. Deep Tendon Reflexes: Reflexes are normal and symmetric. Psychiatric: Speech: Speech normal. Lab on 06/16/2022 Component Date Value Ref Range Status Wound Culture 06/16/2022 Light growth (2+) Acinetobacter baumannii MDRO (C) Final Comment: Multi drug resistant Acinetobacter, patient may be an isolation risk. Wound Culture 06/16/2022 Scant growth (1+) Enterococcus faecium (A) Final Gram Stain 06/16/2022 Many (4+) WBCs per low power field Final Gram Stain 06/16/2022 Many (4+) Gram positive cocci Final Gram Stain 06/16/2022 Few (2+) Gram variable bacilli Final Gram Stain 06/16/2022 Few (2+) Gram negative bacilli Final Gram Stain 06/16/2022 Few (2+) Epithelial cells per low power field Final Assessment & Plan Problem List Items Addressed This Visit None Visit Diagnoses Polyneuropathy - Primary Relevant Medications rOPINIRole (REQUIP) 0.25 MG tablet Other Relevant Orders Nerve Conduction Test No follow-ups on file. documented in this encounter Plan of Treatment Upcoming Encounters Date Type Department Care Team (Late st Contact Info) Description 11/21/2024 3:45 PM EDT Procedure visit [facility] [address] [place] [address] Stephen Grewal MD [address] [facility] [address] [place] [address] Scheduled Orders Name Type Priority Associated Diagnoses Orde r Schedule Nerve Conduction Test Neurology Routine Polyneuropathy Expected: 09/24/2024, Expires: 09/19/2025 documented as of this encounter Visit Diagnoses Diagnosis Polyneuropathy- Primary Unspecified hereditary and idiopathic peripheral neuropathy documented in this encounter Additional Health Concerns Infection Onset Date Last Indicated Resolved Time MRSA Comment:per nsg database hx MRSA left arm in 2014; 05/20/15 nares screen neg for MRSA 05/20/2015 05/20/2015 MDR Acinetobacter 06/16/2022 06/22/2022 documented as of this encounter Care Teams Home Aide Relationship Specialty Start Date End Date Beth Lawson APRN [address] [place] [address] [facility] [address] PCP - General Internal Medicine 06/30/24 documented as of this encounter
[2024-10-03 18:54] LABS: Albumin Level 4.0 g/dl (3.5-5.0); Chloride 108 mmol/L (98-107); Potassium 4.8 mmoL/L (3.5-5.1); Sodium 141 mmol/L (136-145)
[2024-10-03 18:56] LABS: Blood Urea Nitrogen 22 mg/dl (9-20); Creatinine,Serum 0.90 mg/dl (0.66-1.25); Estimated Glomerular Filt Rate 89 ml/min (>60); GFR (African American) 108 ML/MIN (>60)
[2024-10-03 18:57] LABS: Alanine Aminotransferase 37 U/L (12-78); Albumin/Globulin Ratio 1.7 (1.1-1.8); Alkaline Phosphatase 91 U/L (38-126); Anion Gap 12.8 mEq/L (5-15); Aspartate Amino Transferase 39 U/L (17-59); Bilirubin,Total 0.9 mg/dl (0.2-1.3); Calcium 9.5 mg/dl (8.4-10.2); Carbon Dioxide 25 mmol/L (22.0-30.0); Globulin 2.3 g/dL (1.3-3.2); Glucose 173 mg/dl (74-100); Total Protein,Serum 6.3 g/dl (6.3-8.2)
--- OUTSIDE RECORDS SUMMARY | 2024-10-04 10:50 | XMS_ITS | Clinical Summary ---
Author Organization [facility] Address [address] [facility] [address] [place] [address] Phone Care Team Providers Care Water Pollution Scientist Name Role Phone Janis Rodriguez Unavailable Unavailable Conditions or Problems Problem Name Problem Code Onset Date Status Entry Date Provider Comment Standard Description Annotate Sepsis 26643075 (SNOMED CT) 06/16 Active 06/17 Rito Javed [...] and gangrene, with abscess Cellulitis, abdominal wall 35797021 (SNOMED CT) 06/15 Active 06/15 Queenie Herberth Cellulitis of abdominal wall Infection, local skin/subcutan eous tissue 108279769 (SNOMED CT) 06/15 Active 06/15 Queenie Herberth Localized infection of skin AND/OR subcutaneous tissue 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 ) 06/15 Active 06/15 Queenie Herberth Leukemoid reaction Presence of cardiac pacemaker 658239133 (SNOMED CT) 06/15 Active 06/15 Queenie Herberth Cardiac pacemaker in situ DM Type II E11.9 (ICD-10-CM ) 06/15 Active 06/15 Queenie Hreberth Type 2 diabetes mellitus without complications Coronary artery disease, S/P CABG 856648299 (SNOMED CT) 06/15 Active 06/15 Queenie Kevin 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 (I50.22) 444052752 ([facility] CT) 06/15 Active 06/15 Queenie Kevin Benign hypertensive heart disease with congestive cardiac failure Medications Medication Instructions Start Date Stop Date Generic Name ND Provider MINOCYCLINE HCL 100 MG CAPS Take 1 capsule by mouth twice a day Stop the Bactrim minocycline 23808523483 Rito Javed MD BACTRIM DS 800-160 MG TABS Take 1 tablet by mouth twice a day sulfamethoxazole- trimethoprim 84049520269 Rito Javed MD LISINOPRIL 5 MG TABS one tab oral daily 06/16 lisinopril 88714464516 Rito Javed MD CEPHALEXIN 500 MG CAPS 1 cap oral 4 times daily for 7 days 06/16 cephalexin 89835585867 Rito Javed MD [facility] ACETAMINOPHEN 325 MG CAPS 2 tab every 6 hours as needed for pain acetaminophen 18022056203 Luís Melvin HYDROCODONE-ACETAM INOPHEN 5-325 MG TABS one tab oral three times daily for 5 days, then one tab oral twice a day for 5 days, then as needed hydrocodone-aceta minophen 39735654531 Luís Melvin aspirin 81 mg capsule one tab oral daily aspirin Luís Melvin ATORVASTATIN CALCIUM 80 MG TABS one tab oral daily at bedtime atorvastatin 74271312993 Luís Melvin Bifidobacterium animalis 6 mg (5 billion cell) capsule 1 cap oral daily bifidobacterium animalis Luís Melvin CARVEDILOL 6.25 MG TABS twice daily, with breakfast and dinner carvedilol 70095854789 Luís Melvin CEPHALEXIN 500 MG CAPS 1 cap oral 4 times daily for 7 days 06/16 cephalexin 51599198984 Luís Melvin CLOPIDOGREL BISULFATE 75 MG TABS one tab oral daily clopidogrel 42246575235 Luís Melvin empagliflozin 10 mg tablet one tab oral daily empagliflozin Luís Melvin famotidine 10 mg tablet one tab oral daily famotidine 49699238510 Luís Melvin INSULIN LISPRO (1 UNIT DIAL) 100 UNIT/ML SOPN 12 units twice daily with breakfast and dinner insulin lispro 03463041195 Luís Melvin LISINOPRIL 5 MG TABS one tab oral daily 06/16 lisinopril 35113695448 Luís Melvin MAGNESIUM OXIDE -MG SUPPLEMENT 400 MG CAPS 1 tab oral daily magnesium oxide 45398379224 Luís Melvin [facility] MELATONIN 5 MG CAPS one tab oral daily at bedtime for insomnia melatonin 36664864483 Luís Melvin Miralax 17 gram powder in packet oral daily as needed polyethylene glycol 3350 87251600549 Luís Melvin JANUVIA 100 MG TABS one tab oral daily sitagliptin phosphate 23691704189 Luís Melvin Medications Administered No information available. [...] smoker Tobacco smoking status Lab Report: COMPREHENSIVE NV TABOLIC PANEL ANIONGAP 10.0 mmol/L 5.0-15.0 anion [...] Name Date Entry Date CPT-sl STAT Labs CPT-47674 Wound Culture and Sensitivity w/Gram Stai n G7096n,[id number] CBC with Differential 2022 CPT-27727 CMP CPT-98279 Sedimentation Rate (ESR) 202 04/19/01 CPT-68697 C- reactive protein [id number], [id number] CPK Vital Signs Date Name Value Unit [...]
--- OUTSIDE RECORDS SUMMARY | 2024-10-04 10:51 | XMS_ITS | Encounter Summary ---
Author Organization [facility] Address [address] 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 [address] [place] [address] 10/30/2024 11:20 AM EDT Office Visit [facility] Specialties [address] [place] [address] Smiley Vincent PA [address] [place] [address] documented as of this encounter Visit Diagnoses Not on filedocumented in this encounter Additional Health Concerns Infection Onset Date Last Indicated Resolved Time MRSA Comment: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 Source: [facility]. 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 Source: [facility]. 06/16/2022 Assessment Noted Time A fall risk assessment has been complete d for the patient 02/07/2024 11:30 AM EST A Body Mass Index follow-up plan has been documented for the patient 02/29/2024 1:49 PM EST documented as of this encounter Care Teams Carpenters Helper Relationship Specialty Start Date End Date Beth Lawson APRN [address] [place] [address] PCP - General 08/22/20 Jesu Aguilar MD [address] [id number] Referring Physician 09/20/20 Talib Davis MD [address] [id number] Consulting Physician Urology 02/07/24 documented as of this encounter
--- OUTSIDE RECORDS SUMMARY | 2024-10-04 10:51 | XMS_ITS | Encounter Summary ---
Author Organization [facility] Address [address] 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 on file Not on file documented as of this encounter Plan of Treatment Upcoming Encounters Date Type Department Care Team (Late st Contact Info) Description 10/20/2024 3:15 PM EDT Procedure Visit [facility] [address] [place] [address] Ranjana Barillas MD [address] [place] [address] 10/30/2024 11:20 AM EDT Office Visit [facility] [address] [place] [address] Smiley Vincent PA [address] [place] [address] documented as of this encounter Visit Diagnoses Not on filedocumented in this encounter Additional Health Concerns Infection Onset Date Last Indicated Resolved Time MRSA Comment: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 Source: [employer]. 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 Source: [employer] [facility]. 06/16/2022 Assessment Noted Time A fall risk assessment has been complete d for the patient 09/12/2024 9:53 AM EDT A Body Mass Index follow-up plan has been documented for the patient 08/16/2024 3:02 PM EDT documented as of this encounter Care Teams Cigarette Machine Filler Relationship Specialty Start Date End Date Beth Lawson APRN [address] [place] [address] PCP - General 08/22/20 Jesu Aguilar MD [address] [facility] [address] [place] [address] Referring Physician 09/20/20 Talib Davis MD [address] [place] [address] Consulting Physician Urology 02/07/24 documented as of this encounter
--- OUTSIDE RECORDS SUMMARY | 2024-10-04 10:51 | XMS_ITS | Encounter Summary ---
Author Organization [facility] Address [address] 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 on file Not on file documented as of this encounter Plan of Treatment Upcoming Encounters Date Type Department Care Team (Late st Contact Info) Description 10/20/2024 3:15 PM EDT Procedure Visit [facility] [address] [place] [address] Ranjana Barillas MD [address] [place] [address] 10/30/2024 11:20 AM EDT Office Visit [facility] Medicine Specialties [address] [place] [address] Smiley Vincent PA [address] [place] [address] documented as of this encounter Visit Diagnoses Not on filedocumented in this encounter Additional Health Concerns Infection Onset Date Last Indicated Resolved Time MRSA Comment: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 Source: [facility]. 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 Source: [facility]. 06/16/2022 Assessment Noted Time A fall risk assessment has been complete d for the patient 08/04/2024 9:51 AM EDT A Body Mass Index follow-up plan has been documented for the patient 08/04/2024 10:53 AM EDT documented as of this encounter Care Teams Blender Snuff Relationship Specialty Start Date End Date Beth Lawson APRN [address] [place] [address] PCP - General 08/22/20 Jesu Aguilar MD [address] [address] Referring Physician 09/20/20 Talib Davis MD [address] [address] Consulting Physician Urology 02/07/24 documented as of this encounter
--- OUTSIDE RECORDS SUMMARY | 2024-10-04 10:51 | XMS_ITS | Encounter Summary ---
Author Organization [facility] Address [address] 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 [...] Description 10/20/2024 3:15 PM EDT Procedure Visit [facility] [address] [place] [address] Ranjana Barillas MD [address] [place] [address] 10/30/2024 11:20 AM EDT Office Visit [facility] Medicine Specialties [address] [place] [address] Smiley Vincent PA [address] [place] [address] documented as of this encounter Visit Diagnoses Not on filedocumented in this encounter Additional Health Concerns Infection Onset Date Last Indicated Resolved Time MRSA Comment: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 Source: [employer]. 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 Source: [employer]. 06/16/2022 Assessment Noted Time A fall risk assessment has been complete d for the patient 08/16/2024 1:24 PM EDT A Body Mass Index follow-up plan has been documented for the patient 08/16/2024 3:02 PM EDT documented as of this encounter Care Teams Wad Blanking Press Adjuster Relationship Specialty Start Date End Date Beth Lawson APRN [address] [place] [address] PCP - General 08/22/20 Jesu Aguilar MD [address] [place] [address] Referring Physician 09/20/20 Talib Davis MD [address] [facility] [address] [place] [address] Consulting Physician Urology 02/07/24 documented as of this encounter
--- OUTSIDE RECORDS SUMMARY | 2024-10-04 10:51 | XMS_ITS | Clinical Summary ---
Author Organization [facility] Address [address] [place] [address] Care Team Providers Care Ironworker Name Role Phone Beth Lawson APRN Primary Care Provider [phone] Allergies No known active allergies Medications QUEtiapine (SEROquel) 100 MG tablet Take 1 tablet by mouth Every Night. Active aspirin 81 MG EC tablet TAKE 1 TABLET BY MOUTH ONCE DAILY FOR HEART DISEASE Active atorvastatin (LIPITOR) 80 MG tablet TAKE 1 TABLET BY MOUTH AT BEDTIME NIGHTLY FOR CHOLESTEROL Active carvedilol (COREG) 6.25 MG tablet 0.5 tablets. Active Continuous Glucose Sensor (Dexcom G7 Sensor) [facility] USE DIRECTED CHANGE EVERY 10 DAYS 025 Active HumaLOG Mix 75/25 KwikPen (75-25) 100 UNIT/ML suspension pen-injector pen INJECT 24 UNITS SUBCUTANEOUSLY TWICE DAILY FOR DIABETES Active Magnesium 400 MG tablet 400 mg Daily. Active rOPINIRole (REQUIP) 0.25 MG tablet TAKE 1 TABLET BY MOUTH AT BEDTIME NIGHTLY ADMINISTER 1-3HRS BEFORE BEDTIME Active Rybelsus 14 MG tablet Take 1 tablet by mouth Daily. Active Januvia 100 MG tablet TAKE 1 TABLET BY MOUTH ONCE DAILY FOR DIABETES Active lisinopril (PRINIVIL,ZES TRIL) 5 MG tablet Take 1 tablet by mouth Daily. Active glimepiride (AMARYL) 2 MG tablet Take 2 mg by mouth 2 (two) times a day. 2024 Discontinued PARoxetine (PAXIL) 20 MG tablet Take 20 mg by mouth every morning. 2024 Discontinued(* Therapy completed) metFORMIN (GLUCOPHAGE) 500 MG tablet Take 500 mg by mouth 2 (two) times a day with meals. 2024 Discontinued gabapentin (NEURONTIN) 300 MG capsule Take 300 mg by mouth 3 (three) times a day. 2024 Discontinued clonazePAM (KlonoPIN) 0.5 MG tablet Take 0.5 mg by mouth daily as needed for seizures. 2024 Discontinued lisinopril (PRINIVIL,ZES TRIL) 20 MG tablet Take 20 mg by mouth daily. 2024 Discontinued(P atient Reported Not Taking) meloxicam (MOBIC) 15 MG tablet Take 15 mg by mouth daily. 2024 Discontinued naproxen sodium (ALEVE) 220 MG tablet Take 220 mg by mouth 2 (two) times a day as needed for mild pain (1-3). 2024 Discontinued acetaminophen (TYLENOL) 325 MG tablet Take 650 mg by mouth as needed for mild pain (1-3). 2024 Discontinued HYDROcodone-a cetaminophen (NORCO) 7.5-325 MG per tablet Take 1 tablet by mouth 3 (three) times a day as needed for moderate pain (4-6). 2024 Discontinued cyclobenzapri ne (FLEXERIL) 10 MG tablet Take 10 mg by mouth 3 (three) times a day as needed for muscle spasms. 2024 Discontinued amantadine (SYMMETREL) 100 MG tablet 024 2024 Discontinued(* Therapy completed) SV Vitamin D3 50 MCG (1999) capsule Take 1 capsule by mouth Daily. 2024 Discontinued(* Therapy completed) Farxiga 10 MG tablet Take 10 mg by mouth Daily. 025 2024 Discontinued(* Therapy completed) empagliflozin (Jardiance) 10 MG tablet tablet Take 1 tablet by mouth Daily. 2024 Discontinued(* Therapy completed) methocarbamol (ROBAXIN) 750 MG tablet Take 1 tablet by mouth 3 (Three) Times a Day. 2024 Discontinued(* Therapy completed) nystatin-tria mcinolone (MYCOLOG II) 831028-7.1 UNIT/GM-% cream APPLY CREAM TOPICALLY TO AFFECTED AREA TWICE DAILY DIRECTED 2024 Discontinued(* Therapy completed) oxyCODONE (ROXICODONE) 5 MG immediate release tablet Take 1 tablet by mouth Every 8 (Eight) Hours As Needed. for pain 2024 Discontinued(* Therapy completed) sildenafil (VIAGRA) 100 MG tablet TAKE 1 TABLET BY MOUTH 30 MINUTES TO 1 HOUR PRIOR TO SEXUAL INTERCOURSE 2024 Discontinued(* Therapy completed) traZODone (DESYREL) 100 MG tablet Take 1 tablet by mouth At Night As Needed. 2024 Discontinued(* Therapy completed) Active Problems No known active problems Encounters Date Type Department Care Team Description 09/19/2024 10:30 AM EDT Office Visit [facility] [address] [place] [address] Stephen Grewal MD Polyneuropathy (Primary Dx) 09/19/2024 Travel from Last 3 Months Family History Medical History Relation Name Comments Diabetes Mother Stroke Paternal Grandfather Pascual rivera Relation Name Status Comments Mother Paternal Grandfather Pascual rivera Alive Social History Tobacco Use Types Packs/Day Years [...] Orientation Straight 09/12/2024 8: 45 AM EDT Last Filed Vital Signs Vital Sign Reading Time Taken Comments Blood Pressure 128/74 09/19/2024 10:07 AM EDT Pulse 70 09/19/2024 10:07 AM EDT Temperature 36.7 C (98.1 F) 07/31/2015 12:44 PM EDT Respiratory Rate - - Oxygen Saturation 95% 09/19/2024 10:07 AM EDT Inhaled Oxygen Concentration - - Weight 98.9 kg (218 lb) 09/19/2024 10:07 AM EDT Height 182.9 cm (6' 0.01 ) 09/19/2024 10:07 AM E DT Body Mass Index 29.56 09/19/2024 10:07 AM EDT Plan of Treatment Upcoming Encounters Date Type Department Care Team (Late st Contact Info) Description 11/21/2024 3:45 PM EDT Procedure visit [facility] [address] [place] [address] Stephen Grewal MD [address] [facility] [address] [place] [address] Health Maintenance Due Date Last Done Comments DIABETIC FOOT EXAM 1984 URINE MICROALBUMIN-CREATININ E [...] - 2023-2 5 season) 2023 11/07/2020, 10/10/2020 ZOSTER VACCINE (1 of 2) 2024 ANNUAL PHYSICAL 09/19/2024 HEMOGLOBIN A1C 09/19/2024 09/24/2023, 08/0 10/2023, 01/07/2021, Additional history exists HEPATITIS C SCREENING 09/19/2024 INFLUENZA VACCINE 11/15/2024 DIABETIC EYE EXAM 08/04/2025 08/04/2024, 09/17/2023 Additional Health Concerns Infection Onset Date Last Indicated MRSA Comment:per nsg database hx MRSA left arm in 2014; 05/20/15 nares screen neg for MRSA 05/20/2015 05/20/2015 MDR Acinetobacter 06/16/2022 06/22/2022 Insurance [facility] [place] Care Teams Ironworker Relationship Specialty Start Date End Date Beth Lawson APRN [address] [address] [place] [address] PCP - General Internal Medicine 06/30/24
--- OUTSIDE RECORDS SUMMARY | 2024-10-04 10:51 | XMS_ITS | Clinical Summary ---
Author Organization [facility] Address [address] [place] [address] Care Team Providers Care Offset Lithographic Press Setter Name Role Phone Beth Lawson APRN Primary Care Provider [phone] Jesu Aguilar MD Unavailable [phone] Talib Davis MD Unavailable [phone] Allergies Active Allergy Reactions Criticality Noted Date [...] 11 1 Active Additional Information Patient not taking.Reason: Not effective, Reported on 09/12/2024 insulin lispro protamine-insu elise lispro (HumaLOG MIX [...] tablet 4 Active Additional Information Patient not taking.Reason: Not effective, Reported on 09/12/2024 acetaminophen (Tylenol) 500 MG tablet Take 2 [...] 4 Active D3 High Potency 50 MCG (2000 UT) capsule Take by mouth daily. 5 [...] afebrile and HDS Postoperative fever 08/26/2020 09/01/19 21 Overview (08/29/2020): - Now afebrile and HDS [...] as able Acute blood loss anemia 08/24/2020 1003/2021 Thrombocytopenia 08/24/2020 08/31/2020 Overview (08/24/2020): - Related [...] Encounters Date Type Department Care Team Description 09/12/2024 10:00 AM EDT Office Visit [facility] [address] [place] [address] Ranjana Barillas MD 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 type 2 diabetes mellitus (Primary Dx); Vitreous hemorrhage of left eye (CMS/HCC); Pseudophakia of both eyes 09/12/2024 7:45 AM EDT Ancillary Procedure [facility] [address] [place] [address] 09/12/2024 Travel 08/16/2024 1:50 PM EDT Office Visit [facility] Urology [address] [address] Dania Fatima, LABORATORY MILLER, DNP Other male erectile dysfunction (Primary Dx) 08/16/2024 Travel 08/08/2024 Results Follow-Up [facility] Medicine Specialties [address] [place] [address] Pascual Aviles, KAROL 08/04/2024 10:00 AM EDT Procedure Visit [facility] [address] [place] [address] Ranjana Barillas MD Vitreous hemorrhage of left eye (CMS/HCC) (Primary Dx); 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 type 2 diabetes mellitus; Pseudophakia of both eyes 08/04/2024 7:35 AM EDT Ancillary Procedure [facility] [address] [address] 08/04/2024 7:35 AM EDT Ancillary Procedure [facility] [address] [place] [address] 08/04/2024 Travel 07/31/2024 12:30 PM EDT Consult [facility] Medicine Specialties [address] [place] [phone] Pascual Aviles, KAROL Chronic bilateral back pain, unspecified back location (Primary Dx); CHATA positive; Diarrhea, unspecified type 07/31/2024 Travel from Last 3 Months Immunizations Immunization [...] Description 10/20/2024 3:15 PM EDT Procedure Visit [facility] [address] [place] [address] Ranjana Barillas MD [address] [place] [address] 10/30/2024 11:20 AM EDT Office Visit [facility] [address] [place] [address] Smiley Vincent PA [address] [place] [address] Health Maintenance Due Date Last [...] 05/17/2019 Sigmoidoscopy 05/17/2019 [facility]-Colorectal Cancer Screening 05/17/2019 [id number] Vaccine (3 - 2023- season) 2023 11/07/2020, 10/10/2020 [facility]-Diabetes: Hemoglobin A1C [...] this topic Medical Devices Implanted Type Area Tube Tester Device Identifier Shelf Expiration Date Model / Serial / Lot Kit [facility] 700 Accessory - [id number] - [id number] Implanted:Qty: 1 on 12/23/2023 by Talib Davis MD at [facility] Implant [id number] 10/12/2028 [id number] / [id number] / [id number] Conceal Iz - [id number] - [id number] Implanted:Qty: 1 on 12/23/2023 by Talib Davis MD at [facility] Implant [id number] 11/08/2025 [id number] / [id number] / Cx Preconnect Ms 21cm Ps Iz - [id number] - [id number] Implanted:Qty: 1 on 12/23/2023 by Talib Davis MD at [facility] Implant [id number] 11/11/2025 [id number] / [id number] / [employer] Rear Tip Enterprise Applications Manager 3cm Implanted:Qty: 1 on 12/23/2023 by Talib Davis MD at [facility] Implant Demandware 10/06/2028 [id number] / [id number] / [id number] [employer] Rear Tip Enterprise Applications Manager 2cm Implanted:Qty: 1 on 12/23/2023 by Talib Davis MD at [facility] Implant Demandware 11/06/2028 [id number] / [id number] / [id number] Lead Solia S 53 Mri Lead - [id number] Implanted:Qty: 1 on 08/29/2020 by Mode Fong MD at [facility] [employer] Inc-[id number] 07/15/2022 [id number] / [id number] / [id number] Lead Solia S 45 Mri Lead - [id number] Implanted:Qty: 1 on 08/29/2020 by Mode Fong MD at [facility] [employer] Inc-[id number] 03/17/2022 [id number] / [id number] / [id number] Pacemaker Edora Mri Cond - [id number] Implanted:Qty: 1 on 08/29/2020 by Mode Fong MD at [facility] [employer]-[id number] 01/14/2022 [id number] / [id number] / [id number] Procedures Procedure Name Priority Date/Time Associated Diagnosis Comments INTRAVITREAL INJECTION, PHARMACOLOGIC AGENT - OS - LEFT EYE Routine 09/12/2024 10:37 AM EDT 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 type 2 diabetes mellitus Vitreous hemorrhage of left eye (CMS/HCC) OCT, RETINA - OU - BOTH EYES Routine 09/12/2024 10:17 AM EDT 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 type 2 diabetes mellitus INTRAVITREAL INJECTION, PHARMACOLOGIC AGENT - OS - [...] back pain, unspecified back location CHATA positive VINSON/FURNITURE FINISHER APPRENTICE (BENOIT) ANTIBODY, IGG (SO) Routine 07/31/2024 1:09 [...] back pain, unspecified back location CHATA positive HEMOGLOBIN A1C Routine 09/24/2023 2:50 PM EDT [...] 1.25 MG/0.05ML Route: Intravitreal, Site: Left Eye [facility]: [address]-8, Lot: [id number], Expiration date: 11/10/2024 Post-op Post injection exam [...] MD OPHTH TOMOGRAPHY Final Res ult * Intravitreal Drug Injection - OS - [...] 2.75 MG/0.11ML Route: Intravitreal, Site: Left Eye [facility]: 89043-844-65, Lot: [id number], Expiration date: 08/14/2024 Post-op Post injection exam [...] MD OPHTH TOMOGRAPHY Final Res ult * Karel (BENOIT) Antibody, IgG (07/31/2024 1:09 PM EDT) Pathologist Cherie Vinson (BENOIT) Antibody, IgG 2 0 - 40 AU/mL 08/02/2024 1:27 PM EDT [facility] Serum 07/31/2024 1:09 PM EDT 07/31/2024 1:11 PM EDT Narrative [facility] ([facility]) - 08/02/2024 1:27 PM EDT [...] associations with SLE clinical manifestations. Performed By: [employer] [address] [place] [address] Top Former: Ivan Ahuja MD, PhD CLIA Number: [id number] Pascual Aviles APRN LAB REF LAB BLOOD AND FLUID OR D Final Result [facility]) [address] [place] [address] * ENAII (07/31/2024 1:09 PM EDT) SSA-52 (RO52) (BENOIT) Antibody, IgG 2 0 - 40 AU/mL 08/02/2024 1:28 PM EDT [facility] ([facility]) SSA-60 (RO60) (BENOIT) Antibody, IgG 0 0 - 40 AU/mL 08/02/2024 1:28 PM EDT [facility]) SSB (LA) (BENOIT) Antibody, IgG 0 0 - 40 AU/mL 08/02/2024 1:28 PM EDT [facility] ([facility]) Blood Venous blood specimen / Unknown Venipuncture / Unknown 07/31/2024 1:09 PM EDT 07/31/2024 1:11 PM EDT Narrative [facility] ([facility]) - 08/02/2024 1:28 PM EDT INTERPRETIVE INFORMATION: [...] (PSS) also have this antibody. Performed By: [facility] [address] [place] [address] Top Former: Ivan Ahuja MD, PhD CLIA Number: [id number] Pascual Aviles APRN LAB BLOOD ORDERABLES Final Res ult [employer]) [address] [place] [address] * ENAI (07/31/2024 1:09 PM EDT) Vinson/FURNITURE FINISHER APPRENTICE (BENOIT) Ab, IgG 3 0 - 19 Units 08/03/2024 6:32 AM EDT [email or web address] ([email or web address]) Blood Venous blood specimen / Unknown Venipuncture / Unknown 07/31/2024 1:09 PM EDT 07/31/2024 1:11 PM EDT Narrative [facility]) - 08/03/2024 6:32 AM EDT INTERPRETIVE INFORMATION: Vinson/FURNITURE FINISHER APPRENTICE (BENOIT) Antibody, IgG 19 Units or Less ............. Negative 20 to 39 Units ............... Weak Positive 40 to 80 Units ............... Moderate Positive 81 Units or greater .......... Strong Positive Vinson/FURNITURE FINISHER APPRENTICE antibodies are frequently seen in patients with mixed connective tissue disease (MCTD) and are also associated with other systemic autoimmune rheumatic diseases (SARDs) such as systemic lupus erythematosus (SLE), systemic sclerosis, and myositis. Antibodies targeting the Vinson/FURNITURE FINISHER APPRENTICE antigenic complex also recognize Vinson antigens, therefore, the Vinson antibody response must be considered when interpreting these results. Performed By: [facility] [address] [place] [address] Top Former: Ivan Ahuja MD, PhD CLIA Number: [id number] Pascual Aviles APRN LAB BLOOD ORDERABLES Final Res ult Performing Organization Address City/[facility]/ZIP Co de Phone Number [facility] ([facility]) [address] [place] [address] * Thyroid Peroxidase Antibody (07/31/2024 1:09 PM EDT) Thyroid Peroxidase Antibody <5 <=8 IU/mL 07/31/2024 3:36 PM EDT [facility] Blood Venous blood specimen / Unknown Venipuncture / Unknown 07/31/2024 1:09 PM EDT 07/31/2024 1:11 PM EDT Pascual Aviles LABORATORY MILLER LAB BLOOD ORDERABLES Final Res ult [facility] [address] [place] [address] * Cyclic Citrul Peptide Antibody IgG (07/31/2024 1:09 PM EDT) [facility] Cyclic Citrul Peptide Antibody IgG <5.0 <=5.0 U/mL 07/31/2024 4:06 PM EDT [facility] Blood Venous blood specimen / Unknown Venipuncture / Unknown 07/31/2024 1:09 PM EDT 07/31/2024 1:11 PM EDT Pascual Shaffer Traci ROBERSON LAB BLOOD ORDERABLES Final Res ult [facility] [address] [place] [address] * Double-Stranded DNA (dsDNA) Antibody, IgG by IFA (07/31/2024 1:09 PM EDT) [facility] Double-Strande d DNA (dsDNA) Ab IgG IFA <1:10 <1:10 08/03/2024 7:54 AM EDT [facility] ([facility]) Blood Venous blood specimen / Unknown Venipuncture / Unknown 07/31/2024 1:09 PM EDT 07/31/2024 1:11 PM EDT Narrative [facility] ([facility]) - 08/03/2024 7:54 AM [...] recommendations for testing may be found at [email or web address]. Performed By: [facility] [address] [place] [address] Top Former: Ivan Ahuja MD, PhD CLIA Number: [id number] Pascual Aviles APRN LAB BLOOD ORDERABLES Final Res ult [facility] ([facility]) [address] [place] [address] * Sedimentation Rate, Automated (07/31/2024 1:09 PM EDT) Sedimentation Rate 9 <20 mm/hr 2024 3:08 PM EDT [facility] Blood Venous blood specimen / Unknown Venipuncture / Unknown 07/31/2024 1:09 PM EDT 07/31/2024 1:11 PM EDT Pascual Deena Aviles APRN LAB BLOOD ORDERABLES Final Res ult Performing Organization Address City/[facility] Co de Phone Number [facility] [address] [place] [address] * Rheumatoid Factor, Plasma (07/31/2024 1:09 PM EDT) Pathologist [facility] Rheumatoid Factor, Plasma <10 <14 IU/mL 07/31/2024 2:50 PM EDT [facility] Blood Venous blood specimen / Unknown Venipuncture / Unknown 07/31/2024 1:09 PM EDT 07/31/2024 1:11 PM EDT Result [facility] Pascual Aviles APRN LAB BLOOD ORDERABLES Final Res ult Performing Organization Address City/[facility]/ZIP Co de Phone Number [facility] [address] [place] [address] * C3 Complement (07/31/2024 1:09 PM EDT) Pathologist [facility] C3 Complement 129 84 - 166 mg/dL 07/31/2024 2:46 PM EDT [facility] Blood Venous blood specimen / Unknown Venipuncture / Unknown 07/31/2024 1:09 PM EDT 07/31/2024 1:11 PM EDT Result [facility] Pascual Aviles APRN LAB BLOOD ORDERABLES Final Res ult Performing Organization Address City/[facility]/ZIP Co de Phone Number [facility] [address] [place] [address] * C4 Complement (07/31/2024 1:09 PM EDT) [facility] C4 Complement 32 13 - 36 mg/dL 07/31/2024 2:46 PM EDT [facility] Blood Venous blood specimen / Unknown Venipuncture / Unknown 07/31/2024 1:09 PM EDT 07/31/2024 1:11 PM EDT Pascual Aviles [facility] LAB BLOOD ORDERABLES Final Res ult Performing Organization Address [facility] Co de Phone Number [facility] [address] [place] [address] * C-Reactive Protein, Plasma (07/31/2024 1:09 PM EDT) [facility] CRP, Plasma <3.0 <=8.0 mg/L 07/31/2024 2:50 PM EDT [facility] Blood Venous blood specimen / Unknown Venipuncture / Unknown 07/31/2024 1:09 PM EDT 07/31/2024 1:11 PM EDT Narrative [facility] - 07/31/2024 2:50 PM EDT This CRP test is appropriate for assessment of infection, systemic inflammation and/or tissue injury. To assess cardiovascular disease risk order high sensitivity CRP (CRPH). Pascual Shaffer [facility] LAB BLOOD ORDERABLES Final Res ult Performing Organization Address City/[facility]/ZIP Co de Phone Number [facility] [address] [place] [address] * Antinuclear Antibody (CHATA), HEp-2, IgG (07/31/2024 1:09 PM EDT) [facility] CHATA INTERPRETIVE COMMENT See Note 08/02/2024 2:35 PM EDT [facility] ([employer]) Anti Nuc Ab Screen <1:80 <1:80 08/02/2024 2:35 PM EDT [facility] ([employer]) Blood Venous blood specimen / Unknown Venipuncture / Unknown 07/31/2024 1:09 PM EDT 07/31/2024 1:11 PM EDT Narrative [facility]) - 08/02/2024 2:35 PM EDT Antinuclear antibodies [...] not necessarily rule out SARD. Performed By: [facility] [address] [place] [id number] Top Former: Ivan Ahuja MD, PhD CLIA Number: [id number] Pascual Aviles APRN LAB BLOOD ORDERABLES Final Res ult [facility] ([facility]) [address] [place] [address] * Protein, Random, Urine with Creatinine (07/31/2024 1:05 PM EDT) Protein, Urine 116 mg/dL 07/31/2024 2:56 PM EDT [facility] Creatinine, Urine 165 mg/dL 07/31/2024 2:56 PM EDT [facility] Protein/Creatin ine Ratio 0.7 mg/mg Creat 07/31/2024 2:56 PM EDT [facility] Urine Urine specimen obtained by clean catch procedure / Unknown Non-blood Collection / Unknown 07/31/2024 1:05 PM EDT 07/31/2024 1:05 PM EDT us Pascual Aviles APRN LAB URINE ORDERABLES Final Res ult Performing Organization Address [facility] Co de Phone Number [facility] [address] [place] [address] * (ABNORMAL) Hemoglobin A1c (09/24/2023 2:50 PM EDT) Hemoglobin A1c 8.3(H) <5.7 % 09/24/2023 6:17 PM EDT [facility] Blood Venous blood specimen / Unknown Venipuncture / Unknown 09/24/2023 2:50 PM EDT 09/24/2023 2:50 PM EDT [facility]arrative [facility] - 09/24/2023 6:17 PM EDT HA1C Interpretive Data: Diagnosis of Diabetes: Diabetic > or = 6.5% Pre-diabetic 5.7 to 6.4% Non-diabetic < or = 5.6% Glycemic Targets for Type I and Type II Diabetics: Non- Adults <7.0% Adults <6.0% Children and Adolescents <7.5% Source: [place] [employer]. Standards of medical care in diabetes,2017. Diabetes Care.2017:40 (suppl 1):S1-S135. HbA1c assay performed by an ion-exchange chromatography method that is certified traceable to the DCCT. us Chelsea Luke MD LAB BLOOD ORDERABLES Final Re sult Performing Organization Address City/[facility] Co de Phone Number [facility] [address] [place] [address] from Last 3 Months or Most Recently Relevant to Health Maintenance Additional Health Concerns Infection Onset Date Last Indicated MRSA Comment: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 Source: [facility]. 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 Source: [facility]. 06/16/2022 Insurance [facility] MEDICAID Advance Directives * Full Code (Latest Code Status on File) Date Activated Date Inactivated Comments 09/03/2020 12:36 AM 09/09/2020 6:58 PM Question Answer Comments Patient has decision-making capacity? Yes * Full Code Date Activated Date Inactivated Comments 08/22/2020 7:02 PM 08/31/2020 4:59 PM Question Answer Comments Patient has decision-making capacity? Yes Care Teams Offset Lithographic Press Setter Relationship Specialty Start Date End Date Beth Lawson APRN [address] [place] [address] PCP - General 08/22/20 Jesu Aguilar MD [address] [address] Referring Physician 09/20/20 Talib Davis MD [address] [facility] [address] [place] [id number] Consulting Physician Urology 02/07/24
--- OUTSIDE RECORDS SUMMARY | 2024-10-04 10:51 | XMS_ITS | Encounter Summary ---
Author Organization [facility] Address [address] [place] [address] Care Team Providers Care Cinder Block Mason Name Role Phone Beth Lawson RESOURCE SPECIALIST Primary Care Provider + [phone] Encounter Details Date Type Department Care Team (Latest Contact Info) Description 09/19/2024 Travel Social History Tobacco Use Types Packs/Day Years Used Date Smoking Tobacco: Former Cigarettes 1 15 0 02/15/1997 - 12/10/2019 Passive Smoke Exposure: Past Alcohol Use Standard Drinks/Week Comments Not Currently 0 (1 standard drink = 0.6 oz pur e alcohol) Sex and Gender Information Value Date Recorded Sex Assigned at Male 09/12/2024 8:45 AM EDT Legal Sex Male 4:32 PM EST Gender Identity Not on file Sexual Orientation Straight 09/12/2024 8: 45 AM EDT documented as of this encounter Plan of Treatment Upcoming Encounters Date Type Department Care Team (Late st Contact Info) Description 11/21/2024 3:45 PM EDT Procedure visit [facility] [address] [facility] [address] [place] [address] Stephen Grewal MD [address] [facility] [address] [place] [address] documented as of this encounter Visit Diagnoses Not on filedocumented in this encounter Additional Health Concerns Infection Onset Date Last Indicated Resolved Time MRSA Comment:per nsg database hx MRSA left arm in 2014; 05/20/15 nares screen neg for MRSA 05/20/2015 05/20/2015 MDR Acinetobacter 06/16/2022 06/22/2022 documented as of this encounter Care Teams Cinder Block Mason Relationship Specialty Start Date End Date Beth Lawson APRN [address] [place] [address] PCP - General Internal Medicine 06/30/24 documented as of this encounter
--- OUTSIDE RECORDS SUMMARY | 2024-10-04 10:51 | XMS_ITS | Encounter Summary ---
Author Organization [facility] Address [address] 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 Not on file Not on file Not on file documented as of this encounter Plan of Treatment Upcoming Encounters Date Type Department Care Team (Late st Contact Info) Description 10/20/2024 3:15 PM EDT Procedure Visit [facility] [address] [place] [address] Ranjana Barillas MD [address] [place] [address] 10/30/2024 11:20 AM EDT [facility] [address] [place] [address] Smiley Vincent, ELIZABETH [address] [place] [address] documented as of this encounter Visit Diagnoses Not on filedocumented in this encounter Additional Health Concerns Infection Onset Date Last Indicated Resolved Time MRSA Comment: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 Source: [employer]. 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 Source: [facility]. 06/16/2022 Assessment Noted Time A fall risk assessment has been complete d for the patient 11/20/2021 8:57 AM EDT documented as of this encounter Care Teams Shrimp Peeling Machine Tender Relationship Specialty Start Date End Date Beth Lawson APRN [address] [place] [address] PCP - General 08/22/20 Jesu Aguilar MD [address] [address] Referring Physician 09/20/20 Talib Davis MD [address] [place] [address] Consulting Physician Urology 02/07/24 documented as of this encounter
== END 2024-10-03 23:59 | disposition home or self-care (01) ==
LOC: LAB.DROPOF 10-04 10:41
PROVIDERS: PCP Nurse Practitioner Family; Visit Provider Nurse Practitioner Family
DX: E87.5 Hyperkalemia (principal)
CPT/HCPCS: 80053

== ENCOUNTER 2024-10-10 14:31 | Outpatient (CLI) | payer OTHER, SELFPAY ==
--- OUTSIDE RECORDS SUMMARY | 2024-08-16 13:50 | XMS_ITS | Encounter Summary ---
Author Organization [facility] Address [address] [place] [address] Care Team Providers Care Cylinder Checker Name Role Phone Beth Lawson APRN Primary Care Provider [phone]- [phone] Jesu Aguilar MD Unavailable [phone] Talib Davis MD Unavailable [phone] Reason for Visit * Reason Comments Follow-up Encounter Details Date Type Department Care Team (Late st Contact Info) Description 08/16/2024 1:50 PM EDT Office Visit [facility] [address] [place] [address] Dania Fatima, KAROL, DNP [address] [place] [address] Other male erectile dysfunction (Primary Dx) Social History Tobacco Use Types Packs/Day Years Used Date Smoking Tobacco: Former Cigarettes 1 23 1 02/1996 - 12/2019 Passive Smoke Exposure: Past Smokeless Tobacco: Never Alcohol Use Standard Drinks/Week Comments Never 0 (1 standard drink = 0.6 oz pur e alcohol) PHQ-2 Answer Date Recorded Patient Health Questionnaire-2 Score 0 08/16/2024 AUDIT-C Answer Date Recorded Frequency of Alcohol [...] Sign Reading Time Taken Comments Blood Pressure 119/75 08/16/2024 1:26 PM EDT Pulse 69 08/16/2024 1:26 PM EDT Temperature - - Respiratory Rate 16 08/16/2024 1:26 PM EDT Oxygen Saturation - - Inhaled Oxygen Concentration - - Weight 94.7 kg (208 lb 12.4 oz) 08/16/2024 1:26 PM EDT Height - - Body Mass Index 29.96 07/31/2024 12:11 PM EDT documented in this encounter Functional Status * Over the past 2 weeks, how often have you been bothered by any of the following problems? Question Answer Date of Assessment Author Little interest or pleasure in doing things Not at all 08/16/2024 1:24 PM EDT Anastasiya Llanes Feeling down, depressed, or hopeless Not at all 08/16/2024 1:24 PM EDT Anastasiya Llanes Patient Health Questionnaire -2 Score 0 08/16/2024 1:24 PM EDT Anastasiya Llanes * If you checked off any problems on this questionnaire so far, Question Answer Date of Assessment Author How difficult have these problems made it for you to do your work, take care of things at home, or get along with other people? Not difficult at all 08/16/2024 1:24 PM EDT Anastasiya Llanes documented as of this encounter Miscellaneous Notes * Progress Notes - Dania Fatima P, SALES REPRESENTATIVE TRAINEE, DNP - 08/16/2024 1:50 PM EDT [facility] Clinic Visit CC: erectile dysfunction s/p IPP insertion HPI: Stephen Garcia is a 49 y.o. male with history of CAD s/p CABG, HTN, DM, HLD, and erectile dysfunction s/p IPP insertion 12/23/[address] Davis. Last seen in clinic 02/06/25 where he was taught to inflate/deflate device. Stephen presents today in follow up. He has been able to inflate/deflate device without difficulty. He has been able to engage in sexual activity. Past Medical History: Past Medical History[1] Past Surgical History: Surgical History[2] Family History: Family History[3] Social History: Social History[4] Physical Exam: Visit Vitals BP 119/75 Pulse 69 Resp 16 Wt 94.7 kg (208 lb 12.4 oz) BMI 29.96 kg/m?? Smoking Status Former BSA 2.16 m?? General: Alert, in no acute distress, well appearing. Pulmonary: No increased work of breathing or signs of respiratory distress. Gastrointestinal: Abdomen non distended. Musculoskeletal: Normal ROM of UEs. Normal gait and station. Skin: Warm, dry, and intact. No obvious rashes/open sores. Neurologic: CN 2-12 grossly intact. Psychiatric: oriented to person, place, and time. Mood and affect appeared normal. Hematologic/Lymphatic/Immunologic: No obvious bruises or sites of spontaneous bleeding. Assessment: 49 y.o. male with erectile dysfunction s/p IPP insertion 12/23/23. Has been using IPP without difficulty. Follow up as needed. Plan: - Follow up as needed. 20 minutes were spent today on review of patient's medical history, obtaining history, exam, reviewof any relevant results, and discussion of pathophysiology with appropriate plan with counseling given to patient. [1] Past Medical History: Diagnosis Date Acute blood loss anemia 08/24/2020 Diabetes mellitus ([facility]/HCC) Hyperlipidemia Hypertension Myocardial infarction (CMS/HCC) Right bundle branch block [2] Past Surgical History: Procedure Laterality Date ANTERIOR CRUCIATE LIGAMENT REPAIR APPENDECTOMY 05/2022 CARDIAC CATHETERIZATION N/A 08/22/2020 [facility] 08/29/[address] Model # [id number] Serial # [id number] CATARACT EXTRACTION, BILATERAL Bilateral 2019 CHOLECYSTECTOMY CORONARY ARTERY BYPASS GRAFT N/A 08/24/2020 CABG x 4 - ZHANG to LAD, SVG to ramus, SVG to PDA, SVG to D2 (Dr Stefan Bhatt) NECK SURGERY PANRETINAL PHOTOCOAGULATION Bilateral 03/23/2024 SHOULDER SURGERY Left [3] Family History Problem Relation Name Age of Onset Diabetes Mother Macular degeneration Father Anesthesia problems Neg Hx Malig Hyperthermia Neg Hx [4] Social History Tobacco Use Smoking status: Former Current packs/day: 0.00 Average packs/day: 1 pack/day for 23.0 years (23.0 ttl pk-yrs) Types: Cigarettes Start date: 12/1996 Quit date: 12/2019 Years since quittin.6 Passive exposure: Past Smokeless tobacco: Never Vaping Use Vaping status: Never Used Substance Use Topics Alcohol use: Never Drug use: Never documented in this encounter Plan of Treatment Upcoming Encounters Date Type Department Care Team (Late st Contact Info) Description 10/20/2024 3:15 PM EDT Procedure Visit [facility] [address] [facility] [place] [address] Ranjana Barillas MD [address] [facility] [address] [place] [address] 10/30/2024 11:20 AM EDT Office Visit [facility] Medicine Specialties [address] [place] [address] Smiley Vincetn PA [address] [place] [address] documented as of this encounter Visit Diagnoses Diagnosis Other male erectile dysfunction- Primary documented in this encounter Additional Health Concerns Infection Onset Date Last Indicated Resolved Time MRSA Comment: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 Source: [employer]. 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 Source: [employer] [facility]. 06/16/2022 Assessment Noted Time A fall risk assessment has been complete d for the patient 08/16/2024 1:24 PM EDT A Body Mass Index follow-up plan has been documented for the patient 08/16/2024 3:02 PM EDT documented as of this encounter Care Teams Cylinder Checker Relationship Specialty Start Date End Date Beth Lawson APRN [address] [place] [address] PCP - General 08/22/20 Jesu Aguilar MD [address] [place] [address] Referring Physician 09/20/20 Talib Davis MD [address] [address] Consulting Physician Urology 02/07/24 documented as of this encounter
--- OUTSIDE RECORDS SUMMARY | 2024-09-12 07:45 | XMS_ITS | Encounter Summary ---
Author Organization [facility] Address [address] 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 Not on file Not on file Not on file documented as of this encounter Plan of Treatment Upcoming Encounters Date Type Department Care Team (Late st Contact Info) Description 10/20/2024 3:15 PM EDT Procedure Visit [facility] [address] [place] [address] Ranjana Barillas MD [address] [place] [address] 10/30/2024 11:20 AM EDT Office Visit [facility] [address] [place] [address] Smiley Vincent PA [address] [place] [address] documented as of this encounter Procedures Procedure Name Priority Date/Time Associated Diagnosis Comments OCT, RETINA - OU - BOTH EYES Routine 09/12/2024 10:17 AM EDT 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 type 2 diabetes mellitus documented in this encounter Results * OCT, Retina - OU - Both Eyes (09/12/2024 10:17 AM EDT) Anatomical Region Laterality Modality Head Optical Coherenc e Tomography Narrative 09/12/2024 10:17 AM EDT Right Eye Quality was good. Scan locations included subfoveal. Progression has been stable. Findings include normal foveal contour, cystoid macular edema. Left Eye Quality was good. Scan locations included subfoveal. Progression has been stable. Findings include abnormal foveal contour, cystoid macular edema, vitreous traction. Notes [facility] D[facility] OU VH OS slightly better us Ranjana Barillas MD OPHTH TOMOGRAPHY Final Res ult documented in this encounter Visit Diagnoses Not on filedocumented in this encounter Additional Health Concerns Infection Onset Date Last Indicated Resolved Time MRSA Comment: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 Source: [employer]. 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 Source: [employer] [facility]. 06/16/2022 Assessment Noted Time A fall risk assessment has been complete d for the patient 09/12/2024 9:53 AM EDT A Body Mass Index follow-up plan has been documented for the patient 08/16/2024 3:02 PM EDT documented as of this encounter Care Teams Car Rental Sales Assistant Relationship Specialty Start Date End Date Beth Lawson APRN [address] [place] [address] PCP - General 08/22/20 Jesu Aguilar MD [address] [facility] [address] [place] [address] Referring Physician 09/20/20 Talib Davis MD [address] [facility] [address] [place] [address] Consulting Physician Urology 02/07/24 documented as of this encounter
--- OUTSIDE RECORDS SUMMARY | 2024-09-12 10:00 | XMS_ITS | Encounter Summary ---
Author Organization [facility] Address [address] [place] [address] Care Team Providers Care Cop Examiner Name Role Phone Beth Lawson APRN Primary Care Provider [phone]- [phone] Jesu Aguilar MD Unavailable [phone] Talib Davis MD Unavailable [phone] Reason for Referral * Clinic-Administered Medication (Routine) - Authorized Specialty Diagnoses / Procedures Referred By Contmelody t Referred To Contact Diagnoses 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 type 2 diabetes mellitus Vitreous hemorrhage of left eye (CMS/HCC) Procedures [place] BEVACIZUMAB INJECTION Ranjana Barillas MD [address] [address] Phone: tel: fax: Referral ID Status Reason Start Date Expiration Date V isits Requested Visits Authorized [id number] Authorized 09/12/2024 03/14/2026 1 1 Encounter Details Date Type Department Care Team (Latest Contact Info) Description 09/12/2024 10:00 AM EDT Office Visit [facility] [address] [place] [address] Ranjana Barillas MD [address] [address] Proliferative diabetic retinopathy of both [...] Industry Job Start Date Job End Date 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 Call [phone] and ask for the postal carrier field service consultant if it is after hours or a weekend or holiday. * Progress Notes - Ranjana Barillas MD - 09/12/2024 10:00 AM EDT PMH: Type II diabetes mellitus (DM), HTN, HLD, CAD, right bundle branch block, FERNANDO Insulin dependent Type II Diabetes Mellitus with proliferative diabetic retinopathy, both eyes - +HTN, +HLD, CAD and arrhythmia, denies CKD, MS, history of CVA, no history of SS dz or trait Lab Results Component Value Date HGBA1C 8.3 (H) 09/24/2023 - Stressed blood sugar and blood pressure control and close follow-up with PCP/fortune cookie maker. - Advised of importance in blood sugar [...] eyes - Stable, observe Ranjana Barillas MD Plant Operator/Shift Supervisor of Ophthalmology Vitreoretinal Surgery Tobacco Cessation: Tobacco Use: Medium Risk (08/16/2024) Patient History Smoking Tobacco Use: Former Smokeless Tobacco Use: Never Passive Exposure: Past The patient has been counseled on tobacco cessation: Not Applicable documented in this encounter Plan of Treatment Upcoming Encounters Date Type Department Care Team (Late st Contact Info) Description 10/20/2024 3:15 PM EDT Procedure Visit [facility] [address] [place] [address] Ranjana Barillas MD [address] [place] [address] 10/30/2024 11:20 AM EDT Office Visit [facility] Medicine Specialties [address] [place] [address] Smiley Vincent PA [address] [place] [address] documented as of this encounter Procedures Procedure Name Priority Date/Time Associated Diagnosis Comments INTRAVITREAL INJECTION, PHARMACOLOGIC AGENT - OS - LEFT EYE Routine 09/12/2024 10:37 AM EDT 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: [address]-9, Lot: [id number], Expiration date: 11/10/2024 Post-op Post injection exam [...] Time MRSA Comment: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 Source: [employer]. 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 Source: [employer] [facility]. 06/16/2022 Assessment Noted Time A fall risk assessment has been complete d for the patient 09/12/2024 9:53 AM EDT A Body Mass Index follow-up plan has been documented for the patient 08/16/2024 3:02 PM EDT documented as of this encounter Care Teams Cop Examiner Relationship Specialty Start Date End Date Beth Lawson APRN [address] [place], [place] [id number] PCP - General 08/22/20 Jesu Aguilar MD [address] [place] [address] Referring Physician 09/20/20 Talib Davis MD [address] [place] [address] [address] Consulting Physician Urology 02/07/24 documented as of this encounter
--- OUTSIDE RECORDS SUMMARY | 2024-09-19 10:30 | XMS_ITS | Encounter Summary ---
Author Organization [facility] Address [address] [place] [address] Care Team Providers Care Industrial Welder Name Role Phone Beth Lawson APRN Primary Care Provider + [phone] Reason for Referral * Diagnostic Medical (Routine) - Authorized Specialty Diagnoses / Procedures Referred By Dejah london Referred To Contact Neurology Diagnoses Polyneuropathy RUE - RLE Procedures Nerve Conduction Test Stephen Grewal MD [address] [place] [address] Phone: tel: fax: Stephen Grewal MD [address] [facility] [address] [place] [address] Phone: tel: fax: Referral ID Status Reason Start Date Expiration Date V isits Requested Visits Authorized [id number] Authorized 09/19/2024 12/19/2025 1 1 Reason for Visit * Reason Comments parasthesias BUE Dizziness not sleeping Gait Problem * Consultation (Routine) - Closed Specialty Diagnoses / Procedures Referred By Dejah london Referred To Contact Neurology Diagnoses Anesthesia of skin Paresthesia of skin Other symptoms and signs involving the musculoskeletal system Other abnormalities of gait and mobility Beth Lawson APRN [address] [place] [address] Phone: tel: fax: [facility] [address] [facility] [address] [place] [address] Phone: tel: fax: Referral ID Status Reason Start Date Expiration Date Visits Re quested Visits Authorized [id number] Closed 06/28/2024 09/27/2025 1 1 Encounter Details Date Type Department Care Team (Latest Contact Info) Description 09/19/2024 10:30 AM EDT Office Visit [facility] [address] [facility] [address] [place] [address] Stephen Grewal MD [address] [facility] [address] [place] [address] Polyneuropathy (Primary Dx) Social History [...] and symmetric in all four extremities. Coordination Giolzw-if-bfvv, rapid alternating movements and vzlx-he-rmba normal bilaterally without dysmetria. Gait Casual gait: [...] Description 11/21/2024 3:45 PM EDT Procedure visit [facility] [address] [place] [address] Stephen Grewal MD [address] [facility] [address] [place] [address] Scheduled Orders Name Type Priority Associated Diagnoses [...] documented as of this encounter Care Teams Industrial Welder Relationship Specialty Start Date End Date Beth Lawson APRN [address] [place] [address] [facility] [address] PCP - General Internal Medicine 06/30/24 documented as of this encounter
--- OUTSIDE RECORDS SUMMARY | 2024-10-10 14:36 | XMS_ITS | Clinical Summary ---
Author Organization [facility] Address [address] [facility] [address] [place] [address] Phone Care Team Providers Care Golf Cart Attendant Name Role Phone Janis Rodriguez Unavailable Unavailable Conditions or Problems Problem Name Problem Code Onset Date Status Entry Date Provider Comment Standard Description Annotate Sepsis 54117424 (SNOMED CT) 06/16 Active 06/17 Rito Javed [...] and gangrene, with abscess Cellulitis, abdominal wall 35129821 (SNOMED CT) 06/15 Active 06/15 Queenie Herberth Cellulitis of abdominal wall Infection, local skin/subcutan eous tissue 745260356 (SNOMED CT) 06/15 Active 06/15 Queenie Herberth Localized infection of skin AND/OR subcutaneous tissue 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 ) 06/15 Active 06/15 Queenie Herberth Leukemoid reaction Presence of cardiac pacemaker 890883469 (SNOMED CT) 06/15 Active 06/15 Queenie Herberth Cardiac pacemaker in situ DM Type II E11.9 (ICD-10-CM ) 06/15 Active 06/15 Queenie Herberth Type 2 diabetes mellitus without complications Coronary artery disease, S/P CABG 373292389 (SNOMED CT) 06/15 Active 06/15 Queenie Kevin 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 (I50.22) 791423324 ([facility]) 06/15 Active 06/15 Queenie Kevin Benign hypertensive heart disease with congestive cardiac failure Medications Medication Instructions Start Date Stop Date Generic Name ND Provider MINOCYCLINE HCL 100 MG CAPS Take 1 capsule by mouth twice a day Stop the Bactrim minocycline 16204102006 Rito Javed MD BACTRIM DS 800-160 MG TABS Take 1 tablet by mouth twice a day sulfamethoxazole- trimethoprim 23879135578 Rito Javed MD LISINOPRIL 5 MG TABS one tab oral daily 06/16 lisinopril 48148295285 Rito Javed MD CEPHALEXIN 500 MG CAPS 1 cap oral 4 times daily for 7 days 06/16 cephalexin 27160396407 Rito Javed MD [facility] ACETAMINOPHEN 325 MG CAPS 2 tab every 6 hours as needed for pain acetaminophen 06685503400 Luís Melvin HYDROCODONE-ACETAM INOPHEN 5-325 MG TABS one tab oral three times daily for 5 days, then one tab oral twice a day for 5 days, then as needed hydrocodone-aceta minophen 58175267196 Luís Melvin aspirin 81 mg capsule one tab oral daily aspirin Luís Melvin ATORVASTATIN CALCIUM 80 MG TABS one tab oral daily at bedtime atorvastatin 42593700530 Luís Melvin Bifidobacterium animalis 6 mg (5 billion cell) capsule 1 cap oral daily bifidobacterium animalis Luís Melvin CARVEDILOL 6.25 MG TABS twice daily, with breakfast and dinner carvedilol 70778007950 Luís Melvin CEPHALEXIN 500 MG CAPS 1 cap oral 4 times daily for 7 days 06/16 cephalexin 47091587132 Luís Melvin CLOPIDOGREL BISULFATE 75 MG TABS one tab oral daily clopidogrel 13089090273 Luís Melvin empagliflozin 10 mg tablet one tab oral daily empagliflozin Luís Melvin famotidine 10 mg tablet one tab oral daily famotidine 08391766833 Luís Melvin INSULIN LISPRO (1 UNIT DIAL) 100 UNIT/ML SOPN 12 units twice daily with breakfast and dinner insulin lispro 11901764545 Luís Melvin LISINOPRIL 5 MG TABS one tab oral daily 06/16 lisinopril 01343910746 Luís Melvin MAGNESIUM OXIDE -MG SUPPLEMENT 400 MG CAPS 1 tab oral daily magnesium oxide 36862547006 Luís Melvin [facility] MELATONIN 5 MG CAPS one tab oral daily at bedtime for insomnia melatonin 02000830468 Luís Melvin Miralax 17 gram powder in packet oral daily as needed polyethylene glycol 3350 66991195084 Luís Melvin JANUVIA 100 MG TABS one tab oral daily sitagliptin phosphate 78641389881 Luís Melvin Medications Administered No information available. [...] smoker Tobacco smoking status Lab Report: COMPREHENSIVE SC TABOLIC PANEL ANIONGAP 10.0 mmol/L 5.0-15.0 anion [...] Name Date Entry Date CPT-sl STAT Labs CPT-07724 Wound Culture and Sensitivity w/Gram Stai n [id number] CBC with Differential 2022 CPT-79394 CMP CPT-54405 Sedimentation Rate (ESR) 202 04/19/01 CPT-71466 C- reactive protein [id number], [id number] CPK Vital Signs Date Name Value Unit [...]
--- OUTSIDE RECORDS SUMMARY | 2024-10-10 14:37 | XMS_ITS | Encounter Summary ---
Author Organization [facility] Address [address] 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 [employer] Not on file Not on file Not [...] Description 10/20/2024 3:15 PM EDT Procedure Visit [facility] [address] [place] [address] Ranjana Barillas MD [address] [place] [address] 10/30/2024 11:20 AM EDT Office Visit [facility] Medicine Specialties [address] [place] [address] Smiley Vincent PA [address] [place] [address] documented as of this encounter Visit Diagnoses Not on filedocumented in this encounter Additional Health Concerns Infection Onset Date Last Indicated Resolved Time MRSA Comment: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 Source: [facility]. 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 Source: [facility]. 06/16/2022 Assessment Noted Time A fall risk assessment has been complete d for the patient 08/04/2024 9:51 AM EDT A Body Mass Index follow-up plan has been documented for the patient 08/04/2024 10:53 AM EDT documented as of this encounter Care Teams Nurse Emergency Room Relationship Specialty Start Date End Date Beth Lawson APRN [address] [id number] PCP - General 08/22/20 Jesu Aguilar MD [address] [place] [address] Referring Physician 09/20/20 Talib Davis MD [address] [address] Consulting Physician Urology 02/07/24 documented as of this encounter
--- OUTSIDE RECORDS SUMMARY | 2024-10-10 14:37 | XMS_ITS | Encounter Summary ---
Author Organization [facility] Address [address] 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 Not on [...] Description 10/20/2024 3:15 PM EDT Procedure Visit [facility] [address] [place] [address] Ranjana Barillas MD [address] [place] [address] 10/30/2024 11:20 AM EDT Office Visit [facility] Medicine Specialties [address] [place] [address] Smiley Vincent PA [address] [place] [address] documented as of this encounter Visit Diagnoses Not on filedocumented in this encounter Additional Health Concerns Infection Onset Date Last Indicated Resolved Time MRSA Comment: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 Source: [employer]. 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 Source: [employer]. 06/16/2022 Assessment Noted Time A fall risk assessment has been complete d for the patient 08/16/2024 1:24 PM EDT A Body Mass Index follow-up plan has been documented for the patient 08/16/2024 3:02 PM EDT documented as of this encounter Care Teams Field Training Agent Relationship Specialty Start Date End Date Beth Lawson APRN [address] [place] [address] PCP - General 08/22/20 Jesu Aguilar MD [address] [place] [address] Referring Physician 09/20/20 Talib Davis MD [address] [facility] [address] [place] [address] Consulting Physician Urology 02/07/24 documented as of this encounter
--- OUTSIDE RECORDS SUMMARY | 2024-10-10 14:37 | XMS_ITS | Encounter Summary ---
Author Organization [employer] ([place], [place], [place], [place]) Address [address] [place] [address] Care Team Providers Care Plate Cutter Name Role Phone Unavailable Primary Care Provider Unavailabl e Reason for Referral * MRI (Routine) - Closed Specialty Diagnoses / Procedures Referred By Contac t Referred To Contact Radiology Diagnoses DDD (degenerative disc disease), cervical Procedures MR spine cervical without IV contrast Marlin, Provider Not In The System, [place] [address] Referral ID Status Reason Start Date Expiration Date Visits Re quested Visits Authorized [id number] Closed 08/12/2023 10/09/2023 1 1 Encounter Details Date Type Department Care Team (Late st Contact Info) Description 08/12/2023 Outside Orders [facility] Central Scheduling [address] [place] [id number] Marlin, Provider Not In The [place], [place] [address] DDD (degenerative disc disease), cervical (Primary Dx) [...] Date Francis rded Speak language other than Chadian at home Not on file 07/06/2023 Want [...] MD us Provider Not In The System [facility] IMG MRI ORDERA BLES Final Result documented in this encounter Visit Diagnoses Diagnosis DDD (degenerative disc disease), cervical- Primary Degeneration of cervical intervertebral disc DDD (degenerative disc disease), cervical Degeneration of cervical intervertebral disc documented in this encounter
--- OUTSIDE RECORDS SUMMARY | 2024-10-10 14:37 | XMS_ITS | Encounter Summary ---
Author Organization [employer] ([place], [place], [place], [place]) Address [address] [place] [address] Care Team Providers Care Department Head [employer] Name Role Phone Unavailable Primary Care Provider Unavailabl e Encounter Details Date Type Department Care Team (Late st Contact Info) Description 05/05/2023 Outside Orders [facility] Central Scheduling [address] [place] [address] Stefan Monroy PA-C [address] [place] [address] Lumbar pain (Primary Dx) Social History [...] Date Francis rded Speak language other than Botswanan at home Not on file 07/06/2023 Want [...]
--- OUTSIDE RECORDS SUMMARY | 2024-10-10 14:37 | XMS_ITS | Encounter Summary ---
Author Organization [employer] ([place], [place], [place], [place]) Address [address] [place] [address] Care Team Providers Care Supervisor Wet Pour Name Role Phone Unavailable Primary Care Provider Unavailabl e Encounter Details Date Type Department Care Team (Late st Contact Info) Description 06/07/2023 Outside Orders Central Scheduling 1 [place] [address] Renny Rosales MD [address] [facility] [address] [place], [place] [id number] Right shoulder pain, unspecified chronicity (Primary Dx) [...] Date Francis rded Speak language other than Thai at home Not on file 07/06/2023 Want [...]
--- OUTSIDE RECORDS SUMMARY | 2024-10-10 14:37 | XMS_ITS | Encounter Summary ---
Author Organization [facility] Address [address] 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 Not on file Not on file documented as of this encounter Plan of Treatment Upcoming Encounters Date Type Department Care Team (Late st Contact Info) Description 10/20/2024 3:15 PM EDT Procedure Visit [facility] [address] [place] [address] Ranjana Barillas MD [address] [place] [address] 10/30/2024 11:20 AM EDT Office Visit [facility] [address] [place] [address] Smiley Vincent, ELIZABETH [address] [place] [address] documented as of this encounter Visit Diagnoses Not on filedocumented in this encounter Additional Health Concerns Infection Onset Date Last Indicated Resolved Time MRSA Comment: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 Source: [employer]. 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 Source: [facility]. 06/16/2022 Assessment Noted Time A fall risk assessment has been complete d for the patient 11/20/2021 8:57 AM EDT documented as of this encounter Care Teams Radiology Receptionist Relationship Specialty Start Date End Date Beth Lawson APRN [address] [place] [address] PCP - General 08/22/20 Jesu Aguilar MD [address] [address] Referring Physician 09/20/20 Talib Davis MD [address] [place] [address] Consulting Physician Urology 02/07/24 documented as of this encounter
--- OUTSIDE RECORDS SUMMARY | 2024-10-10 14:37 | XMS_ITS | Encounter Summary ---
Author Organization [facility] Address [address] [place] [address] Care Team Providers Care Industrial Safety And Health Technician Name Role Phone Beth Lawson GRID INSPECTOR Primary Care Provider + [phone] Encounter Details Date Type Department Care Team [...] Description 11/21/2024 3:45 PM EDT Procedure visit [facility] [address] [facility] [address] [place] [address] Stephen Grewal MD [address] [facility] [address] [place] [address] documented as of this encounter Visit Diagnoses Not on filedocumented in this encounter Additional Health Concerns Infection Onset Date Last Indicated Resolved Time MRSA Comment:per nsg database hx MRSA left arm in 2014; 05/20/15 nares screen neg for MRSA 05/20/2015 05/20/2015 MDR Acinetobacter 06/16/2022 06/22/2022 documented as of this encounter Care Teams Industrial Safety And Health Technician Relationship Specialty Start Date End Date Beth Lawson APRN [address] [place] [address] PCP - General Internal Medicine 06/30/24 documented as of this encounter
--- OUTSIDE RECORDS SUMMARY | 2024-10-10 14:37 | XMS_ITS | Encounter Summary ---
Author Organization [facility] Address [address] 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 on file Not on file documented as of this encounter Plan of Treatment Upcoming Encounters Date Type Department Care Team (Late st Contact Info) Description 10/20/2024 3:15 PM EDT Procedure Visit [facility] [address] [place] [address] Ranjana Barillas MD [address] [place] [address] 10/30/2024 11:20 AM EDT Office Visit [facility] [address] [place] [address] Smiley Vincent PA [address] [place] [address] documented as of this encounter Visit Diagnoses Not on filedocumented in this encounter Additional Health Concerns Infection Onset Date Last Indicated Resolved Time MRSA Comment: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 Source: [employer] 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 Source: [employer] [facility]. 06/16/2022 Assessment Noted Time A fall risk assessment has been complete d for the patient 09/12/2024 9:53 AM EDT A Body Mass Index follow-up plan has been documented for the patient 08/16/2024 3:02 PM EDT documented as of this encounter Care Teams Spar Machine Operator Relationship Specialty Start Date End Date Beth Lawson APRN [address] [place] [address] PCP - General 08/22/20 Jesu Aguilar MD [address] [facility] [address] [place] [address] Referring Physician 09/20/20 Talib Davis MD [address] [place] [address] Consulting Physician Urology 02/07/24 documented as of this encounter
--- OUTSIDE RECORDS SUMMARY | 2024-10-10 14:37 | XMS_ITS | Encounter Summary ---
Author Organization [employer] ([place], [place], [place], [place]) Address [address] [place] [address] Care Team Providers Care Athletic Director Name Role Phone Unavailable Primary Care Provider [...] Expiration Date Visits Re quested Visits Authorized [id number] Closed 07/15/2023 09/12/2023 1 1 Encounter Details Date Type Department Care Team (Late st Contact Info) Description 07/06/2023 Outside Orders [facility] Central Scheduling [address] [place] [address] Renny Rosales MD [address] [facility] [address] [place] [address] Right shoulder pain, unspecified chronicity (Primary Dx) [...] Date Francis rded Speak language other than Togolese at home Not on file 07/06/2023 Want [...]
--- OUTSIDE RECORDS SUMMARY | 2024-10-10 14:37 | XMS_ITS | Encounter Summary ---
Author Organization [employer] ([place], [place], [place], [place]) Address [address] [place] [address] Care Team Providers Care Modern Languages Professor Name Role Phone Unavailable Primary Care Provider Unavailabl e Reason for Referral * Flouroscopy (Routine) - Closed Specialty Diagnoses / Procedures Referred By Contac t Referred To Contact Diagnoses Right shoulder pain, unspecified chronicity Procedures FL arthrogram shoulder right Renny Rosales MD Phone: tel: fax: Referral ID Status Reason Start Date Expiration Date Visits Re quested Visits Authorized [id number] Closed 07/06/2023 07/05/2024 1 1 Encounter Details Date Type Department Care Team (Late st Contact Info) Description 07/06/2023 Outside Orders [facility] Central Scheduling [address] [place] [address] Renny Rosales MD One [facility] [address] [facility] [address] [place] [address] Right shoulder pain, unspecified chronicity [...] Date Francis rded Speak language other than Amharic at home Not on file 07/06/2023 Want [...] SHOULDER ARTHROGRAM. HISTORY: Right shoulder pain. PHYSICIAN C ENGINEER: Binh Sunshine PA-C ATTENDING PHYSICIAN: Dr. Sewell [...] SHOULDER ARTHROGRAM. HISTORY: Right shoulder pain. PHYSICIAN C ENGINEER: Binh Sunshine PA-C ATTENDING PHYSICIAN: Dr. Sewell [...]
--- OUTSIDE RECORDS SUMMARY | 2024-10-10 14:37 | XMS_ITS | Clinical Summary ---
Author Organization [facility] Address [address] [place] [address] Care Team Providers Care Grill Attendant Name Role Phone Beth Lawson APRN Primary Care Provider [phone] Jesu Aguilar MD Unavailable [phone] Talib Davis MD Unavailable [phone] Allergies Active Allergy Reactions Criticality Noted Date [...] Description 09/12/2024 10:00 AM EDT Office Visit [facility] [address] [place] [address] Ranjana Barillas MD 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 type 2 diabetes mellitus (Primary Dx); Vitreous hemorrhage of left eye (CMS/HCC); Pseudophakia of both eyes 09/12/2024 7:45 AM EDT Ancillary Procedure [facility] [address] [place] [address] 09/12/2024 Travel 08/16/2024 1:50 PM EDT Office Visit [facility] [address] [address] Dania Fatima, WASH HELPER, DNP Other male erectile dysfunction (Primary Dx) 08/16/2024 Travel 08/08/2024 Results Follow-Up [facility] Medicine Specialties [address] [place] [address] Pascual Aviles, KAROL 08/04/2024 10:00 AM EDT Procedure Visit [facility] [address] [place] [address] Ranjana Barillas MD Vitreous hemorrhage of left eye (CMS/HCC) (Primary Dx); 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 type 2 diabetes mellitus; Pseudophakia of both eyes 08/04/2024 7:35 AM EDT Ancillary Procedure [facility] [address] [address] 08/04/2024 7:35 AM EDT Ancillary Procedure [facility] [address] [place] [address] 08/04/2024 Travel 07/31/2024 12:30 PM EDT Consult [facility] Medicine Specialties [address] [place] [address] Pascual Aviles, KAROL Chronic bilateral back [...] 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 Not [...] Description 10/20/2024 3:15 PM EDT Procedure Visit [facility] [address] [place] [address] Ranjana Barillas MD [address] [place] [address] 10/30/2024 11:20 AM EDT Office Visit [facility] [address] [place] [address] Smiley Vincent PA [address] [place] [address] Health Maintenance Due Date Last [...] 05/17/2019 Sigmoidoscopy 05/17/2019 [facility]-Colorectal Cancer Screening 05/17/2019 [id number] Vaccine (3 - 2023- season) 2023 11/07/2020, [...] this topic Medical Devices Implanted Type Area Mortuary Operations Manager Device Identifier Shelf Expiration Date Model / Serial / Lot Kit [facility] 700 Accessory - [id number] - [id number] Implanted:Qty: 1 on 12/23/2023 by Talib Davis MD at [facility] Implant [employer]-[id number] 4 10/12/2028 [id number] / [id number] / [id number] Conceal Iz - [id number] - [id number] Implanted:Qty: 1 on 12/23/2023 by Talib Davis MD at [facility] Implant [employer]-[id number] 4 11/08/2025 [id number] / [id number] / Cx Preconnect Ms 21cm Ps Iz - [id number] - [id number] Implanted:Qty: 1 on 12/23/2023 by Talib Davis MD at [facility] Implant [employer]-[id number] 4 11/11/2025 [id number] / [id number] / [place] [employer] Rear Tip Stock Broker Supervisor 3cm Implanted:Qty: 1 on 12/23/2023 by Talib Davis MD at [facility] Implant [employer] 10/06/2028 [id number] / [id number] / [id number] [place] [employer] Rear Tip Stock Broker Supervisor 2cm Implanted:Qty: 1 on 12/23/2023 by Talib Davis MD at [facility] Implant [employer] 11/06/2028 [id number] / [id number] / [id number] Lead Solia S 53 Mri Lead - [id number] Implanted:Qty: 1 on 08/29/2020 by Mode Fong MD at [facility] [employer]-[id number] 07/15/2022 [id number] / [id number] / [id number] Lead Solia S 45 Mri Lead - [id number] Implanted:Qty: 1 on 08/29/2020 by Mode Fong MD at [facility] [employer]-[id number] 03/17/2022 [id number] / [id number] / [id number] Pacemaker Edora Mri Cond - [id number] Implanted:Qty: 1 on 08/29/2020 by Mode Fong MD at [facility] [employer]-[id number] 01/14/2022 [id number] / [id number] / [id number] Procedures Procedure Name Priority Date/Time Associated Diagnosis [...] back pain, unspecified back location CHATA positive VINSON/DIAMOND CLEAVER (BENOIT) ANTIBODY, IGG (SO) Routine 07/31/2024 1:09 [...] 1.25 MG/0.05ML Route: Intravitreal, Site: Left Eye [facility]: [address]-2, Lot: [id number], Expiration date: 11/10/2024 Post-op Post injection exam [...] 2.75 MG/0.11ML Route: Intravitreal, Site: Left Eye [facility]: 11865-279-14, Lot: [id number], Expiration date: 08/14/2024 Post-op Post injection exam [...] PM EDT 07/31/2024 1:11 PM EDT Narrative [facility] ([facility]) - 08/02/2024 1:27 PM EDT [...] associations with SLE clinical manifestations. Performed By: [facility] [facility] [address] [place] [address] Cushion Former: Ivan Ahuja MD, PhD CLIA Number: [id number] Pascual Aviles APRN LAB REF LAB BLOOD AND FLUID OR D Final Result [facility]) [address] [place] [address] * ENAII (07/31/2024 1:09 PM EDT) SSA-52 (RO52) (BENOIT) Antibody, IgG 2 0 - 40 AU/mL 08/02/2024 1:28 PM EDT [facility] ([facility]) SSA-60 (RO60) (BENOIT) Antibody, IgG 0 0 - 40 AU/mL 08/02/2024 1:28 PM EDT [facility]) SSB (LA) (BENOIT) Antibody, IgG 0 0 - 40 AU/mL 08/02/2024 1:28 PM EDT [facility] ([facility]) Blood Venous blood specimen / Unknown Venipuncture / Unknown 07/31/2024 1:09 PM EDT 07/31/2024 1:11 PM EDT Narrative [facility] ([facility]) - 08/02/2024 1:28 PM EDT [...] (PSS) also have this antibody. Performed By: [facility] [address] [place] [address] Cushion Former: Ivan Ahuja MD, PhD CLIA Number: [id number] Pascual Aviles APRN LAB BLOOD ORDERABLES Final Res ult [facility]) [address] [place] [address] * ENAI (07/31/2024 1:09 PM EDT) Vinson/DIAMOND CLEAVER (BENOIT) Ab, IgG 3 0 - 19 Units 08/03/2024 6:32 AM EDT [facility] ([facility]) Blood Venous blood specimen / Unknown Venipuncture / Unknown 07/31/2024 1:09 PM EDT 07/31/2024 1:11 PM EDT Narrative [facility] TUAN CALDERON) - 08/03/2024 6:32 AM EDT INTERPRETIVE INFORMATION: Vinson/DIAMOND CLEAVER (BENOIT) Antibody, IgG 19 Units or Less ............. Negative 20 to 39 Units ............... Weak Positive 40 to 80 Units ............... Moderate Positive 81 Units or greater .......... Strong Positive Vinson/DIAMOND CLEAVER antibodies are frequently seen in patients with mixed connective tissue disease (MCTD) and are also associated with other systemic autoimmune rheumatic diseases (SARDs) such as systemic lupus erythematosus (SLE), systemic sclerosis, and myositis. Antibodies targeting the Vinson/DIAMOND CLEAVER antigenic complex also recognize Vinson antigens, therefore, the Vinson antibody response must be considered when interpreting these results. Performed By: [facility] [address] [place] [address] Cushion Former: Ivan Ahuja MD, PhD CLIA Number: [id number] Pascual Aviles APRN LAB BLOOD ORDERABLES Final Res ult Performing Organization Address City/[facility]/ZIP Co de Phone Number [facility] ([facility]) [address] [place] [address] * Thyroid Peroxidase Antibody (07/31/2024 1:09 PM EDT) Thyroid Peroxidase Antibody <5 <=8 IU/mL 07/31/2024 3:36 PM EDT [facility] Blood Venous blood specimen / Unknown Venipuncture / Unknown 07/31/2024 1:09 PM EDT 07/31/2024 1:11 PM EDT Pascual Aviles WASH HELPER LAB BLOOD ORDERABLES Final Res ult [facility] [address] [place] [address] * Cyclic Citrul Peptide Antibody IgG (07/31/2024 1:09 PM EDT) [facility] Cyclic Citrul Peptide Antibody IgG <5.0 <=5.0 U/mL 07/31/2024 4:06 PM EDT [facility] Blood Venous blood specimen / Unknown Venipuncture / Unknown 07/31/2024 1:09 PM EDT 07/31/2024 1:11 PM EDT Pascual Shaffer Traci ROBERSON LAB BLOOD ORDERABLES Final Res ult [facility] [address] [place] [address] * Double-Stranded DNA (dsDNA) Antibody, IgG by IFA (07/31/2024 1:09 PM EDT) [facility] Double-Strande d DNA (dsDNA) Ab IgG IFA <1:10 <1:10 08/03/2024 7:54 AM EDT [facility] ([facility]) Blood Venous blood specimen / Unknown Venipuncture / Unknown 07/31/2024 1:09 PM EDT 07/31/2024 1:11 PM EDT Narrative [facility] ([facility]) - 08/03/2024 7:54 AM EDT [...] recommendations for testing may be found at [email or web address]://[employer]content/[email or web address]-hgoiql-vtuofuzl. Performed By: [facility] [address] [place] [address] Cushion Former: Ivan Ahuja MD, PhD CLIA Number: [id number] Pascual Aviles APRN LAB BLOOD ORDERABLES Final Res ult [facility] ([facility] [address] [place] [address] * Sedimentation Rate, Automated (07/31/2024 1:09 PM EDT) Sedimentation Rate 9 <20 mm/hr 2024 3:08 PM EDT [facility] Blood Venous blood specimen / Unknown Venipuncture / Unknown 07/31/2024 1:09 PM EDT 07/31/2024 1:11 PM EDT Pascual Deena Aviles APRN LAB BLOOD ORDERABLES Final Res ult Performing Organization Address City/[facility] Co de Phone Number [facility] [address] [place] [address] * Rheumatoid Factor, Plasma (07/31/2024 1:09 PM EDT) Pathologist [facility] Rheumatoid Factor, Plasma <10 <14 IU/mL 07/31/2024 2:50 PM EDT [facility] Blood Venous blood specimen / Unknown Venipuncture / Unknown 07/31/2024 1:09 PM EDT 07/31/2024 1:11 PM EDT Result [facility] Pascual Aviles APRN LAB BLOOD ORDERABLES Final Res ult Performing Organization Address City/[facility]/ZIP Co de Phone Number [facility] [address] [place] [address] * C3 Complement (07/31/2024 1:09 PM EDT) Pathologist [facility] C3 Complement 129 84 - 166 mg/dL 07/31/2024 2:46 PM EDT [facility] Blood Venous blood specimen / Unknown Venipuncture / Unknown 07/31/2024 1:09 PM EDT 07/31/2024 1:11 PM EDT Result [facility] Pascual Aviles APRN LAB BLOOD ORDERABLES Final Res ult Performing Organization Address City/[facility]/ZIP Co de Phone Number [facility] [address] [place] [address] * C4 Complement (07/31/2024 1:09 PM EDT) [facility] C4 Complement 32 13 - 36 mg/dL 07/31/2024 2:46 PM EDT [facility] Blood Venous blood specimen / Unknown Venipuncture / Unknown 07/31/2024 1:09 PM EDT 07/31/2024 1:11 PM EDT Pascual Aviles [facility] LAB BLOOD ORDERABLES Final Res ult Performing Organization Address [facility] Co de Phone Number [facility] [address] [place] [address] * C-Reactive Protein, Plasma (07/31/2024 1:09 PM EDT) [facility] CRP, Plasma <3.0 <=8.0 mg/L 07/31/2024 2:50 PM EDT [facility] Blood Venous blood specimen / Unknown Venipuncture / Unknown 07/31/2024 1:09 PM EDT 07/31/2024 1:11 PM EDT Narrative [facility] - 07/31/2024 2:50 PM EDT This CRP test is appropriate for assessment of infection, systemic inflammation and/or tissue injury. To assess cardiovascular disease risk order high sensitivity CRP (CRPH). Pascual Shaffer [facility] LAB BLOOD ORDERABLES Final Res ult Performing Organization Address City/[facility]/ZIP Co de Phone Number [facility] [address] [place] [address] * Antinuclear Antibody (CHATA), HEp-2, IgG (07/31/2024 1:09 PM EDT) [facility] CHATA INTERPRETIVE COMMENT See Note 08/02/2024 2:35 PM EDT [facility] ([employer]) Anti Nuc Ab Screen <1:80 <1:80 08/02/2024 2:35 PM EDT [facility] ([facility]) Blood Venous blood specimen / Unknown Venipuncture / Unknown 07/31/2024 1:09 PM EDT 07/31/2024 1:11 PM EDT Narrative [facility]) - 08/02/2024 2:35 PM EDT [...] not necessarily rule out SARD. Performed By: [facility] [address] [place] [address] Cushion Former: Ivan Ahuja MD, PhD CLIA Number: [id number] Pascual Aviles APRN LAB BLOOD ORDERABLES Final Res ult [facility] ([facility]) [address] [place] [address] * Protein, Random, Urine with Creatinine (07/31/2024 1:05 PM EDT) Protein, Urine 116 mg/dL 07/31/2024 2:56 PM EDT [facility] Creatinine, Urine 165 mg/dL 07/31/2024 2:56 PM EDT [facility] Protein/Creatin ine Ratio 0.7 mg/mg Creat 07/31/2024 2:56 PM EDT [facility] Urine Urine specimen obtained by clean catch procedure / Unknown Non-blood Collection / Unknown 07/31/2024 1:05 PM EDT 07/31/2024 1:05 PM EDT us Pascual Aviles APRN LAB URINE ORDERABLES Final Res ult Performing Organization Address [facility] Co de Phone Number [facility] [address] [place] [address] * (ABNORMAL) Hemoglobin A1c (09/24/2023 2:50 PM EDT) Hemoglobin A1c 8.3(H) <5.7 % 09/24/2023 6:17 PM EDT [facility] Blood Venous blood specimen / [...] Adults <6.0% Children and Adolescents <7.5% Source: [place] [employer]. Standards of medical care in diabetes,2017. Diabetes Care.2017:40 (suppl 1):S1-S135. HbA1c assay performed by an ion-exchange chromatography method that is certified traceable to the DCCT. us Chelsea Luke MD LAB BLOOD ORDERABLES Final Re sult Performing Organization Address City/[facility] Co de Phone Number [facility] [address] [place] [address] from Last 3 Months or Most Recently Relevant to Health Maintenance Additional Health Concerns Infection Onset Date Last Indicated MRSA Comment: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 Source: [facility]. 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 Source: [facility]. 06/16/2022 Insurance [facility] MEDICAID Advance Directives * Full Code (Latest Code Status on File) Date Activated Date Inactivated Comments 09/03/2020 12:36 AM 09/09/2020 6:58 PM Question Answer Comments Patient has decision-making capacity? Yes * Full Code Date Activated Date Inactivated Comments 08/22/2020 7:02 PM 08/31/2020 4:59 PM Question Answer Comments Patient has decision-making capacity? Yes Care Teams Grill Attendant Relationship Specialty Start Date End Date Beth Lawson APRN [address] [place] [address] PCP - General 08/22/20 Jesu Aguilar MD [address] [address] Referring Physician 09/20/20 Talib Davis MD [address] [facility] [address] [place] [phone] Consulting Physician Urology 02/07/24
--- OUTSIDE RECORDS SUMMARY | 2024-10-10 14:37 | XMS_ITS | Encounter Summary ---
Author Organization [facility] Address [address] 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 Not [...] Description 10/20/2024 3:15 PM EDT Procedure Visit [facility] [address] [facility] [place] [address] Ranjana Barillas MD 110 [facility] [address] [place] [address] 10/30/2024 11:20 AM EDT Office Visit [facility] Medicine Specialties [address] [place] [address] Smiley Vincent PA [address] [place] [phone] documented as of this encounter Visit Diagnoses Not on filedocumented in this encounter Additional Health Concerns Infection Onset Date Last Indicated Resolved Time MRSA Comment: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 Source: [facility]. 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 Source: [facility]. 06/16/2022 Assessment Noted Time A fall risk assessment has been complete d for the patient 02/07/2024 11:30 AM EST A Body Mass Index follow-up plan has been documented for the patient 02/29/2024 1:49 PM EST documented as of this encounter Care Teams Credit Balance Specialist Relationship Specialty Start Date End Date Beth Lawson APRN [address] [place] [address] PCP - General 08/22/20 Jesu Aguilar MD [address] [id number] Referring Physician 09/20/20 Talib Davis MD [address] [phone] Consulting Physician Urology 02/07/24 documented as of this encounter
--- OUTSIDE RECORDS SUMMARY | 2024-10-10 14:37 | XMS_ITS | Clinical Summary ---
Author Organization [facility] Address [address] [place] [address] Care Team Providers Care Tumbler Dyeing Machine Operator Name Role Phone Beth Lawson APRN Primary Care Provider + [phone] Allergies No known active allergies Medications QUEtiapine [...] Active Continuous Glucose Sensor (Dexcom G7 Sensor) [facility] USE DIRECTED CHANGE EVERY 10 DAYS 025 [...] Discontinued(* Therapy completed) nystatin-tria mcinolone (MYCOLOG II) 137036-8.1 UNIT/GM-% cream APPLY CREAM TOPICALLY TO AFFECTED [...] Description 09/19/2024 10:30 AM EDT Office Visit [facility] [address] [place] [address] Stephen Grewal MD Polyneuropathy (Primary [...] Description 11/21/2024 3:45 PM EDT Procedure visit [facility] [address] [place] [address] Stephen Grewal MD [address] [facility] [address] [place] [address] Health Maintenance Due Date Last Done Comments [...] MDR Acinetobacter 06/16/2022 06/22/2022 Insurance [facility] [place] [place] Care Teams Tumbler Dyeing Machine Operator Relationship Specialty Start Date End Date Beth Lawson APRN [address] [address] [place] [address] PCP - General Internal Medicine 06/30/24
--- OUTSIDE RECORDS SUMMARY | 2024-10-10 14:38 | XMS_ITS | Clinical Summary ---
Author Organization [employer] ([place], [place], [place], [place]) Address [address] [place] [address] Care Team Providers Care Molding Line Operator Name Role Phone Unavailable Primary Care Provider [...] on file 07/05 Educational Attainment Answer Date Farncis rded Speak language other than Scottish at home Not on file 07/06/2023 Want [...] 08/22/2025 08/22/2020 Medical Devices Implanted Type Area Research Mechanic Device Identifier Shelf Expiration Date Model / Serial / Lot Pacemaker- 1 Implanted:08/30/19 21 (Quantity not on file) [employer] TEJA TAYLOR / [id number] / Description:Mri conditional Generator: teja taylor Lead: daniel Dodson Lead: daniel roche 53 Insurance [facility]
--- OUTSIDE RECORDS SUMMARY | 2024-10-10 14:38 | XMS_ITS | Referral Summary ---
Author Organization [employer] ([place], [place], [place], [place]) Address [address] [place] [address] Care Team Providers Care Informatics Spec Name Role Phone Unavailable Primary Care Provider [...] Date Francis rded Speak language other than Grenadian at home Not on file 07/06/2023 Want [...] on file Medical Devices Implanted Type Area Physics Technician Device Identifier Shelf Expiration Date Model / Serial / Lot Pacemaker- 1 Implanted:08/30/19 21 (Quantity not on file) [employer] TEJA TAYLOR / [id number] / Description:Mri conditional Generator: teja taylor Lead: solia s 45 Lead: solia s [address] [facility]
== END 2024-10-10 23:59 | disposition home or self-care (01) ==
LOC: RT 14:32
PROVIDERS: PCP Nurse Practitioner Family; Visit Provider Internal Medicine
DX: I49.1 Atrial premature depolarization (principal); I47.19 Other supraventricular tachycardia; I49.3 Ventricular premature depolarization; I47.20 Ventricular tachycardia, unspecified; I49.8 Other specified cardiac arrhythmias
CPT/HCPCS: 93270

== ENCOUNTER 2024-11-28 15:31 | Outpatient (CLI) | payer OTHER, SELFPAY ==
--- OUTSIDE RECORDS SUMMARY | 2024-10-20 07:40 | XMS_ITS | Encounter Summary ---
Author Organization [facility] Address [address] 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 Not on file Not on file documented as of this encounter Plan of Treatment Upcoming Encounters Date Type Department Care Team (Late st Contact Info) Description 12/28/2024 10:30 AM EST Procedure Visit [facility] [address] [place] [address] Ranjana Barillas MD [address] [place] [address] Scheduled Procedures Name Priority Associated Diagnoses Date/Ti me VITRECTOMY, PARS PLANA APPRO ACH, WITH FOCAL ENDOLASER PHOTOCOAGULATION 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 type 2 diabetes mellitus Vitreous hemorrhage of left eye (CMS/HCC) documented as of this encounter Procedures Procedure Name Priority Date/Time Associated Diagnosis Comments WIDE FIELD COLOR FUNDUS PHOTOGRAPHY - OU - BOTH EYES Routine 10/20/2024 4:10 PM EDT 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 type 2 diabetes mellitus documented in this encounter Results * Wide Field Color Fundus Photography - OU - Both Eyes (10/20/2024 4:10 PM EDT) Anatomical Region Laterality Modality Fundus Photograp hy Narrative 10/20/2024 4:10 PM EDT Improving VH OS PRP OU us Ranjana Barillas MD OPHTH PHOTOGRAPHY Final Re sult documented in this encounter Visit Diagnoses Not on filedocumented in this encounter Additional Health Concerns Infection Onset Date Last Indicated Resolved Time MRSA Comment: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 Source: [facility]. 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 Source: [facility]. 06/16/2022 Assessment Noted Time A fall risk assessment has been complete d for the patient 09/12/2024 9:53 AM EDT A Body Mass Index follow-up plan has been documented for the patient 08/16/2024 3:02 PM EDT documented as of this encounter Care Teams Laboratory Scientist Relationship Specialty Start Date End Date Beth Lawson APRN [address] [place] [address] PCP - General 08/22/20 Jesu Aguilar MD [address] [id number] Referring Physician 09/20/20 Talib Davis MD [id number] [place] [address] Consulting Physician Urology 02/07/24 documented as of this encounter
--- OUTSIDE RECORDS SUMMARY | 2024-10-20 07:40 | XMS_ITS | Encounter Summary ---
Author Organization [facility] Address [address] [place] [address] Care Team Providers Care Post Anesthesia Room Nurse Name Role Phone Beth Lawson APRN Primary Care Provider +- [phone] Jesu Aguilar MD Unavailable [phone] Talib Davis MD Unavailable [phone] Encounter Details Date Type Department Care Team (Late st Contact Info) Description 10/20/2024 7:40 AM EDT Ancillary Procedure [facility] [address] [place] [address] Social History Tobacco Use Types [...] Description 12/28/2024 10:30 AM EST Procedure Visit [facility] [address] [place] [address] Ranjana Barillas MD [address] [place] [address] Scheduled Procedures Name Priority Associated Diagnoses Date/Ti me VITRECTOMY, PARS PLANA APPRO ACH, WITH FOCAL ENDOLASER PHOTOCOAGULATION 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 type 2 diabetes mellitus Vitreous hemorrhage of left eye ([facility]) documented as of this encounter Procedures Procedure Name Priority Date/Time Associated Diagnosis Comments OCT, RETINA - OU - BOTH EYES Routine 10/20/2024 4:18 PM EDT 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 type 2 diabetes mellitus documented in this encounter Results * OCT, Retina - OU - Both Eyes (10/20/2024 4:18 PM EDT) Anatomical Region Laterality Modality Head Optical Coherenc e Tomography Narrative 10/20/2024 4:18 PM EDT Right Eye Quality was good. Scan locations included subfoveal. Progression has been stable. Findings include normal foveal contour, cystoid macular edema. Left Eye Quality was good. Scan locations included subfoveal. Progression has been stable. Findings include abnormal foveal contour, cystoid macular edema, vitreous traction. Notes [facility] DME OU Vit opacities OS us Ranjana Barillas MD OPHTH TOMOGRAPHY Final Res ult documented in this encounter Visit Diagnoses Not on filedocumented in this encounter Additional Health Concerns Infection Onset Date Last Indicated Resolved Time MRSA Comment: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 Source: [employer]. 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 Source: [employer]. 06/16/2022 Assessment Noted Time A fall risk assessment has been complete d for the patient 09/12/2024 9:53 AM EDT A Body Mass Index follow-up plan has been documented for the patient 08/16/2024 3:02 PM EDT documented as of this encounter Care Teams Post Anesthesia Room Nurse Relationship Specialty Start Date End Date Beth Lawson APRN [address] [place] [address] PCP - General 08/22/20 Jesu Aguilar MD [address] [address] Referring Physician 09/20/20 Talib Davis MD [address] [phone] Consulting Physician Urology 02/07/24 documented as of this encounter
--- OUTSIDE RECORDS SUMMARY | 2024-10-20 15:15 | XMS_ITS | Encounter Summary ---
Author Organization [facility] Address [address] [place] [address] Care Team Providers Care Scarfing Machine Operator Name Role Phone Beth Lawson APRN Primary Care Provider [phone]- [phone] Jesu Aguilar MD Unavailable [phone] Talib Davis MD Unavailable [phone] Reason for Referral * Clinic-Administered Medication (Routine) - Authorized Specialty Diagnoses / Procedures Referred By Contmelody t Referred To Contact Diagnoses 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 type 2 diabetes mellitus Vitreous hemorrhage of left eye (CMS/HCC) Procedures [place] BEVACIZUMAB INJECTION Ranjana Barillas MD [address] [address] Phone: tel: fax: Referral ID Status Reason Start Date Expiration Date V isits Requested Visits Authorized [id number] Authorized 10/20/2024 04/21/2026 1 1 Encounter Details Date Type Department Care Team (Latest Contact Info) Description 10/20/2024 3:15 PM EDT Procedure Visit [facility] [address] [place] [address] Ranjana Barillas MD [address] [address] 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 type 2 diabetes mellitus (Primary Dx); Vitreous hemorrhage of left eye (CMS/HCC) Social [...] Start Date Job 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 Most patients [...] reach the clinic on the phone. Call [phone] and ask for the risk control director air conditioning technician if it is after hours or a weekend or holiday. 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 - Advised of importance in blood sugar [...] S/p EUA/PRP both eyes 03-23-24 - Plan: Stable, observe closely - Left eye with Vitreous hemorrhage 08/2023 again 06/2024 and non-CSME - S/p EUA/PRP 03-23-24 - Had worsening VH after PRP so repeated JOYCE last 09/12/24 (5 weeks) - OCT with mildly improving vitreous (vit) opacities, traction at disc, non- central DME - Persistent VH on exam - discussed at length regarding indication for PPV/EL/AFx but he prefers continued medical management - Plan: JOYCE today, poor view inferiorly through VH but would need eventual fill in PRP when possible - Return 5-6 weeks Pseudophakia both eyes - Stable, observe Seen with Dr. Banuelos I saw the patient with the resident/fellow, independently reviewed exam and ophthalmic imaging, andagree with the plan as otherwise documented. Ranjana Barillas MD Bulb Grader of Ophthalmology Vitreoretinal Surgery Tobacco Cessation: Tobacco Use: Medium Risk (10/20/2024) Patient History Smoking Tobacco Use: Former Smokeless Tobacco Use: Never Passive Exposure: Past The patient has been counseled on tobacco cessation: Not Applicable documented in this encounter Plan of Treatment Upcoming Encounters Date Type Department Care Team (Late st Contact Info) Description 12/28/2024 10:30 AM EST Procedure Visit [facility] [address] [facility] [place] [address] Ranjana Barillas MD [address] [facility] [place] [address] Scheduled Procedures Name Priority Associated Diagnoses Date/Ti me VITRECTOMY, PARS PLANA APPRO ACH, WITH FOCAL ENDOLASER PHOTOCOAGULATION 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 type 2 diabetes mellitus Vitreous hemorrhage of left eye (CMS/HCC) documented as of this encounter Procedures Procedure Name Priority Date/Time Associated Diagnosis Comments INTRAVITREAL INJECTION, PHARMACOLOGIC AGENT - OS - LEFT EYE Routine 10/20/2024 4:41 PM EDT Proliferative diabetic retinopathy of both [...] Drug Injection - OS - Left Eye (10/20/2024 4:41 PM EDT) Anatomical Region Laterality Modality Head Other Narrative 10/20/2024 4:41 PM EDT Time Out 10/20/2024. 4:41 PM. Confirmed correct patient, procedure, site, and patient consented. Anesthesia Subconjunctival anesthesia was used. Anesthetic medications included Lidocaine 2%. Procedure Preparation included 5% betadine to ocular surface. A 30 gauge needle was used. Injection: 1.25 mg Bevacizumab 2 MG/0.08ML Route: Intravitreal, Site: Left Eye [facility]: [id number], Lot: [id number], Expiration date: 01/08/2025 Post-op Post injection exam found visual acuity [...] MD OPHTH TOMOGRAPHY Final Res ult * Wide Field Color Fundus Photography - OU - Both Eyes (10/20/2024 4:10 PM EDT) Anatomical Region Laterality Modality Fundus Photograp hy Narrative 10/20/2024 4:10 PM EDT Improving VH OS PRP OU us Ranjana Barillas MD OPHTH PHOTOGRAPHY Final Re sult documented in this encounter Visit Diagnoses Diagnosis [...] Once PRN Procedure, 1 dose, Starting on Wed10/20/24 at 1641, Until Wed10/20/24 at 1641, RoutineIndications:Proliferati ve diabetic retinopathy of both eyes with macular edema associated with type 2 diabetes mellitus,Vitreous hemorrhage of left eye (CMS/HCC) Given 10/20/2024 4:41 PM EDT 1.25 mg Left Eye documented in this encounter Additional Health Concerns Infection Onset Date Last Indicated Resolved Time MRSA Comment: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 Source: [facility]. 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 Source: [facility]. 06/16/2022 Assessment Noted Time A fall risk assessment has been complete d for the patient 09/12/2024 9:53 AM EDT A Body Mass Index follow-up plan has been documented for the patient 08/16/2024 3:02 PM EDT documented as of this encounter Care Teams Scarfing Machine Operator Relationship Specialty Start Date End Date Beth Lawson APRN [address] [place] [address] PCP - General 08/22/20 Jesu Aguilar MD [address] [address] Referring Physician 09/20/20 Talib Davis MD [address] [address] Consulting Physician Urology 02/07/24 documented as of this encounter
--- OUTSIDE RECORDS SUMMARY | 2024-11-23 07:40 | XMS_ITS | Encounter Summary ---
Author Organization [facility] Address [address] 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 file Not on file Not on file documented as of this encounter Plan of Treatment Upcoming Encounters Date Type Department Care Team (Late st Contact Info) Description 12/28/2024 10:30 AM EST Procedure Visit [facility] [address] [place] [address] Ranjana Barillas MD [address] [place] [address] Scheduled Procedures Name Priority Associated Diagnoses Date/Ti me VITRECTOMY, PARS PLANA APPRO ACH, WITH FOCAL ENDOLASER PHOTOCOAGULATION 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 type 2 diabetes mellitus Vitreous hemorrhage of left eye (CMS/[facility]) documented as of this encounter Procedures Procedure Name Priority Date/Time Associated Diagnosis Comments OCT, RETINA - OU - BOTH EYES Routine 11/23/2024 12:22 PM EDT 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 type 2 diabetes mellitus documented in this encounter Results * OCT, Retina - OU - Both Eyes (11/23/2024 12:22 PM EDT) Anatomical Region Laterality Modality Head Optical Coherenc e Tomography Narrative 11/23/2024 12:22 PM EDT Right Eye Quality was good. [...] Time MRSA Comment: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 Source: [facility]. 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 Source: [facility]. 06/16/2022 Assessment Noted Time A fall risk assessment has been complete d for the patient 11/23/2024 10:40 AM EDT A Body Mass Index follow-up plan has been documented for the patient 08/16/2024 3:02 PM EDT documented as of this encounter Care Teams Fermentologist Relationship Specialty Start Date End Date Beth Lawson APRN [address] [place] [address] PCP - General 08/22/20 Jesu Aguilar MD [address] [address] Referring Physician 09/20/20 Talib Davis MD [address] [phone] Consulting Physician Urology 02/07/24 documented as of this encounter
--- OUTSIDE RECORDS SUMMARY | 2024-11-23 10:15 | XMS_ITS | Encounter Summary ---
Author Organization [facility] Address [address] [place] [address] Care Team Providers Care Chicken Cutter Name Role Phone Beth Lawson APRN Primary Care Provider [phone] Jesu Aguilar MD Unavailable [phone] Talib Davis MD Unavailable [phone] Reason for Referral * Consultation (Routine) - Authorized Specialty Diagnoses / Procedures Referred By Dejah london Referred To Contact Anesthesiology Diagnoses 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 type 2 diabetes mellitus Vitreous hemorrhage of left eye (CMS/HCC) Ranjana Barillas MD [address] [employer] [address] [place] [address] Phone: tel: fax: [facility] [address] [place] [address] Phone: tel: Referral ID Status Reason Start Date Expiration Date Visits Requested Visits Authorized [id number] Authorized Consult and Treat 11/23/2024 05/25/2026 1 1 * Clinic-Administered Medication (Routine) - Authorized Specialty Diagnoses / Procedures Referred By Dejah london Referred To Contact Diagnoses 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 type 2 diabetes mellitus Vitreous hemorrhage of left eye (CMS/HCC) Procedures [place] BEVACIZUMAB INJECTION Ranjana Barillas MD [address] [employer] [address] [place] [address] Phone: tel: fax: Referral ID Status Reason Start Date Expiration Date V isits Requested Visits Authorized [id number] Authorized 11/23/2024 05/25/2026 1 1 Encounter Details Date Type Department Care Team (Latest Contact Info) Description 11/23/2024 10:15 AM EDT Office Visit [facility] [address] [place] [address] Ranjana Barillas MD [address] [place] [address] Proliferative diabetic retinopathy of both eyes [...] Patient Instructions - Ranjana Barillas MD - 11/23/2024 10:15 AM EDT AFTER INJECTION CARE 1. Most [...] reach the clinic on the phone. Call [phone] and ask for the payroll coordinator director mission if it is after hours or a weekend or holiday. * Progress Notes - Ranjana Barillas MD - 11/23/2024 10:15 AM EDT PMH: Type II diabetes mellitus (DM), HTN, HLD, CAD, right bundle branch block, FERNANDO Insulin dependent Type II Diabetes Mellitus with proliferative diabetic retinopathy, both eyes - +HTN, +HLD, CAD and arrhythmia, denies CKD, [place], history of CVA, no history of SS dz or trait Lab Results Component Value Date HGBA1C 8.3 (H) 09/24/2023 - Stressed blood sugar and blood pressure control and close follow-up with PCP/acupressurist. - Advised of importance in blood sugar [...] 03-23-24 - Had worsening VH after PRP - OCT with mildly improving vitreous (vit) opacities, traction at disc, non- central DME - Persistent VH on exam - discussed at length regarding indication for PPV/EL/AFx and he would liketo proceed at this point - Last JOYCE 10/20/24 (4 weeks) - Plan: JOYCE today and proceed with PPV/EL/air vs gas next 1-2 months OS - Return 5-6 weeks or for surgery left eye Pseudophakia both eyes - Stable, observe Seen with Dr. Martinez I saw the patient with the resident/fellow, independently reviewed exam and ophthalmic imaging, andagree with the plan as otherwise documented. Ranjana Barillas MD Office Clerk Assistant of Ophthalmology Vitreoretinal Surgery Tobacco Cessation: Tobacco Use: Medium Risk (11/23/2024) Patient History Smoking Tobacco Use: Former Smokeless Tobacco Use: Never Passive Exposure: Past The patient has been counseled on tobacco cessation: Not Applicable documented in this encounter Plan of Treatment Upcoming Encounters Date Type Department Care Team (Late st Contact Info) Description 12/28/2024 10:30 AM EST Procedure Visit [facility] [address] [place] [address] Ranjana Barillas MD [address] [phone] Scheduled Procedures Name Priority Associated Diagnoses Date/Ti me VITRECTOMY, PARS PLANA APPRO ACH, WITH FOCAL ENDOLASER PHOTOCOAGULATION 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 type 2 diabetes mellitus Vitreous hemorrhage of left eye (CMS/HCC) Scheduled Referrals Name Type Priority Associated Diagnoses Order Schedule Ambulatory referral to Anesthesiology Outpatient Referral Routine 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 type 2 diabetes mellitus Vitreous hemorrhage of left eye (CMS/HCC) 1 Occurrences starting 11/23/2024 until 05/27/2026 documented as of this encounter Procedures Procedure Name Priority Date/Time Associated Diagnosis Comments INTRAVITREAL INJECTION, PHARMACOLOGIC AGENT - OS - LEFT EYE Routine 11/23/2024 2:06 PM EDT Proliferative diabetic retinopathy of both [...] Drug Injection - OS - Left Eye (11/23/2024 2:06 PM EDT) Anatomical Region Laterality Modality Head Other Narrative 11/23/2024 2:06 PM EDT Time Out 11/23/2024. 2:06 PM. Confirmed correct patient, procedure, site, and patient consented. Anesthesia Subconjunctival anesthesia was used. Anesthetic medications included Lidocaine 2%, Proparacaine 0.5%. Procedure A 30 gauge needle was used. Injection: 1.25 mg Bevacizumab 2 MG/0.08ML Route: Intravitreal, Site: Left Eye [facility]: [id number], Lot: [id number], Expiration date: 04/15/2025 Post-op Post injection exam found visual acuity [...] PRN Procedure, 1 dose, Starting on Swetha 11/23/24 at 1406, Until Swetha 11/23/24 at 1406, RoutineIndications:Proliferati ve diabetic retinopathy of both eyes with macular edema associated with type 2 diabetes mellitus,Vitreous hemorrhage of left eye (CMS/HCC) Given 11/23/2024 2:06 PM EDT 1.25 mg Left Eye documented in this encounter Additional Health Concerns Infection Onset Date Last Indicated Resolved Time MRSA Comment: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 Source: [employer]. 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 Source: [employer] 06/16/2022 Assessment Noted Time A fall risk assessment has been complete d for the patient 11/23/2024 10:40 AM EDT A Body Mass Index follow-up plan has been documented for the patient 08/16/2024 3:02 PM EDT documented as of this encounter Care Teams Chicken Cutter Relationship Specialty Start Date End Date Beth Lawson APRN [address] [place] [address] PCP - General 08/22/20 Jesu Aguilar MD [address] [facility] [address] [place] [address] Referring Physician 09/20/20 Talib Davis MD [id number] [place] [address] Consulting Physician Urology 02/07/24 documented as of this encounter
[2024-11-28 17:49] LABS: Hemoglobin A1C 7.1 % (4.0-6.0)
[2024-11-28 18:30] LABS: Cholesterol 93 mg/dl (140-200); HDL Cholesterol 36 mg/dl (40-60); Triglycerides 155 mg/dl (30-150)
[2024-11-30 08:14] LABS: Testosterone,Total 328 ng/dL (264-916)
--- OUTSIDE RECORDS SUMMARY | 2024-11-30 09:10 | XMS_ITS | Clinical Summary ---
Author Organization [facility] Address [address] [facility] [address] [place] [address] Phone Care Team Providers Care Dry Cans Back Tender Name Role Phone Janis Rodriguez Unavailable Unavailable Conditions or Problems Problem Name Problem Code Onset Date Status Entry Date Provider Comment Standard Description Annotate Sepsis 43517162 (SNOMED CT) 06/16 Active 06/17 Rito Javed [...] and gangrene, with abscess Cellulitis, abdominal wall 33588042 (SNOMED CT) 06/15 Active 06/15 Queenie Herberth Cellulitis of abdominal wall Infection, local skin/subcutan eous tissue 863067803 (SNOMED CT) 06/15 Active 06/15 Queenie Herberth Localized infection of skin AND/OR subcutaneous tissue 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 ) 06/15 Active 06/15 Queenie Herberth Leukemoid reaction Presence of cardiac pacemaker 645250024 (SNOMED CT) 06/15 Active 06/15 Queenie Herberth Cardiac pacemaker in situ DM Type II E11.9 (ICD-10-CM ) 06/15 Active 06/15 Queenie Herberth Type 2 diabetes mellitus without complications Coronary artery disease, S/P CABG 285717660 (SNOMED CT) 06/15 Active 06/15 Queenie Kevin 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 (I50.22) 421641562 ([facility] CT) 06/15 Active 06/15 Queenie Kevin Benign hypertensive heart disease with congestive cardiac failure Medications Medication Instructions Start Date Stop Date Generic Name ND Provider MINOCYCLINE HCL 100 MG CAPS Take 1 capsule by mouth twice a day Stop the Bactrim minocycline 89415569704 Rito Javed MD BACTRIM DS 800-160 MG TABS Take 1 tablet by mouth twice a day sulfamethoxazole- trimethoprim 85520732960 Rito Javed MD LISINOPRIL 5 MG TABS one tab oral daily 06/16 lisinopril 33374288805 Rito Javed MD CEPHALEXIN 500 MG CAPS 1 cap oral 4 times daily for 7 days 06/16 cephalexin 00622873989 Rito Javed MD [facility] ACETAMINOPHEN 325 MG CAPS 2 tab every 6 hours as needed for pain acetaminophen 56017271516 Luís Melvin HYDROCODONE-ACETAM INOPHEN 5-325 MG TABS one tab oral three times daily for 5 days, then one tab oral twice a day for 5 days, then as needed hydrocodone-aceta minophen 16631793675 Luís Melvin aspirin 81 mg capsule one tab oral daily aspirin Luís Melvin ATORVASTATIN CALCIUM 80 MG TABS one tab oral daily at bedtime atorvastatin 88659192619 Luís Melvin Bifidobacterium animalis 6 mg (5 billion cell) capsule 1 cap oral daily bifidobacterium animalis Luís Melvin CARVEDILOL 6.25 MG TABS twice daily, with breakfast and dinner carvedilol 48020377032 Luís Melvin CEPHALEXIN 500 MG CAPS 1 cap oral 4 times daily for 7 days 06/16 cephalexin 81350981534 Luís Melvin CLOPIDOGREL BISULFATE 75 MG TABS one tab oral daily clopidogrel 70142645299 Luís Melvin empagliflozin 10 mg tablet one tab oral daily empagliflozin Luís Melvin famotidine 10 mg tablet one tab oral daily famotidine 76344140333 Luís Melvin INSULIN LISPRO (1 UNIT DIAL) 100 UNIT/ML SOPN 12 units twice daily with breakfast and dinner insulin lispro 51012945644 Luís Melvin LISINOPRIL 5 MG TABS one tab oral daily 06/16 lisinopril 22774905460 Luís Melvin MAGNESIUM OXIDE -MG SUPPLEMENT 400 MG CAPS 1 tab oral daily magnesium oxide 33414820463 Luís Melvin [facility] MELATONIN 5 MG CAPS one tab oral daily at bedtime for insomnia melatonin 01960326500 Luís Melvin Miralax 17 gram powder in packet oral daily as needed polyethylene glycol 3350 10850060822 Luís Melvin JANUVIA 100 MG TABS one tab oral daily sitagliptin phosphate 66723823076 Luís Melvin Medications Administered No information available. [...] smoker Tobacco smoking status Lab Report: COMPREHENSIVE [place] TABOLIC PANEL ANIONGAP 10.0 mmol/L 5.0-15.0 anion [...] Name Date Entry Date CPT-sl STAT Labs CPT-83251 Wound Culture and Sensitivity w/Gram Stai n [id number] CBC with Differential 2022 CPT-33274 CMP CPT-23486 Sedimentation Rate (ESR) 202 04/19/01 CPT-03101 C- reactive protein [id number], [id number] CPK Vital Signs Date Name Value Unit [...]
--- OUTSIDE RECORDS SUMMARY | 2024-11-30 09:11 | XMS_ITS | Encounter Summary ---
Author Organization [facility] Address [address] 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 Wish to be (Past 1 Month) No 03/23/2024 7:22 AM EST Roberto Martínez, RN 2. Non-Specific Active Suici idris Thoughts (Past 1 Month) No 03/23/2024 7:22 AM EST Ronald Martínez, RN 6. Suicidal Behavior (Lifetime) No 7:22 AM EST Roberto Martínez, RN documented as of this encounter Plan of Treatment Upcoming Encounters Date Type Department Care Team (Late st Contact Info) Description 12/28/2024 10:30 AM EST Procedure Visit [facility] [address] [place] [address] Ranjana Barillas MD [address] [address] Scheduled Procedures Name Priority Associated Diagnoses Date/Ti me VITRECTOMY, PARS PLANA APPRO ACH, WITH FOCAL ENDOLASER PHOTOCOAGULATION 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 type 2 diabetes mellitus Vitreous hemorrhage of left eye ([facility]) documented as of this encounter Visit Diagnoses Not on filedocumented in this encounter Additional Health Concerns Infection Onset Date Last Indicated Resolved Time MRSA Comment: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 Source: [facility]. 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 Source: [facility]. 06/16/2022 Assessment Noted Time A fall risk assessment has been complete d for the patient 02/07/2024 11:30 AM EST A Body Mass Index follow-up plan has been documented for the patient 02/29/2024 1:49 PM EST documented as of this encounter Care Teams [employer] Relationship Specialty Start Date End Date Beth Lawson APRN [address] [place] [address] PCP - General 08/22/20 Jesu Aguilar MD [address] [address] Referring Physician 09/20/20 Talib Davis MD [address] [place] [address] Consulting Physician Urology 02/07/24 documented as of this encounter
--- OUTSIDE RECORDS SUMMARY | 2024-11-30 09:11 | XMS_ITS | Encounter Summary ---
Author Organization [facility] Address [address] [place] [address] Care Team Providers Care Battalion Fire Chief Name Role Phone Beth Lawson APRN Primary Care Provider [phone] Jesu Aguilar MD Unavailable [phone] Talib Davis MD Unavailable [phone] Encounter Details Date Type Department Care Team (Latest Contact Info) Description 11/23/2024 Travel Social History Tobacco Use Types Packs/Day [...] Description 12/28/2024 10:30 AM EST Procedure Visit [facility] [address] [place] [address] Ranjana Barillas MD [address] [place] [address] Scheduled Procedures Name Priority Associated Diagnoses Date/Ti me VITRECTOMY, PARS PLANA APPRO ACH, WITH FOCAL ENDOLASER PHOTOCOAGULATION 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 type 2 diabetes mellitus Vitreous hemorrhage of left eye (CMS/HCC) documented as of this encounter Visit Diagnoses Not on filedocumented in this encounter Additional Health Concerns Infection Onset Date Last Indicated Resolved Time MRSA Comment: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 Source: [facility]. 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 Source: [facility]. 06/16/2022 Assessment Noted Time A fall risk assessment has been complete d for the patient 11/23/2024 10:40 AM EDT A Body Mass Index follow-up plan has been documented for the patient 08/16/2024 3:02 PM EDT documented as of this encounter Care Teams Battalion Fire Chief Relationship Specialty Start Date End Date Beth Lawson APRN [address] [place] [address] PCP - General 08/22/20 Jesu Aguilar MD [address] [address] Referring Physician 09/20/20 Talib Davis MD [address] [facility] [address] [place] [address] Consulting Physician Urology 02/07/24 documented as of this encounter
--- OUTSIDE RECORDS SUMMARY | 2024-11-30 09:11 | XMS_ITS | Data Portability ---
Author Organization [place] - [facility] & REANNA Mackenzie ADMIN Address [address] [place] [address] Care Team Providers Care Human Resources Trainer Name Role Phone RODGER SUH Primary Care Provider YEIMI JOHANSEN Urologist Unavailable Assessment No assessment recorded. Plan of Treatment Reminders Order Date Submit Date Provider Last Modified By Organization Details Last Modified Time Details Appointments None recorded. Lab urinalysis, dipstick 2022 023 [email or web address] [facility], [address] [place] [address], [address], [place], [address], 3 14:02:37 Referral None recorded. Procedures nerve conduction study/EMG, upper extremity (PROC) 2023 024 [email or web address] Not available 4 13:09:14 Surgeries None recorded. Imaging None recorded. Medication Orders sildenafil 100 mg tablet 2023 024 [facility], [address], [address], 4 12:19:15 tadalafil 20 mg tablet 2022 023 [facility] 591, [address], [address], 3 13:52:02 Patient TargetsNo targets recorded. Patient InstructionsNo instructions recorded. Reason for Referral None Reported. Results Created Date Observation Date Name Description Value Unit Range Abnormal Flag Note LastModifiedBy Organization Detail LastModifiedTime 08/27/19 23 08/26/2022 urina lysis , dipst ick Leukocytes (reference range) negati ve Not Available [facility] [address] [place] [address] [address], [place], [address], 08/26/2022 13:40:11 08/27/19 23 08/26/2022 urina lysis , dipst ick Nitrite (reference range:) negati ve Not Available [facility] [address] [place] [address] [address], [place], [address], 08/26/2022 13:40:11 08/27/19 23 08/26/2022 urina lysis , dipst ick Urobilinogen (reference range) 0.2 Not Available [address], [place], [address], 08/26/2022 13:40:11 08/27/19 23 08/26/2022 urina lysis , dipst ick Protein (reference range) negati ve Not Available [address], [place], [address], 08/26/2022 13:40:11 08/27/19 23 08/26/2022 urina lysis , dipst ick pH (reference range 5-8.5) 5.0 Not Available [facility], [place], [address], 08/26/2022 13:40:11 08/27/19 23 08/26/2022 urina lysis , dipst ick Blood (reference range:) negati ve Not Available [facility] [address] [place] [address] [address], [place], [address], 08/26/2022 13:40:11 08/27/19 23 08/26/2022 urina lysis , dipst ick Specific [place] (reference range) 1.015 Not Available [facility] [address] [place] [address] [address], [place], [address], 08/26/2022 13:40:11 08/27/19 23 08/26/2022 urina lysis , dipst ick Ketone (reference range) negati ve Not Available [facility] [address] [place] [address] [address], [place], [address], 08/26/2022 13:40:11 08/27/19 23 08/26/2022 urina lysis , dipst ick Bilirubin (reference range) negati ve Not Available [facility] [address] [place] [address] [address], [place], [address], 08/26/2022 13:40:11 08/27/19 23 08/26/2022 urina lysis , dipst ick Glucose (reference range) negati ve Not Available [address], [place], [address], 08/26/2022 13:40:11 08/27/19 23 08/26/2022 urina lysis , dipst ick Color (reference range: yellow-brown ) Yellow Not Available [facility] [address] [place] [address] [address], [place], [address], 08/26/2022 13:40:11 Result Notes None recorded. Problems Name Problem SNOMED Code Status Onset Date Resolution Date Notes Provider Name and Address Organization Details Recorded Time Erectile dysfunction 476364728 Active 2022 Cynthia Benoit null, [place] - [facility] [place] [facility] [place] 3 14:16:31 Hypertensive disorder 05602519 Active 2022 Cynthia Adamsonse null, [place] - [facility] [place] [facility] [place] 3 14:16:43 Myocardial infarction 67120959 Active 2022 Cynthia Adamsonse null, [place] - [facility] [place] [facility] [place] 3 14:17:07 Diabetes mellitus 71260136 Active 2022 Cynthia Benoit null, [facility] & [place] 3 14:17:18 Neuropathy 745192916 Active 2022 Saima haley, [facility] & [place] 3 15:37:24 Diabetic peripheral neuropathy 939781828 Active 2022 Saima haley, [facility] & [place] 3 15:37:55 Paresthesia of upper limb 27672279 Active 2023 Queenie Vinson DO [address], [place], [address] , [facility] & [place] 4 13:09:00 Problem Notes None recorded. Procedures Surgical History Date Name Laterality Status Provider Name and Address Organization Details Recorded Time EMG/ Nerve Conduction Study completed DO Jillian Plummer , [place], [address], [facility] & [place] 06/24/2023 13:08:55 Imaging Results None recorded. Procedure Notes None recorded. Medical Equipment None Reported. Allergies No known drug allergies Medications Name Sig Start Date Stop Date Status Note LastModified by Organization Details LastModified Time trimix (alprostadi l 10mcg/phent olamine 1mg/papaver ine 30mg/ml) injectable # INJECT DIRECTED BY YOUR PHYSICIAN active Not Available Not Available No t Available atorvastati n 80 mg tablet TAKE 1 TABLET BY MOUTH AT BEDTIME NIGHTLY FOR CHOLESTER OL active Not Available Not Available No t Available carvedilol 6.25 mg tablet TAKE 1 TABLET BY MOUTH TWICE DAILY WITH FOOD/MEAL 05/04 completed Not Available Not Available Not Available clindamycin HCl 300 mg capsule TAKE 1 CAPSULE BY MOUTH EVERY 8 HOURS FOR 10 DAYS active Not Available Not Available No t Available trazodone 50 mg tablet TAKE 1 TABLET BY MOUTH ONCE DAILY active Not Available Not Available No t Available hydrocodone 5 mg-acetamin ophen 325 mg tablet TAKE 1 TABLET BY MOUTH EVERY 8 HOURS NEEDED FOR PAIN active Not Available Not Available No t Available minocycline 100 mg capsule TAKE 1 CAPSULE BY MOUTH TWICE DAILY, STOP THE BACTRIM 08/26 completed Not Available Not Available Not Available fluconazole 200 mg tablet TAKE 1 TABLET BY MOUTH ONCE DAILY FOR 7 DAYS 05/04 completed Not Available Not Available Not Available sulfamethox azole 800 mg-trimetho prim 160 mg tablet TAKE 1 TABLET BY MOUTH TWICE DAILY 08/26 completed Not Available Not Available Not Available aspirin 81 mg tablet,lynette yed release TAKE 1 TABLET BY MOUTH ONCE DAILY FOR HEART DISEASE active Not Available Not Available No t Available sildenafil 100 mg tablet TAKE 1 TABLET BY MOUTH 30 MINUTES TO 1 HOUR PRIOR TO SEXUAL INTERCOUR SE active Not Available Not Available No t Available carvedilol 3.125 mg tablet TAKE 1 TABLET BY MOUTH TWICE DAILY WITH FOOD / MEAL FOR BLOOD PRESSURE active Not Available Not Available No t Available oxycodone-a cetaminophe n 5 mg-325 mg tablet TAKE 1 TABLET BY MOUTH EVERY 8 HOURS NEEDED FOR PAIN 05/04 completed Not Available Not Available Not Available methocarbam ol 750 mg tablet TAKE 1 TABLET BY MOUTH THREE TIMES DAILY active Not Available Not Available No t Available trazodone 100 mg tablet TAKE 1 TABLET BY MOUTH ONCE DAILY AT BEDTIME NEEDED 05/04 completed Not Available Not Available Not Available [employer] Ultra Test strips USE 1 STRIP TO CHECK GLUCOSE THREE TIMES DAILY active Not Available Not Available No t Available nystatin-tr iamcinolone 100,000 unit/g-0.1 % topical cream APPLY CREAM TOPICALLY TO AFFECTED AREA TWICE DAILY DIRECTED 05/04 completed Not Available Not Available Not Available lisinopril 5 mg tablet TAKE 1 TABLET BY MOUTH ONCE DAILY active Not Available Not Available No t Available mupirocin 2 % topical ointment APPLY OINTMENT TOPICALLY TO AFFECTED AREA THREE TIMES DAILY FOR 14 DAYS active Not Available Not Available No t Available metformin ER 500 mg tablet,exte nded release 24 hr TAKE 1 TABLET BY MOUTH ONCE DAILY active Not Available Not Available No t Available lisinopril 2.5 mg tablet Take by oral route for 90 days. active Not Available Not Available No t Available oxycodone 5 mg tablet TAKE 1 TABLET BY MOUTH EVERY 8 HOURS NEEDED FOR PAIN 08/26 completed Not Available Not Available Not Available Sure Comfort Insulin Syringe 1 mL 29 gauge x 1/2 USE DIRECTED active Not Available Not Available No t Available tadalafil 20 mg tablet TAKE 1 TABLET BY MOUTH EVERY 36 HOURS NEEDED active Not Available Not Available No t Available OneTouch UltraSoft Lancets USE 1 TO CHECK GLUCOSE THREE TIMES DAILY active Not Available Not Available No t Available Januvia 100 mg tablet TAKE 1 TABLET BY MOUTH ONCE DAILY FOR DIABETES active Not Available Not Available No t Available Humalog Mix 75-25 KwikPen U-100 insulin 100 unit/mL subcutaneou s pen INJECT 24 UNITS SUBCUTANE OUSLY TWICE DAILY FOR DIABETES active Not Available Not Available No t Available Farxiga 10 mg tablet TAKE 1 TABLET BY MOUTH ONCE DAILY active Not Available Not Available No t Available Jardiance 10 mg tablet TAKE 1 TABLET BY MOUTH ONCE DAILY active Not Available Not Available No t Available Dexcom G6 Veneer Redrier USE DIRECTED active Not Available Not Available No t Available Dexcom G6 Transmitter device USE DIRECTED active Not Available Not Available No t Available BD Renee 2nd Gen Pen Needle 32 gauge x 5/32 USE DIRECTED active Not Available Not Available No t Available OneTouch Ultra2 Meter USE TO CHECK GLUCOSE THREE TIMES DAILY active Not Available Not Available No t Available Rybelsus 7 mg tablet TAKE 1 TABLET BY MOUTH ONCE DAILY active Not Available Not Available No t Available Dexcom G7 Sensor device USE DIRECTED; CHANGE EVERY 10 DAYS active Not Available Not Available No t Available Vitals Date Recorded Body height Body mass index (BMI) Body weight Systolic And Diastolic Provider Name and Address Organization Details Last Updated DateTime 05/05/2023 180.34 cm 30.3 kg/m2 53226.7 g 120/76 mm[Hg] Cynthia Bennett [facility] [place] 05/05/2023 11:38:44 Date Recorded Body height Body mass index (BMI) Body weight Heart rate Systolic And Diastolic Provider Name and Address Organization Details Last Updated DateTime 06/24/2023 180.34 cm 29.7 kg/m2 34781.46 g 69 /min 134/71 mm[Hg] Kim Cisneros [facility] [place] 06/24/2023 12:56:05 Date Recorded Body height Body mass index (BMI) Body weight Systolic And Diastolic Provider Name and Address Organization Details Last Updated DateTime 08/26/2022 180.34 cm 30.7 kg/m2 08942.32 g 126/72 mm[Hg] Cynthia Benoit [facility] [place] 08/26/2022 13:40:01 Date Recorded Body height Body mass index (BMI) Body weight Body temperature Systolic And Diastolic Provider Name and Address Organization Details Last Updated DateTime 09/02/2023 180.34 cm 30.3 kg/m2 53677.7 g 98 [degF] 130/72 mm[Hg] Cynthia FRYE [facility] & [place] 13:34:42 Social History Question Answer Notes LastModified by [employer] Details LastModified Time Tobacco Smoking Status Former Smoker Cynthia haley, [facility] & [place] 02/23/2022 14:18:07 Are You Blind Or Do You Have Difficulty Seeing? No Information not available 06/24/2023 What Was The Date Of Your Most Recent Tobacco Screening? 02/20/2022 Information not available 06/24/2023 Are You Passively Exposed To Smoke? No Information not available 06/24/2023 How Much Tobacco Do You Smoke? 1 PPD Information not available 06/24/2023 How Many Years Have You Smoked Tobacco? 15 Information not available 06/24/2023 Sex: Male Functional Status Question Answer Note LastModified by [employer] Details LastModified Time Do you use any illicit or recreational drugs? No Information not available 02/23/2022 What is your level of alcohol consumption? None Information not available 02/23/2022 What is your exercise level? Occasional Information not available 06/24/2023 Mental Status Question Answer Note LastModified by Organization D etails LastModified Time Do you feel stressed (tense, restless, nervous, or anxious, or unable to sleep at night)? [id number] Information not available 06/24/2023 Family History Nothing Reported Notes:Mother- Diabetes Medical History Condition Response Diabetes Y Heart Disease Y Heart Attack ([place]) Y Hypertension Y High Cholesterol Y Past Encounters Encounter ID Performer Location Encounter Start Date Encounter Closed Date Diagnosis/Indication Diagnosis SNOMED-CT Code Diagnosis ICD10 Code Diagnosis IMO Codes Diagnosis Note [id number] Tripp Mcgrath MD [facility] [address] [place] [address],[address] [address] 02/23/2022 13:50:36 02/23/2022 15:37:26 Erectile dysfunction 104942343 F52.21 History of diabetes mellitus type 2 443879219 Z86.39 Diabetic p eripheral neuropathy 436914509 E11.40 [id number] Tripp Mcgrath MD [facility] [address] [place] [address] 04/06/2022 14:42:06 04/06/2022 16:12:40 Erectile dysfunction 334885378 F52.21 History of diabetes mellitus type 2 880845312 Z86.39 Diabetic p eripheral neuropathy 504552304 E11.40 Essential hypertension 19365316 I10 [id number] Yeimi Johansen NP, S [facility] [address] [place] [address] 08/26/2022 13:17:11 08/26/2022 13:53:21 Erectile dysfunction 472815473 F52.21 Continue Tadalafil 20mg every 36 hours as neededRTC in 1 year for f/u [id number] Yeimi Johansen NP, S [facility] [address] [place] [address] 05/05/2023 11:19:01 05/05/2023 12:08:28 Erectile dysfunction 487699846 F52.21 Start Sildenafil 100mg as needed.Pos sible SEs of medication include headaches, skin flushing, and nasal congestion . Discussed if he has an erection more than 4 hours would need to go to the ER. Discussed if he goes to the ER for chest to discuss he is on Viagra a PDE5-1 medication r/t nitrates. Discussed if this does not work next steps would be vaccuum pump, penile prosthesis RTC in 4 months for f/u [id number] DO Heriberto PlummerZ [facility] [address] [facility] [place] [address] 06/24/2023 12:51:28 06/24/2023 13:32:07 Paresthesia of upper limb 86934835 R20.2 [id number] Yeimi Johansen NP, S [facility]-[address] [place] [phone] 09/02/2023 13:29:05 09/02/2023 13:58:09 Erectile dysfunction 943303823 F52.21 Sildenafil 100 mg as neededStar t Triple Mix. Prescripti on called into [place] [facility]. Pt will bring test dose into office on 09/16/2023. [id number] Yeimi Johansen NP, S [facility]-[address] [place] [address] 09/16/2023 15:20:04 09/16/2023 16:32:49 Erectile dysfunction 932395087 F52.21 First a 15 unit test dose of triple mix was administer ed into the base of the lateral right corporal body. This is done uneventful ly and painless for the patient. Within 15 minutes no response. 5 more units was administer ed into the base of the lateral right corporal body. Rechecked on patient in 20 minutes and no response was noted. 10 more units was administer ed into the lateral right corporal body. Rechecked on pt in 20 minutes and no response was noted.Will refer pt to Dr Davis for evaluation of penile implant. History of diabetes mellitus 122941700 Z86.39 Health Concerns Section Related Observation LastModified by Organization Detai ls LastModified Time None Recorded Concern Status LastModified by Organization Details LastModified Time None Recorded Advance Directives Directive None Recorded Payers Insurance Date Sequence Insurance Name Policy Number Policy Cadet Covered Member ID Cadet Member ID Guarantor Name 09/16/2023 1 [place] [place] [id number] Stephen Garcia [id number] Stephen Garcia 05/05/2023 1 [place] [id number] Stephen Garcia [id number] Stephen Garcia 09/16/2023 1 [place] [place] [facility] [place] [facility] Stephen Garcia [id number] Stephen Garcia Notes Date Note Type Note Provider Name and Address Organization Details Recorded Time 08/26/2022 text/html 48 yowm RTC for f/u of ED. Patient has been managed with tadalafil 20 mg 1 every 36 hours as needed. Patient reports the medication is effective without any overt side effects. He denies any dysuria or gross hematuria. Patient has a history of insulin-dependent diabetes with peripheral neuropathy. Also has a history of coronary artery disease. Denies any family history of prostate cancer. Yeimi Johansen NP, S [address], [place], [address], [facility] & [place] 08/26/2022 13:53:05 05/05/2023 text/html 48 yowm RTC for f/u of ED medication not working. Pt was last seen on 08/26/2022. Patient has ED has been managed with tadalafil 20 mg 1 every 36 hours as needed. Reports the medication is not effective and he is not able to get an erection. Patient reports he is also trialed low-dose Viagra in the past without any effectiveness. Reports urinary stream is good. Denies any dysuria or gross hematuria. Patient has a history of insulin-dependent diabetes with peripheral neuropathy, HTN, and CAD. Denies any fmhx of CAP. Yeimi Johansen NP, S [address], [place], [address], [facility] & [place] 05/05/2023 12:19:56 09/02/2023 text/html 48 yowm RTC for 4 month f/u of ED. At last visit on 05/05/2023 pt was started on Sildenafil 100mg as needed. Patient reports medication works and proximally 20-30% of the time. Patient has also tried tadalafil 20 mg as needed reports it is not effective either. Reports urinary stream is good. Denies any dysuria or gross hematuria. Patient has a history of insulin-dependent diabetes with peripheral neuropathy, HTN, and CAD. Denies any fmhx of CAP. Yeimi Johansen NP, S [address], [place], [address], [facility] & [place] 09/02/2023 13:45:00 09/16/2023 text/html 48 yowm RTC for Triple Mix injection. Pt with ED and has trialed Sildenafil 100mg as needed and tadalafil 20 mg as needed. Neither medication was effective. Reports urinary stream is good. Denies any dysuria or gross hematuria. Patient has a history of insulin-dependent diabetes with peripheral neuropathy, HTN, and CAD. Denies any fmhx of CAP. Yeimi Johansen NP, S [address], [place], [address], [facility] [place] [facility] [place] 09/16/2023 16:37:27
--- OUTSIDE RECORDS SUMMARY | 2024-11-30 09:11 | XMS_ITS | Encounter Summary ---
Author Organization [facility] Address [address] 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 Source: [facility]. 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 Source: [facility]. 06/16/2022 Assessment Noted Time A fall risk assessment has been complete d for the patient 08/04/2024 9:51 AM EDT A Body Mass Index follow-up plan has been documented for the patient 08/04/2024 10:53 AM EDT documented as of this encounter Care Teams Air Purifier Servicer Relationship Specialty Start Date End Date Beth Lawson APRN [address] [place] [address] PCP - General 08/22/20 Jesu Aguilar MD [address] [id number] Referring Physician 09/20/20 Talib Davis MD [address] [address] Consulting Physician Urology 02/07/24 documented as of this encounter
--- OUTSIDE RECORDS SUMMARY | 2024-11-30 09:11 | XMS_ITS | Clinical Summary ---
[facility] Organization [facility] Address [address] [place] [address] Care Team Providers Care Shredded Filler Hopper Feeder Name Role Phone RennyBeth KAROL Primary Care Provider + [phone] Allergies No known active allergies Medications QUEtiapine [...] Active Continuous Glucose Sensor (Dexcom G7 Sensor) [facility] USE DIRECTED CHANGE EVERY 10 DAYS Active HumaLOG Mix 75/25 KwikPen (75-25) 100 [...] MOUTH ONCE DAILY FOR DIABETES Active lisinopril (PRINIVIL,ZEST RIL) 5 MG tablet Take 1 tablet by mouth Daily. Active Active Problems No known active problems Encounters Date Type Department Care Team Description 09/19/2024 10:30 AM EDT Office Visit [facility] [address] [place] [address] Stephen Grewal MD Polyneuropathy (Primary Dx) 09/19/2024 [...] 09/19/2024 10:07 AM EDT Plan of Treatment Health Maintenance Due Date [...] TEST 05/17/2019 FIT Testing (1 year) 05/17/2019 ZOSTER VACCINE (1 of 2) 2024 INFLUENZA VACCINE 09/15/2024 ANNUAL PHYSICAL 09/19/2024 HEMOGLOBIN A1C 09/19/2024 09/24/2023, 08/0 10/2023, 01/07/2021, Additional history exists HEPATITIS C SCREENING 09/19/2024 DIABETIC EYE EXAM 10/20/2025 10/20/2024, , 09/17/2023 Additional Health Concerns Infection Onset Date Last Indicated MRSA Comment:per nsg database hx MRSA left arm in 2014; 05/20/15 nares screen neg for MRSA 05/20/2015 05/20/2015 MDR Acinetobacter 06/16/2022 06/22/2022 Insurance [facility] Care Teams Shredded Filler Hopper Feeder Relationship Specialty Start Date End Date Beth Lawson APRN [address] [place] [address] G[address] MELVA ESQUEDA [address] PCP - General Internal Medicine 06/30/24
--- OUTSIDE RECORDS SUMMARY | 2024-11-30 09:11 | XMS_ITS | Clinical Summary ---
Author Organization [facility] Address [address] [place] [address] Care Team Providers Care Subassemblies Wirer Name Role Phone Beth Lawson APRN Primary Care Provider [phone] Jesu Aguilar MD Unavailable [phone] Talib Davis MD Unavailable [phone] Allergies Active Allergy Reactions Criticality Noted Date [...] Patient not taking.Reason: Not effective, Reported on 11/23/2024 insulin lispro protamine-insu elise lispro (HumaLOG MIX [...] Patient not taking.Reason: Not effective, Reported on 11/23/2024 acetaminophen (Tylenol) 500 MG tablet Take 2 [...] 08/24/2020 Hypertension 08/22/2020 Hyperlipidemia 08/22/2020 Diabetes 08/22/2020 CAD, multiple vessel 08/22/2020 Resolved Problems [...] after arriving in ICU from OR to [place], will continue to wean respiratory support as [...] LV (left ventricular) mural thrombus 08/24/2020 09/04/2020 Overweight (BMI 25.0-29.9) 08/22/2020 0 11/05/2024 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 Overview (08/29/2020): - PPM w/ EP today Encounters Date Type Department Care Team Description 11/29/2024 Telephone [facility] [address] [place] [address] Ranjana Barillas MD 11/24/2024 Telephone [place] [facility] Pre-[facility] Clinic [address] [place] [address] Pascual Leung MD 11/23/2024 10:15 AM EDT Office Visit [facility] [address] [place] [address] Ranjana Barillas MD 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 type 2 diabetes mellitus (Primary Dx); Vitreous hemorrhage of left eye (CMS/HCC) 11/23/2024 7:40 AM EDT Ancillary Procedure [facility] [address] [place] [address] 11/23/2024 Travel 10/20/2024 3:15 PM EDT Procedure Visit [facility] [address] [place] [address] Ranjana Barillas MD 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 type 2 diabetes mellitus (Primary Dx); Vitreous hemorrhage of left eye (CMS/HCC) 10/20/2024 7:40 AM EDT Ancillary Procedure [facility] [address] [place] [address] 10/20/2024 7:40 AM EDT Ancillary Procedure [facility] [address] [place] [address] 10/20/2024 Travel 09/12/2024 10:00 AM EDT Office Visit [facility] [address] [place] [address] Ranjana Barillas MD 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 type 2 diabetes mellitus (Primary Dx); Vitreous hemorrhage of left eye (CMS/HCC); Pseudophakia of both eyes 09/12/2024 7:45 AM EDT Ancillary Procedure [facility] [address] [place] [address] 09/12/2024 Travel from Last 3 Months Immunizations Immunization [...] Job 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 Date 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 Date 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 Not [...] Description 12/28/2024 10:30 AM EST Procedure Visit [facility] [address] [place] [address] Ranjana Barillas MD [address] [place] [address] Scheduled Procedures Name Priority Associated Diagnoses Date/Ti me VITRECTOMY, PARS PLANA APPRO ACH, WITH FOCAL ENDOLASER PHOTOCOAGULATION 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 type 2 diabetes mellitus Vitreous hemorrhage of left eye (CMS/HCC) Health Maintenance Due Date Last Done Comments [...] 05/17/2019 Sigmoidoscopy 05/17/2019 [facility]-Colorectal Cancer Screening 05/17/2019 [facility]-Diabetes: Hemoglobin A1C 12/24/202310/2023, 01/07/2021, 10/07/2020, Additional history exists [facility]-Lung Cancer Screening 2024 [facility]-Zoster Vaccines (1 of 2) 2024 [facility]-NREMC-10 Vaccine (3 - 2024- season) 2024 11/07/2020, 10/10/2020 [facility]-Influenza Vaccine (#1) 2024 [facility]-Depression Screening 08/16/2025 [...] this topic Medical Devices Implanted Type Area Tax Accounting Manager Device Identifier Shelf Expiration Date Model / Serial / Lot Kit [facility] 700 Accessory - [id number] - [id number] Implanted:Qty: 1 on 12/23/2023 by Talib Davis MD at [facility] Implant [id number] 10/12/2028 [id number] / [id number] / [id number] Conceal Iz - [id number] - [id number] Implanted:Qty: 1 on 12/23/2023 by Talib Davis MD at [facility] Implant [id number] 11/08/2025 [id number] / [id number] / Cx Preconnect Ms 21cm Ps Iz - [id number] - [id number] Implanted:Qty: 1 on 12/23/2023 by Talib Davis MD at [facility] Implant [id number] 11/11/2025 [id number] / [id number] / [employer] Rear Tip Rn Clinical Resource 3cm Implanted:Qty: 1 on 12/23/2023 by Talib Davis MD at [facility] Implant [employer] 10/06/2028 [id number] / [id number] / [id number] [employer] Rear Tip Rn Clinical Resource 2cm Implanted:Qty: 1 on 12/23/2023 by Talib Davis MD at [facility] Implant [employer] 11/06/2028 [id number] / [id number] / [id number] Lead Solia S 53 Mri Lead - [id number] Implanted:Qty: 1 on 08/29/2020 by Mode Fong MD at [facility] [employer]-[id number] 07/15/2022 [id number] / [id number] / [id number] Lead Solia S 45 Mri Lead - [id number] Implanted:Qty: 1 on 08/29/2020 by Mode Fong MD at [facility] [employer] Inc-[id number] 03/17/2022 [id number] / [id number] / [id number] Pacemaker Edora Dr Ban Soto - [id number] Implanted:Qty: 1 on 08/29/2020 by Mode Fong MD at [facility] [employer] Inc-[id number] 01/14/2022 [id number] / [id number] / [id number] Procedures Procedure Name Priority Date/Time Associated Diagnosis [...] 2 MG/0.08ML Route: Intravitreal, Site: Left Eye [facility]: 70036-834-14, Lot: [id number], Expiration date: 04/15/2025 Post-op Post injection exam [...] 2 MG/0.08ML Route: Intravitreal, Site: Left Eye [facility]: 07340-464-88, Lot: [id number], Expiration date: 01/08/2025 Post-op Post injection exam [...] MD OPHTH PHOTOGRAPHY Final Re sult * Intravitreal Drug Injection - OS - [...] 1.25 MG/0.05ML Route: Intravitreal, Site: Left Eye [facility]: [address]-9, Lot: [id number], Expiration date: 11/10/2024 Post-op Post injection exam [...] Adults <6.0% Children and Adolescents <7.5% Source: [place] [employer]. Standards of medical care in diabetes,2017. Diabetes Care.2017:40 (suppl 1):S1-S135. HbA1c assay performed by an ion-exchange chromatography method that is certified traceable to the DCCT. us Chelsea Luke MD LAB BLOOD ORDERABLES Final Re sult [facility] [address] [place] [address] from Last 3 Months or Most Recently Relevant to Health Maintenance Additional Health Concerns Infection Onset Date Last Indicated MRSA Comment: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 Source: [facility]. 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 Source: [facility]. 06/16/2022 Insurance [facility] MEDICAID Advance Directives * Full Code (Latest Code Status on File) Date Activated Date Inactivated Comments 09/03/2020 12:36 AM 09/09/2020 6:58 PM Question Answer Comments Patient has decision-making capacity? Yes * Full Code Date Activated Date Inactivated Comments 08/22/2020 7:02 PM 08/31/2020 4:59 PM Question Answer Comments Patient has decision-making capacity? Yes Care Teams Subassemblies Wirer Relationship Specialty Start Date End Date Beth Lawson APRN [address] [place] [address] PCP - General 08/22/20 Jesu Aguilar MD [address] [address] Referring Physician 09/20/20 Talib Davis MD [address] [facility] [address] [place] [address] Consulting Physician Urology 02/07/24
--- OUTSIDE RECORDS SUMMARY | 2024-11-30 09:11 | XMS_ITS | Encounter Summary ---
Author Organization [facility] Address [address] 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 Barillas. Left message requesting a call back if patient chooses to go ahead and schedule (he has an appt with Dr. Barillas in December). documented in this encounter Plan of Treatment Upcoming Encounters Date Type Department Care Team (Late st Contact Info) Description 12/28/2024 10:30 AM EST Procedure Visit [facility] [address] [place] [address] Ranjana Barillas MD [address] [address] Scheduled Procedures Name Priority Associated Diagnoses Date/Ti me VITRECTOMY, PARS PLANA APPRO ACH, WITH FOCAL ENDOLASER PHOTOCOAGULATION 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 type 2 diabetes mellitus Vitreous hemorrhage of left eye ([facility]/HCC) documented as of this encounter Visit Diagnoses Not on filedocumented in this encounter Additional Health Concerns Infection Onset Date Last Indicated Resolved Time MRSA Comment: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 Source: [facility]. 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 Source: [employer] [facility]. 06/16/2022 Assessment Noted Time A fall risk assessment has been complete d for the patient 11/23/2024 10:40 AM EDT A Body Mass Index follow-up plan has been documented for the patient 08/16/2024 3:02 PM EDT documented as of this encounter Care Teams Dresser Tender Relationship Specialty Start Date End Date Beth Lawson APRN [address] [place] [address] PCP - General 08/22/20 Jesu Aguilar MD [address] [facility] [address] [place] [id number] Referring Physician 09/20/20 Talib Davis MD [id number] [place] [address] Consulting Physician Urology 02/07/24 documented as of this encounter
--- OUTSIDE RECORDS SUMMARY | 2024-11-30 09:11 | XMS_ITS | Clinical Summary ---
Author Organization [facility] Address [address] [place] [address] Phone Care Team Providers Care Dispatcher Relay Name Role Phone RennyPeeweeKaye Unavailable [phone] Joseluis KIM, Wilfred Lerma Primary Care Provider [phone] Reason for Visit and Chief Complaint WC FOLLOW UP/EST Problems Includes: Problems addressed during this encounter and other active Problems All Visits Onset Date Resolved Date Provider Condition S tatus Lower Back Pain 03/17/2023 Stefan Monroy PA-C A ctive Last Documented On 4 10:03AM ; [facility] Soft Tissue Pain Hand 08/10/2012 Wilfred robert MD Active Last Documented On 3 9:27AM ; [facility] Plan of Treatment No Plan of Treatment Recorded Assessments Includes: Assessments from this encounter No Assessments Recorded Medical Equipment - Implanted Devices Includes: Current Devices No Medical Equipment Recorded Medications Includes: Medications discussed during this encounter and other current Medications Current Medications (continue as prescribed) Dexcom G6 Systems Qa Analyst Device 03/09/2023 Provider: PEEWEE SUH Diagnosis: Last Documented On 4 10:04AM By Trinidad Rodríguez ; [facility] Dexcom G6 Sensor Miscellaneous 03/03/2023 Provider: RODGER SUH Diagnosis: Last Documented On 4 10:04AM By Trinidad Rodríguez ; [facility] Dexcom G6 Transmitter Miscellaneous 03/03/2023 Provi aditya: RODGER SUH Diagnosis: Last Documented On 4 10:04AM By Trinidad Rodríguez ; [facility] HYDROcodone-Acetaminophen 5-325 MG Oral Tablet 024 Provider: RODGER SUH Diagnosis: Last Documented On 4 10:04AM By Trinidad Rodríguez ; [facility] Lisinopril 2.5 MG Oral Tablet 03/02/2023 Provider: RODGER SUH Diagnosis: Last Documented On 4 10:04AM By Trinidad Rodríguez ; [facility] Januvia 100 MG Oral Tablet 03/01/2023 Provider: Mariama SUH Diagnosis: Last Documented On 4 10:04AM By Trinidad Rodríguez ; [facility] HumaLOG Mix 75/25 KwikPen (7 5-25) 100 UNIT/ML Subcutaneous Suspension Pen-injector 02/23/2023 Provider: Diagnosis: Last Documented On 4 10:04AM By Trinidad Rodríguez ; [facility] Atorvastatin Calcium 80 MG Oral Tablet 02/19/2023 Pr ovider: Diagnosis: Last Documented On 4 10:04AM By Trinidad Rodríguez ; [facility] Carvedilol 3.125 MG Oral Tablet 01/02/2023 Provider: Diagnosis: Last Documented On 4 10:04AM By Trinidad Rodríguez ; [facility] Tadalafil 20 MG Oral Tablet 12/21/2022 Provider: Diagnosis: Last Documented On 4 10:04AM By Trinidad Rodríguez ; [facility] traZODone HCl 50 MG Oral Tablet 10/22/2022 Provider: Diagnosis: Last Documented On 4 10:04AM By Trinidad Rodríguez ; [facility] Carvedilol 3.125 MG Oral Tablet 08/12/2022 Provider: Diagnosis: Last Documented On 4 10:04AM By Trinidad Rodríguez ; [facility] Jardiance 10 MG Oral Tablet 03/16/2022 Provider: Diagnosis: Last Documented On 4 10:04AM By Trinidad Rodríguez ; [facility] Medications Administered Includes: Administered [...] Effect junaid Dates 1 - BC[employer] Medicaid [id number] HIPOLITO caldera Clinical Notes Includes: Clinical Notes from this encounter No Clinical Notes Recorded
--- OUTSIDE RECORDS SUMMARY | 2024-11-30 09:11 | XMS_ITS ---
Care Plan - [facility] Created on: November 30, 2024 HIPOLITO MAYA : 1975 Sex: Male Author Organization [facility] Address [address] [place] [address] Phone Care Team Providers Care Clinic Office Manager Name Role Phone Kaye Lawson Unavailable [phone] Joseluis KIM, Wilfred Lerma Primary Care Provider [phone]
--- OUTSIDE RECORDS SUMMARY | 2024-11-30 09:11 | XMS_ITS | Encounter Summary ---
Author Organization [facility] Address [address] 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 Source: [facility]. 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 Source: [facility]. 06/16/2022 Assessment Noted Time A fall risk assessment has been complete d for the patient 11/23/2024 10:40 AM EDT A Body Mass Index follow-up plan has been documented for the patient 08/16/2024 3:02 PM EDT documented as of this encounter Care Teams Square Dance Caller Relationship Specialty Start Date End Date Beth Lawson APRN [address] [place] [address] PCP - General 08/22/20 Jesu Aguilar MD [address] [facility] [address] [place] [address] Referring Physician 09/20/20 Talib Davis MD [address] [facility] [address] [place] [address] Consulting Physician Urology 02/07/24 documented as of this encounter
--- OUTSIDE RECORDS SUMMARY | 2024-11-30 09:11 | XMS_ITS | Encounter Summary ---
Author Organization [facility] Address [address] 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 Source: [employer]. 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 Source: [employer]. 06/16/2022 Assessment Noted Time A fall risk assessment has been complete d for the patient 11/20/2021 8:57 AM EDT documented as of this encounter Care Teams Antenna Engineer Relationship Specialty Start Date End Date Beth Lawson APRN [address] [place] [address] PCP - General 08/22/20 Jesu Aguilar MD [address] [address] Referring Physician 09/20/20 Talib Davis MD [address] [facility] [address] [place] [address] Consulting Physician Urology 02/07/24 documented as of this encounter
--- OUTSIDE RECORDS SUMMARY | 2024-11-30 09:13 | XMS_ITS | Referral Summary ---
Author Organization [employer] ([place], [place], [place], [place]) Address [address] [place] [address] Care Team Providers Care Video Producer Name Role Phone Unavailable Primary Care Provider [...] Date Francis rded Speak language other than Israeli at home Not on file 07/06/2023 Want [...] on file Medical Devices Implanted Type Area Bank Credit Card Collection Clerk Device Identifier Shelf Expiration Date Model / Serial / Lot Pacemaker- 1 Implanted:08/30/19 21 (Quantity not on file) [employer] TEJA TAYLOR / [id number] / Description:Mri conditional Generator: teja taylor Lead: solia s 45 Lead: solia s 53 Insurance [facility]
--- OUTSIDE RECORDS SUMMARY | 2024-11-30 09:13 | XMS_ITS | Encounter Summary ---
Author Organization [facility] Address [address] [place] [address] Care Team Providers Care Parachute Panel Joiner Name Role Phone Beth Lawson APRN Primary Care Provider [phone] Jesu Aguilar MD Unavailable [phone] Talib Davis MD Unavailable [phone] Encounter Details Date Type Department Care Team (Latest Contact Info) Description 10/20/2024 Travel Social History Tobacco Use Types Packs/Day [...] 12/28/2024 10:30 AM EST Procedure Visit [facility] [address] [place] [address] Ranjana Barillas MD [address] [place] [address] Scheduled Procedures Name Priority [...] Time MRSA Comment: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 Source: [facility]. 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 Source: [facility]. 06/16/2022 Assessment Noted Time A fall risk assessment has been complete d for the patient 09/12/2024 9:53 AM EDT A Body Mass Index follow-up plan has been documented for the patient 08/16/2024 3:02 PM EDT documented as of this encounter Care Teams Parachute Panel Joiner Relationship Specialty Start Date End Date Beth Lawson APRN [address] [place] [address] PCP - General 08/22/20 Jesu Aguilar MD [address] [address] Referring Physician 09/20/20 Talib Davis MD [address] [facility] [address] [place] [id number] Consulting Physician Urology 02/07/24 documented as of this encounter
--- OUTSIDE RECORDS SUMMARY | 2024-11-30 09:13 | XMS_ITS | Clinical Summary ---
Author Organization [facility] ([place], [place], [place], [place]) Address [address] [place] [address] Care Team Providers Care Paper Bag Making Machinist Name Role Phone Unavailable Primary Care Provider [...] Date Francis rded Speak language other than Dominican at home Not on file 07/06/2023 Want [...] VACCINES (2 - Td or Tdap) 04/16/2006 Pneumococcal 50+ years (1 of 1 - PCV) 2024 Shingles Vaccine (Zoster) (1 of 2) 2024 COVID-19 VACCINE (3 - 2024- season) 2024, 10/10/2020 Influenza Vaccine (#1) 2024 Lipid Panel 08/22/2025 08/22/2020 Medical Devices Implanted Type Area Field Recruiter Device Identifier Shelf Expiration Date Model / Serial / Lot Pacemaker- 1 Implanted:08/30/19 21 (Quantity not on file) [employer] TEJA TAYLOR / [id number] / Description:Mri conditional Generator: teja taylor Lead: daniel Dodson Lead: daniel roche 53 Insurance [facility]
== END 2024-11-28 23:59 ==
LOC: LAB.DROPOF 11-30 09:01
PROVIDERS: PCP Nurse Practitioner Family; Visit Provider Nurse Practitioner Family
DX: E78.5 Hyperlipidemia, unspecified (principal); I10 Essential (primary) hypertension; E11.9 Type 2 diabetes mellitus without complications; M62.81 Muscle weakness (generalized)
CPT/HCPCS: 80061; 83036; 84402; 84403